=== PATIENT | female | born 2000 | race Caucasian/White ===

== ENCOUNTER 2024-07-12 07:50 | Outpatient (OUT) | payer BC, SELFPAY ==
--- NOTE | 2024-07-12 07:53 | US_ITS ---
[place] [address] Patient Name: EFREN CORTES MRN: [id number] date: 2000 Sex: F Assigned Patient Location: [place] Current Patient Location: US Accession/Order Number: [id number] Exam Date: 07/12/2024 08:00 Report Date: 07/12/2024 08:46 At the request of: HAILEE ALLAN Procedure: US OB limited EXAMINATION: US OB limited HISTORY: Subshorionic hemorrhage of placenta 1st trimester,O20.8 COMPARISON: No relevant comparison available. FINDINGS: Transabdominal images Placenta: Anterior [place] intrauterine gestation CRL: 4.45 cm, 11 weeks 2 days Heart rate: 169 beats minute Clinical age: 11 weeks 3 days Clinical ELVA: 01/28/2025 Ultrasound age: 11 weeks 2 days Ultrasound ELVA: 01/29/2025 US/US OB limited IMPRESSION: No subchorionic hematoma Viable intrauterine gestation measuring 11 weeks 2 days Electronically authenticated by: GERRY GREEN Date: 07/12/2024 08:46
== END 2024-07-12 07:51 | disposition home or self-care (01) ==
PROVIDERS: PCP Internal Medicine; Visit Provider Midwife
DX: O20.8 Other hemorrhage in early pregnancy (principal); Z3A.11 11 weeks gestation of pregnancy
CPT/HCPCS: 76815

== ENCOUNTER 2024-11-09 07:31 | Outpatient (RCR) | payer OTHER, SELFPAY ==
[2024-11-09 09:55] VITALS: BP 120/86; PULSE 84; TEMP 36.4; O2SAT 97
[2024-11-09] MEDS: RHO(D) IMMUNE GLOBULIN 1,500 UNIT SYRINGE 1500 UNIT IM (10:03)
--- NOTE | 2024-11-09 10:08 | PC.NURSE ---
1003: Denies questions regarding Rhogam. Medicated with Rhogam as ordered. Slight bleeding to injection site, covered with Bandaid. Tolerated with minimal c/o. Will monitor pt. for adverse reaction. Drinking water, denies needs.
== END 2024-12-07 23:59 | disposition home or self-care (01) ==
LOC: INF 07:31
PROVIDERS: Visit Provider Midwife
DX: O26.893 Other specified pregnancy related conditions, third trimester (principal); Z67.91 Unspecified blood type, Rh negative
CPT/HCPCS: 36415; 86850; 86900; 86901; 96372; J2791

== ENCOUNTER 2025-01-22 20:45 | Observation (INO) | payer OTHER, SELFPAY ==
--- OUTSIDE RECORDS SUMMARY | 2025-01-22 17:53 | XMS_ITS | CCD ---
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 ([id number]) [address] [facility] [place] [address] #### 30732-7, 3051-0, HA1C, CBCA, 48487-5, CMP, 45844-0, 99730-5, THYR #### [facility] ([id number]) [address], [address] [place] [address] Eosinophils/100 WBC (Bld) 0.9 % Normal [facility] Comment on above: Performed By: #### 3 0896-5, 91727-3 #### [facility] ([id number]) [address] [place] [address] #### 40495-5, 3051-0, HA1C, CBCA, 57356-0, CMP, 51830-6, 96749-3, THYR #### [facility] ([id number]) [address], [address] [place] [address] Erythrocyte distribution width (RBC) [Ratio] 14.7 % Normal 11.5-15.0 [facility] Comment on above: Performed By: #### 3 0896-5, 33743-0 #### [facility] ([id number]) [address] [place] [address] #### 52803-1, 3051-0, HA1C, CBCA, 82221-6, CMP, 24057-3, 97753-7, THYR #### [facility] ([id number]) [address], [address] [place] [address] Hematocrit (Bld) [Volume fraction] 36.8 % Normal 35-47 [facility] Comment on above: Performed By: #### 3 0896-5, 57105-2 #### [facility] ([id number]) [address] [place] [address] #### 54972-1, 3051-0, HA1C, CBCA, 66700-3, CMP, 37682-6, 44414-7, THYR #### [facility] ([id number]) [address], [address] [place] [address] Hemoglobin (Bld) [Mass/Vol] 12.8 g/dL Normal 11.7-15.5 [facility] Comment on above: Performed By: #### 3 0896-5, 93994-4 #### [facility] ([id number]) [facility] [place] [address] #### 25860-3, 3051-0, HA1C, CBCA, 32480-9, CMP, 03787-4, 27344-5, THYR #### [facility] ([id number]) [address] [facility] [address] [facility] [place] [address] Lymphocytes (Bld) [#/Vol] 0.5 10*3/uL Low 1.0-3.5 [facility] Comment on above: Performed By: #### 3 0896-5, 19997-4 #### [facility] ([id number]) [facility] [place] [address] #### 25200-8, 3051-0, HA1C, CBCA, 22457-8, CMP, 52848-9, 65759-7, THYR #### [facility] ([id number]) [address] [facility] [address] [place] [address] Lymphocytes/100 WBC (Bld) 5.3 % Normal [facility] Comment on above: Performed By: #### 3 0896-5, 80859-2 #### [facility] ([id number]) [facility] [place] [address] #### 90862-9, 3051-0, HA1C, CBCA, 63669-5, CMP, 69557-1, 89854-0, THYR #### [facility] ([id number]) [address], [address] [place] [address] MCH (RBC) [Entitic mass] 35.0 pg High 27-34 [facility] Comment on above: Performed By: #### 3 0896-5, 60986-7 #### [facility] ([id number]) [address] [place] [address] #### 03626-1, 3051-0, HA1C, CBCA, 67548-1, CMP, 68939-0, 30769-0, THYR #### [facility] ([id number]) [address], [address] [place] [address] MCHC (RBC) [Mass/Vol] 34.8 g/dL Normal 32-36 [facility] Comment on above: Performed By: #### 3 0896-5, 97291-1 #### [facility] ([id number]) [address] [place] [address] #### 53756-7, 3051-0, HA1C, CBCA, 21641-1, CMP, 41979-0, 01094-8, THYR #### [facility] ([id number]) [address], [address] [place] [address] MCV (RBC) [Entitic vol] 101 fL High 80-100 P [facility] Comment on above: Performed By: #### 3 0896-5, 12870-6 #### [facility] ([id number]) [address] [place] [address] #### 90576-2, 3051-0, HA1C, CBCA, 78273-5, CMP, 12663-9, 26819-9, THYR #### [facility] ([id number]) [address], [address] [place] [address] Monocytes (Bld) [#/Vol] 0.5 10*3/uL Normal 0-0.9 [facility] Comment on above: Performed By: #### 3 0896-5, 25402-4 #### [facility] ([id number]) [address] [place] [address] #### 67037-1, 3051-0, HA1C, CBCA, 71790-2, CMP, 88385-6, 73732-9, THYR #### [facility] ([id number]) [address], [address] [place] [address] Monocytes/100 WBC (Bld) 5.2 % Normal [facility] Comment on above: Performed By: #### 3 0896-5, 37287-0 #### [facility] ([id number]) [address] [place] [address] #### 41580-3, 3051-0, HA1C, CBCA, 68152-0, CMP, 87824-5, 80467-6, THYR #### [facility] ([id number]) [address], [address] [place] [address] Neutrophils/100 WBC (Bld) 88.5 % Normal [facility] Comment on above: Performed By: #### 3 0896-5, 37496-0 #### [facility] ([id number]) [address] [place] [address] #### 43194-5, 3051-0, HA1C, CBCA, 07098-8, CMP, 42293-0, 20503-1, THYR #### [facility] ([id number]) [address], [address] [place] [address] Platelet mean volume (Bld) [Entitic vol] 8.7 fL Normal 7-12 [facility] Comment on above: Performed By: #### 3 0896-5, 73310-0 #### [facility] ([id number]) [address] [place] [address] #### 99770-1, 3051-0, HA1C, CBCA, 84116-5, CMP, 57917-7, 76839-2, THYR #### [facility] ([id number]) [address], [address] [place] [address] Platelets (Bld) [#/Vol] 224 10*3/uL Normal 150-450 [facility] Comment on above: Performed By: #### 3 0896-5, 40940-8 #### [facility] ([id number]) [address] [place] [address] [place] [address] #### 51316-7, 3051-0, HA1C, CBCA, 12037-9, CMP, 37804-5, 10895-5, THYR #### [facility] ([id number]) [address], [address] [place] [address] RBC COUNT 3.66 X10E12/L Low 3.80-5.20 [facility] Comment on above: Performed By: #### 3 0896-5, 12693-3 #### [facility] ([id number]) [address] [place] [address] [place] [address] #### 08664-7, 3051-0, HA1C, CBCA, 78445-8, CMP, 43796-9, 67796-3, THYR #### [facility] ([id number]) [address], [address] [place] [address] WBC (Bld) [#/Vol] 9.7 10*3/uL Normal 4.0-11.0 [facility] Comment on above: Performed By: #### 3 0896-5, 43820-8 #### [facility] ([id number]) [address] [place] [address] [place] [address] #### 47999-0, 3051-0, HA1C, CBCA, 84419-4, CMP, 00735-1, 44986-7, THYR #### [facility] ([id number]) [address], [address] [place] [address] COMPREHENSIVE METABOLIC PANE Godfrey 10-05-2024 Albumin [Mass/Vol] 3.5 g/dL Normal 3.2-5.3 [facility] Comment on above: Performed By: #### 3 0896-5, 68701-3 #### [facility] ([id number]) [address] [place] [address] #### 30683-8, 3051-0, HA1C, CBCA, 34832-1, CMP, 80028-8, 13417-4, THYR #### [facility] ([id number]) [address] [facility], [address] [place] [address] ALP [Catalytic activity/Vol] 90 U/L Normal 39-130 [facility] Comment on above: Performed By: #### 3 0896-5, 43225-4 #### [facility] ([id number]) [address] [place] [address] #### 40767-7, 3051-0, HA1C, CBCA, 55078-9, CMP, 30758-9, 73041-1, THYR #### [facility] ([id number]) [address] [facility], [address] [place] [address] ALT [Catalytic activity/Vol] 28 U/L Normal 0-31 [facility] Comment on above: Performed By: #### 3 0896-5, 56237-5 #### [facility] ([id number]) [address] [place] [address] #### 12423-3, 3051-0, HA1C, CBCA, 24912-8, CMP, 25560-3, 30730-7, THYR #### [facility] ([id number]) [address] [facility] [facility] [place] [address] Anion gap [Moles/Vol] 9 mmol/L Normal 5-15 [facility] Comment on above: Performed By: #### 3 0896-5, 35730-8 #### [facility] ([id number]) [address] [place] [address] #### 15198-8, 3051-0, HA1C, CBCA, 18099-5, CMP, 58388-7, 80421-2, THYR #### [facility] ([id number]) [address], [address] [place] [address] AST [Catalytic activity/Vol] 27 U/L Normal 0-41 [facility] Comment on above: Performed By: #### 3 0896-5, 84150-0 #### [facility] ([id number]) [address] [place] [address] #### 81803-6, 3051-0, HA1C, CBCA, 72808-1, CMP, 36855-3, 17134-1, THYR #### [facility] ([id number]) [address], [address] [place] [address] Bilirubin [Mass/Vol] 0.2 mg/dL Low 0.3-1.2 [facility] Comment on above: Performed By: #### 3 0896-5, 15981-5 #### [facility] ([id number]) [address] [place] [address] #### 74011-3, 3051-0, HA1C, CBCA, 94011-4, CMP, 15444-1, 65675-0, THYR #### [facility] ([id number]) [address] [place] [address] Calcium [Mass/Vol] 9.5 mg/dL Normal 8.5-10.5 [facility] Comment on above: Performed By: #### 3 0896-5, 10023-9 #### [facility] ([id number]) [address] [place] [address] #### 26357-3, 3051-0, HA1C, CBCA, 51062-2, CMP, 65017-7, 77708-7, THYR #### [facility] ([id number]) [address] [place] [address] Chloride [Moles/Vol] 100 mmol/L Normal 98-109 [facility] Comment on above: Performed By: #### 3 0896-5, 02261-8 #### [facility] ([id number]) [address] [place] [address] #### 96107-4, 3051-0, HA1C, CBCA, 16379-3, CMP, 32470-5, 12455-6, THYR #### [facility] ([id number]) [address] [place] [address] CO2 [Moles/Vol] 23 mmol/L Normal 22-32 [facility] Comment on above: Performed By: #### 3 0896-5, 43112-0 #### [facility] ([id number]) [address] [place] [address] #### 68629-3, 3051-0, HA1C, CBCA, 80318-9, CMP, 33474-8, 85196-1, THYR #### [facility] ([id number]) [address] [place] [address] Creatinine [Mass/Vol] 0.68 mg/dL Normal 0.40-1.00 [facility] Comment on above: Result Comment: METH OD TRACEABLE TO IDMS STANDARD Performed By: #### 3 0896-5, 29195-9 #### [facility] ([id number]) [address] [place] [address] #### 37447-4, 3051-0, HA1C, CBCA, 72932-1, CMP, 23582-8, 99266-5, THYR #### [facility] ([id number]) [address], [address] [place] [address] eGFR (CKD-EPI) NON-RACE DEPENDENT >90 Normal >59 [facility] Comment on above: Result Comment: Reported eGFR is based on the CKD-EPI 2020 equation that does not use a race coefficient. Performed By: #### 3 0896-5, 05753-8 #### [facility] ([id number]) [address] [place] [address] #### 33601-7, 3051-0, HA1C, CBCA, 38041-2, CMP, 24200-6, 26311-1, THYR #### [facility] ([id number]) [address] [facility] [place] [address] Glucose [Mass/Vol] 87 mg/dL Normal 65-99 [facility] Comment on above: Performed By: #### 3 0896-5, 14870-3 #### [facility] ([id number]) [address] [place] [address] #### 09682-1, 3051-0, HA1C, CBCA, 14745-5, CMP, 53891-4, 97027-6, THYR #### [facility] ([id number]) [address] [facility] [place] [address] Potassium [Moles/Vol] 3.3 mmol/L Low 3.5-5.0 [facility] Comment on above: Performed By: #### 3 0896-5, 73564-8 #### [facility] ([id number]) [address] [place] [address] #### 80015-8, 3051-0, HA1C, CBCA, 11572-0, CMP, 47022-9, 36420-1, THYR #### [facility] ([id number]) [address] [facility] [place] [address] Protein [Mass/Vol] 7.6 g/dL Normal 6.0-8.0 [facility] Comment on above: Performed By: #### 3 0896-5, 14449-5 #### [facility] ([id number]) [address] [place] [address] #### 33862-0, 3051-0, HA1C, CBCA, 71787-0, CMP, 65732-0, 05570-4, THYR #### [facility] ([id number]) [address] [facility] [place] [address] Sodium [Moles/Vol] 132 mmol/L Low 134-146 [facility] Comment on above: Performed By: #### 3 0896-5, 05000-7 #### [facility] ([id number]) [address] [facility] [address] #### 60619-5, 3051-0, HA1C, CBCA, 03102-3, CMP, 58315-5, 65689-2, THYR #### [facility] ([id number]) [address] [facility], [address] [place] [address] Urea nitrogen [Mass/Vol] 6 mg/dL Normal 5-23 [facility] Comment on above: Performed By: #### 3 0896-5, 42460-3 #### [facility] ([id number]) [address] [facility] [place] [address] #### 38525-7, 3051-0, HA1C, CBCA, 13267-8, CMP, 54976-0, 32610-6, THYR #### [facility] ([id number]) [address] [facility], [address] [place] [address] SARS/FLU A+B/RSV by NAAT/Mol ecularon 10-05-2024 SARS/FLU A+B/RSV by NAAT/Molecular FLU A PCR Negative (qualifier value) FLU B PCR Negative (qualifier value) RSV by PCR Negative (qualifier value) SARS CoV 2 Detected (qualifier value) NOTE The Xpert Xpress SARS-CoV-2/Flu/RSV Plus test is a rapid, multiplexed real-time RT-PCR test intended for the simultaneous qualitative detection and differentiation of SARS-CoV-2, influenza A, influenza B and respiratory syncytial virus (RSV) viral RNA from individuals suspected of respiratory viral infection consistent with COVID-19 by their healthcare provider. This test has not been validated in asymptomatic patients. The Xpert Xpress SARS-CoV-2 test is intended for use by qualified and trained operators who are performing tests using either TaxJar or Gamerius systems and is limited to laboratories that meet the CLIA requirements to perform high and moderate complexity tests. The Xpert Xpress SARS-CoV-2/Flu/RSV Plus is only for use under the Food and Drug Administration's Emergency Use Authorization. Results are for the simultaneous detection and differentiation of SARS-CoV-2, influenza A, influenza B and RSV nucleic acids in clinical specimens. SARS-CoV-2, influenza A, influenza B and RSV RNA identified by this test are generally detectable in upper respiratory samples during the acute phase of infection. Positive results are indicative of the presence of the identified virus, but do not rule out bacterial infection or co-infection with other pathogens not detected by this test. Clinical correlation with patient history and other diagnostic information is necessary to determine patient infection status. The agent detected may not be the definite cause of disease. Negative results do not preclude SARS-CoV-2, influenza A, influenza B and RSV infection and should not be used as the sole basis for treatment or other patient management decisions. Negative results must be combined with clinical observations, patient history and epidemiological information. An Invalid result may occur with specimen-associated inhibition unable to be resolved with specimen repeat. Fact Sheet for Healthcare Providers: https://www.fda.gov /media/600342/downl oad Fact Sheet for Patients: https://www.fda.gov /media/022704/downl oad Normal [facility] Comment on above: Performed By: #### 3 0896-5, 53245-2 #### [facility] ([id number]) [address] [facility] [place] [address] #### 39528-7, 3051-0, HA1C, CBCA, 41998-2, CMP, 35263-3, 32876-6, THYR #### [facility] ([id number]) [address] [facility] [place] [address] Troponin I.cardiac High sens itivity method [Mass/Vol]on 10-05-2024 TROPONIN I, HIGH SENSITIVITY <2 Normal <16 [facility] Comment on above: Performed By: #### 3 0896-5, 82830-7 #### [facility] ([id number]) [address] [place] [address] #### 81117-3, 3051-0, HA1C, CBCA, 55679-4, CMP, 35460-3, 36549-9, THYR #### [facility] ([id number]) [address] [place] [address] URN MACROSCOPIC NURon 2024 BILIRUBIN MERI Negative Normal NEG [facility] Comment on above: Performed By: #### 3 0896-5, 14348-3 #### [facility] ([id number]) [facility] [place] [address] #### 23529-2, 3051-0, HA1C, CBCA, 28931-3, CMP, 25305-4, 36121-5, THYR #### [facility] ([id number]) [address] [facility] [place] [address] BLOOD/HGB MERI Negative Normal NEG [facility] Comment on above: Performed By: #### 3 0896-5, 61898-3 #### [facility] ([id number]) [facility] [place] [address] #### 22085-3, 3051-0, HA1C, CBCA, 51953-9, CMP, 17943-4, 51450-0, THYR #### [facility] ([id number]) [address] [facility] [place] [address] GLUCOSE MERI Negative Normal NEG [facility] Comment on above: Performed By: #### 3 0896-5, 84792-6 #### [facility] ([id number]) [address] [place] [address] #### 15070-7, 3051-0, HA1C, CBCA, 13371-8, CMP, 40890-9, 35915-6, THYR #### [facility] ([id number]) [address] [facility], [address] [place] [address] KETONES MERI Negative Normal NEG [facility] Comment on above: Performed By: #### 3 0896-5, 29193-1 #### [facility] ([id number]) [address] [place] [address] #### 85815-1, 3051-0, HA1C, CBCA, 52804-1, CMP, 11900-8, 16460-2, THYR #### [facility] ([id number]) [address] [facility], [address] [place] [address] LEUKOCYTE ESTERASE MERI Small Abnormal NEG Pr [facility] Comment on above: Performed By: #### 3 0896-5, 49201-6 #### [facility] ([id number]) [address] [place] [address] #### 78593-5, 3051-0, HA1C, CBCA, 81335-4, CMP, 60036-4, 42892-9, THYR #### [facility] ([id number]) [address] [facility], [address] [place] [address] NITRITE MERI Negative Normal NEG [facility] Comment on above: Performed By: #### 3 0896-5, 47286-9 #### [facility] ([id number]) [address] [place] [address] #### 10327-2, 3051-0, HA1C, CBCA, 50980-0, CMP, 56864-0, 27739-1, THYR #### [facility] ([id number]) [address] [facility], [address] [place] [address] PH MERI 8.5 Normal 5.0-8.5 [facility] Comment on above: Performed By: #### 3 0896-5, 01278-7 #### [facility] ([id number]) [facility] [place] [address] #### 02928-7, 3051-0, HA1C, CBCA, 61939-5, CMP, 56627-1, 48172-3, THYR #### [facility] ([id number]) [address], [address] [place] [address] PROTEIN MERI Negative Normal NEG [facility] Comment on above: Performed By: #### 3 0896-5, 08758-7 #### [facility] ([id number]) [address] [place] [address] #### 49909-2, 3051-0, HA1C, CBCA, 85860-7, CMP, 44806-0, 55094-7, THYR #### [facility] ([id number]) [address] [facility], [address] [place] [address] SPECIFIC GRAVITY MERI 1.020 Normal 1.003-1.035 [facility] Comment on above: Performed By: #### 3 0896-5, 00605-4 #### [facility] ([id number]) [address] [place] [address] #### 81496-5, 3051-0, HA1C, CBCA, 60642-6, CMP, 57356-9, 56624-0, THYR #### [facility] ([id number]) [address] [facility], [address] [place] [address] UROBILINOGEN MERI 0.2 eu/dL Normal <1.1 [facility] Comment on above: Performed By: #### 3 0896-5, 46560-9 #### [facility] ([id number]) [address] [place] [address] #### 34260-1, 3051-0, HA1C, CBCA, 68772-8, CMP, 55666-9, 57110-1, THYR #### [facility] ([id number]) [address], [address] [place] [address] Urine collection deviceon ER EXTRA URINES ER EXTRA URINE ORDER IN PROCESS Normal [facility] Comment on above: Performed By: #### 3 0896-5, 88189-4 #### [facility] ([id number]) [address] [facility] [address] #### 10475-0, 3051-0, HA1C, CBCA, 96069-6, CMP, 93786-8, 33676-6, THYR #### [facility] ([id number]) [address] [facility], [facility] [address] [place] [address] HGB A1C (GLYCO-HGB)on 2023 Glucose [Mass/Vol] 103 mg/dL Normal [facility] Comment on above: Performed By: #### H A1C, 3015-3 #### [facility] ([id number]) [address] [facility], [facility] [address] [place] [address] HbA1c (Bld) [Mass fraction] 5.2 % Normal 4.4-5.6 [facility] Comment on above: Result Comment: NOTE ADA Guidelines Result HgbA1c Normal : less than 5.7 % Prediabetes : 5.7 % to 6.4 % Diabetes : > 6.4 % Use with caution in patients with abnormal hemoglobin variants as the half-life of red blood cells and in vivo glycation rates are affected. Performed By: #### H A1C, 3015-3 #### [facility] ([id number]) [address] [facility], [facility] [address] [place] [address] TSH Qnon 07-22-2024 TSH 14.77 uIU/mL High 0.49-4.67 [facility] Comment on above: Result Comment: NEW REFERENCE RANGE FOR PEDIATRIC PATIENTS Performed By: #### H A1C, 6-3 #### [facility] ([id number]) [address] [facility], [address] [place] [address] Bacteria identified Cx Nom ( U)on 06-17-2024 Appearance (U) Adequate [facility] Internal identifier for Provider [id number] [facility] Specimen source Nom (Unsp spec) URINE [facility] STATUS FINAL Critical [facility] hospital Laboratory - Drug toxicology on 06-17-2024 9-Tpggwnvzkl-0,5-Dimethy l-3,3-Diphenylpyrrolidin e (EDDP) Ql (U) Negative NINF - 100 ng/mL [facility] Amphetamines Ql (U) Negative NINF - 5 00 ng/mL [facility] Barbiturates Ql (U) Negative NINF - 3 00 ng/mL [facility] Benzodiazepines Ql (U) Negative NINF - 100 ng/mL [facility] Benzoylecgonine Ql (U) Negative NINF - 150 ng/mL [facility] Opiates Ql (U) Negative NINF - 100 ng/mL [facility] oxyCODONE Ql (U) Negative NINF - 100 ng/mL [facility] Phencyclidine Ql (U) Negative NINF - 25 ng/mL [facility] Tetrahydrocannabinol Screen method >20 ng/mL Ql (U) Negative NINF - 20 ng/mL [facility] Laboratory - Microbiology an d Antimicrobial susceptibilityon 06-17-2024 Bacteria identified Cx Nom (U) SEE NOTE [facility] Comment on above: Mixed genital olimpia isolated. These superficial bacteria are not indicative of a urinary tract infection. No further organism identification is warranted on this specimen. If clinically indicated, recollect clean-catch, mid-stream urine and transfer immediately to Urine Culture Transport Tube. Laboratory - Urinalysison Bacteria LM.HPF (Urine sed) [#/Area] NONE SEEN NONE SEEN /HPF [facility] Calcium oxalate crystals LM.HPF (Urine sed) [#/Area] MANY Abnormal NONE OR FEW /HPF [facility] Epithelial cells.squamous LM.HPF (Urine sed) [#/Area] 10-20 Abnormal < OR = 5 /HPF [facility] Hyaline casts (Urine sed) [#/Area] NONE SEEN NONE SEEN /LPF [facility] RBC LM.HPF (Urine sed) [#/Area] NONE SEEN < OR = 2 /HPF [facility] WBC LM.HPF (Urine sed) [#/Area] 0-5 < OR = 5 /HPF [facility] N. gonorrhoeae DNA ALBINO+probe Ql (Cervical mucus)on 06-17-2024 C. trachomatis rRNA ALBINO+probe Ql (Unsp spec) Not detected NOT DETECTED [facility] N. gonorrhoeae rRNA ALBINO+probe Ql (Unsp spec) Not detected NOT DETECTED [facility] No Panel Informationon 06-17 (ALWAYS MESSAGE) [facility] Comment on above: See Note 1 Note 1 This drug testing is for medical treatment only. Analysis was performed as non-forensic testing and these results should be used only by healthcare providers to render diagnosis or treatment, or to monitor progress of medical conditions. For assistance with interpreting these drug results, please contact a [facility] Toxicology Specialist: [phone] ( ), M-F, 8am-6pm EST. The analytical perfo rmance characteristics of this assay, when used to test SurePath(TM) specimens have been determined by [facility]. The modifications have not been cleared or approved by the FDA. This assay has been validated pursuant to the CLIA regulations and is used for clinical purposes. For additional information, please refer to https://education.GreenTrapOnline/faq/KHQ327 (This link is being provided for information/ educational purposes only.) Interpretation and review of laboratory results Abnormal [facility] SPLIT 06/15/2024 FROM [id number] [employer] Organization Information Site ID: QPT Name: [facility] Address: [address] [place] [address], [address] [place] [phone] Director: Jensen Branham MD [facility] hospital CBC panel Auto (Bld)on 06-16 Erythrocyte distribution width (RBC) [Ratio] 12.2 % 11.0 - 15.0 % [facility] Hematocrit (Bld) [Volume fraction] 39.9 % 35.0 - 45.0 % [facility] Hemoglobin (Bld) [Mass/Vol] 13.2 g/dL 11.7 - 15.5 g/dL [facility] MCH (RBC) [Entitic mass] 33.6 pg High 27. 0 - 33.0 pg [facility] MCHC (RBC) [Mass/Vol] 33.1 g/dL 32.0 - 36.0 g/dL [facility] Comment on above: For adults, a slight decrease in the calculated MCHC value (in the range of 30 to 32 g/dL) is most likely not clinically significant; however, it should be interpreted with caution in correlation with other red cell parameters and the patient's clinical condition. MCV (RBC) [Entitic vol] 101.5 fL High 80.0 - 100.0 fL [facility] Platelet mean volume (Bld) [Entitic vol] 10.7 fL 7.5 - 12.5 fL [facility] Platelets (Bld) [#/Vol] 279 10*3/uL [facility] RBC (Bld) [#/Vol] 3.93 10*6/uL [facility] WBC (Bld) [#/Vol] 9.7 10*3/uL [facility] Laboratory - Blood bankon ABO group Nom (Bld) O [facility] Blood group antibody screen Ql Detected [facility] Comment on above: Reference range No antibodies detected This assay is a screening test for the detection of red blood cell antibodies. The test is not to be used for pretransfusion screening or for the medical management of an alloimmunized . Rh Nom (Bld) Negative [facility] Comment on above: For additional information, please refer to http://education.[employer]/faq/FEW307 (This link is being provided for informational/ educational purposes only.) Laboratory - Chemistry and C hemistry - challengeon 06-16-2024 Free T4 [Mass/Vol] 1 ng/dL 0.8 - 1.8 ng/dL [facility] TSH Qn 11.76 m[IU]/L High mIU/L [facility] Comment on above: Reference Range > or = 20 Years 0.40-4.50 Ranges First trimester 0.26-2.66 Second trimester 0.55-2.73 Third trimester 0.43-2.91 Laboratory - Hematology and Cell countson 06-16-2024 HbA1c (Bld) [Mass fraction] 5.1 % [facility] Comment on above: For the purpose of s creening for the presence of diabetes: <5.7% Consistent with the absence of diabetes 5.7-6.4% Consistent with increased risk for diabetes (prediabetes) > or =6.5% Consistent with diabetes This assay result is consistent with a decreased risk of diabetes. Currently, no consensus exists regarding use of hemoglobin A1c for diagnosis of diabetes in children. According to [place] Diabetes Association (ADA) guidelines, hemoglobin A1c <7.0% represents optimal control in non- diabetic patients. Different metrics may apply to specific patient populations. Standards of Medical Care in Diabetes(ADA). Laboratory - Microbiology armida arciniega Veronica burciaga 06-16-2024 HBV surface Ag IA Ql Non-Reactive NON-REACTIVE [facility] Comment on above: For additional information, please refer to http://[place].GreenTrapOnline/faq/COE404 (This link is being provided for informational/ educational purposes only.) HCV Ab IA Ql Non-Reactive NON-REACTIVE [facility] Comment on above: HCV antibody was non-reactive. There is no laboratory evidence of HCV infection. In most cases, no further action is required. However, if recent HCV exposure is suspected, a test for HCV RNA (test code 23018) is suggested. For additional information please refer to http://Webtogs/faq/LFQ74z9 (This link is being provided for informational/ educational purposes only.) HIV 1+2 Ab+HIV1 p24 Ag IA Ql Non-Reactive NON-REACTIVE [facility] Comment on above: HIV-1 antigen and HI V-1/HIV-2 antibodies were not detected. There is no laboratory evidence of HIV infection. PLEASE NOTE: This information has been disclosed to you from records whose confidentiality may be protected by state law. If your state requires such protection, then the state law prohibits you from making any further disclosure of the information without the specific written consent of the person to whom it pertains, or as otherwise permitted by law. A general authorization for the release of medical or other information is NOT sufficient for this purpose. For additional information please refer to http://[place].GreenTrapOnline/faq/ZBM372 (This link is being provided for informational/ educational purposes only.) The performance of this assay has not been clinically validated in patients less than 2 years old. Reagin Ab RPR Ql (S) Non-Reactive NON-REACTIVE [facility] Rubella virus IgG Qn (S) 1.88 [IU]/mL Index [facility] Comment on above: Index Interpretation ----- <0.90 Not consistent with immunity 0.90-0.99 Equivocal > or = 1.00 Consistent with immunity The presence of rubella IgG antibody suggests immunization or past or current infection with rubella virus. No Panel Informationon 06-16 Interpretation and review of laboratory results Abnormal [facility] PATIENT UNABLE TO VOID; ADVISED TO RETURN FOR COLLECTION. [employer] Organization Information Site ID: QPT Name: [facility] Address: [address] [place] [address], [address] [place] [phone] Director: Jensen Branham MD [facility] hospital Chlamydia/GC by PCR ThinPrep fluidon 06-15-2024 Chlamydia Dna(Pcr) Negative [facility] Gonorrhoeae Dna(Pcr) Negative [facility] Screen, Urineon 024 Barbiturate Screen Urine Negative [facility] Quantitative Urine Negative [facility] [employer] Hemoglobin A1con 06-15-2024 HbA1c (Bld) [Mass fraction] 5.1 % 4.0 - 6.0 % [facility] [employer] No Panel Informationon 06-15 [facility] Type and screenon 06-15-2024 Abo/Rh(D) Negative [facility] US OB < 14 WEEKS EARLYon US OB < 14 WEEKS EARLY TITLE OF EXAM: OB Ultrasound: REASON FOR EXAM: Dating. TECHNIQUE: Grayscale imaging is performed. Measurements: heart rate: 138 bpm Sac: 2.3 cm CRL: 1.2 cm GA for sonogram: 7.4 wk (06.8-08.0) Cervix Length: 3.9 cm ELVA: 01/28/2025 CLINICAL SUMMARY: Early intrauterine is seen with positive cardiac activity. Yolk sac is identified and within normal limits. heart is observed with a heart rate of 138. Uterus and adnexae: Hypoechoic COEUR D'ALENE area measuring 2.8 x 3.1 x 0.4 cm Ovaries not visualized bilaterally due to bowel. Limited study. Full anatomical survey not performed. IMPRESSION: Early IUP age 7.6 weeks form LMP. Small anterior subchorionic hemorrhage. Dictated and transcribed 06/16/24/dpd This report has been electronically signed and approved by the interpreting radiologist. Normal Not Available BASIC FOOD PANELon 08-17-202 4 ALMOND 0.35 kU/L High <0.10 [facility] Comment on above: Result Comment: Clas s 1:Low level of Allergy, indicative of ongoing sensitization Performed By: #### 3 0896-5, 82041-9 #### [facility] ([id number]) [address] [facility] [address] #### 50464-2, 3051-0, HA1C, CBCA, 04129-0, CMP, 93021-6, 03660-4, THYR #### [facility] ([id number]) [address] [facility], [address] [place] [address] BRAZIL NUT <0.10 Normal <0.10 [facility] Comment on above: Result Comment: Clas s 0: Normal Performed By: #### 3 0896-5, 77598-0 #### [facility] ([id number]) [address] [facility] [address] #### 29261-1, 3051-0, HA1C, CBCA, 96368-3, CMP, 85084-6, 69012-1, THYR #### [facility] ([id number]) [address] [facility], [address] [place] [address] CASHEW NUT 0.14 kU/L High <0.10 [facility] Comment on above: Result Comment: Clas s 0/1: Low level of Allergy, ongoing sensitization Performed By: #### 3 0896-5, 14792-6 #### [facility] ([id number]) [address] [facility] [address] #### 52941-2, 3051-0, HA1C, CBCA, 17461-6, CMP, 90718-9, 53220-7, THYR #### [facility] ([id number]) [address] [facility], [address] [place] [address] EGG WHITE <0.10 Normal <0.10 [facility] Comment on above: Result Comment: Clas s 0: Normal Performed By: #### 3 0896-5, 42758-9 #### [facility] ([id number]) [address] [facility] [address] #### 87526-2, 3051-0, HA1C, CBCA, 96864-5, CMP, 33293-5, 06708-2, THYR #### [facility] ([id number]) [address] [address], [address] [place] [address] FISH COD <0.10 Normal <0.10 [facility] Comment on above: Result Comment: Clas s 0: Normal Performed By: #### 3 0896-5, 99673-3 #### [facility] ([id number]) [address] [place] [address] [place] [address] #### 93904-0, 3051-0, HA1C, CBCA, 53925-4, CMP, 25404-6, 52134-0, THYR #### [facility] ([id number]) [address] [facility], [address] [place] [address] HAZELNUT 0.25 kU/L High <0.10 [facility] Comment on above: Result Comment: Clas s 0/1: Low level of Allergy, ongoing sensitization Performed By: #### 3 0896-5, 90881-2 #### [facility] ([id number]) [address] [place] [address] [place] [address] #### 00694-7, 3051-0, HA1C, CBCA, 22833-8, CMP, 71710-7, 57432-0, THYR #### [facility] ([id number]) [address] [facility], [address] [place] [address] IGE 55 IU/mL Normal 0-165 [facility] Comment on above: Performed By: #### 3 0896-5, 75116-4 #### [facility] ([id number]) [address] [place] [address] #### 50074-0, 3051-0, HA1C, CBCA, 84171-0, CMP, 78871-3, 27964-2, THYR #### [facility] ([id number]) [address] [address], [address] [place] [address] MILK <0.10 Normal <0.10 [facility] Comment on above: Result Comment: Clas s 0: Normal Performed By: #### 3 0896-5, 38989-4 #### [facility] ([id number]) [address] [facility] [address] #### 47635-4, 3051-0, HA1C, CBCA, 56258-3, CMP, 25259-2, 23551-6, THYR #### [facility] ([id number]) [address] [address], [address] [place] [address] PEANUT 0.30 kU/L High <0.10 [facility] Comment on above: Result Comment: Clas s 0/1: Low level of Allergy, ongoing sensitization Performed By: #### 3 0896-5, 58411-5 #### [facility] ([id number]) [address] [facility] [address] #### 10343-1, 3051-0, HA1C, CBCA, 50416-2, CMP, 68621-7, 87006-5, THYR #### [facility] ([id number]) [address] [address], [address] [place] [address] PECAN NUT 0.14 kU/L High <0.10 [facility] Comment on above: Result Comment: Clas s 0/1: Low level of Allergy, ongoing sensitization Performed By: #### 3 0896-5, 03830-4 #### [facility] ([id number]) [address] [place] [address] [place] [address] #### 14293-3, 3051-0, HA1C, CBCA, 46475-3, CMP, 67378-9, 75220-6, THYR #### [facility] ([id number]) [address] [place] [address] SCALLOP 0.17 kU/L High <0.10 [facility] Comment on above: Result Comment: Clas s 0/1: Low level of Allergy, ongoing sensitization Performed By: #### 3 0896-5, 55588-1 #### [facility] ([id number]) [address] [place] [address] [place] [address] #### 68680-0, 3051-0, HA1C, CBCA, 86527-7, CMP, 56789-8, 35788-2, THYR #### [facility] ([id number]) [address] [facility], [address] [place] [address] SHRIMP <0.10 Normal <0.10 [facility] Comment on above: Result Comment: Clas s 0: Normal Performed By: #### 3 0896-5, 75558-7 #### [facility] ([id number]) [address] [place] [address] [place] [address] #### 21216-3, 3051-0, HA1C, CBCA, 00465-4, CMP, 58561-9, 91696-3, THYR #### [facility] ([id number]) [address] [facility], [address] [place] [address] SOYBEAN 0.27 kU/L High <0.10 [facility] Comment on above: Result Comment: Clas s 0/1: Low level of Allergy, ongoing sensitization Performed By: #### 3 0896-5, 02250-6 #### [facility] ([id number]) [address] [place] [address] [place] [address] #### 59462-3, 3051-0, HA1C, CBCA, 40033-8, CMP, 04306-4, 41125-6, THYR #### [facility] ([id number]) [address] [facility], [address] [place] [address] TUNA <0.10 Normal <0.10 [facility] Comment on above: Result Comment: Clas s 0: Normal Performed By: #### 3 0896-5, 62386-8 #### [facility] ([id number]) [address] [facility] [address] #### 18706-9, 3051-0, HA1C, CBCA, 30962-4, CMP, 71318-1, 18292-2, THYR #### [facility] ([id number]) [address] [facility], [address] [place] [address] WALNUT FOOD 0.27 kU/L High <0.10 [facility] Comment on above: Result Comment: Clas s 0/1: Low level of Allergy, ongoing sensitization Performed By: #### 3 0896-5, 04010-4 #### [facility] ([id number]) [address] [place] [address] [place] [address] #### 08308-8, 3051-0, HA1C, CBCA, 64539-0, CMP, 79471-8, 84944-9, THYR #### [facility] ([id number]) [address] [facility], [address] [place] [address] WHEAT 0.28 kU/L High <0.10 [facility] Comment on above: Result Comment: Clas s 0/1: Low level of Allergy, ongoing sensitization Performed By: #### 3 0896-5, 76640-0 #### [facility] ([id number]) [address] [place] [address] [place] [address] #### 94194-8, 3051-0, HA1C, CBCA, 84428-7, CMP, 53501-7, 40669-2, THYR #### [facility] ([id number]) [address] [facility], [address] [place] [address] CBC AND AUTO DIFFon 0817-20 24 ABSOLUTE BASOPHIL 0.0 X10E9/L Normal 0.0-0.2 [facility] Comment on above: Performed By: #### 3 0896-5, 29413-1 #### [facility] ([id number]) [address] [place] [address] [place] [address] #### 16279-4, 3051-0, HA1C, CBCA, 41315-0, CMP, 87326-3, 39242-8, THYR #### [facility] ([id number]) [address], [address] [place] [address] ABSOLUTE NEUTROPHIL 3.1 X10E9/L Normal 1.5-6.6 [facility] Comment on above: Performed By: #### 3 0896-5, 93367-8 #### [facility] ([id number]) [address] [place] [address] #### 99136-1, 3051-0, HA1C, CBCA, 02947-3, CMP, 50870-1, 26177-2, THYR #### [facility] ([id number]) [address], [address] [place] [address] Basophils/100 WBC (Bld) 0.7 % Normal P [facility] Comment on above: Performed By: #### 3 0896-5, 80819-8 #### [facility] ([id number]) [address] [place] [address] #### 15716-3, 3051-0, HA1C, CBCA, 98834-5, CMP, 27638-0, 14012-2, THYR #### [facility] ([id number]) [address], [address] [place] [address] Eosinophils (Bld) [#/Vol] 0.3 10*3/uL Normal 0.0-0.4 [facility] Comment on above: Performed By: #### 3 0896-5, 75184-6 #### [facility] ([id number]) [address] [place] [address] #### 63491-6, 3051-0, HA1C, CBCA, 68372-5, CMP, 11612-0, 12538-3, THYR #### [facility] ([id number]) [address], [address] [place] [address] Eosinophils/100 WBC (Bld) 5.4 % Normal [facility] Comment on above: Performed By: #### 3 0896-5, 07508-0 #### [facility] ([id number]) [facility] [place] [address] #### 55275-2, 3051-0, HA1C, CBCA, 79790-2, CMP, 96600-1, 90570-7, THYR #### [facility] ([id number]) [address], [facility] [address] [place] [address] Erythrocyte distribution width (RBC) [Ratio] 13.3 % Normal 11.5-15.0 [facility] Comment on above: Performed By: #### 3 0896-5, 21048-4 #### [facility] ([id number]) [facility] [place] [address] #### 37540-3, 3051-0, HA1C, CBCA, 53101-7, CMP, 21501-5, 25117-3, THYR #### [facility] ([id number]) [address] [address] [place] [address] Hematocrit (Bld) [Volume fraction] 39.2 % Normal 35-47 [facility] Comment on above: Performed By: #### 3 0896-5, 94979-3 #### [facility] ([id number]) [facility] [place] [address] #### 68395-4, 3051-0, HA1C, CBCA, 07001-0, CMP, 31121-9, 91734-1, THYR #### [facility] ([id number]) [address] [address] [place] [address] Hemoglobin (Bld) [Mass/Vol] 13.4 g/dL Normal 11.7-15.5 [facility] Comment on above: Performed By: #### 3 0896-5, 60516-9 #### [facility] ([id number]) [address] [place] [address] [place] [address] #### 14896-8, 3051-0, HA1C, CBCA, 13222-2, CMP, 32339-7, 06633-6, THYR #### [facility] ([id number]) [address], [address] [place] [address] Lymphocytes (Bld) [#/Vol] 2.5 10*3/uL Normal 1.0-3.5 [facility] Comment on above: Performed By: #### 3 0896-5, 56272-0 #### [facility] ([id number]) [address] [place] [address] #### 65072-8, 3051-0, HA1C, CBCA, 16701-3, CMP, 58917-1, 79388-7, THYR #### [facility] ([id number]) [address] [facility], [address] [place] [address] Lymphocytes/100 WBC (Bld) 39.3 % Normal [facility] Comment on above: Performed By: #### 3 0896-5, 43601-9 #### [facility] ([id number]) [facility] [place] [address] #### 04502-2, 3051-0, HA1C, CBCA, 62980-8, CMP, 13027-2, 76254-7, THYR #### [facility] ([id number]) [address], [address] [place] [address] MCH (RBC) [Entitic mass] 34.1 pg High 27-34 [facility] Comment on above: Performed By: #### 3 0896-5, 24693-9 #### [facility] ([id number]) [facility] [place] [address] #### 35109-6, 3051-0, HA1C, CBCA, 72941-4, CMP, 10505-7, 31908-9, THYR #### [facility] ([id number]) [address], [address] [place] [address] MCHC (RBC) [Mass/Vol] 34.1 g/dL Normal 32-36 [facility] Comment on above: Performed By: #### 3 0896-5, 74125-6 #### [facility] ([id number]) [address] [place] [address] #### 51920-2, 3051-0, HA1C, CBCA, 55670-7, CMP, 72263-1, 41814-9, THYR #### [facility] ([id number]) [address], [address] [place] [address] MCV (RBC) [Entitic vol] 100 fL Normal 80-100 P [facility] Comment on above: Performed By: #### 3 0896-5, 51824-2 #### [facility] ([id number]) [address] [place] [address] #### 75149-0, 3051-0, HA1C, CBCA, 11148-4, CMP, 30650-2, 95258-9, THYR #### [facility] ([id number]) [address], [address] [place] [address] Monocytes (Bld) [#/Vol] 0.5 10*3/uL Normal 0-0.9 [facility] Comment on above: Performed By: #### 3 0896-5, 46244-4 #### [facility] ([id number]) [facility] [place] [address] #### 03531-3, 3051-0, HA1C, CBCA, 07500-0, CMP, 54928-7, 54511-1, THYR #### [facility] ([id number]) [address], [address] [place] [address] Monocytes/100 WBC (Bld) 7.2 % Normal P [facility] Comment on above: Performed By: #### 3 0896-5, 20945-1 #### [facility] ([id number]) [address] [place] [address] #### 17283-5, 3051-0, HA1C, CBCA, 57700-8, CMP, 64434-6, 31908-5, THYR #### [facility] ([id number]) [address] [facility], [address] [place] [address] Neutrophils/100 WBC (Bld) 47.4 % Normal [facility] Comment on above: Performed By: #### 3 0896-5, 91498-4 #### [facility] ([id number]) [address] [place] [address] #### 45111-1, 3051-0, HA1C, CBCA, 82005-9, CMP, 96098-9, 45334-4, THYR #### [facility] ([id number]) [address] [facility], [address] [place] [address] Platelet mean volume (Bld) [Entitic vol] 8.9 fL Normal 7-12 [facility] Comment on above: Performed By: #### 3 0896-5, 42354-4 #### [facility] ([id number]) [facility] [place] [address] #### 63587-1, 3051-0, HA1C, CBCA, 46737-4, CMP, 72773-2, 98344-5, THYR #### [facility] ([id number]) [address] [facility], [address] [place] [address] Platelets (Bld) [#/Vol] 248 10*3/uL Normal 150-450 [facility] Comment on above: Performed By: #### 3 0896-5, 69340-5 #### [facility] ([id number]) [address] [place] [address] #### 38115-1, 3051-0, HA1C, CBCA, 08762-6, CMP, 68415-5, 44245-0, THYR #### [facility] ([id number]) [address], [address] [place] [address] RBC COUNT 3.92 X10E12/L Normal 3.80-5.20 [facility] Comment on above: Performed By: #### 3 0896-5, 10452-1 #### [facility] ([id number]) [address] [place] [address] #### 48388-4, 3051-0, HA1C, CBCA, 90939-2, CMP, 47089-9, 38154-6, THYR #### [facility] ([id number]) [address], [address] [place] [address] WBC (Bld) [#/Vol] 6.4 10*3/uL Normal 4.0-11.0 [facility] Comment on above: Performed By: #### 3 0896-5, 28803-4 #### [facility] ([id number]) [address] [place] [address] #### 05426-2, 3051-0, HA1C, CBCA, 14300-9, CMP, 08496-4, 31451-3, THYR #### [facility] ([id number]) [address], [address] [place] [address] COMPREHENSIVE METABOLIC PANE Godfrey 03-26-2024 Albumin [Mass/Vol] 4.5 g/dL Normal 3.2-5.3 [facility] Comment on above: Performed By: #### 3 0896-5, 82454-2 #### [facility] ([id number]) [address] [place] [address] #### 29959-0, 3051-0, HA1C, CBCA, 07964-0, CMP, 43297-2, 82946-8, THYR #### [facility] ([id number]) [address], [address] [place] [address] ALP [Catalytic activity/Vol] 71 U/L Normal 39-130 [facility] Comment on above: Performed By: #### 3 0896-5, 55592-2 #### [facility] ([id number]) [facility] [place] [address] #### 06105-6, 3051-0, HA1C, CBCA, 85002-0, CMP, 29655-1, 33591-2, THYR #### [facility] ([id number]) [address], [address] [place] [address] ALT [Catalytic activity/Vol] 16 U/L Normal 0-31 [facility] Comment on above: Performed By: #### 3 0896-5, 45514-6 #### [facility] ([id number]) [facility] [place] [address] #### 55573-6, 3051-0, HA1C, CBCA, 39152-2, CMP, 87261-2, 16679-3, THYR #### [facility] ([id number]) [address], [address] [place] [address] Anion gap [Moles/Vol] 9 mmol/L Normal 5-15 [facility] Comment on above: Performed By: #### 3 0896-5, 84884-4 #### [facility] ([id number]) [facility] [place] [address] #### 05856-3, 3051-0, HA1C, CBCA, 94968-2, CMP, 79343-3, 63949-9, THYR #### [facility] ([id number]) [address], [address] [place] [address] AST [Catalytic activity/Vol] 16 U/L Normal 0-41 [facility] Comment on above: Performed By: #### 3 0896-5, 05194-2 #### [facility] ([id number]) [facility] [place] [address] #### 73447-6, 3051-0, HA1C, CBCA, 04783-0, CMP, 01424-1, 51575-6, THYR #### [facility] ([id number]) [address], [address] [place] [address] Bilirubin [Mass/Vol] 0.4 mg/dL Normal 0.3-1.2 [facility] Comment on above: Performed By: #### 3 0896-5, 01383-9 #### [facility] ([id number]) [address] [place] [address] #### 62336-9, 3051-0, HA1C, CBCA, 16375-6, CMP, 07506-3, 20306-1, THYR #### [facility] ([id number]) [address], [address] [place] [address] Calcium [Mass/Vol] 9.9 mg/dL Normal 8.5-10.5 [facility] Comment on above: Performed By: #### 3 0896-5, 40223-0 #### [facility] ([id number]) [address] [place] [address] #### 94868-0, 3051-0, HA1C, CBCA, 41357-5, CMP, 69757-3, 31173-4, THYR #### [facility] ([id number]) [address], [address] [place] [address] Chloride [Moles/Vol] 104 mmol/L Normal 98-109 [facility] Comment on above: Performed By: #### 3 0896-5, 17062-8 #### [facility] ([id number]) [address] [place] [address] #### 14470-3, 3051-0, HA1C, CBCA, 48582-9, CMP, 05221-7, 81752-4, THYR #### [facility] ([id number]) [address], [address] [place] [address] CO2 [Moles/Vol] 26 mmol/L Normal 22-32 [facility] Comment on above: Performed By: #### 3 0896-5, 31896-8 #### [facility] ([id number]) [address] [facility] [place] [address] #### 91483-3, 3051-0, HA1C, CBCA, 68551-9, CMP, 31476-1, 11549-4, THYR #### [facility] ([id number]) [address], [address] [place] [address] Creatinine [Mass/Vol] 0.93 mg/dL Normal 0.40-1.00 [facility] Comment on above: Result Comment: METH OD TRACEABLE TO IDMS STANDARD Performed By: #### 3 0896-5, 68171-0 #### [facility] ([id number]) [address] [facility] [address] #### 99470-0, 3051-0, HA1C, CBCA, 00626-4, CMP, 45402-2, 86656-8, THYR #### [facility] ([id number]) [address], [address] [place] [address] GFR/1.73 sq M.predicted among non-blacks MDRD (S/P/Bld) [Vol rate/Area] 89 mL/min/{1.73_m2} Normal >59 [facility] Comment on above: Result Comment: Reported eGFR is based on the CKD-EPI 2020 equation that does not use a race coefficient. Performed By: #### 3 0896-5, 54722-0 #### [facility] ([id number]) [address] [facility] [address] #### 20824-2, 3051-0, HA1C, CBCA, 81634-4, CMP, 00641-1, 30980-5, THYR #### [facility] ([id number]) [address], [address] [place] [address] Glucose [Mass/Vol] 81 mg/dL Normal 65-99 [facility] Comment on above: Performed By: #### 3 0896-5, 37199-1 #### [facility] ([id number]) [address] [place] [address] #### 76236-0, 3051-0, HA1C, CBCA, 46540-8, CMP, 41040-4, 81847-3, THYR #### [facility] ([id number]) [address] [facility], [address] [place] [address] Potassium [Moles/Vol] 3.8 mmol/L Normal 3.5-5.0 [facility] Comment on above: Performed By: #### 3 0896-5, 74058-4 #### [facility] ([id number]) [address] [place] [address] #### 83056-8, 3051-0, HA1C, CBCA, 94628-9, CMP, 99020-3, 08645-0, THYR #### [facility] ([id number]) [address] [facility], [address] [place] [address] Protein [Mass/Vol] 8.0 g/dL Normal 6.0-8.0 [facility] Comment on above: Performed By: #### 3 0896-5, 17524-0 #### [facility] ([id number]) [facility] [place] [address] #### 10219-2, 3051-0, HA1C, CBCA, 23403-8, CMP, 00857-1, 66670-5, THYR #### [facility] ([id number]) [address] [facility], [address] [place] [address] Sodium [Moles/Vol] 139 mmol/L Normal 134-146 [facility] Comment on above: Performed By: #### 3 0896-5, 19849-9 #### [facility] ([id number]) [address] [place] [address] #### 53593-9, 3051-0, HA1C, CBCA, 06198-8, CMP, 17416-2, 56949-4, THYR #### [facility] ([id number]) [address], [address] [place] [address] Urea nitrogen [Mass/Vol] 15 mg/dL Normal 5-23 [facility] Comment on above: Performed By: #### 3 0896-5, 98988-5 #### [facility] ([id number]) [address] [place] [address] #### 05018-7, 3051-0, HA1C, CBCA, 46425-1, CMP, 97160-8, 79954-9, THYR #### [facility] ([id number]) [address] [facility], [address] [place] [address] FREE T3on 03-26-2024 Free T3 [Mass/Vol] 3.32 pg/mL Normal 2.50-3.90 [facility] Comment on above: Performed By: #### 3 0896-5, 23576-7 #### [facility] ([id number]) [address] [place] [address] #### 33571-1, 3051-0, HA1C, CBCA, 20284-9, CMP, 31731-3, 62550-6, THYR #### [facility] ([id number]) [address], [address] [place] [address] HCV Ab IA Qlon 03-26-2024 ANTI HCV W/PCR REFLX Non-Reactive Normal NRCT Pr [facility] Comment on above: Result Comment: If recent infection suspected, recommend repeat testing (>2 months). Ysydua-nc-bmeydw ratio is <0.80. Performed By: #### 3 0896-5, 72019-6 #### [facility] ([id number]) [facility] [place] [address] #### 40565-9, 3051-0, HA1C, CBCA, 22835-5, CMP, 05107-4, 12305-0, THYR #### [facility] ([id number]) [address] [facility], [address] [place] [address] HGB A1C (GLYCO-HGB)on 2023 Glucose [Mass/Vol] 97 mg/dL Normal [facility] Comment on above: Performed By: #### 3 0896-5, 49193-2 #### [facility] ([id number]) [address] [facility] [address] #### 89926-6, 3051-0, HA1C, CBCA, 57424-9, CMP, 80228-6, 16304-1, THYR #### [facility] ([id number]) [address] [facility], [address] [place] [address] HbA1c (Bld) [Mass fraction] 5.0 % Normal 4.4-5.6 [facility] Comment on above: Result Comment: NOTE ADA Guidelines Result HgbA1c Normal : less than 5.7 % Prediabetes : 5.7 % to 6.4 % Diabetes : > 6.4 % Use with caution in patients with abnormal hemoglobin variants as the half-life of red blood cells and in vivo glycation rates are affected. Performed By: #### 3 0896-5, 16259-8 #### [facility] ([id number]) [address] [facility] [address] #### 74622-1, 3051-0, HA1C, CBCA, 76962-8, CMP, 09854-3, 67525-5, THYR #### [facility] ([id number]) [address] [facility], [address] [place] [address] HIV 1+2 Ab+HIV1 p24 Ag IA Ql on 03-26-2024 HIV 1 and 2 Ab/Ag Screen Non-Reactive Normal NRCT [facility] Comment on above: Result Comment: This information has been disclosed to you from confidential records protected from disclosure by state law. You shall make no further disclosure of this information without the specific, written and informed release of the individual to whom it pertains, or as otherwise permitted by state law. A general authorization for the release of medical or other information is not sufficient for the purpose of the release of HIV test results or diagnoses. Performed By: #### 3 0896-5, 65278-1 #### [facility] ([id number]) [address] [place] [address] #### 44174-4, 3051-0, HA1C, CBCA, 14784-1, CMP, 44137-5, 58366-7, THYR #### [facility] ([id number]) [address] [place] [address], [address] [place] [address] Insulin Qnon 03-26-2024 INSULIN 14.09 uIU/mL Normal 1.00-23.00 [facility] Comment on above: Result Comment: Ref. range is for FASTING NON-DIABETIC POPULATION. Performed By: #### 3 0896-5, 36772-8 #### [facility] ([id number]) [address] [place] [address] #### 15327-6, 3051-0, HA1C, CBCA, 81095-4, CMP, 48639-3, 95543-2, THYR #### [facility] ([id number]) [address] [place] [address], [address] [place] [address] Lipid 1996 panelon 4 Cholesterol [Mass/Vol] 189 mg/dL Normal 150-200 Pr [facility] Comment on above: Performed By: #### 3 0896-5, 96579-4 #### [facility] ([id number]) [address] [place] [address] #### 75252-4, 3051-0, HA1C, CBCA, 39922-6, CMP, 34160-2, 16419-8, THYR #### [facility] ([id number]) [address] [place] [address], [address] [place] [address] Cholesterol in HDL [Mass/Vol] 85 mg/dL Normal >39 [facility] Comment on above: Result Comment: HDL <40 mg/dL - High Risk HDL > or = 40mg/dL- Desirable HDL >60 mg/dL - Negative Risk Performed By: #### 3 0896-5, 84773-6 #### [facility] ([id number]) [address] [place] [address] #### 20564-9, 3051-0, HA1C, CBCA, 54827-6, CMP, 75002-7, 97198-7, THYR #### [facility] ([id number]) [address] [facility], [address] [place] [address] Cholesterol in LDL [Mass/Vol] 91 mg/dL Normal <130 [facility] Comment on above: Result Comment: LDL <100 mg/dL - Desirable LDL >160 mg/dL - High Risk Performed By: #### 3 0896-5, 49872-2 #### [facility] ([id number]) [address] [place] [address] #### 86806-8, 3051-0, HA1C, CBCA, 41458-9, CMP, 96403-4, 75173-9, THYR #### [facility] ([id number]) [address] [facility], [address] [place] [address] Cholesterol in VLDL [Mass/Vol] 13 mg/dL Normal 0-30 [facility] Comment on above: Performed By: #### 3 0896-5, 17713-4 #### [facility] ([id number]) [address] [place] [address] #### 18500-0, 3051-0, HA1C, CBCA, 69589-5, CMP, 69867-7, 64496-9, THYR #### [facility] ([id number]) [address] [facility], [address] [place] [address] CHOLESTEROL:HDL 2.2 Normal 1.0-5.0 [facility] Comment on above: Performed By: #### 3 0896-5, 78243-2 #### [facility] ([id number]) [address] [place] [address] [place] [address] #### 07893-6, 3051-0, HA1C, CBCA, 01501-3, CMP, 74231-4, 93765-1, THYR #### [facility] ([id number]) [address] [facility], [address] [place] [address] Triglyceride [Mass/Vol] 63 mg/dL Normal 27-150 P [facility] Comment on above: Performed By: #### 3 0896-5, 66387-7 #### [facility] ([id number]) [address] [place] [address] [place] [address] #### 78671-1, 3051-0, HA1C, CBCA, 31796-7, CMP, 84264-4, 08277-3, THYR #### [facility] ([id number]) [address] [facility], [address] [place] [address] Nuclear Ab IA Ql (S)on 03-26 MARISSA Screen w/reflex Negative Normal NEG [facility] Comment on above: Result Comment: Testing performed using multiplex flow immunoassay. Eleven different antigens associated with systemic autoimmune diseases (dsDNA,Sm,Sm/PERMACULTURE CONTRACTOR,PERMACULTURE CONTRACTOR,Chromatin, SSA,SSB,Aliya-1,Scl70,Ribo P,Centromere B) are included in this screening test. Performed By: #### 3 0896-5, 68931-3 #### [facility] ([id number]) [facility] [place] [address] #### 45140-6, 3051-0, HA1C, CBCA, 98899-9, CMP, 43394-1, 46556-7, THYR #### [facility] ([id number]) [address], [address] [place] [address] RESPIRATORY PANELon 03-26-20 24 ALTERNARIA ALTERNATA <0.10 Normal <0.10 [facility] Comment on above: Result Comment: Clas s 0: Normal Performed By: #### 3 0896-5, 02403-2 #### [facility] ([id number]) [address] [facility] [address] #### 24757-8, 3051-0, HA1C, CBCA, 38660-6, CMP, 62246-9, 97995-1, THYR #### [facility] ([id number]) [address] [facility], [address] [place] [address] ASPERGILLUS FUMIGATUS <0.10 Normal <0.10 [facility] Comment on above: Result Comment: Clas s 0: Normal Performed By: #### 3 0896-5, 10428-8 #### [facility] ([id number]) [address] [place] [address] [place] [address] #### 28195-5, 3051-0, HA1C, CBCA, 98358-0, CMP, 26202-6, 20355-0, THYR #### [facility] ([id number]) [address] [facility], [address] [place] [address] BERMUDA GRASS 0.34 kU/L High <0.10 [facility] Comment on above: Result Comment: Clas s 0/1: Low level of Allergy, ongoing sensitization Performed By: #### 3 0896-5, 73763-5 #### [facility] ([id number]) [address] [place] [address] [place] [address] #### 51657-2, 3051-0, HA1C, CBCA, 37127-3, CMP, 72844-1, 29434-9, THYR #### [facility] ([id number]) [address], [address] [place] [address] BOX ELDER 0.30 kU/L High <0.10 [facility] Comment on above: Result Comment: Clas s 0/1: Low level of Allergy, ongoing sensitization Performed By: #### 3 0896-5, 89726-2 #### [facility] ([id number]) [address] [facility] [place] [address] #### 92050-5, 3051-0, HA1C, CBCA, 75408-8, CMP, 13803-8, 66799-4, THYR #### [facility] ([id number]) [address], [address] [place] [address] CAT DANDER <0.10 Normal <0.10 [facility] Comment on above: Result Comment: Clas s 0: Normal Performed By: #### 3 0896-5, 37752-4 #### [facility] ([id number]) [address] [place] [address] [place] [address] #### 39251-6, 3051-0, HA1C, CBCA, 64906-2, CMP, 33933-4, 92279-5, THYR #### [facility] ([id number]) [address], [address] [place] [address] CLADOSPORIUM HERB <0.10 Normal <0.10 [facility] Comment on above: Result Comment: Clas s 0: Normal Performed By: #### 3 0896-5, 88272-6 #### [facility] ([id number]) [address] [facility] [address] #### 30448-6, 3051-0, HA1C, CBCA, 27374-0, CMP, 45286-6, 63271-1, THYR #### [facility] ([id number]) [address] [place] [address] COCKLEBUR 0.31 kU/L High <0.10 [facility] Comment on above: Result Comment: Clas s 0/1: Low level of Allergy, ongoing sensitization Performed By: #### 3 0896-5, 96426-2 #### [facility] ([id number]) [address] [place] [address] [place] [address] #### 92090-2, 3051-0, HA1C, CBCA, 50268-9, CMP, 04917-4, 01845-6, THYR #### [facility] ([id number]) [address] [facility], [address] [place] [address] COCKROACH 0.23 kU/L High <0.10 [facility] Comment on above: Result Comment: Clas s 0/1: Low level of Allergy, ongoing sensitization Performed By: #### 3 0896-5, 73069-0 #### [facility] ([id number]) [address] [place] [address] [place] [address] #### 65801-9, 3051-0, HA1C, CBCA, 39369-4, CMP, 09519-5, 23215-6, THYR #### [facility] ([id number]) [address], [address] [place] [address] COMMON PIGWEED 0.25 kU/L High <0.10 [facility] Comment on above: Result Comment: Clas s 0/1: Low level of Allergy, ongoing sensitization Performed By: #### 3 0896-5, 29986-1 #### [facility] ([id number]) [address] [place] [address] [place] [address] #### 81963-5, 3051-0, HA1C, CBCA, 32947-1, CMP, 89161-0, 66989-0, THYR #### [facility] ([id number]) [address], [address] [place] [address] COMMON RAGWEED 0.32 kU/L High <0.10 [facility] Comment on above: Result Comment: Clas s 0/1: Low level of Allergy, ongoing sensitization Performed By: #### 3 0896-5, 26394-8 #### [facility] ([id number]) [address] [facility] [address] #### 58947-2, 3051-0, HA1C, CBCA, 88447-5, CMP, 98269-2, 79313-5, THYR #### [facility] ([id number]) [address], [address] [place] [address] COMMON SILVER BIRCH 0.23 kU/L High <0.10 [facility] Comment on above: Result Comment: Clas s 0/1: Low level of Allergy, ongoing sensitization Performed By: #### 3 0896-5, 25255-9 #### [facility] ([id number]) [address] [place] [address] [place] [address] #### 40385-7, 3051-0, HA1C, CBCA, 71010-2, CMP, 87565-3, 49412-7, THYR #### [facility] ([id number]) [address], [address] [place] [address] [place] 0.24 kU/L High <0.10 [facility] Comment on above: Result Comment: Clas s 0/1: Low level of Allergy, ongoing sensitization Performed By: #### 3 0896-5, 96809-9 #### [facility] ([id number]) [address] [place] [address] [place] [address] #### 17800-9, 3051-0, HA1C, CBCA, 71767-6, CMP, 31274-6, 05112-0, THYR #### [facility] ([id number]) [address], [address] [place] [address] DERMATOPH FARINAE <0.10 Normal <0.10 [facility] Comment on above: Result Comment: Clas s 0: Normal Performed By: #### 3 0896-5, 76809-6 #### [facility] ([id number]) [address] [place] [address] [place] [address] #### 91034-5, 3051-0, HA1C, CBCA, 78277-5, CMP, 97593-9, 33614-2, THYR #### [facility] ([id number]) [address], [address] [place] [address] DERMATOPH PTERONYSS <0.10 Normal <0.10 [facility] Comment on above: Result Comment: Clas s 0: Normal Performed By: #### 3 0896-5, 15465-5 #### [facility] ([id number]) [address] [facility] [address] #### 70893-2, 3051-0, HA1C, CBCA, 55510-4, CMP, 30223-3, 32437-6, THYR #### [facility] ([id number]) [address] [facility], [address] [place] [address] DOG DANDER <0.10 Normal <0.10 [facility] Comment on above: Result Comment: Clas s 0: Normal Performed By: #### 3 0896-5, 41140-0 #### [facility] ([id number]) [facility] [place] [address] #### 30326-6, 3051-0, HA1C, CBCA, 64882-2, CMP, 09594-3, 65917-1, THYR #### [facility] ([id number]) [address], [address] [place] [address] [place] 0.33 kU/L High <0.10 [facility] Comment on above: Result Comment: Clas s 0/1: Low level of Allergy, ongoing sensitization Performed By: #### 3 0896-5, 09548-6 #### [facility] ([id number]) [facility] [place] [address] #### 94098-7, 3051-0, HA1C, CBCA, 23217-2, CMP, 48431-9, 91249-0, THYR #### [facility] ([id number]) [address], [address] [place] [address] GOOSEFOOT LANDRY QTR 0.25 kU/L High <0.10 [facility] Comment on above: Result Comment: Clas s 0/1: Low level of Allergy, ongoing sensitization Performed By: #### 3 0896-5, 65085-8 #### [facility] ([id number]) [address] [place] [address] #### 23638-9, 3051-0, HA1C, CBCA, 69691-9, CMP, 28399-5, 53170-3, THYR #### [facility] ([id number]) [address], [address] [place] [address] IGE DUPLICATE ORDER Normal 0-165 [facility] Comment on above: Performed By: #### 3 0896-5, 14688-4 #### [facility] ([id number]) [address] [place] [address] #### 10583-7, 3051-0, HA1C, CBCA, 77359-4, CMP, 62264-4, 44608-2, THYR #### [facility] ([id number]) [address], [address] [place] [address] ROBIN GRASS 0.28 kU/L High <0.10 [facility] Comment on above: Result Comment: Clas s 0/1: Low level of Allergy, ongoing sensitization Performed By: #### 3 0896-5, 50093-8 #### [facility] ([id number]) [address] [place] [address] #### 88754-7, 3051-0, HA1C, CBCA, 42125-8, CMP, 71572-3, 47917-6, THYR #### [facility] ([id number]) [address], [address] [place] [address] MAPLE LEAF SYCAMORE 0.27 kU/L High <0.10 [facility] Comment on above: Result Comment: Clas s 0/1: Low level of Allergy, ongoing sensitization Performed By: #### 3 0896-5, 05088-6 #### [facility] ([id number]) [address] [facility] [address] #### 30197-7, 3051-0, HA1C, CBCA, 13989-6, CMP, 85089-2, 75127-4, THYR #### [facility] ([id number]) [address], [address] [place] [address] [place] JOSE EDUARDO 0.31 kU/L High <0.10 [facility] Comment on above: Result Comment: Clas s 0/1: Low level of Allergy, ongoing sensitization Performed By: #### 3 0896-5, 66181-4 #### [facility] ([id number]) [address] [facility] [address] #### 95982-8, 3051-0, HA1C, CBCA, 67224-3, CMP, 48560-5, 55281-7, THYR #### [facility] ([id number]) [address], [address] [place] [address] MOUNTAIN JUNIPER 0.25 kU/L High <0.10 [facility] Comment on above: Result Comment: Clas s 0/1: Low level of Allergy, ongoing sensitization Performed By: #### 3 0896-5, 30143-9 #### [facility] ([id number]) [facility] [address] #### 90126-5, 3051-0, HA1C, CBCA, 56579-5, CMP, 65171-1, 98734-4, THYR #### [facility] ([id number]) [address] [facility], [address] [place] [address] MOUSE URINE PROTEINS <0.10 Normal <0.10 [facility] Comment on above: Result Comment: Clas s 0: Normal Performed By: #### 3 0896-5, 71008-3 #### [facility] ([id number]) [address] [facility] [address] #### 89358-4, 3051-0, HA1C, CBCA, 70035-7, CMP, 08792-7, 48103-4, THYR #### [facility] ([id number]) [address], [address] [place] [address] MUGWORT 0.27 kU/L High <0.10 [facility] Comment on above: Result Comment: Clas s 0/1: Low level of Allergy, ongoing sensitization Performed By: #### 3 0896-5, 13422-3 #### [facility] ([id number]) [address] [facility] [address] #### 82426-6, 3051-0, HA1C, CBCA, 51558-0, CMP, 11774-6, 19675-0, THYR #### [facility] ([id number]) [address], [address] [place] [address] MULBERRY TREE 0.20 kU/L High <0.10 [facility] Comment on above: Result Comment: Clas s 0/1: Low level of Allergy, ongoing sensitization Performed By: #### 3 0896-5, 71622-8 #### [facility] ([id number]) [address] [place] [address] [place] [address] #### 48620-1, 3051-0, HA1C, CBCA, 58692-6, CMP, 45627-3, 75156-0, THYR #### [facility] ([id number]) [address], [address] [place] [address] NETTLE 0.27 kU/L High <0.10 [facility] Comment on above: Result Comment: Clas s 0/1: Low level of Allergy, ongoing sensitization Performed By: #### 3 0896-5, 38866-9 #### [facility] ([id number]) [address] [place] [address] #### 45879-1, 3051-0, HA1C, CBCA, 29954-7, CMP, 13288-8, 41577-5, THYR #### [facility] ([id number]) [address], [address] [place] [address] OAK 0.28 kU/L High <0.10 [facility] Comment on above: Result Comment: Clas s 0/1: Low level of Allergy, ongoing sensitization Performed By: #### 3 0896-5, 99565-6 #### [facility] ([id number]) [address] [facility] [address] #### 33523-5, 3051-0, HA1C, CBCA, 29734-0, CMP, 04208-3, 69804-6, THYR #### [facility] ([id number]) [address], [address] [place] [address] PECAN HICKORY TREE 0.27 kU/L High <0.10 [facility] Comment on above: Result Comment: Clas s 0/1: Low level of Allergy, ongoing sensitization Performed By: #### 3 0896-5, 42607-1 #### [facility] ([id number]) [address] [place] [address] [place] [address] #### 52022-8, 3051-0, HA1C, CBCA, 21769-6, CMP, 69202-8, 73673-5, THYR #### [facility] ([id number]) [address], [address] [place] [address] PENICILLIUM CHRYSOGENUM <0.10 Normal <0.10 [facility] Comment on above: Result Comment: Clas s 0: Normal Performed By: #### 3 0896-5, 21257-7 #### [facility] ([id number]) [address] [place] [address] #### 31588-2, 3051-0, HA1C, CBCA, 27350-0, CMP, 32721-3, 26042-3, THYR #### [facility] ([id number]) [address], [address] [place] [address] ROUGH MARSHELDER 0.29 kU/L High <0.10 [facility] Comment on above: Result Comment: Clas s 0/1: Low level of Allergy, ongoing sensitization Performed By: #### 3 0896-5, 44163-2 #### [facility] ([id number]) [address] [place] [address] #### 79868-4, 3051-0, HA1C, CBCA, 61922-2, CMP, 09538-4, 74159-4, THYR #### [facility] ([id number]) [address], [address] [place] [address] [place] ODALIS THISTLE 0.30 kU/L High <0.10 [facility] Comment on above: Result Comment: Clas s 0/1: Low level of Allergy, ongoing sensitization Performed By: #### 3 0896-5, 55983-4 #### [facility] ([id number]) [address] [place] [address] #### 71708-5, 3051-0, HA1C, CBCA, 88576-4, CMP, 93626-7, 10259-0, THYR #### [facility] ([id number]) [address], [address] [place] [address] SHEEP SORREL 0.29 kU/L High <0.10 [facility] Comment on above: Result Comment: Clas s 0/1: Low level of Allergy, ongoing sensitization Performed By: #### 3 0896-5, 65023-7 #### [facility] ([id number]) [address] [place] [address] #### 85410-6, 3051-0, HA1C, CBCA, 88073-6, CMP, 51199-3, 32287-0, THYR #### [facility] ([id number]) [address], [address] [place] [address] ANT 0.29 kU/L High <0.10 [facility] Comment on above: Result Comment: Clas s 0/1: Low level of Allergy, ongoing sensitization Performed By: #### 3 0896-5, 77688-7 #### [facility] ([id number]) [address] [place] [address] [place] [address] #### 06798-8, 3051-0, HA1C, CBCA, 17238-8, CMP, 78055-5, 27809-9, THYR #### [facility] ([id number]) [address] [facility], [address] [place] [address] WALNUT TREE POLLEN 0.34 kU/L High <0.10 [facility] Comment on above: Result Comment: Clas s 0/1: Low level of Allergy, ongoing sensitization Performed By: #### 3 0896-5, 36357-2 #### [facility] ([id number]) [address] [place] [address] [place] [address] #### 88450-5, 3051-0, HA1C, CBCA, 19270-0, CMP, 93560-2, 94780-2, THYR #### [facility] ([id number]) [address] [place] [address], [address] [place] [address] WHITE AURORA 0.31 kU/L High <0.10 [facility] Comment on above: Result Comment: Clas s 0/1: Low level of Allergy, ongoing sensitization Performed By: #### 3 0896-5, 13650-4 #### [facility] ([id number]) [address] [place] [address] [place] [address] #### 32750-6, 3051-0, HA1C, CBCA, 00282-7, CMP, 81501-5, 58995-8, THYR #### [facility] ([id number]) [address] [facility], [address] [place] [address] Reference Lab Test IDon 08- CELIAC COMP CASCADE SEE COMMENTS 03/30/2024 10:48 PM Normal [facility] Comment on above: Result Comment: NOTE Test Result Flag Unit RefValue ----- Celiac Disease [facility] Immunoglobulin A (IgA) 283 mg/dL 61 - 356 , S DQ alpha 1 02:01, 05 Not Applicable DQ beta 1 03:01, 03:03 Not Applicable DQ Serologic Equivalent: 7, 9 Celiac gene pairs No present? Method: Molecular typing of HLA antigens performed using reverse SSOP and/or sequencing methods, reported as serological equivalents and low to intermediate resolution molecular values. For convenience, when not defined in the WHO Nomenclature a laboratory defined serologic equivalent has been provided. Based on the catalog of common, intermediate, and well-documented alleles in the world population(CIWD 3.0 Melissa MYLES et.al, HLA. 2020:516-531), certain intermediate or common alleles in some ethnicities may not be resolved. Kindly contact laboratory if ethnic specific resolution is required. This test has been modified from the manufacturers instructions. Its performance characteristics were determined by [facility] in a manner consistent with CLIA requirements. This test has not been cleared or approved by the U.S. Food and Drug Administration. CLIA: [id number] CLIA Corn Detasseler: NICOLLE SY,Ph.D. A portion of the testing process was performed at [facility] site [id number] Celiac Disease See Note Interpretation See Comment: Permissive genes absent and negative serology. Celiac disease extremely unlikely. Test Performed by: [facility] [address] [place] [address] Corn Detasseler: Nicolle Sy Ph.D.; CLIA# [id number] Test Performed by: [facility] [address] [place] [address] Corn Detasseler: Nicolle Sy Ph.D.; CLIA# [id number] Performed By: #### 3 0896-5, 76524-9 #### [facility] ([id number]) [address] [place] [address] #### 58615-2, 3051-0, HA1C, CBCA, 24814-2, CMP, 35447-1, 74692-6, THYR #### [facility] ([id number]) [address] [facility], [address] [place] [address] THYROID PROFILEon 03-26-2024 Free T4 [Mass/Vol] 0.51 ng/dL Low 0.61-1.60 [facility] Comment on above: Performed By: #### 3 0896-5, 46973-8 #### [facility] ([id number]) [address] [facility] [address] #### 45390-7, 3051-0, HA1C, CBCA, 58822-0, CMP, 26784-9, 60756-6, THYR #### [facility] ([id number]) [address] [facility], [address] [place] [address] TSH 44.60 uIU/mL High 0.49-4.67 [facility] Comment on above: Performed By: #### 3 0896-5, 54816-8 #### [facility] ([id number]) [address] [place] [address] #### 89622-7, 3051-0, HA1C, CBCA, 20585-6, CMP, 17924-3, 16513-5, THYR #### [facility] ([id number]) [address] [facility], [address] [place] [address] tTG IgA IA Qn (S)on 03-26-20 24 TTG AB IGA <1.2 Normal <4.0 (Negative) [facility] Comment on above: Result Comment: NOTE Test Performed by: [facility] [address] [place] [address] Corn Detasseler: Nicolle Sy Ph.D.; CLIA# [id number] Performed By: #### 3 0896-5, 45233-4 #### [facility] ([id number]) [address] [place] [address] #### 00201-8, 3051-0, HA1C, CBCA, 05291-5, CMP, 39584-4, 83213-8, THYR #### [facility] ([id number]) [address] [place] [address], [address] [place] [address] CBC AUTO DIFFon 08-30-2018 Basophils #/vol (Bld) 0.0 103/ul Normal 0.0-0.1 [facility] Comment on above: Performed By: #### C BC #### [facility] [address] [id number] Bob Liz Basophils/100 WBC (Bld) 0.2 % Normal 0.2-2.0 [facility] Comment on above: Performed By: #### C BC #### [facility] [address] [place] [address] Bob Liz Eosinophils #/vol (Bld) 0.2 103/ul Normal 0.0-0.7 [facility] Comment on above: Performed By: #### C BC #### [facility] [address] [place] [address] Bob Liz Eosinophils/100 WBC (Bld) 1.5 % Normal 0.9-7.0 [facility] Comment on above: Performed By: #### C BC #### [facility] [address] [place] [address] Bob Hill Erythrocyte distribution width Ratio (RBC) 12.4 % Normal 11.0-15.0 [facility] Comment on above: Performed By: #### C BC #### [facility] [address] [place], [place] [address] Bob Hill Hematocrit Volume Fraction (Bld) 38.3 % Normal 36.0-48.0 [facility] Comment on above: Performed By: #### C BC #### [facility] [address] [place], [place] [address] Bob Hill Hemoglobin mass conc (Bld) 12.8 g/dL Normal 12.0-16.0 [facility] Comment on above: Performed By: #### C BC #### [facility] [address] [place], [place] [address] Bob Liz IG # 0.03 10e3/ul Normal 0.00-0.03 [facility] Comment on above: Performed By: #### C BC #### [facility] [address] [place] [address] Bob Liz IG % 0.3 % Normal 0.0-0.5 [facility] Comment on above: Performed By: #### C BC #### [facility] [address] [place] [address] Bob Liz Lymphocytes #/vol (Bld) 3.3 103/ul Normal 1.2-3.8 [facility] Comment on above: Performed By: #### C BC #### [facility] [address] [place] [address] Bob Liz Lymphocytes/100 WBC (Bld) 30.8 % Normal 20.5-60.0 [facility] Comment on above: Performed By: #### C BC #### [facility] [address] [place] [address] Bobcy Hill MANUAL DIFF REQ NO Normal [facility] Comment on above: Performed By: #### C BC #### [facility] [address] [place], [place] [address] Bobcy Hill MCH Entitic mass (RBC) 32.8 pg Normal 26.7-34.0 [facility] Comment on above: Performed By: #### C BC #### [facility] [address] [place] [address] Bobcy Hill MCHC mass conc (RBC) 33.4 g/dL Normal 29.9-35.2 [facility] Comment on above: Performed By: #### C BC #### [facility] [address] [place] [address] Bob Liz MCV Entitic volume (RBC) 98.2 fL Normal 81.0-99.0 [facility] Comment on above: Performed By: #### C BC #### [facility] [address] [place], [place] [address] Bob Liz Monocytes #/vol (Bld) 0.7 103/ul Normal 0.3-0.8 [facility] Comment on above: Performed By: #### C BC #### [facility] [address] [place], [place] [address] Bob Liz Monocytes/100 WBC (Bld) 6.9 % Normal 1.7-12.0 [facility] Comment on above: Performed By: #### C BC #### [facility] [address] [place] [address] Bob Liz Neutrophils #/vol (Bld) 6.5 103/ul Normal 1.4-6.5 [facility] Comment on above: Performed By: #### C BC #### [facility] [address] [place] [address] Bob Liz Neutrophils/100 WBC (Bld) 60.3 % Normal 43.0-75.0 [facility] Comment on above: Performed By: #### C BC #### [facility] [address] [place] [address] Bobcy Mercadoen Platelet mean volume Entitic volume (Bld) 10.0 fL Normal 9.5-13.5 [facility] Comment on above: Performed By: #### C BC #### [facility] [address] [place] [address] Bob Liz Platelets #/vol (Bld) 290 103/ul Normal 150-450 [facility] Comment on above: Performed By: #### C BC #### [facility] [address] [place], [place] [address] Bob Liz RBC #/vol (Bld) 3.90 106/ul Critically low 4.20-5.40 [facility] Comment on above: Performed By: #### C BC #### [facility] [address] [place], [place] [address] Bob Liz WBC #/vol (Bld) 10.8 103/ul Normal 4.0-11.0 [facility] Comment on above: Performed By: #### C BC #### [facility] [address] [place], [place] [address] Bob Liz CULTURE URINEon 01-21-2019 CULTURE URINE Culture Observations: LIGHT GROWTH OF MIXED GENITAL OLIMPIA. NO POTENTIAL PATHOGENS SEEN. Normal [facility] Comment on above: Performed By: #### U RCX #### [facility] [address] [place], [place] [address] Bob Hill ER URINE PROFILEon 9 Bilirubin mass conc Negative Normal NEGATIVE [facility] Comment on above: Performed By: #### E RUR, UMICRO #### [facility] [address] [place] [address] [place] BLOOD LARGE Normal NEGATIVE [facility] Comment on above: Performed By: #### E RUR UMICRO #### [facility] [address] [place] [address] [place] Clarity Nom (U) CLEAR Normal [facility] Comment on above: Performed By: #### E RUR, UMICRO #### [facility] [address] [place] [address] [place] Color Nom (U) RED Normal YELLOW [facility] Comment on above: Performed By: #### E RUR, UMICRO #### [facility] [address] [place], [place] [address] Bob Hill ERUAHD A micrscopic examination will be performed if indicated. Normal [facility] Comment on above: Performed By: #### E RUR, UMICRO #### [facility] [address] [place] [address] [place] Glucose mass conc Negative Normal NEGATIVE [facility] Comment on above: Performed By: #### E RUR, UMICRO #### [facility] [address] [place] [address] Bob Liz Ketones Ql (U) TRACE Normal NEGATIVE [facility] Comment on above: Performed By: #### E RUR, UMICRO #### [facility] [address] [place] [address] Bob Liz Nitrite Ql (U) Positive Normal NEGATIVE [facility] Comment on above: Performed By: #### E RUR, UMICRO #### [facility] [address] [place] [address] Bobcy Hill pH (Bld) 6.5 Normal 5-9 [facility] Comment on above: Performed By: #### ETTA BROWN #### [facility] [address] [place] [address] [place] Protein mass conc (U) 100 mg/dL Normal [facility] Comment on above: Performed By: #### ETTA BROWN #### [facility] [address] [place] [address] Bob Hill SPEC GRAVITY 1.025 Normal 1.005-<=1.025 [facility] Comment on above: Performed By: #### ETTA BROWN #### [facility] [address] [place] [address] Bob Hill UR MICRO IND INDICATED Normal [facility] Comment on above: Performed By: #### ETTA BROWN #### [facility] [address]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 syndrome); History of insulin resistance; Family history of autism Start: 07-22-2024 End: 07-22-2024 [facility] Start: 07-05-2024 End: 07-05-2024 Chart abstracting Berna Daniel MD Work Phone: [facility] Start: 06-30-2024 End: 06-30-2024 Bamboo flowsheet Hailee L Floro CNM Work Phone: [facility] Start: 06-30-2024 End: 06-30-2024 Bamboo flowsheet Hailee L Floro CNM Work Phone: [facility] Start: 06-30-2024 End: 06-30-2024 ambulatory HAILEE L FLORO Not Available Start: 06-30-2024 End: 06-30-2024 Office outpatient visit 15 minutes Hailee L Floro CNM Work Phone: [facility] Comment on above: Acquired hypothyroid ism (CMS/HCC) (Primary Dx); Subchorionic hemorrhage of placenta in first trimester; 9 weeks gestation of Start: 06-15-2024 End: 06-15-2024 ambulatory HAILEE MAI Not Available Start: 06-15-2024 End: 06-15-2024 Bamboo flowsheet Hailee Mai CNM Work Phone: [facility] Start: 06-15-2024 End: 06-15-2024 Bamboo flowsheet Hailee Fostero CNM Work Phone: [facility] Start: 06-15-2024 End: 06-15-2024 ambulatory HAILEE FOSTERO Not Available Start: 06-15-2024 End: 06-15-2024 Office outpatient visit 15 minutes Hailee Mai CNM Work Phone: [facility] Comment on above: GA: [id number] Start: 06-14-2024 End: 06-14-2024 Telephone encounter Hailee Mai CNM Work Phone: [facility] Start: 03-26-2024 End: 03-26-2024 ambulatory [facility] Start: 03-26-2024 Encounter for genera l adult medical examination with abnormal findings [facility] Start: 03-06-2024 End: 03-06-2024 Office outpatient visit 15 minutes Guy Easley BLOCK BREAKER OPERATOR-RENOVATOR MACHINE OPERATOR Work Phone: [facility] [place] Comment on above: Upper respiratory in fection with cough and congestion (Primary Dx); Acute bacterial conjunctivitis of left eye; Healthcare maintenance Start: 03-06-2024 End: 03-06-2024 Patient encounter status Guy Easley BLOCK BREAKER OPERATOR-RENOVATOR MACHINE OPERATOR Work Phone: [facility] Start: 03-06-2024 End: 03-06-2024 ambulatory NO PCP NO PCP [facility] Start: 03-06-2024 Encounter for boubacar l adult medical examination without abnormal findings GUY Narayan TRACEE [facility] Start: 08-30-2018 End: 08-30-2018 Patient encounter procedure JOESPH FRANCO Facility:[facility] Start: 07-29-2018 End: 08-02-2018 Patient encounter procedure Simona ASTORGA [facility] Start: 07-29-2018 End: 07-29-2018 Patient encounter procedure MAKENZIE VALLE [facility] Start: 07-29-2018 End: 07-29-2018 Office outpatient new 30 minutes Makenzie Rogelio Valle Work Phone: [facility] Comment on above: Nausea (Primary Dx) Start: 06-06-2018 End: 06-06-2018 Emergency department patient visit RAMON Hensley HONEY [facility] Procedures Date Procedure Procedure Detail Performing Clinician Start: 06-15-2024 Culture bacterial quanttative colony count urine Hailee L Floro CNM Work Phone: Start: 06-15-2024 DRUG TOX MONITORIGN 6 W/ CONF,URINE Hailee L Floro CNM Work Phone: Start: 06-15-2024 URINALYSIS MICROSCOPIC Hailee L Floro CNM Work Phone: Start: 06-15-2024 Antibody screen rbc each serum technique Hailee L Floro CNM Work Phone: Start: 06-15-2024 End: 06-15-2024 Hemoglobin glycosylated a1c Hailee L Floro CNM Work Phone: Start: 06-15-2024 Iaad ia hepatitis b surface antigen Hailee L Floro CNM Work Phone: Start: 06-15-2024 TSH W/REFLEX TO FT4 Annabella anila L Floro CNM Work Phone: Start: 06-15-2024 Antibody screen Berna stark MD Work Phone: Start: 06-15-2024 CHLAMYDIA/GC BY PCR THINPREP FLUID Not In System Ref Prov Start: 06-15-2024 Drug scrn 1+ class nonchromo Not In System Ref Prov Start: 06-15-2024 TYPE AND SCREEN Not In System Ref Prov Plan of Treatment Date Care Activity Detail Author Start: 12-13-2025 Adult BMI Screening Adult BMI Screen ing [facility] Start: 12-13-2025 Tobacco Screening Tobacco Screening [facility] Start: 12-07-2025 Screening for Chlamydia trachomatis Chlamydia Screening [facility] Start: 11-27-2025 Tobacco Screening Tobacco Screening [facility] Start: 11-24-2025 Adult BMI Screening Adult BMI Screen ing [facility] Start: 11-01-2025 Tobacco Screening Tobacco Screening [facility] Start: 10-05-2025 Adult BMI Screening Adult BMI Screen ing [facility] Start: 10-05-2025 Tobacco Screening Tobacco Screening [facility] Start: 09-16-2025 End: 09-16-2025 US MFM with or without consult US MFM with or without consult Imaging Routine Hypothyroidism affecting in first trimester PCOS (polycystic ovarian syndrome) History of insulin resistance Family history of autism Abnormal genetic test during Hypothyroidism affecting in second trimester Expected: 09/16/2025 (Approximate), Expires: 09/16/2025 [facility] Work Phone: Comment on above: Expected: 09/16/2025 (Approximate), Expires: 09/16/2025 Start: 07-22-2025 Adult BMI Screening Adult BMI Screen ing [facility] Start: 07-22-2025 Tobacco Screening Tobacco Screening [facility] Start: 04-10-2025 Influenza vaccination [facility] Start: 03-06-2025 Adult BMI Screening Adult BMI Screen ing [facility] Start: 03-06-2025 Tobacco Screening Tobacco Screening [facility] Start: 02-06-2025 End: 02-06-2025 Telemedicine consultation with patient 02/06/2025 1:00 PM EDT Telemedicine [facility] [address] [place] [address] Hailee Mai, KRISTELM [address] [place] [address] [facility] Start: 01-26-2025 End: 01-26-2025 Professional / ancillary services management 01/26/2025 4:00 PM EDT Ancillary Procedure [facility] [address] [phone] [facility] Start: 01-23-2025 End: 01-23-2025 Patient encounter procedure [facility] Comment on above: Arrived Start: 01-19-2025 End: 01-19-2025 Professional / ancillary services management 01/19/2025 4:00 PM EDT Ancillary Procedure [facility] [address] [phone] [facility] Start: 01-19-2025 End: 01-19-2025 Patient encounter procedure 01/19/2025 3:15 PM EDT Appointment [facility] [address] [facility] [address] [place] [phone] [facility] Start: 01-16-2025 End: 01-16-2025 Patient encounter procedure 01/16/2025 1:30 PM EDT Routine [facility] [address] [place] [address] Hailee Mai, CNM [address] [place] [address] [facility] Start: 01-12-2025 End: 01-12-2025 Professional / ancillary services management 01/12/2025 4:00 PM EDT Ancillary Procedure [facility] [address] [address] [facility] Start: 01-10-2025 End: 01-10-2025 Patient encounter procedure 01/10/2025 9:00 AM EDT Office Visit [facility] [address] [address] [place] [address] Makenzie Anguiano MD [address] [address] [place] [address] [facility] Start: 01-09-2025 End: 01-09-2025 Patient encounter procedure [facility] Comment on above: Arrived Start: 01-05-2025 End: 01-05-2025 Professional / ancillary services management 01/05/2025 4:00 PM EDT Ancillary Procedure [facility] [address] [place] [address] [facility] Start: 01-04-2025 End: 01-04-2025 Patient encounter procedure 01/04/2025 2:00 PM EDT Office Visit [facility] [address] [place] [address] Berna Daniel MD [address] [facility] [address] [place] [address] [facility] Start: 01-04-2025 End: 01-04-2025 Telemedicine consultation with patient 01/04/2025 2:00 PM EDT Telemedicine [facility] [address] [place] [address] Berna Daniel MD [address] [facility] [address] [facility] [place] [address] [facility] Start: 01-03-2025 End: 01-03-2026 TSH W/REFLEX TO FT4 TSH W/REFLEX TO FT4 Lab Routine Acquired hypothyroidism (CMS/HCC) Expected: 01/03/2025 (Approximate), Expires: 01/03/2026 [facility] Work Phone: Comment on above: Expected: 01/03/2025 (Approximate), Expires: 01/03/2026 Start: 01-03-2025 End: 01-03-2025 Patient encounter procedure [facility] Comment on above: Arrived Start: 12-30-2024 End: 12-30-2024 Professional / ancillary services management 12/30/2024 2:00 PM EDT Ancillary Procedure [facility] [address] [phone] [facility] Start: 12-29-2024 End: 12-29-2024 Professional / ancillary services management 12/29/2024 4:00 PM EDT Ancillary Procedure [facility] [address] [phone] [facility] Start: 12-28-2024 End: 12-28-2025 STREPTOCCOUS, GROUP B CULTURE STREPTOCCOUS, GROUP B CULTURE Lab Routine screening for streptococcus B Expected: 12/28/2024 (Approximate), Expires: 12/28/2025 [facility] Work Phone: Comment on above: Expected: 12/28/2024 (Approximate), Expires: 12/28/2025 Start: 12-28-2024 End: 12-28-2024 Patient encounter procedure [facility] Comment on above: Arrived Start: 12-26-2024 End: 12-26-2024 Patient encounter procedure 12/26/2024 1:30 PM EDT Routine [facility] [address] [place] [phone] Hailee Mai, CNM [address] [place] [address] [facility] Start: 12-22-2024 End: 12-22-2024 Professional / ancillary services management 12/22/2024 4:00 PM EDT Ancillary Procedure [facility] [address] [phone] [facility] Start: 12-22-2024 End: 12-22-2024 Patient encounter procedure 12/22/2024 11:00 AM EDT Appointment [facility] [address] [facility] [address] [place] [phone] [facility] Start: 12-19-2024 End: 12-19-2024 Patient encounter procedure 12/19/2024 1:30 PM EDT Routine [facility] [address] [place] [phone] Pau Hailee L, CNM [address] [place] [address] [facility] Start: 12-15-2024 End: 12-15-2024 Professional / ancillary services management 12/15/2024 4:00 PM EDT Ancillary Procedure [facility] [address] [facility] [address] [place] [address] [facility] Start: 12-13-2024 End: 12-13-2024 Patient encounter procedure [facility] Start: 12-12-2024 End: 12-12-2024 Patient encounter procedure [facility] Comment on above: Arrived Start: 12-08-2024 End: 12-08-2024 Professional / ancillary services management 12/08/2024 9:30 AM EDT Ancillary Procedure [facility] [address] [address] [facility] Start: 12-05-2024 End: 12-05-2024 Patient encounter procedure [facility] Comment on above: Arrived Start: 11-24-2024 End: 11-24-2024 Patient encounter procedure 11/24/2024 2:15 PM EDT Appointment [facility] [address] [facility] [address] [place] [address] [facility] Start: 11-24-2024 End: 11-24-2025 US MFM with or without consult US MFM with or without consult Imaging Routine Polyhydramnios affecting in third trimester Hypothyroidism affecting in third trimester Elevated BP without diagnosis of hypertension History of insulin resistance Family history of autism Expected: 11/24/2024, Expires: 11/24/2025 [facility] Work Phone: Comment on above: Expected: 11/24/2024 , Expires: 11/24/2025 Start: 11-23-2024 End: 11-23-2024 Patient encounter procedure 11/23/2024 9:30 AM EDT Routine [facility] [address] [facility] [place] [phone] Hailee Mai, CNM [address] [place] [address] [facility] Start: 11-23-2024 End: 11-23-2024 Professional / ancillary services management 11/23/2024 9:00 AM EDT Ancillary Procedure [facility] [address] [place] [phone] [facility] Start: 11-14-2024 End: 11-14-2024 Patient encounter procedure 11/14/2024 3:00 PM EDT Office Visit [facility] [address] [facility] [place] [phone] Hailee Mai, CNM [address] [place] [address] [facility] Start: 11-14-2024 End: 11-14-2025 US biophysical profile wo non stress testing US biophysical profile wo non stress testing Imaging Routine Hypothyroidism, unspecified type (CMS/HCC) Expected: 11/14/2024, Expires: 11/14/2025 [facility] Work Phone: Comment on above: Expected: 11/14/2024 , Expires: 11/14/2025 Start: 11-14-2024 End: 11-14-2025 US for US OB follow up transabdominal approach Imaging Routine Hypothyroidism, unspecified type (CMS/HCC) Expected: 11/14/2024, Expires: 11/14/2025 [facility] Comment on above: Expected: 11/14/2024 , Expires: 11/14/2025 Start: 11-01-2024 End: 11-01-2024 Patient encounter procedure 11/01/2024 2:30 PM EDT Office Visit [facility] [address] [place] [address] Berna Daniel MD [address] [place] [address] [facility] Start: 10-28-2024 End: 10-07-2025 Thyrotropin [Units/volume] in Serum or Plasma TSH Lab Routine Hypothyroidism affecting in second trimester Expected: 10/28/2024, Expires: 10/07/2025 [facility] Work Phone: Comment on above: Expected: 10/28/2024 , Expires: 10/07/2025 Start: 10-26-2024 End: 10-26-2024 Patient encounter procedure 10/26/2024 10:30 AM EDT Routine [facility] [address] [place] [phone] Hailee Mai, [facility] [address] [place] [address] [facility] Start: 10-18-2024 End: 10-18-2024 Patient encounter procedure 10/18/2024 2:00 PM EDT Appointment [facility] [address] [place] [phone] [facility] Start: 10-14-2024 End: 10-14-2024 Telemedicine consultation with patient 10/14/2024 9:45 AM EST Telemedicine [facility] [address] [place] [address] Berna Daniel MD [address] [facility] [place] [address] [facility] Start: 10-07-2024 End: 10-07-2024 Telemedicine consultation with patient 10/07/2024 10:00 AM EST Telemedicine [facility] [address] [place] [phone] Berna Daniel MD [address] [place], [place] [phone] [facility] Start: 09-28-2024 End: 09-28-2025 TSH W/REFLEX TO FT4 TSH W/REFLEX TO FT4 Lab Routine Hypothyroidism, unspecified type (CMS/HCC) Expected: 09/28/2024 (Approximate), Expires: 09/28/2025 [facility] Work Phone: Comment on above: Expected: 09/28/2024 (Approximate), Expires: 09/28/2025 Start: 09-28-2024 End: 09-28-2024 Patient encounter procedure [facility] Comment on above: Arrived Start: 09-16-2024 End: 09-16-2024 Patient encounter procedure 09/16/2024 8:00 AM EST Appointment [facility] [address] [place] [phone] [facility] Start: 08-31-2024 End: 08-31-2024 Patient encounter procedure 08/31/2024 10:30 AM EST Routine [facility] [address] [place] [phone] Hailee Mai CNM [address] [place], [place] [phone] Arrived [facility] Comment on above: Arrived Start: 08-25-2024 End: 08-25-2024 Patient encounter procedure 08/25/2024 8:30 AM EST Routine [facility] [address] [place] [address] Hailee Mai CNM [address] [place] [address] [facility] Start: 08-22-2024 End: 08-22-2024 Telemedicine consultation with patient 08/22/2024 9:00 AM EST Telemedicine [facility] [address] [place] [address] Keisha Freitas, [facility] [address] [place] [address] [facility] Start: 08-12-2024 End: 07-22-2025 Thyrotropin [Units/volume] in Serum or Plasma TSH Lab Routine Hypothyroidism affecting in first trimester Expected: 08/12/2024, Expires: 07/22/2025 [facility] Work Phone: Comment on above: Expected: 08/12/2024 , Expires: 07/22/2025 Start: 07-27-2024 End: 07-27-2025 GLUCOSE, GESTATIONAL SCREEN (50G)-135 CUTOFF GLUCOSE, GESTATIONAL SCREEN (50G)-135 CUTOFF Lab Routine Screening for diabetes mellitus Expected: 07/27/2024 (Approximate), Expires: 07/27/2025 [facility] Work Phone: Comment on above: Expected: 07/27/2024 (Approximate), Expires: 07/27/2025 Start: 07-27-2024 End: 07-27-2024 Patient encounter procedure 07/27/2024 11:30 AM EST Routine [facility] [address] [place] [phone] Hailee Mai CNM [address] [place] [address] [facility] Start: 07-22-2024 End: 07-22-2024 Patient encounter procedure 07/22/2024 8:45 AM EST Office Visit [facility] [address] [facility] [place] [address] Berna Daniel MD [address] [place] [address] [facility] Start: 07-22-2024 End: 07-22-2024 Patient encounter procedure 07/22/2024 7:30 AM EST Appointment [facility] [address] [facility] [place] [address] [facility] Start: 07-13-2024 End: 07-13-2024 Patient encounter procedure 07/13/2024 11:30 AM EST Routine [facility] [address] [place] [phone] Hailee Mai CNM [address] [place] [address] [facility] Start: 06-30-2024 End: 06-30-2025 US for US OB limited 1+ fetuses Imaging Routine Subchorionic hemorrhage of placenta in first trimester Expected: 06/30/2024, Expires: 06/30/2025 [facility] Work Phone: Comment on above: Expected: 06/30/2024 , Expires: 06/30/2025 Start: 06-15-2024 End: 06-15-2024 Professional / ancillary services management 06/15/2024 2:00 PM EST Ancillary Procedure [facility] [address] [phone] [facility] Start: 06-15-2024 End: 06-15-2024 ambulatory 06/15/2024 1:30 PM EST Initial [facility] [address] [place] [phone] Hailee Mai CNM [address] [place] [address] [facility] Start: 04-10-2024 Influenza vaccination [facility] Start: 07-19-2023 Adult BMI Screening Adult BMI Screen ing [facility] Start: 07-19-2023 Tobacco Screening Tobacco Screening [facility] Start: 11-23-2022 DTaP,Tdap and Td Vaccines (7 - Td or Tdap) DTaP,Tdap and Td Vaccines (7 - Td or Tdap) [facility] Start: 2021 Screening for malignant neoplasm of cervix Pap Smear [facility] Start: 08-25-2018 End: 08-25-2018 Ambulatory 08/25/2018 Office Visit Primary Care Simona Astorga MD [address] [place] [address] [phone] [facility] Start: 2018 Adult BMI Follow Up Plan Adult BMI Follow Up Plan [facility] Start: 04-10-2018 Influenza vaccination SEQUENTI AL INFLUENZA VACCINE (#1) [facility] Start: 2012 Depression Screening Depression Scre ening [facility] Start: 2000 Adult depression screening assessment DEPRESSION SCREENING (PHQ9) [facility] Start: 2000 Screening for Chlamydia trachomatis Chlamydia Screening [facility] Start: 2000 SUBSTANCE ABUSE SCREENING (AUDIT-C) SUBSTANCE ABUSE SCREENING (AUDIT-C) [facility] Start: 2000 Tetanus vaccination TETANUS EVERY 10 YR [facility] End: 07-22-2025 Hemoglobin A1c/Hemoglobin.total in Blood Hemoglobin A1c Lab Routine 12 weeks gestation of PCOS (polycystic ovarian syndrome) History of insulin resistance 1 Occurrences starting 07/22/2024 until 07/22/2025 [facility] Comment on above: 1 Occurrences starti ng 07/22/2024 until 07/22/2025 Hemoglobin A1c/Hemoglobin.total in Blood Hemoglobin A1c Lab Routine 12 weeks gestation of PCOS (polycystic ovarian syndrome) History of insulin resistance 07/22/2024 11:21 AM EST [facility] End: 12-13-2025 Thyroid profile includes TSH FT4 Thyroid profile includes TSH FT4 Lab Routine Hypothyroidism, unspecified type 1 Occurrences starting 12/13/2024 until 12/13/2025 [facility] Work Phone: Comment on above: 1 Occurrences starti ng 12/13/2024 until 12/13/2025 End: 07-22-2025 Thyrotropin [Units/volume] in Serum or Plasma TSH Lab Routine Hypothyroidism affecting in first trimester 12 weeks gestation of 1 Occurrences starting 07/22/2024 until 07/22/2025 [facility] Work Phone: Comment on above: 1 Occurrences starti ng 07/22/2024 until 07/22/2025 Thyrotropin [Units/volume] in Serum or Plasma TSH Lab Routine Hypothyroidism affecting in first trimester 12 weeks gestation of 07/22/2024 11:21 AM EST [facility] End: 11-28-2025 Thyrotropin [Units/volume] in Serum or Plasma TSH Lab Routine Hypothyroidism affecting in third trimester 1 Occurrences starting 11/28/2024 until 11/28/2025 [facility] Work Phone: Comment on above: 1 Occurrences starti ng 11/28/2024 until 11/28/2025 Thyroxine (T4) free [Mass/volume] in Serum or Plasma T4, free Lab Routine Acquired hypothyroidism (CMS/HCC) Ordered: 01/03/2025 [facility] Comment on above: Ordered: 01/03/2025 End: 11-02-2025 TSH with Reflex TSH with Reflex Lab Routine Hypothyroidism affecting in second trimester 1 Occurrences starting 11/02/2024 until 11/02/2025 [facility] Work Phone: Comment on above: 1 Occurrences starti ng 11/02/2024 until 11/02/2025 Immunizations Immunization Date Immunization Notes Care Provider Fa cili 09-04-2022 influenza virus vacc ine, unspecified formulation Guy Easley BLOCK BREAKER OPERATOR-RENOVATOR MACHINE OPERATOR Work Phone: [facility] 09-14-2017 meningococcal B vacc ine, fully recombinant Guy Easley BLOCK BREAKER OPERATOR-RENOVATOR MACHINE OPERATOR Work Phone: [facility] 08-11-2017 human papilloma viru s vaccine, quadrivalent Guy Easley BLOCK BREAKER OPERATOR-RENOVATOR MACHINE OPERATOR Work Phone: [facility] 08-11-2017 meningococcal B vacc ine, fully recombinant Guy Easley BLOCK BREAKER OPERATOR-[facility] Work Phone: [facility] 08-11-2017 meningococcal polysaccharide (groups A, C, Y and W-135) diphtheria toxoid conjugate vaccine (MCV4P) Guy Easlye BLOCK BREAKER OPERATOR-[facility] Work Phone: [facility] 06-06-2014 human papilloma viru s vaccine, quadrivalent Guy Esaley BLOCK BREAKER OPERATOR-[facility] Work Phone: [facility] 04-11-2014 hepatitis A vaccine, adult dosage Guy Easley BLOCK BREAKER OPERATOR-[facility] Work Phone: [facility] 04-11-2014 varicella virus vaccine Ismael Easley BLOCK BREAKER OPERATOR-[facility] Work Phone: [facility] 02-02-2014 human papilloma viru s vaccine, quadrivalent Guy Easley BLOCK BREAKER OPERATOR-[facility] Work Phone: [facility] 11-23-2012 hepatitis A vaccine, adult dosage Guy Easley BLOCK BREAKER OPERATOR-[facility] Work Phone: [facility] 11-23-2012 meningococcal oligosaccharide (groups A, C, Y and W-135) diphtheria toxoid conjugate vaccine (MCV4O) Guy Easley BLOCK BREAKER OPERATOR-[facility] Work Phone: [facility] 11-23-2012 tetanus toxoid, redu marcy diphtheria toxoid, and acellular pertussis vaccine, adsorbed Guy Easley BLOCK BREAKER OPERATOR-[facility] Work Phone: [facility] 12-04-2005 diphtheria, tetanus toxoids and acellular pertussis vaccine Guy Easley BLOCK BREAKER OPERATOR-[facility] Work Phone: [facility] 12-04-2005 measles, mumps and rubella virus vaccine uGy Easley BLOCK BREAKER OPERATOR-[facility] Work Phone: [facility] 09-08-2001 diphtheria, tetanus toxoids and acellular pertussis vaccine Guy Easley APRN-[facility] Work Phone: [facility] 09-08-2001 haemophilus influenz ae type b vaccine, conjugate unspecified formulation Guy Easley BLOCK BREAKER OPERATOR-[facility] Work Phone: [facility] 09-08-2001 measles, mumps and rubella virus vaccine Guy Easley BLOCK BREAKER OPERATOR-[facility] Work Phone: [facility] 09-08-2001 poliovirus vaccine, inactivated Guy Easley BLOCK BREAKER OPERATOR-[facility] Work Phone: [facility] 09-08-2001 varicella virus vaccine Ismael Easley BLOCK BREAKER OPERATOR-[facility] Work Phone: [facility] 2000 diphtheria, tetanus toxoids and acellular pertussis vaccine Guy Easley BLOCK BREAKER OPERATOR-[facility] Work Phone: [facility] 2000 haemophilus influenz ae type b vaccine, conjugate unspecified formulation Guy Easley BLOCK BREAKER OPERATOR-[facility] Work Phone: [facility] 2000 hepatitis B vaccine, adult dosage Guy Easley BLOCK BREAKER OPERATOR-[facility] Work Phone: [facility] 2000 poliovirus vaccine, inactivated Guy Easley BLOCK BREAKER OPERATOR-[facility] Work Phone: [facility] 2000 diphtheria, tetanus toxoids and acellular pertussis vaccine Guy Easley BLOCK BREAKER OPERATOR-[facility] Work Phone: [facility] 2000 haemophilus influenz ae type b vaccine, conjugate unspecified formulation Guy Easley BLOCK BREAKER OPERATOR-[facility] Work Phone: [facility] 2000 poliovirus vaccine, inactivated Guy Easley BLOCK BREAKER OPERATOR-[facility] Work Phone: [facility] 2000 diphtheria, tetanus toxoids and acellular pertussis vaccine Guy Easley BLOCK BREAKER OPERATOR-[facility] Work Phone: [facility] 2000 haemophilus influenz ae type b vaccine, conjugate unspecified formulation Guy Easley BLOCK BREAKER OPERATOR-RENOVATOR MACHINE OPERATOR Work Phone: [facility] 2000 hepatitis B vaccine, adult dosage Guy Easley BLOCK BREAKER OPERATOR-RENOVATOR MACHINE OPERATOR Work Phone: [facility] 2000 poliovirus vaccine, inactivated Guy Easley BLOCK BREAKER OPERATOR-RENOVATOR MACHINE OPERATOR Work Phone: [facility] 2000 hepatitis B vaccine, adult dosage Guy Easley BLOCK BREAKER OPERATOR-RENOVATOR MACHINE OPERATOR Work Phone: [facility] Payers Date Payer Category Payer Commercial Managed C are - PPO [id number] 2024 Private Health Insurance [employer] [id number] 2024 Unknown [id number] 2024 [facility] er [id number] 2024 Unknown [id number] 2024 Unknown 2023 [employer] - Other [id number] 2023 Unknown [id number] 2000 Unknown [id number] 2.16.840.1.115364.3.579.2. 903 2000 Unknown [id number] 2.16.840.1.620478.3.579.2. 900 2000 Unknown [id number] 2.16.840.1.672203.3.579.2. 593 2000 Unknown [id number] 2.16.840.1.693683.3.579.2. 1286 2000 Unknown [id number] 2.16.840.1.393868.3.579.2. 1286 2000 Unknown [id number] 2.16.840.1.004848.3.579.2. 1286 2000 Unknown [id number] 2.16.840.1.225059.3.579.2. 1286 2000 Unknown [id number] 2.16.840.1.592801.3.579.2. 1286 2000 Unknown [id number] 2.16.840.1.489026.3.579.2. 1286 2000 Unknown [id number] 2.16.840.1.251510.3.579.2. 1286 2000 Unknown [id number] 2.16.840.1.234868.3.579.2. 1286 2000 Unknown [id number] 2.16.840.1.351129.3.579.2. 1286 2000 Unknown [id number] 2.16.840.1.115085.3.579.2. 1285 2000 Unknown [id number] 2.16.840.1.030694.3.579.2. 1285 2000 Unknown [id number] 2.16.840.1.844825.3.579.2. 1285 2000 Unknown [id number] 2.16.840.1.844206.3.579.2. 1285 2000 Unknown [id number] 2.16.840.1.658158.3.579.2. 1285 2000 Unknown [id number]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 interactive video/audio/telecommunication technology, the visit will not be recorded without the express consent of both the provider and the patient, and that there are some limitations compared to [id number] evaluations. We elected to proceed. REASON FOR OFFICE VISIT: Hypothyroidism HISTORY OF PRESENT ILLNESS: Maximilian Cortes is a pleasant 24 y.o. at 27w3d due on Estimated Date of Delivery: 01/28/25. complicated by: Polyhydramnios, mild. Passed GDM screen. Hypothyroidism, diagnosed at 11 yo. Prior to was not on any medications, 03/26/24 last TSH 44.60. Initiated on levothyroxine 75mcg on 05/16/24, increased to levothyroxine 100mcg 07/01/2024 (TSH 11.8 06/15/24). TSH 14.8 07/22/24, increased to levothyroxine 137mcg daily. 09/28/2024 TSH 19.4. However patient only started taking the higher dose 3 weeks ago. Abnormal cell free DNA, XXY, consistent with Klinefelter syndrome Elevated BP without diagnosis of CHTN or preeclampsia Borderline personality disorder Family history of autism Obesity affecting , pre BMI 38 PCOS with a history of insulin resistance Rh negative Today, the patient is doing well. She denies headaches, vision changes, nausea, vomiting, right upper quadrant or epigastric pain, SOB or chest pain. She denies contractions, vaginal bleeding, leaking of fluid. She reports good movement. Aneuploidy screening: High-risk for sex chromosome aneuploidy, 47 XXY, low risk cell free DNA for chromosomes 13, 18, 21 Carrier screening:desires Baby : I have reviewed the pertinent available patient records including but not limited to notes, labs and images. PAST OBSTETRICAL HISTORY: OB History Para Term AB Living 2 0 0 0 1 0 SAB IAB Ectopic Multiple Live Births 1 0 0 0 # Outcome Date GA Lbr Lincoln/2nd Weight Sex Type Anes PTL Lv 2 Current 1 SAB 06/2020 4w0d ALLERGIES: No Known Allergies CURRENT MEDICATIONS: Current Outpatient Medications: albuterol (PROVENTIL HFA;VENTOLIN HFA) 90 mcg/actuation inhaler, Inhale 2 puffs every 4 (four) hours as needed for wheezing., Disp: 18 g, Rfl: 0 aspirin 81 mg, Take 1 tablet (81 mg total) by mouth in the morning., Disp: 30 tablet, Rfl: 6 famotidine (PEPCID) 10 mg tablet, Take 1 tablet (10 mg total) by mouth in the morning and 1 tablet (10 mg total) before bedtime., Disp: , Rfl: levothyroxine (SYNTHROID, LEVOTHROID) 150 MCG tablet, Take 1 pill every Thursday, Thursday, , Thursday and Thursday. Take 1.5 pills every Thursday and Thursday., Disp: 40 tablet, Rfl: 4 sertraline (ZOLOFT) 25 mg tablet, Take 1 tablet (25 mg total) by mouth in the morning., Disp: , Rfl: sennosides-docusate sodium (SENNA WITH DOCUSATE SODIUM) 8.6-50 mg, Take 1 tablet by mouth in the morning., Disp: 30 tablet, Rfl: 1 triamcinolone (KENALOG) 0.1 % paste, Apply 1 application to teeth in the morning and 1 application before bedtime. (Patient not taking: Reported on 03/06/2024), Disp: 5 g, Rfl: 0 PHYSICAL EXAMINATION: BP 116/76 Wt 99.3 kg (219 lb) LMP 04/23/2024 BMI 41.40 kg/m Video visit Well-appearing in no distress. Respirations not labored, speaking comfortably in full sentences Gravid abdomen OVERALL ASSESSMENT -Maximilian Cortes is a pleasant 24 y.o. at 30w5d -polyhydramnios with normal growth -hypothyroidism -abnormal cell free DNA, increased risk for sex chromosome aneuploidy, Klinefelter syndrome (XXY) -obesity, pre gravid BMI 38 -family history of autism -PCOS with history of insulin resistance -elevated BP w/o diagnosis of CHTN -constipation COUNSELING Polyhydramnios, mild Polyhydramnios was noted on sonographic assessment today. The degree of polyhydramnios is frequently categorized as mild, moderate, or severe, based on an JAIDA of 24.0-29.9 cm, 30.0-34.9 cm, and >=35 cm, or a DVP of 8-11 cm, 12-15 cm, or >=16 cm, respectively. Using these definitions, she has mild polyhydramnios noted today and that accounts for approximately 65-70% of cases. I discussed with the patient the potential etiologies and complications of polyhydramnios. The most common cause is idiopathic with no known etiology. The second most common etiology is diabetes. Patient reports that she had negative GDM screening, 1 week prior. Other less likely causes include chromosomal or genetic abnormalities and/or anatomic abnormalities that inhibit normal swallowing. is known to be complicated by Klinefelter syndrome on cell free DNA screening, the Klinefelter syndrome is not typically associated with polyhydramnios. Patient has declined amniocentesis in the past. Progression of polyhydramnios is suggestive of an underlying structural or genetic etiology. Reports associating idiopathic polyhydramnios with mortality have been inconsistent and there are no data to suggest that surveillance improves outcomes and surveillance is not required for the sole indication of mild idiopathic polyhydramnios.Women with severe polyhydramnios should be delivered at a tertiary center due to the significant possibility that anomalies may be present. Elevated blood pressure without diagnosis of chronic hypertension Patient had a mild elevated blood pressure on 10/05/2024. Review of chart shows intermittent elevations in 2021 in 2019. 07/19/2022 blood pressure 146/91 in primary care doctor visit. Patient does not suspect that this is secondary to chronic hypertension but were due to admissions in the hospital for a suicide attempts. Please continue to monitor blood pressures carefully in this . Patient encouraged to monitor blood pressures twice daily and bring in logs for review as I suspect she might have undiagnosed chronic hypertension at this time. SUMMARY/RECOMMENDATION: Continue levothyroxine 150 mcg daily on Thursday, Thursday, , Thursday and 225 mcg on Thursday and Thursday. Patient encouraged to repeat thyroid function test this week Monitor thyroid function testing (TSH) every 3 weeks following dosing change in every 6 weeks if doses stable, goal TSH <2.5 in continue daily aspirin for attempted prevention of preeclampsia Monitoring for preeclampsia after 20 weeks Encouraged patient to monitor blood pressures twice daily with home blood pressure cuff and bring in logs for review with M or primary OB Daily movement assessment after 28 weeks. Repeat growth ultrasound in 4 weeks through [facility] Recommend weekly testing starting at 32 weeks gestation, per ACOG guidelines Delivery planning at 39 weeks unless a sooner indication arises. 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 Patient does have ultrasound and office visit scheduled with us. Thank you for allowing me to participate in the care of Maximilian Cortes. If there any questions please do not hesitate to contact us. Total time spent was 28 minutes: Preparing to see the patient (e.g., review of tests) Obtaining and/or reviewing separately obtained history Performing a medically appropriate examination and/or evaluation Counseling and educating the patient/family/caregiver Ordering medications, tests, or procedures Referring and communicating with other health inspector health care facilities (not separately reported) Documenting clinical information in the electronic or other health record Berna Daniel MD M[facility]- [facility] [address] [facility] 1st [place] [address] [facility], the CDC, and other organizations representing maternal and public health professionals recommend that , , and lactating people and those considering receive the COVID-19 vaccination. Vaccination is the best method to reduce maternal and complications of SARS-CoV-2 infection. This document was created with [employer] technology. Though I make every effort to review the dictation as it is transcribed, on occasion the spoken word can be misinterpreted by the technology leading to inappropriate words, phrases, or sentences. This note is addressed to the requesting provider as a consultation for clinical guidance. Specific medical abbreviations are occasionally used and those are generally approved by the [place]?Board of?Obstetrics and?Gynecology?as well as?Kayla s abbreviations. The above plan of care was based solely on the diagnoses for which a consultation was requested. ?More frequent testing may be indicated based on her other medical/obstetrical conditions. The management of other or medical conditions is beyond the scope of requested consultation and will continue to be followed by the primary casing running machine tender or primary care provider. Note to patient: The 21st Century Cures Act makes medical notes like these available to patients in the interest of transparency. However, be advised this is a medical document. It is intended as peer to peer communication. It is written in medical language and may contain abbreviations or verbiage that are unfamiliar. It may appear blunt or direct. Medical documents are intended to carry relevant information, facts as evident, and the clinical opinion of the practitioner. Dr. Daniel wishes patient's thyroid labs be rechecked. Labs drawn here at my office at this time on 1st attempt in (L) antecubital without difficulty. Patient tolerated well. documented in this encounter [facility] 11-18-2024 Miscellaneous Notes Formattin g of this note might be different from the original. Left another voicemail for Annabella Mai's nurse in regards to USN results faxed to our office on 11/16/24. Unclear why it was sent or what is needed from [facility]. Awaiting call back. documented in this encounter [facility] 11-18-2024 Telephone encount er Note Left another voicemail for Annabella Mai's nurse in regards to USN results faxed to our office on 11/16/24. Unclear why it was sent or what is needed from [facility]. Awaiting call back. [facility] 11-17-2024 Miscellaneous Notes Formattin g of this note might be different from the original. Left voicemail for Annabella Mai's nurse inquiring why an ultrasound from [facility] completed on 11/14/24 was sent to [facility] and if anything is needed from us. Awaiting call back. documented in this encounter [facility] 11-17-2024 Telephone encount er Note Left voicemail for Annabella Mai's nurse inquiring why an ultrasound from [facility] completed on 11/14/24 was sent to [facility] and if anything is needed from us. Awaiting call back. [facility] 11-14-2024 History of Presen t illness Narrative Subjective Patient states she is having trouble with bowel movements and can't go every day. She goes 2-3 days without and she is having stomach pains, cramping and pain around the anus. Maximilian Cortes is a 24 y.o. at 29w2d with a working estimated date of delivery of 01/28/2025, by Last Menstrual Period who presents for a routine visit. She denies vaginal bleeding, leakage of fluid, decreased movements, or contractions. OB History Para Term AB Living 2 1 SAB IAB Ectopic Multiple Live Births 1 # Outcome Date GA Lbr [place]/2nd Weight Sex Type Anes PTL Lv 2 Current 1 2019 Her is complicated by: constipation. Has been taking colace and benefiber. She states she had 2 bowel movements yesterday and one this morning. Objective Physical Exam weight: 218 lb Expected Total Weight Gain: 11 lb-19 lb Pregravid BMI: 38.00 BP: 120/80 Patient called me over the weekend with the constipation c/o. I did recommend to increase her water intake to 5-7 bottles per day, benefiber or metamucil daily, stool softener and increase fiber and bulk in her diet. Today she states she did have two bowel movements yesterday and one today but that she still has discomfort. Patient is also seeing MFM and endocrine for her thyroid. They have been adjusting her medication and also ordering the labs. US done today., patient states she is feeling much better. Urine protein Urine glucose Assessment/Plan Diagnoses and all orders for this visit: Other constipation Encounter for care of first , third trimester Hypothyroidism, unspecified type (CMS/HCC) Continue vitamin. Labs reviewed. GBS taken. Expected mode of delivery Follow up in 1 week for a routine visit. documented in this encounter [facility] 11-14-2024 Telephone encount er Note Spoke with Annabella and appt made for 3 pm today 11/14/24 Spoke with pt and pt will be here :) [facility] 11-14-2024 Miscellaneous Notes Formattin g of this note might be different from the original. Spoke with Annabella and appt made for 3 pm today 11/14/24 Spoke with pt and pt will be here :) Pt just called and asked to talk to Leanne or Annabella.. I asked her first about her reason for calling :) She talked to Annabella on the Emergency number this weekend about her . Annabella told her if it's not better to come in today at 3 pm She just has some questions to ask before making the appt for 3. I transferred her to Leanne, but wanted to document just incase she had to leave a message :) She said she is at work, so you can leave a vm if she cannot answer your call back. *Sending this to both Annabella and Leanne to cover all bases <3 documented in this encounter [facility] 11-14-2024 Telephone encount er Note Pt just called and asked to talk to Leanne or Annabella.. I asked her first about her reason for calling :) She talked to Annabella on the Emergency number this weekend about her . Annabella told her if it's not better to come in today at 3 pm She just has some questions to ask before making the appt for 3. I transferred her to Leanne, but wanted to document just incase she had to leave a message :) She said she is at work, so you can leave a vm if she cannot answer your call back. *Sending this to both Annabella and Leanne to cover all bases <3 [facility] 11-04-2024 Miscellaneous Notes Formattin g of this note might be different from the original. Received voicemail from patient stating she did receive new Levothyroxine dosing. documented in this encounter [facility] 11-04-2024 Telephone encount er Note Received voicemail from patient stating she did receive new Levothyroxine dosing. [facility] 11-04-2024 Miscellaneous Notes Formattin g of this note might be different from the original. Left another voicemail for patient to ensure she received the new dosing for levothyroxine. Requested a call back to confirm. documented in this encounter [facility] 11-04-2024 Telephone encount er Note Left another voicemail for patient to ensure she received the new dosing for levothyroxine. Requested a call back to confirm. [facility] 11-03-2024 Miscellaneous Notes Formattin g of this note might be different from the original. Left voicemail for patient notifying of new levothyroxine dosing. Regional Wildlife Agent requested a call back from patient to confirm she received the new dosing instructions. documented in this encounter [facility] 11-03-2024 Telephone encount er Note Left voicemail for patient notifying of new levothyroxine dosing. Regional Wildlife Agent requested a call back from patient to confirm she received the new dosing instructions. [facility] 11-01-2024 History of Presen t illness Narrative Headache/epigastric pain/blurry vision/swelling? No Cramping/contractions? No Abnormal vaginal discharge? No Spotting or vaginal bleeding? No Loss or gush of fluid like your water may have broken? No Recent ER visits or hospitalizations? No Any concerns that you would like me to mention to the provider today? Loose stools with cramping since last night, able to eat and drink okay, questioning if she needs a TSH drawn. REASON FOR OFFICE VISIT: Hypothyroidism HISTORY OF PRESENT ILLNESS: Maximilian Cortes is a pleasant 24 y.o. at 27w3d due on Estimated Date of Delivery: 6/21/25. complicated by: Abnormal cell free DNA, XXY, consistent with Klinefelter syndrome Hypothyroidism, diagnosed at 11 yo. Prior to was not on any medications, 03/26/24 last TSH 44.60. Initiated on levothyroxine 75mcg on 05/16/24, increased to levothyroxine 100mcg 07/01/2024 (TSH 11.8 06/15/24). TSH 14.8 07/22/24, increased to levothyroxine 137mcg daily. 09/28/2024 TSH 19.4. However patient only started taking the higher dose 3 weeks ago. Elevated BP without diagnosis of CHTN or preeclampsia Borderline personality disorder Family history of autism Obesity affecting , pre BMI 38 PCOS with a history of insulin resistance Rh negative Today, the patient is doing well. She denies headaches, vision changes, nausea, vomiting, right upper quadrant or epigastric pain, SOB or chest pain. She denies contractions, vaginal bleeding, leaking of fluid. She reports good movement. Aneuploidy screening: High-risk for sex chromosome aneuploidy, 47 XXY, low risk cell free DNA for chromosomes 13, 18, 21 Carrier screening:desires Baby : I have reviewed the pertinent available patient records including but not limited to notes, labs and images. PAST OBSTETRICAL HISTORY: OB History Para Term AB Living 2 0 0 0 1 0 SAB IAB Ectopic Multiple Live Births 1 0 0 0 # Outcome Date GA Lbr [place]/2nd Weight Sex Type Anes PTL Lv 2 Current 1 SAB 06/2020 4w0d ALLERGIES: No Known Allergies CURRENT MEDICATIONS: Current Outpatient Medications: albuterol (PROVENTIL HFA;VENTOLIN HFA) 90 mcg/actuation inhaler, Inhale 2 puffs every 4 (four) hours as needed for wheezing., Disp: 18 g, Rfl: 0 aspirin 81 mg, Take 1 tablet (81 mg total) by mouth in the morning., Disp: 30 tablet, Rfl: 6 famotidine (PEPCID) 10 mg tablet, Take 1 tablet (10 mg total) by mouth in the morning and 1 tablet (10 mg total) before bedtime., Disp: , Rfl: levothyroxine (SYNTHROID, LEVOTHROID) 137 MCG tablet, Take 1 tablet (137 mcg total) by mouth in the morning., Disp: 30 tablet, Rfl: 1 sertraline (ZOLOFT) 25 mg tablet, Take 1 tablet (25 mg total) by mouth in the morning., Disp: , Rfl: oseltamivir (TAMIFLU) 75 mg capsule, Take 1 capsule (75 mg total) by mouth in the morning and 1 capsule (75 mg total) before bedtime. . (Patient not taking: Reported on 11/01/2024), Disp: 10 capsule, Rfl: 0 triamcinolone (KENALOG) 0.1 % paste, Apply 1 application to teeth in the morning and 1 application before bedtime. (Patient not taking: Reported on 03/06/2024), Disp: 5 g, Rfl: 0 PHYSICAL EXAMINATION: BP 126/80 (BP Site: Left Arm, BP Postition: Sitting) Pulse 105 Ht 154.9 cm (5' 0.98 ) LMP 04/23/2024 BMI 38.00 kg/m Video visit Well-appearing in no distress. Respirations not labored, speaking comfortably in full sentences Gravid abdomen OVERALL ASSESSMENT -Maximilian Cortes is a pleasant 24 y.o. at 27w3d -hypothyroidism -abnormal cell free DNA, increased risk for sex chromosome aneuploidy, Klinefelter syndrome (XXY) -obesity, pre gravid BMI 38 -family history of autism -PCOS with history of insulin resistance SUMMARY/RECOMMENDATION: Continue levothyroxine 137 mcg daily Monitor thyroid function testing (TSH) every 3 weeks following dosing change in every 6 weeks if doses stable, goal TSH <2.5 in Repeat TSH ordered today continue daily aspirin for attempted prevention of preeclampsia Monitoring for preeclampsia after 20 weeks Healthy diet and exercise Daily movement assessment after 28 weeks. Serial growth assessment q4-6 weeks following anatomic survey, through primary OB Recommend weekly testing starting at 32 weeks gestation, per ACOG guidelines Delivery planning at 39 weeks unless a sooner indication arises. If she delivers by , recommend VTE prevention (LMWH 40mg daily) during hospitalization Follow up in [facility] already scheduled DISPOSITION: At this point the patient is in complete care of her casing running machine tender. Patient does have ultrasound and office visit scheduled with us. Thank you for allowing me to participate in the care of Maximilian Cortes. If there any questions please do not hesitate to contact us. ADDENDUM: Repeat TSH 8.65 11/01/24. Increase levothyroxine dose. Take 150mcg every Thursday, Thursday, , Thursday and Thursday. Take 225mcg (1.5 pills) every Thursday and Thursday. Repeat TSH in 3 weeks, order placed Patient called to update on dose increase and VM was full. Partner called, went to . Will attempt to call back tomorrow. Berna Daniel MD M[facility]- [facility] [address] [place] [address] [facility], the CDC, and other organizations representing maternal and public health professionals recommend that , , and lactating people and those considering receive the COVID-19 vaccination. Vaccination is the best method to reduce maternal and complications of SARS-CoV-2 infection. This document was created with [employer] technology. Though I make every effort to review the dictation as it is transcribed, on occasion the spoken word can be misinterpreted by the technology leading to inappropriate words, phrases, or sentences. This note is addressed to the requesting provider as a consultation for clinical guidance. Specific medical abbreviations are occasionally used and those are generally approved by the [place]?Board of?Obstetrics and?Gynecology?as well as?Kayla manuel abbreviations. The above plan of care was based solely on the diagnoses for which a consultation was requested. ?More frequent testing may be indicated based on her other medical/obstetrical conditions. The management of other or medical conditions is beyond the scope of requested consultation and will continue to be followed by the primary casing running machine tender or primary care provider. Note to patient: The Century Cures Act makes medical notes like these available to patients in the interest of transparency. However, be advised this is a medical document. It is intended as peer to peer communication. It is written in medical language and may contain abbreviations or verbiage that are unfamiliar. It may appear blunt or direct. Medical documents are intended to carry relevant information, facts as evident, and the clinical opinion of the practitioner. Total time spent was 32 minutes: Preparing to see the patient (e.g., review of tests) Obtaining and/or reviewing separately obtained history Performing a medically appropriate examination and/or evaluation Counseling and educating the patient/family/caregiver Ordering medications, tests, or procedures Referring and communicating with other health inspector health care facilities (not separately reported) Documenting clinical information in the electronic or other health record documented in this encounter [facility] 10-07-2024 Telephone encount er Note Annabella, I just received a phone call from the pt, she was taking the medicine that you prescribed yesterday.. but the Medicine place that she goes to (sorry for the name) told her to stop taking that and that they were going to call her in TamiFlu and Paxlovid to her pharmacy. They told her that if they have any problems with that, they will call her. She did not receive a call and the pharmacy only has the tamiflu. Pt tried to call the place and they are closed. She said she already threw the other medicine away and wanted to know if we could contact you to see if you would call in the paxlovid. [facility] in [place], [place]. Im sending this *and* calling you, just to be safe. I called the pt to tell her what you said about sending the rx later tonight, because you are in a conference in [place]. And that she will have to pick it up from the pharmacy tomorrow morning. I had to leave her a vm with the information. [facility] 10-07-2024 Miscellaneous Notes Formattin g of this note might be different from the original. Annabella, I just received a phone call from the pt, she was taking the medicine that you prescribed yesterday.. but the Medicine place that she goes to (sorry for the name) told her to stop taking that and that they were going to call her in TamiFlu and Paxlovid to her pharmacy. They told her that if they have any problems with that, they will call her. She did not receive a call and the pharmacy only has the tamiflu. Pt tried to call the place and they are closed. She said she already threw the other medicine away and wanted to know if we could contact you to see if you would call in the paxlovid. [place] in [place], [place]. Im sending this *and* calling you, just to be safe. I called the pt to tell her what you said about sending the rx later tonight, because you are in a conference in [place]. And that she will have to pick it up from the pharmacy tomorrow morning. I had to leave her a vm with the information. documented in this encounter [facility] 10-07-2024 History of Presen t illness Narrative Video Visit via Real-time Synchronous Audiovisual Provider Location: [facility] AT [address] [id number] Patient Location: Patient's home Patient Location Birth Certificate Clerk: None Video Visit Consent Statement: I discussed risks, benefits, and alternatives of a real-time synchronous audiovisual consultation with the patient (and any accompanying persons) including the risks that the patient's personal health details and medical records will be discussed over real-time, synchronous, interactive video/audio/telecommunication technology, the visit will not be recorded without the express consent of both the provider and the patient, and that there are some limitations compared to [id number] evaluations. We elected to proceed. REASON FOR OFFICE VISIT: Hypothyroidism HISTORY OF PRESENT ILLNESS: Maximilian Cortes is a pleasant 24 y.o. at 23w6d due on Estimated Date of Delivery: 01/28/25. complicated by: Abnormal cell free DNA, XXY, consistent with Klinefelter syndrome Hypothyroidism, diagnosed at 11 yo. Prior to was not on any medications, 03/26/24 last TSH 44.60. Initiated on levothyroxine 75mcg on 05/16/24, increased to levothyroxine 100mcg 07/01/2024 (TSH 11.8 06/15/24). Repeat TSH 14.8 07/22/24, increased to levothyroxine 137mcg daily. 09/28/2024 TSH 19.4 COVID19 diagnosed at 23wk GA 10/05/2024 and is symptomatic with +influenza A Elevated BP without diagnosis of CHTN or preeclampsia Borderline personality disorder Family history of autism Obesity affecting , pre BMI 38 PCOS with a history of insulin resistance Rh negative Today, the patient is doing well. She denies headaches, vision changes, nausea, vomiting, right upper quadrant or epigastric pain, SOB or chest pain. She denies contractions, vaginal bleeding, leaking of fluid. She reports good movement. Aneuploidy screening: High-risk for sex chromosome aneuploidy, 47 XXY, low risk cell free DNA for chromosomes 13, 18, 21 Carrier screening:desires Baby : I have reviewed the pertinent available patient records including but not limited to notes, labs and images. PAST OBSTETRICAL HISTORY: OB History Para Term AB Living 2 0 0 0 1 0 SAB IAB Ectopic Multiple Live Births 1 0 0 0 # Outcome Date GA Lbr Lincoln/2nd Weight Sex Type Anes PTL Lv 2 Current 1 SAB 06/2020 4w0d ALLERGIES: No Known Allergies CURRENT MEDICATIONS: Current Outpatient Medications: albuterol (PROVENTIL HFA;VENTOLIN HFA) 90 mcg/actuation inhaler, Inhale 2 puffs every 4 (four) hours as needed for wheezing., Disp: 18 g, Rfl: 0 aspirin 81 mg, Take 1 tablet (81 mg total) by mouth in the morning., Disp: 30 tablet, Rfl: 6 levothyroxine (SYNTHROID, LEVOTHROID) 137 MCG tablet, Take 1 tablet (137 mcg total) by mouth in the morning., Disp: 30 tablet, Rfl: 1 sertraline (ZOLOFT) 25 mg tablet, Take 1 tablet (25 mg total) by mouth in the morning., Disp: , Rfl: triamcinolone (KENALOG) 0.1 % paste, Apply 1 application to teeth in the morning and 1 application before bedtime. (Patient not taking: Reported on 03/06/2024), Disp: 5 g, Rfl: 0 PHYSICAL EXAMINATION: LMP 04/23/2024 Video visit Well-appearing in no distress. Respirations not labored, speaking comfortably in full sentences Gravid abdomen OVERALL ASSESSMENT -Maximilian Cortes is a pleasant 24 y.o. at 23w6d -influenza A exposure -COVID 19 infection -hypothyroidism -abnormal cell free DNA, increased risk for sex chromosome aneuploidy, Klinefelter syndrome (XXY) -obesity, pre gravid BMI 38 -family history of autism -PCOS with history of insulin resistance SUMMARY/RECOMMENDATION: Discontinue azithromcyin and prednisone as pt does not have underlying lung disease or CA-PNA infection Initiated on tamiflu x5day Continue levothyroxine 137 mcg daily, dose increased on 07/22/2024 Monitor thyroid function testing (TSH) every 3 weeks following dosing change in every 6 weeks if doses stable, goal TSH <2.5 in continue daily aspirin for attempted prevention of preeclampsia Detailed anatomic survey at 20 weeks' gestation, through MFM Serial growth assessment q4-6 weeks following anatomic survey, through primary OB Monitoring for preeclampsia after 20 weeks Healthy diet and exercise Daily movement assessment after 28 weeks. Recommend weekly testing starting at 32 weeks gestation, per ACOG guidelines Delivery planning at 39 weeks unless a sooner indication arises. If she delivers by , recommend VTE prevention (LMWH 40mg daily) during hospitalization Follow up in [facility] already scheduled DISPOSITION: At this point the patient is in complete care of her casing running machine tender. Patient does have ultrasound and office visit scheduled with us. Thank you for allowing me to participate in the care of Maximilian Cortes. If there any questions please do not hesitate to contact us. Berna Daniel MD Maternal- [facility] [address]st [place] [address] [facility], the CDC, and other organizations representing maternal and public health professionals recommend that , , and lactating people and those considering receive the COVID-19 vaccination. Vaccination is the best method to reduce maternal and complications of SARS-CoV-2 infection. This document was created with [employer] technology. Though I make every effort to review the dictation as it is transcribed, on occasion the spoken word can be misinterpreted by the technology leading to inappropriate words, phrases, or sentences. This note is addressed to the requesting provider as a consultation for clinical guidance. Specific medical abbreviations are occasionally used and those are generally approved by the [place]?Board of?Obstetrics and?Gynecology?as well as?Kayla manuel abbreviations. The above plan of care was based solely on the diagnoses for which a consultation was requested. ?More frequent testing may be indicated based on her other medical/obstetrical conditions. The management of other or medical conditions is beyond the scope of requested consultation and will continue to be followed by the primary casing running machine tender or primary care provider. Note to patient: The Cures Act makes medical notes like these available to patients in the interest of transparency. However, be advised this is a medical document. It is intended as peer to peer communication. It is written in medical language and may contain abbreviations or verbiage that are unfamiliar. It may appear blunt or direct. Medical documents are intended to carry relevant information, facts as evident, and the clinical opinion of the practitioner. Total time spent was 32 minutes: Preparing to see the patient (e.g., review of tests) Obtaining and/or reviewing separately obtained history Performing a medically appropriate examination and/or evaluation Counseling and educating the patient/family/caregiver Ordering medications, tests, or procedures Referring and communicating with other health inspector health care facilities (not separately reported) Documenting clinical information in the electronic or other health record documented in this encounter [facility] 10-06-2024 History of Presen t illness Narrative Patient went to urgent care and then ER yesterday as she was not feeling well. She went to [facility] ER and was diagnosed with COVID, her has flu A. Advised patient as she is to continue baby ASA, she does not want Paxlovid but she will take a Zpak and steroid. RX sent to [facility] in [place]. documented in this encounter [facility] 10-05-2024 History of Presen t illness Narrative Subjective: Patient ID: Maximilian Cortes is a 24 y.o. female. Chief Complaint Patient presents with Cough Cough, shortness of breath, started today. Currently 6 months . Patient presents with low-grade fever, stuffy nose/sore throat, cough/shortness for breath, chest pain, nausea/constipation, dizziness that started today. Patient is currently 6 months and follows with [facility] planning to deliver at [place]. Patient states that she has having a high-risk and is due to see MFM in 2 weeks due to uncontrolled thyroid issue. The following portions of the patient's history were reviewed and updated as appropriate: allergies, current medications, past family history, past medical history, past social history, past surgical history and problem list. Review of Systems Constitutional: Positive for fever. Negative for chills. HENT: Positive for congestion and sore throat. Negative for rhinorrhea. Respiratory: Positive for cough and shortness of breath. Gastrointestinal: Positive for constipation and nausea. Negative for diarrhea and vomiting. Neurological: Positive for dizziness. Past Medical History: Diagnosis Date Borderline personality disorder (CMS-HCC) Depression Hypothyroidism Iron deficiency anemia Obesity PCOS (polycystic ovarian syndrome) Past Surgical History: Procedure Laterality Date TONSILLECTOMY Social History Tobacco Use Smoking status: Never Smokeless tobacco: Former Vaping Use Vaping status: Former Start date: 08/10/2017 Quit date: 05/16/2024 Substances: Nicotine Devices: Disposable Substance Use Topics Alcohol use: Not Currently Drug use: Not Currently Types: Marijuana Family History Problem Relation Age of Onset Autoimmune disease Paternal Grandmother uncpecified Hypertension Father Hepatitis Mother Schizophrenia Mother Autism Half Sister Clotting disorder Neg Hx Congenital heart disease Neg Hx No Known Allergies Current Outpatient Medications on File Prior to Visit Medication Sig Dispense Refill albuterol (PROVENTIL HFA;VENTOLIN HFA) 90 mcg/actuation inhaler Inhale 2 puffs every 4 (four) hours as needed for wheezing. 18 g 0 aspirin 81 mg Take 1 tablet (81 mg total) by mouth in the morning. 30 tablet 6 levothyroxine (SYNTHROID, LEVOTHROID) 137 MCG tablet Take 1 tablet (137 mcg total) by mouth in the morning. 30 tablet 1 triamcinolone (KENALOG) 0.1 % paste Apply 1 application to teeth in the morning and 1 application before bedtime. (Patient not taking: Reported on 03/06/2024) 5 g 0 No current facility-administered medications on file prior to visit. Objective: Vitals: 10/05/24 1623 BP: 122/66 BP Site: Right Arm Pulse: 115 Resp: 20 Temp: 37.3 C (99.1 F) SpO2: 99% Weight: 91.2 kg (201 lb) Patient's last menstrual period was 04/23/2024. The patient is not currently . Body mass index is 37.98 kg/m . Facility age limit for growth %vijay is 20 years. Physical Exam Vitals and nursing note reviewed. Constitutional: General: She is not in acute distress. Appearance: Normal appearance. She is not ill-appearing. HENT: Head: Normocephalic and atraumatic. Cardiovascular: Rate and Rhythm: Tachycardia present. Pulses: Normal pulses. Heart sounds: Normal heart sounds. Pulmonary: Effort: Respiratory distress (mild, unable to speak in full sentences) present. Breath sounds: Normal breath sounds. Skin: General: Skin is warm and dry. Capillary Refill: Capillary refill takes less than 2 seconds. Neurological: General: No focal deficit present. Mental Status: She is alert and oriented to person, place, and time. Assessment/Plan: Due to patient with chest pain, shortness for breath, dizziness in , patient was recommended to have further evaluation and management in the ER. Patient is agreeable to being seen at [facility] ER. Report was called to Nancy LORENZO. Patient left facility with some shortness of breath, tachycardia but otherwise no acute distress with life sustaining vitals. Labs for this visit: Maximilian was seen today for cough. Diagnoses and all orders for this visit: Tachycardia - [facility] - Emergency Department - [place], [place]; Future Shortness of breath - [facility] Emergency Department - [place], [place]; Future Chest pain, unspecified type - [facility] Emergency Department - [place], [place]; Future No orders of the defined types were placed in this encounter. There are no Patient Instructions on file for this visit. This note is dictated with the use of M*Modal.Please note that this dictation was completed with computer voice recognition software. Quite often unanticipated grammatical, syntax, homophones, and other interpretive errors are inadvertently transcribed by the computer software. Please disregard these errors. Please excuse any errors that have escaped final proofreading. I personally discussed test results with patient/parent. Education handout and discharge papers given. Paperwork explained. Denies questions or concerns. Discussed that follow up care is usually required after a visit to the Urgent care. It is your responsibility to contact your primary care provider for follow up. If symptoms are not improving, worsening, or concerning symptoms of illness develop, follow up with your primary care provider or go to the nearest Emergency Department for further care immediately. ANAI Farfan 10/07/24 0804 documented in this encounter [facility] 10-05-2024 Miscellaneous Notes Formattin g of this note might be different from the original. OB office (LEANNE) called regarding patients thyroid levels and stating her labs have resulted and levels have increased and that she faxed over her results, will be on the look out for fax. documented in this encounter [facility] 10-05-2024 Telephone encount er Note OB office (ELANNE) called regarding patients thyroid levels and stating her labs have resulted and levels have increased and that she faxed over her results, will be on the look out for fax. [facility] 09-28-2024 History of Presen t illness Narrative Subjective No chief complaint on file. Maximilian Cortes is a 24 y.o. at 22w4d with a working estimated date of delivery of 01/28/2025, by Last Menstrual Period who presents for a routine visit. She denies vaginal bleeding, leakage of fluid, decreased movements, or contractions. OB History Para Term AB Living 2 1 SAB IAB Ectopic Multiple Live Births 1 # Outcome Date GA Lbr Lincoln/2nd Weight Sex Type Anes PTL Lv 2 Current 1 2019 Her is complicated by: hypothyroidism The following portions of the chart were reviewed this encounter and updated as appropriate: Objective Physical Exam weight: 212 lb Expected Total Weight Gain: 11 lb-19 lb Pregravid BMI: 38.00 BP: 118/80 Urine protein negative Urine glucose negative Labs: reviewed Imaging Assessment/Plan Diagnoses and all orders for this visit: History of depression Encounter for care of first , second trimester Hypothyroidism, unspecified type (CMS/[facility]) - TSH W/REFLEX TO FT4; Future Educated patient on plan of care in the future. Due to her thyroid we will do increased surveillance testing with NSTs and BPPs and growths. PVU and I will also wait for [facility] recommendations to make sure there is no change in the plan of care. Continue vitamin. Labs reviewed. Rhogam GTT at 28 weeks Follow up in 2 weeks for a routine visit. documented in this encounter [facility] 08-31-2024 History of Presen t illness Narrative Subjective No chief complaint on file. Maximilian Cortes is a 24 y.o. at 18w4d with a working estimated date of delivery of 01/28/2025, by Last Menstrual Period who presents for a routine visit. She denies vaginal bleeding, leakage of fluid, decreased movements, or contractions. OB History Para Term AB Living 2 1 SAB IAB Ectopic Multiple Live Births 1 # Outcome Date GA Lbr Lincoln/2nd Weight Sex Type Anes PTL Lv 2 Current 1 SAB 2019 Her is complicated by: thyroid, no PCP, no endo providers. The following portions of the chart were reviewed this encounter and updated as appropriate: Objective Physical Exam weight: 206 lb Expected Total Weight Gain: 11 lb-19 lb Pregravid BMI: 38.00 BP: 118/78 Urine protein Urine glucose Labs: reviewed Imaging Assessment/Plan Discussion with patient regarding thyroid and plan of care with [facility]. She should also plan to have lined up a PCP for herself and possibly bed maker. She also [place] and her cousin lives in another trailer there and her and her 2 kids have tested positive for lead. She is interested in having that testing done. She does not currently have insurance and wants to wait until she does have insurance. She is scheduled for anatomy scan 09/16/24 at [facility] office. She has stated she does not want to meet a anchor tacker or have further testing done on the baby. She states they wanted that due to family history of autism and she states it won't change the outcome so she mccarty not want any of it done. I did advise her to discuss with [facility]. We kip did discuss the testing that would need to be done due to her thyroid. Increased surveillance testing and NST's with BPPs and growths beginning at 32 weeks due to thyroid. Also she will need labs repeated every 4-6 weeks to assess thyroid levels. PVU and agrees with the plan of care. Patient has c/o of headaches and occasional N/V and states she has a history of depression and seeing a therapist. She is currently waiting for insurance and she will go to her therapist. She was on many medications for depression in the past. I did suggest we start her on Zoloft 25 mg due to her history and states she has stress now due to her family and entire support system not speaking with her. She states her only support system is her . She does agree that she would like to start on the Zoloft and I will follow up with her and her counseling. I did recommend she start magnesium 400 mg daily for headaches Unisom and Vit B6 for N/V and take it at night Zoloft 25 mg daily Continue baby ASA that [facility] started her on Continue thyroid medication 125 mcg daily. Continue vitamin. Labs reviewed. Rhogam GTT . Follow up in 2 weeks for a routine visit. documented in this encounter [facility] 08-22-2024 Telephone encount er Note Jac, my name is DIVYA Snell. I am calling to speak with Jen. Means nurse oral if she is in office. I just have some questions about an upcoming appointment. If you could please give me a call back at the earliest convenience my phone. [phone]. Thank you. [facility] 08-22-2024 Miscellaneous Notes Formattin g of this note might be different from the original. Jac, my name is DIVYA Snell. I am calling to speak with Jen. Means nurse oral if she is in office. I just have some questions about an upcoming appointment. If you could please give me a call back at the earliest convenience my phone. [phone]. Thank you. documented in this encounter [facility] 08-22-2024 Miscellaneous Notes Formattin g of this note might be different from the original. Left message for patient regarding Genetic Counseling visit today . Returned phone call from patient stating unsur if insurance to cover video visit is active yet or not. Patient to check with insurance company and will reschedule. documented in this encounter [facility] 08-22-2024 Telephone encount er Note Left message for patient regarding Genetic Counseling visit today . [facility] 08-22-2024 Telephone encount er Note Returned phone call from patient stating unsur if insurance to cover video visit is active yet or not. Patient to check with insurance company and will reschedule. [facility] 08-02-2024 History of Presen t illness Narrative Video Visit via Real-time Synchronous Audiovisual Provider Location: [facility] AT [address] [phone] Patient Location: Patient's home Patient Location Birth Certificate Clerk: None Video Visit Consent Statement: I discussed risks, benefits, and alternatives of a real-time synchronous audiovisual consultation with the patient (and any accompanying persons) including the risks that the patient's personal health details and medical records will be discussed over real-time, synchronous, interactive video/audio/telecommunication technology, the visit will not be recorded without the express consent of both the provider and the patient, and that there are some limitations compared to [id number] evaluations. We elected to proceed. REASON FOR OFFICE VISIT: Abnormal cell free DNA HISTORY OF PRESENT ILLNESS: Maximilian Cortes is a pleasant 24 y.o. at 14w3d due on Estimated Date of Delivery: 01/28/25. complicated by: Abnormal cell free DNA, XXY, consistent with Klinefelter syndrome Hypothyroidism, diagnosed at 11 yo. currently managed on levothyroxine 100mcg daily. Prior to was not on any medications, 03/26/24 last TSH 44.60. Initiated on levothyroxine 75mcg on 05/16/24, increased to levothyroxine 100mcg 07/01/2024 (TSH 11.8 06/15/24). Repeat TSH 14.8 07/22/24, increased to levothyroxine 137mcg daily. Borderline personality disorder Family history of autism Obesity affecting , pre BMI 38 PCOS with a history of insulin resistance Rh negative Today, the patient is doing well. She denies headaches, vision changes, nausea, vomiting, right upper quadrant or epigastric pain, SOB or chest pain. She denies contractions, vaginal bleeding, leaking of fluid. She reports good movement. Aneuploidy screening: High-risk for sex chromosome aneuploidy, 47 XXY, low risk cell free DNA for chromosomes 13, 18, 21 Carrier screening:desires Baby : I have reviewed the pertinent available patient records including but not limited to notes, labs and images. PAST OBSTETRICAL HISTORY: OB History Para Term AB Living 2 0 0 0 1 0 SAB IAB Ectopic Multiple Live Births 1 0 0 0 # Outcome Date GA Lbr Lincoln/2nd Weight Sex Type Anes PTL Lv 2 Current 1 SAB 06/2020 4w0d ALLERGIES: No Active Allergies CURRENT MEDICATIONS: Current Outpatient Medications: albuterol (PROVENTIL HFA;VENTOLIN HFA) 90 mcg/actuation inhaler, Inhale 2 puffs every 4 (four) hours as needed for wheezing., Disp: 18 g, Rfl: 0 aspirin 81 mg, Take 1 tablet (81 mg total) by mouth in the morning., Disp: 30 tablet, Rfl: 6 levothyroxine (SYNTHROID, LEVOTHROID) 137 MCG tablet, Take 1 tablet (137 mcg total) by mouth in the morning., Disp: 30 tablet, Rfl: 1 triamcinolone (KENALOG) 0.1 % paste, Apply 1 application to teeth in the morning and 1 application before bedtime. (Patient not taking: Reported on 07/22/2024), Disp: 5 g, Rfl: 0 PHYSICAL EXAMINATION: LMP 04/23/2024 Well-appearing in no distress. Respirations not labored, speaking comfortably in full sentences Gravid abdomen Lab Results Component Value Date TSH 14.77 (H) 07/22/2024 Lab Results Component Value Date HGBA1C 5.2 07/22/2024 OVERALL ASSESSMENT -Maximilian Cortes is a pleasant 24 y.o. at 12w4d -abnormal cell free DNA, increased risk for sex chromosome aneuploidy, Klinefelter syndrome (XXY) -hypothyroidism -obesity, pre gravid BMI 38 -family history of autism -PCOS with history of insulin resistance COUNSELING We reviewed the cell free DNA findings of increased risk for sex chromosome aneuploidy, suspected Klinefelter syndrome XXY. We reviewed that although cell-free DNA is not a diagnostic test , it has high sensitivity and specificity for the most common aneuploidies. A negative cell free DNA does not ensure an unaffected . However, a positive cell free DNA does not mean ineffective either. The sensitivity for Klinefelter syndrome based on cell free DNA is 93% with a specificity of 99.9% (NIPT Predictive Value Calculator ). According to panoramic, the positive predictive value is 83% negative predictive value is 17%. Limitations of cell free DNA screening were reviewed with the patient. Cell free DNA does not replace the accuracy and diagnostic precision of amniocentesis which remains an option for all women. We discussed the option of amniocentesis for definitive genetic testing. I discussed complications of invasive testing, including a 1 in 900 risk for labor, rupture of membranes, infection or bleeding that may lead to pre-viable or delivery. The patient declined amniocentesis and would prefer to test baby after delivery if necessary. We reviewed that Klinefelter syndrome, sex chromosome aneuploidy of XXY, is a genetic condition. The most common cause of Klinefelter syndrome is due to maternal or paternal meiotic nondijunction, a condition that is unlikely to recurrent future pregnancies. This condition is not expected to increase the risk of growth restriction, defects /ultrasound findings, stillbirth. Without diagnosis, most males with Klinefelter syndrome are recognized and diagnosed at puberty due to delayed or incomplete pubertal development. The severity of presentation is wide with a classic presentation including small firm testes, abnormalities and spermatogenesis and testosterone production. Laser to shown that boys with Klinefelter syndrome have higher rates of behavioral abnormalities and learning disabilities, so most have normal or slightly below normal cognitive function. Updating the clerk general of this diagnosis at the time of delivery is important for well-being checks including early speech therapy, individualized education plans, and directed preventative/routine healthcare. Regarding remainder of medical history affecting , please refer to initial consult note. SUMMARY/RECOMMENDATION: Genetic counseling referral already placed given family history of autism. Patient to discuss Klinefelter's syndrome in detail again at that time. Nutrition counseling referral placed given pre gravid BMI of 38 Recommend early Glucola screening at 13-14 weeks gestation, repeat Glucola screening at 24-28 weeks gestation if early testing is negative, through primary OB Continue levothyroxine 137 mcg daily, dose increased on 07/22/2024 Monitor thyroid function testing (TSH) every 3 weeks following dosing change in every 6 weeks if doses stable, goal TSH <2.5 in continue daily aspirin for attempted prevention of preeclampsia Detailed anatomic survey at 20 weeks' gestation, through MFM Serial growth assessment q4-6 weeks following anatomic survey, through primary OB Monitoring for preeclampsia after 20 weeks Healthy diet and exercise Daily movement assessment after 28 weeks. Recommend weekly testing starting at 37 weeks gestation, per ACOG guidelines, sooner if hypothyroidism remains uncontrolled Delivery planning at 39 weeks unless a sooner indication arises. If she delivers by , recommend VTE prevention (LMWH 40mg daily) during hospitalization Follow up in [facility] already scheduled DISPOSITION: At this point the patient is in complete care of her casing running machine tender. Patient does have ultrasound and office visit scheduled with us. Thank you for allowing me to participate in the care of Maximilian Cortes. If there any questions please do not hesitate to contact us. Berna Daniel MD Maternal- Medicine [facility] [address] [place] [address] [facility], the CDC, and other organizations representing maternal and public health professionals recommend that , , and lactating people and those considering receive the COVID-19 vaccination. Vaccination is the best method to reduce maternal and complications of SARS-CoV-2 infection. This document was created with [employer] technology. Though I make every effort to review the dictation as it is transcribed, on occasion the spoken word can be misinterpreted by the technology leading to inappropriate words, phrases, or sentences. This note is addressed to the requesting provider as a consultation for clinical guidance. Specific medical abbreviations are occasionally used and those are generally approved by the [place]?Board of?Obstetrics and?Gynecology?as well as?Kayla manuel abbreviations. The above plan of care was based solely on the diagnoses for which a consultation was requested. ?More frequent testing may be indicated based on her other medical/obstetrical conditions. The management of other or medical conditions is beyond the scope of requested consultation and will continue to be followed by the primary casing running machine tender or primary care provider. Note to patient: The Cures Act makes medical notes like these available to patients in the interest of transparency. However, be advised this is a medical document. It is intended as peer to peer communication. It is written in medical language and may contain abbreviations or verbiage that are unfamiliar. It may appear blunt or direct. Medical documents are intended to carry relevant information, facts as evident, and the clinical opinion of the practitioner. Total time spent was 32 minutes: Preparing to see the patient (e.g., review of tests) Obtaining and/or reviewing separately obtained history Performing a medically appropriate examination and/or evaluation Counseling and educating the patient/family/caregiver Ordering medications, tests, or procedures Referring and communicating with other health inspector health care facilities (not separately reported) Documenting clinical information in the electronic or other health record documented in this encounter [facility] 07-27-2024 History of Presen t illness Narrative Subjective No chief complaint on file. Maximilian Cortes is a 24 y.o. at 13w4d with a working estimated date of delivery of 01/28/2025, by Last Menstrual Period who presents for a routine visit. She denies vaginal bleeding, leakage of fluid, decreased movements, or contractions. OB History Para Term AB Living 2 1 SAB IAB Ectopic Multiple Live Births 1 # Outcome Date GA Lbr Lincoln/2nd Weight Sex Type Anes PTL Lv 2 Current 1 2019 Her is complicated by: hypothyroid, sent to [facility], patient does not have a PCP or endo. The following portions of the chart were reviewed this encounter and updated as appropriate: Objective Physical Exam weight: 203 lb Expected Total Weight Gain: 11 lb-19 lb Pregravid BMI: 38.00 BP: 118/78 Urine protein-negative Urine glucose-negative Labs: reviewed Imaging Assessment/Plan Diagnoses and all orders for this visit: Screening for diabetes mellitus - GLUCOSE, GESTATIONAL SCREEN (50G)-135 CUTOFF; Future Continue vitamin. Labs reviewed. Rhogam GTT will do early as per [facility] recommnedations. Patient has hypothyroid, no PCP and is overweight. As per [facility] they would like her gtt to be done at 13-15 weeks despite a normal A1c. Patient will come next week for glucose testing. Follow up in 2 weeks for a routine visit. documented in this encounter [facility] 07-22-2024 History of Presen t illness Narrative Patient called and updated on repeat thyroid function, persistently elevated TSH 14.8. Patient informed to discontinue levothyroxine 100 mcg daily, increased to levothyroxine 137 mcg daily. Prescription sent to pharmacy. Repeat TSH ordered in 3 weeks at new dose. Patient also informed of the benefits of baby aspirin. Berna Daniel MD Maternal- Medicine [place] [id number] [facility] [address] [place] [address] documented in this encounter [facility] 07-22-2024 History of Presen t illness Narrative Blood drawn by lab for cell-free DNA testings and carrier testing . Patient tolerated well. documented in this encounter [facility] 07-22-2024 History of Presen t illness Narrative REASON FOR CONSULTATION: hypothyroidism HISTORY OF PRESENT ILLNESS: Maximilian Cortes is a pleasant 24 y.o. at 12w4d due on Estimated Date of Delivery: 01/28/25. complicated by: Hypothyroidism, diagnosed at 11 yo, currently managed on levothyroxine 100mcg daily. Prior to was not on any medications, 03/26/24 last TSH 44.60. Initiated on levothyroxine 75mcg on 05/16/24, increased to levothyroxine 100mcg 07/01/2024 (TSH 11.8 06/15/24) Borderline personality disorder Family history of autism Obesity affecting , pre BMI 38 PCOS with a history of insulin resistance Rh negative Today, the patient is doing well. She denies headaches, vision changes, nausea, vomiting, right upper quadrant or epigastric pain, SOB or chest pain. She denies contractions, vaginal bleeding, leaking of fluid. She reports good movement. Aneuploidy screening: desires Carrier screening:desires Baby : I have reviewed the pertinent available patient records including but not limited to notes, labs and images. PAST OBSTETRICAL HISTORY: OB History Para Term AB Living 2 0 0 0 1 0 SAB IAB Ectopic Multiple Live Births 1 0 0 0 # Outcome Date GA Lbr Lincoln/2nd Weight Sex Type Anes PTL Lv 2 Current 1 SAB 06/2020 4w0d MEDICAL HISTORY: Past Medical History: Diagnosis Date Borderline personality disorder (CMS-HCC) Depression Hypothyroidism Iron deficiency anemia Obesity PCOS (polycystic ovarian syndrome) SURGICAL HISTORY: Past Surgical History: Procedure Laterality Date TONSILLECTOMY FAMILY/GENETIC HISTORY: Family History Problem Relation Age of Onset Autoimmune disease Paternal Grandmother uncpecified Hypertension Father Hepatitis Mother Schizophrenia Mother Autism Half Sister Clotting disorder Neg Hx Congenital heart disease Neg Hx SOCIAL HISTORY: Social History Tobacco Use Smoking status: Never Smokeless tobacco: Former Vaping Use Vaping status: Former Start date: 08/10/2017 Quit date: 05/16/2024 Substances: Nicotine Devices: Disposable Substance Use Topics Alcohol use: Not Currently Drug use: Not Currently Types: Marijuana ALLERGIES: No Active Allergies CURRENT MEDICATIONS: Current Outpatient Medications: albuterol (PROVENTIL HFA;VENTOLIN HFA) 90 mcg/actuation inhaler, Inhale 2 puffs every 4 (four) hours as needed for wheezing., Disp: 18 g, Rfl: 0 levothyroxine (SYNTHROID, LEVOTHROID) 100 MCG tablet, Take 1 tablet (100 mcg total) by mouth in the morning., Disp: , Rfl: triamcinolone (KENALOG) 0.1 % paste, Apply 1 application to teeth in the morning and 1 application before bedtime. (Patient not taking: Reported on 07/22/2024), Disp: 5 g, Rfl: 0 RECENT HOSPITALIZATION: none HABITS: Patient activity no restrictions, diet no restrictions REVIEW OF SYSTEMS: Head and Neck: Negative for any dizziness and headaches. Cardiovascular and Respiratory System: Denies any chest pain, shortness of breath, and coughing. Abdominal and System: Denies any abdominal pain, nausea, vomiting, vaginal bleeding, and vaginal discharge REVIEW OF TESTS AND ULTRASOUND REPORTS: Referral records and [facility] chart were reviewed Pertinent Ultrasound findings are see formal ultrasound report. PHYSICAL EXAMINATION: BP 120/76 Pulse 66 Ht 154.9 cm (5' 1 ) Wt 91.3 kg (201 lb 3.2 oz) LMP 04/23/2024 BMI 38.02 kg/m Well-appearing in no distress. Respirations not labored, speaking comfortably in full sentences Gravid abdomen OVERALL ASSESSMENT -Maximilian Cortes is a pleasant 24 y.o. at 12w4d -hypothyroidism -obesity, pre gravid BMI 38 -family history of autism -PCOS with history of insulin resistance COUNSELING Hypothyroidism We discussed the concerns with hypothyroidism in . Women with hypothyroidism have a higher incidence of complications, including miscarriages, preeclampsia, placental abruption, low weight, prematurity and stillbirths. Uncontrolled hypothyroidism in is also associated with cognitive and developmental delays in the fetus, and when extreme can result in severe mental retardation and deafness. A repeat TSH was ordered today, since last levothyroxine dose increase was made over 3 weeks ago, from Synthroid 75 mcg to Synthroid 100 mcg daily. In addition, I recommend obtaining thyroid function tests 3 weeks after dosage change or every 6-8 weeks once stable to ensure she is on adequate dosing. Her requirement may increase as a result of . Obesity MORBID Obesity is a risk factor for adverse outcomes including increased risks for miscarriage in the first trimester, congenital anomalies, hypertensive disorders of including preeclampsia, diabetes mellitus, demise, and delivery (with subsequent risks of wound infection, wound complications otherwise, and/or VTE). While we do not recommend weight loss during (inadequate weight gain and weight loss are associated with increased risks of growth restriction or SGA), we discussed the importance of a healthy diet and exercise. Her goal for weight gain throughout gestation should be 11-20 pounds. I offered to refer her to a liaison engineer to assist with dietary modifications. Due to the inability to monitor growth using fundal height measurements, serial growth assessment via US is recommended. We also recommend initiation of at least weekly ANFS at 37 weeks given the increased risk of demise in this setting. SUMMARY/RECOMMENDATION: Desire cell free DNA and carrier screening, ordered Genetic counseling referral placed given family history of autism Nutrition counseling referral placed given pre gravid BMI of 38 Screening A1c ordered today Recommend early Glucola screening at 13-14 weeks gestation, repeat Glucola screening at 24-28 weeks gestation if early testing is negative, through primary OB Continue levothyroxine 100 mcg daily TSH ordered today Monitor thyroid function testing (TSH) every 3 weeks following dosing change in every 6 weeks if doses stable, goal TSH <2.5 in Initiation of daily aspirin for attempted prevention of preeclampsia Detailed anatomic survey at 20 weeks' gestation, through MFM Serial growth assessment q4-6 weeks following anatomic survey, through primary OB Monitoring for preeclampsia after 20 weeks Healthy diet and exercise Daily movement assessment after 28 weeks. Recommend weekly testing starting at 37 weeks gestation, per ACOG guidelines, sooner if hypothyroidism remains uncontrolled Delivery planning at 39 weeks unless a sooner indication arises. If she delivers by , recommend VTE prevention (LMWH 40mg daily) during hospitalization Follow up in [facility] scheduled in 12 weeks DISPOSITION: At this point the patient is in complete care of her casing running machine tender. Patient does have ultrasound and office visit scheduled with us. Thank you for allowing me to participate in the care of Maximilian Cortes. If there any questions please do not hesitate to contact us. Berna Daniel MD Maternal- Medicine [facility] [address] [place] [address] [facility], the CDC, and other organizations representing maternal and public health professionals recommend that , , and lactating people and those considering receive the COVID-19 vaccination. Vaccination is the best method to reduce maternal and complications of SARS-CoV-2 infection. This document was created with [employer] technology. Though I make every effort to review the dictation as it is transcribed, on occasion the spoken word can be misinterpreted by the technology leading to inappropriate words, phrases, or sentences. This note is addressed to the requesting provider as a consultation for clinical guidance. Specific medical abbreviations are occasionally used and those are generally approved by the [place]?Board of?Obstetrics and?Gynecology?as well as?Kayla manuel abbreviations. The above plan of care was based solely on the diagnoses for which a consultation was requested. ?More frequent testing may be indicated based on her other medical/obstetrical conditions. The management of other or medical conditions is beyond the scope of requested consultation and will continue to be followed by the primary casing running machine tender or primary care provider. Note to patient: The Cures Act makes medical notes like these available to patients in the interest of transparency. However, be advised this is a medical document. It is intended as peer to peer communication. It is written in medical language and may contain abbreviations or verbiage that are unfamiliar. It may appear blunt or direct. Medical documents are intended to carry relevant information, facts as evident, and the clinical opinion of the practitioner. Headache/epigastric pain/blurry vision/swelling? Headaches Cramping/contractions? No Abnormal vaginal discharge? No Spotting/vaginal bleeding? Spotting about 2-3 weeks ago Loss or gush of fluid like your water may have broken? No Do you have cats at home? No Do you change the litter box (reason: risk of toxoplasmosis)? N/a Genetic testing done this here or other office? not yet Have you been seen here at [facility] in a previous ?no Recent ER visits or hospitalizations? No Bring blood sugar log or meter with you today? (Please bring them with you for every visit at [facility]) N/a Flu vaccine (Jun-October)? No Any concerns that you would like me to mention to the provider today? No documented in this encounter [facility] 06-30-2024 History of Presen t illness Narrative Subjective No chief complaint on file. Maximilian Cortes is a 24 y.o. at 9w5d with a working estimated date of delivery of 01/28/2025, by Last Menstrual Period who presents for a routine visit. She denies vaginal bleeding, leakage of fluid, decreased movements, and contractions. OB History Para Term AB Living 2 1 SAB IAB Ectopic Multiple Live Births 1 # Outcome Date GA Lbr Lincoln/2nd Weight Sex Type Anes PTL Lv 2 Current 1 SAB 2019 Her is complicated by: elevated thyroid lab The following portions of the chart were reviewed this encounter and updated as appropriate: Objective Physical Exam weight: 205 lb, Pregravid BMI: 38.00 Expected Total Weight Gain: 11 lb-19 lb BP: 118/72 Labs Imaging Assessment/Plan Patient here today for discussion of elevated thyroid lab. No visit today as she recently was seen and had an US. She is currently taking 75mcg of thyroid and states she has had thyroid problems most of her life. She didn't take medications for a long time and when she went to [facility] dept, they started her on the medication when she had a positive test. I do want to increase the medication to 100 mcg at this time and also referral made for M consult related to thyroid. PVU and agrees with the plan of care. Diagnoses and all orders for this visit: Acquired hypothyroidism (CMS/HCC) - levothyroxine (Synthroid) 100 MCG tablet; Take 1 tablet (100 mcg) by mouth in the morning. Take before meals. Subchorionic hemorrhage of placenta in first trimester - US OB limited 1+ fetuses; Future 9 weeks gestation of Urine protein Urine glucose Continue vitamin. Labs reviewed. Order placed for anatomy scan at 20 weeks. Follow up in 4 weeks for a routine visit. documented in this encounter [facility] 06-15-2024 History of Presen t illness Narrative midSubjective Maximilian Cortes is a 24 y.o. at 7w4d with a working estimated date of delivery of 01/28/2025, by Last Menstrual Period who presents for an initial visit. This is unplanned. No care team primary care physician to display OB History Para Term AB Living 2 1 SAB IAB Ectopic Multiple Live Births 1 # Outcome Date GA Lbr Lincoln/2nd Weight Sex Type Anes PTL Lv 2 Current 1 SAB 2019 Her is complicated by: Patient referred by Gynecology History Last Pap The following portions of the chart were reviewed this encounter and updated as appropriate: Review of Systems Normal Objective Physical Exam weight: 201 lb Expected Total Weight Gain: 11 lb-19 lb [place] BMI: 38.00 Urine protein Urine glucose Labs Assessment/Plan Diagnoses and all orders for this visit: Amenorrhea examination or test, positive result - Hepatitis B surface antigen - Rubella antibody, IgG - CBC - Antibody screen - RPR - Hemoglobin A1c - TSH W/REFLEX TO FT4; Future - HIV-1 and HIV-2 antibodies - ABO/Rh - DRUG TOX MONITORIGN 6 W/ CONF,URINE; Future - Hepatitis C antibody - Urine culture; Future - URINALYSIS MICROSCOPIC; Future - C. trachomatis / N. gonorrhoeae, DNA probe; Future Hypothyroidism, unspecified type (CMS/HCC) - levothyroxine (Synthroid, Levoxyl) 75 MCG tablet; Take 1 tablet (75 mcg) by mouth Daily Other orders - T4, free Blue education folder given. Patient educated on safe medication list. Genetic testing information given. Discussed the do's and don'ts in the blue folder. We discussed labs and what we draw and what we are testing for. Patient is also informed that we do a urine drug test. Patient also given office phone number and [facility] number to call in case of an emergency or after hours needs. PVU and all questions answered. We did discuss place of delivery. Patient should plan to go to [facility] for all services unless an emergency and they need to go to the closest ER. We can make other arrangements possibly if patient would like to deliver at another facility but I did explain I am now at [facility] 100% of the time and would like to do all deliveries there. documented in this encounter [facility] 06-14-2024 Telephone encount er Note Pt left message on machine to r/s her appointment. She hadn't heard from anyone and would like a callback, [facility] 06-14-2024 Miscellaneous Notes Formattin g of this note might be different from the original. Pt left message on machine to r/s her appointment. She hadn't heard from anyone and would like a callback, documented in this encounter [facility] 03-06-2024 History of Presen t illness Narrative Subjective: Patient ID: Maximilian Cortes is a 23 y.o. female. Chief Complaint Patient presents with URI Eye Problem HPI: Maximilian here with complaint of nasal congestion, runny nose, and cough now for the past week. On day 1 of her symptoms she did have a headache and some body aches but that had resolved after day 1. This morning she woke up with a red irritated crusted shut left eye. He has been taking [id number] NyQuil and DayQuil for symptoms without much improvement. She denies any fever, chest pain, difficulty breathing, vomiting, diarrhea, rash. Eating and drinking okay. Voids stools normal without complaints. PCP none. Past medical history past surgical history vaccines status in chart. The following portions of the patient's history were reviewed and updated as appropriate: allergies, current medications, past family history, past medical history, past social history, past surgical history and problem list. Review of Systems Constitutional: Negative for appetite change, chills and fever. HENT: Positive for congestion, rhinorrhea and sore throat. Negative for ear pain. Eyes: Positive for discharge (left), redness (left) and itching (left). Negative for photophobia, pain and visual disturbance. Respiratory: Positive for cough. Negative for shortness of breath, wheezing and stridor. Cardiovascular: Negative for chest pain. Gastrointestinal: Negative for abdominal pain, blood in stool, diarrhea and vomiting. Genitourinary: Negative for hematuria. Skin: Negative for rash. Neurological: Negative for headaches. Past Medical History: Diagnosis Date Bipolar 1 disorder ([facility]) Depression Iron deficiency anemia Obesity PCOS (polycystic ovarian syndrome) Thyroiditis, autoimmune Past Surgical History: Procedure Laterality Date TONSILLECTOMY Social History Tobacco Use Smoking status: Never Smokeless tobacco: Never Substance Use Topics Alcohol use: No Drug use: No Family History Problem Relation Age of Onset Hypertension Father No Known Problems Mother Allergies Allergen Reactions No Known Drug Allergies Current Outpatient Medications on File Prior to Visit Medication Sig Dispense Refill albuterol (PROVENTIL HFA;VENTOLIN HFA) 90 mcg/actuation inhaler Inhale 2 puffs every 4 (four) hours as needed for wheezing. (Patient not taking: Reported on 03/06/2024) 18 g 0 triamcinolone (KENALOG) 0.1 % paste Apply 1 application to teeth in the morning and 1 application before bedtime. (Patient not taking: Reported on 03/06/2024) 5 g 0 No current facility-administered medications on file prior to visit. Objective: Vitals: 03/06/24 0852 BP: 131/75 Pulse: 76 Resp: 16 Temp: 36.9 C (98.4 F) TempSrc: Oral SpO2: 99% Weight: 86.2 kg (190 lb) Height: 154.9 cm (5' 1 ) No LMP recorded. The patient is not currently . Body mass index is 35.9 kg/m . Facility age limit for growth %vijay is 20 years. Physical Exam Constitutional: General: She is not in acute distress. Appearance: Normal appearance. HENT: Right Ear: Tympanic membrane normal. Left Ear: Tympanic membrane normal. Nose: Congestion present. No rhinorrhea. Mouth/Throat: Mouth: Mucous membranes are moist. Pharynx: Posterior oropharyngeal erythema present. No oropharyngeal exudate. Eyes: Conjunctiva/sclera: Conjunctivae normal. Cardiovascular: Rate and Rhythm: Normal rate and regular rhythm. Pulmonary: Effort: Pulmonary effort is normal. Breath sounds: Normal breath sounds. No wheezing, rhonchi or rales. Abdominal: General: Abdomen is flat. Bowel sounds are normal. Palpations: Abdomen is soft. Musculoskeletal: Cervical back: Normal range of motion and neck supple. No tenderness. Lymphadenopathy: Cervical: No cervical adenopathy. Skin: General: Skin is warm and dry. Findings: No rash. Neurological: General: No focal deficit present. Mental Status: She is alert. Assessment/Plan: Labs for this visit: No visits with results within 1 Day(s) from this visit. Latest known visit with results is: Admission on 11/14/2021, Discharged on 11/14/2021 Component Date Value First Test? 11/14/2021 NO Employed in Healthcare? 11/14/2021 NO Symptoms Defined by CDC? 11/14/2021 YES Symptom Onset? 11/14/202120211110 Hospitalized for Covid? 11/14/2021 NO ICU for Covid? 11/14/2021 UNKNOWN Congregate Setting? 11/14/2021 NO ? 11/14/2021 NO Specimen Type 11/14/2021 Naso Pharynx FLU A PCR 11/14/2021 Positive (A) FLU B PCR 11/14/2021 Negative RSV by PCR 11/14/2021 Negative SARS CoV 2 BY PCR 11/14/2021 Not Detected Maximilian was seen today for uri and eye problem. Diagnoses and all orders for this visit: Upper respiratory infection with cough and congestion Acute bacterial conjunctivitis of left eye - trimethoprim-polymyxin B (POLYTRIM) 10,000 unit- 1 mg/mL drops; Administer 1 drop into the left eye in the morning and 1 drop at noon and 1 drop in the evening and 1 drop before bedtime. Do all this for 5 days. Healthcare maintenance - Ambulatory Referral to [facility]; Future -diagnosis uri with cough and unilateral conjunctivitis -conservative treatment discussed. [id number]-[id number] Tylenol or Motrin p.r.n. pain fever greater than 100.4 -warm saltwater gargle rinses as needed sore throat -increase fluids, advance diet as tolerated, rest -humidifier at -OT zyrtec, flonase prn -use polytrim eye gtts as directed. Warm compresses. Report swelling or redness around the eye -f/w pcp referral as directed -Report lack of improvements, worsening symptoms, or other concerns to urgent care -care plan discussed with pt in agreement verbalize understanding Orders Placed or Reconciled This Encounter Medications trimethoprim-polymyxin B (POLYTRIM) 10,000 unit- 1 mg/mL drops Sig: Administer 1 drop into the left eye in the morning and 1 drop at noon and 1 drop in the evening and 1 drop before bedtime. Do all this for 5 days. Dispense: 10 mL Refill: 0 There are no Patient Instructions on file for this visit. This note is dictated with the use of M*Modal.Please note that this dictation was completed with computer voice recognition software. Quite often unanticipated grammatical, syntax, homophones, and other interpretive errors are inadvertently transcribed by the computer software. Please disregard these errors. Please excuse any errors that have escaped final proofreading. I personally discussed test results with patient/parent. Education handout and discharge papers given. Paperwork explained. Denies questions or concerns. Discussed that follow up care is usually required after a visit to the Urgent care. It is your responsibility to contact your primary care provider for follow up. If symptoms are not improving, worsening, or concerning symptoms of illness develop, follow up with your primary care provider or go to the nearest Emergency Department for further care immediately. ANAI Phelps 03/06/24 0940 documented in this encounter [facility] Evaluation note Diagnosis Acquired hypothyroidism (CMS/HCC)- Primary Unspecified hypothyroidism Subchorionic hemorrhage of placenta in first trimester 9 weeks gestation of [facility]* Diagnosis Screening for diabetes mellitus documented in this encounter [facility]* Diagnosis Abnormal genetic test during - Primary Hypothyroidism affecting in second trimester 14 weeks gestation of [facility] Diagnosis Amenorrhea Absence of menstruation examination or test, positive result Hypothyroidism, unspecified type (CMS/HCC) [facility]* Diagnosis History of depression- Primary Personal history of other mental disorder Acquired hypothyroidism (CMS/HCC) Unspecified hypothyroidism Encounter for care of first , second trimester documented in this encounter [facility]* Diagnosis Hypothyroidism affecting in first trimester- Primary PCOS (polycystic ovarian syndrome) Polycystic ovaries History of insulin resistance Family history of autism Abnormal genetic test during Hypothyroidism affecting in second trimester [facility] Diagnosis Upper respiratory infection with cough and congestion- Primary Acute bacterial conjunctivitis of left eye Healthcare maintenance [facility] Diagnosis Hypothyroidism affecting in first trimester- Primary 12 weeks gestation of PCOS (polycystic ovarian syndrome) Polycystic ovaries History of insulin resistance Family history of autism [facility] Diagnosis Hypothyroidism affecting in first trimester- Primary [facility] Diagnosis History of depression- Primary Personal history of other mental disorder Encounter for care of first , second trimester Hypothyroidism, unspecified type (CMS/HCC) documented in this encounter [facility]* Diagnosis COVID- Primary Encounter for care of first , second trimester documented in this encounter [facility]* Diagnosis Tachycardia- Primary Unspecified tachycardia Shortness of breath Chest pain, unspecified type [facility] Diagnosis Elevated BP without diagnosis of hypertension- Primary 23 weeks gestation of COVID-19 affecting in second trimester At increased risk for exposure to influenza virus Hypothyroidism affecting in second trimester [facility] Diagnosis Hypothyroidism affecting in second trimester- Primary 27 weeks gestation of Elevated BP without diagnosis of hypertension [facility] Diagnosis Other constipation- Primary Encounter for care of first , third trimester Hypothyroidism, unspecified type (CMS/HCC) documented in this encounter [facility]* Diagnosis Polyhydramnios affecting in third trimester- Primary Constipation, unspecified constipation type 30 weeks gestation of Hypothyroidism affecting in third trimester Elevated BP without diagnosis of hypertension [facility] Diagnosis Polyhydramnios affecting in third trimester- Primary Hypothyroidism affecting in third trimester Elevated BP without diagnosis of hypertension History of insulin resistance Family history of autism [facility] Diagnosis Hypothyroidism affecting in third trimester- Primary [facility] Diagnosis Encounter for care of first , third trimester- Primary Hypothyroidism, unspecified type (CMS/HCC) Heartburn during in second trimester History of depression Personal history of other mental disorder Acquired hypothyroidism (CMS/HCC) Unspecified hypothyroidism documented in this encounter [facility]* Diagnosis Encounter for care of first , third trimester- Primary Heartburn during in second trimester Hypothyroidism, unspecified type (CMS/HCC) History of anxiety History of depression Personal history of other mental disorder [facility]* Diagnosis 33 weeks gestation of Hypothyroidism, unspecified type [facility] Diagnosis Encounter for care of first , third trimester- Primary Heartburn during in second trimester Hypothyroidism, unspecified type (CMS/HCC) History of anxiety History of depression Personal history of other mental disorder [facility]* Diagnosis Encounter for care of first , third trimester- Primary screening for streptococcus B screening for Streptococcus B Heartburn during in second trimester Hypothyroidism, unspecified type (CMS/HCC) documented [facility]* Diagnosis Other specified hypothyroidism- Primary [facility] Diagnosis Encounter for care of first , third trimester- Primary Acquired hypothyroidism (CMS/HCC) Unspecified hypothyroidism Heartburn during in second trimester History of depression Personal history of other mental disorder documented [facility]* Diagnosis Acquired hypothyroidism (CMS/HCC)- Primary Unspecified hypothyroidism Encounter for care of first , third trimester Heartburn during in second trimester History of anxiety documented [facility]* Diagnosis Acquired hypothyroidism (CMS/HCC)- Primary Unspecified hypothyroidism Encounter for care of first , third trimester Heartburn during in second trimester History of anxiety History of depression Personal history of other mental disorder documented in [facility]ructionsNot on filedocumented in [email or web address] SystemInstructionsNot on filedocumented in this encounterProEn[facility] [email or web address] SystemInstructionsNot on filedocumented in this encounterProProm[facility] SystemInstructions* Attachments The following attachments cannot be sent through Care Everywhere. * Viral Upper Respiratory Infection Discharge Instructions, Adult (Sami) documented in this [facility] SystemInstructionsNot on file documented in this encounterPro[facility] [email or web address] SystemInstructionsNot on file documented in this encounterProEn[facility] Health SystemInstructionsNot on file documented in this encounterProEn[email or web address] SystemInstructionsNot on file documented in this encounterProEn[email or web address] SystemInstructionsNot on file documented in this encounterPro[facility] SystemInstructionsNot on file documented in this encounterProPromedica [facility] SystemInstructionsNot on file documented in this encounterProPromedica [facility] SystemInstructionsNot on file documented in this encounterProPromedica [facility] SystemInstructionsNot on file documented in this encounterProPromedica [facility] SystemInstructions* Attachments The following attachments cannot be sent through Care Everywhere. * Preeclampsia (Sami) documented in this encounterProProm[facility] SystemInstructionsNot on file documented in this encounterProProm[facility] SystemInstructionsNot on file documented in this encounterProPromedica [facility] SystemReason for referral (narrative)* Consultation (Routine) - Pending Review Specialty Diagnoses / Procedures Referred By Sherif hill Referred To Contact Diagnoses Healthcare maintenance Guy Easley, BANDAR-RENOVATOR MACHINE OPERATOR [id number], [address] [address] Referral ID Status Reason Start Date Expiration Date V isits Requested Visits Authorized [id number] Pending Review 03/06/2024 03/06/2025 1 1 [facility] Summary Purpose Family History No Family History Records FoundNo Family History Records FoundNo Family History Records FoundNo Family History Records FoundNo Family History Records FoundNo Family History Records FoundNo Family History Records FoundNo Family History Records FoundNo Family History Records Found Advance Directives No Advanced Directives Records Found Date Activated Date Inactivated Comments 03/18/2020 4:00 PM 03/21/2020 3:49 PM Date Activated Date Inactivated Comments 03/14/2020 4:36 PM 03/17/2020 12:24 AM Date Activated Date Inactivated Comments 03/18/2020 4:00 PM 03/21/2020 3:49 PM Date Activated Date Inactivated Comments 03/14/2020 4:36 PM 03/17/2020 12:24 AM Date Activated Date Inactivated Comments 12/07/2024 4:37 PM 12/07/2024 9:29 PM Date Activated Date Inactivated Comments 03/18/2020 4:00 PM 03/21/2020 3:49 PM Date Activated Date Inactivated Comments 03/14/2020 4:36 PM 03/17/2020 12:24 AM Date Activated Date Inactivated Comments 12/07/2024 4:37 PM 12/07/2024 9:29 PM Date Activated Date Inactivated Comments 03/18/2020 4:00 PM 03/21/2020 3:49 PM Date Activated Date Inactivated Comments 03/14/2020 4:36 PM 03/17/2020 12:24 AM Instructions * Patient Instructions - Makenzie Valle PA-Varun - 07/29/2018 11:07 AM EST Formatting of this note may be different from the original. Get lab tests drawn today. Follow up with PCP. Discussed over the counter medications for symptomatic management and side effects of medications. Recommended taking all medications with food and to stop medications if they develop any signs of anallergic reaction. Educated patient and/or guardian about signs and symptoms that would warrant further immediate evaluation. Recommended that they should return to urgent care, make an appointment with their family physician, or go to the emergency room if symptoms persist or get acutely worse. Recommended follow upwithin the next week with their PCP or to get established with a PCP soon in order to follow up appropriately. Abdominal Pain: Care Instructions Your Care Instructions Abdominal pain has many possible causes. Some aren't serious and get better on their own in a few days. Others need more testing and treatment. If your pain continues or gets worse, you need to be rechecked and may need more tests to find out what is wrong. You may need surgery to correct the problem. Don't ignore new symptoms, such as fever, nausea and vomiting, urination problems, pain that gets worse, and dizziness. These may be signs of a more serious problem. Your doctor may have recommended a follow-up visit in the next 8 to 12 hours. If you are not getting better, you may need more tests or treatment. The doctor has checked you carefully, but problems can develop later. If you notice any problems ornew symptoms, get medical treatment right away. Follow-up care is a goff part of your treatment and safety. Be sure to make and go to all appointments, and call your doctor if you are having problems. It's also a good idea to know your test resultsand keep a list of the medicines you take. How can you care for yourself at home? Rest until you feel better. To prevent dehydration, drink plenty of fluids, enough so that your urine is light yellow or clear like water. Choose water and other caffeine-free clear liquids until you feel better. If you have kidney, heart, or liver disease and have to limit fluids, talk with your doctor before you increase the amount of fluids you drink. If your stomach is upset, eat mild foods, such as rice, dry toast or crackers, bananas, and applesauce. Try eating several small meals instead of two or three large ones. Wait until 48 hours after all symptoms have gone away before you have spicy foods, alcohol, and drinks that contain caffeine. Do not eat foods that are high in fat. Avoid anti-inflammatory medicines such as aspirin, ibuprofen (Advil, Motrin), and naproxen (Aleve).These can cause stomach upset. Talk to your doctor if you take daily aspirin for another health problem. When should you call for help? Call 911 anytime you think you may need emergency care. For example, call if: ? You passed out (lost consciousness). ? You pass maroon or very bloody stools. ? You vomit blood or what looks like coffee grounds. ? You have new, severe belly pain. ?Call your doctor now or seek immediate medical care if: ? Your pain gets worse, especially if it becomes focused in one area of your belly. ? You have a new or higher fever. ? Your stools are black and look like tar, or they have streaks of blood. ? You have unexpected vaginal bleeding. ? You have symptoms of a urinary tract infection. These may include: Pain when you urinate. Urinating more often than usual. Blood in your urine. ? You are dizzy or lightheaded, or you feel like you may faint. ?Watch closely for changes in your health, and be sure to contact your doctor if: ? You are not getting better after 1 day (24 hours). Where can you learn more? Log into your personal health record on [email or web address] and enter E907 in the Education box to learn more about Abdominal Pain: Care Instructions. Current as of: June 29, 2017 Content Version: 11.6 9346-3914 [employer]. Care instructions adapted under license by your healthcare professional. If you have questions about a medical condition or this instruction, always ask your healthcare professional. [employer] disclaims any warranty or liability for your use of this information. Nausea and Vomiting: Care Instructions Your Care Instructions When you are nauseated, you may feel weak and sweaty and notice a lot of saliva in your mouth. Nausea often leads to vomiting. Most of the time you do not need to worry about nausea and vomiting, butthey can be signs of other illnesses. Two common causes of nausea and vomiting are stomach flu and food poisoning. Nausea and vomiting from viral stomach flu will usually start to improve within 24 hours. Nausea and vomiting from food poisoning may last from 12 to 48 hours. The doctor has checked you carefully, but problems can develop later. If you notice any problems ornew symptoms, get medical treatment right away. Follow-up care is a goff part of your treatment and safety. Be sure to make and go to all appointments, and call your doctor if you are having problems. It's also a good idea to know your test resultsand keep a list of the medicines you take. How can you care for yourself at home? To prevent dehydration, drink plenty of fluids, enough so that your urine is light yellow or clear like water. Choose water and other caffeine-free clear liquids until you feel better. If you have kidney, heart, or liver disease and have to limit fluids, talk with your doctor before you increase the amount of fluids you drink. Rest in bed until you feel better. When you are able to eat, try clear soups, mild foods, and liquids until all symptoms are gone for 12 to 48 hours. Other good choices include dry toast, crackers, cooked cereal, and gelatin dessert, such as Jell-O. When should you call for help? Call 911 anytime you think you may need emergency care. For example, call if: ? You passed out (lost consciousness). ?Call your doctor now or seek immediate medical care if: ? You have symptoms of dehydration, such as: Dry eyes and a dry mouth. Passing only a little dark urine. Feeling thirstier than usual. ? You have new or worsening belly pain. ? You have a new or higher fever. ? You vomit blood or what looks like coffee grounds. ?Watch closely for changes in your health, and be sure to contact your doctor if: ? You have ongoing nausea and vomiting. ? Your vomiting is getting worse. ? Your vomiting lasts longer than 2 days. ? You are not getting better as expected. Where can you learn more? Log into your personal health record on [email or web address].GoodData and enter H591 in the Education box to learn more about Nausea and Vomiting: Care Instructions. Current as of: June 29, 2017 Content Version: 11.6 9206-6397 [employer]. Care instructions adapted under license by your healthcare professional. If you have questions about a medical condition or this instruction, always ask your healthcare professional. [employer] disclaims any warranty or liability for your use of this information. in this encounter History of Present Illness * Makenzie Valle PA-C - 07/29/2018 10:46 AM EST Formatting of this note may be different from the original. Subjective: Patient ID: Maximilian Cortes is a 18 y.o. female. Chief Complaint: Nausea 18 yo female co nausea, abdominal bloating, hands swelling X 2 weeks. She recently established witha new PCP. She does not recall having these symptoms at that visit. She has pending orders for lab tests, but has not had the blood work drawn. She has no fever or vomiting; just dry heaves. She had an IUD removed 06/24/18. She did a home test which was negative. Past Medical History: Diagnosis Date Anxiety Depression Disease of thyroid gland Heart murmur Past Surgical History: Procedure Laterality Date TONSILLECTOMY Family History Problem Relation Age of Onset Mental illness Mother Hypertension Father Diabetes Paternal Aunt Diabetes Paternal Uncle Mental illness Maternal Grandmother Cancer Paternal Grandfather Review of Systems Constitutional: Negative. HENT: Negative. Eyes: Negative. Respiratory: Negative. Cardiovascular: Negative. Gastrointestinal: Positive for abdominal distention, abdominal pain and nausea. Genitourinary: Positive for menstrual problem. Musculoskeletal: Positive for joint swelling. Skin: Negative. Neurological: Positive for headaches. Objective: BP 103/70 Pulse 83 Temp 98 F (36.7 C) (Oral) Resp 16 Ht 5' 1 Wt 86.2 kg (190 lb) SpO2 97% BMI 35.90 kg/m Physical Exam Constitutional: She is oriented to person, place, and time. She appears well- developed and well-nourished. HENT: Head: Normocephalic and atraumatic. Right Ear: External ear normal. Left Ear: External ear normal. Nose: Nose normal. Mouth/Throat: Oropharynx is clear and moist. Eyes: Pupils are equal, round, and reactive to light. Conjunctivae are normal. Neck: Normal range of motion. Neck supple. Cardiovascular: Normal rate, regular rhythm and normal heart sounds. Pulmonary/Chest: Effort normal and breath sounds normal. Abdominal: Soft. Bowel sounds are normal. She exhibits no distension and no mass. There is no tenderness. There is no rebound and no guarding. Musculoskeletal: Normal range of motion. Neurological: She is alert and oriented to person, place, and time. Skin: Skin is warm and dry. Nursing note and vitals reviewed. Assessment: Nausea Plan: Rx zofran. Get lab work drawn today. Follow up with PCP. Clear fluids, advance to HUBERT diet as tolerated. Go to ED if worse. I estimate there is LOW risk for ACUTE APPENDICITIS, BOWEL OBSTRUCTION, ACUTE CHOLECYSTITIS, RUPTURED DIVERTICULITIS, INCARCERATED HERNIA, HEMMORHAGIC PANCREATITIS, RAPIDLY EXPANDING OR RUPTURED AAA,PERFORATED VISCOUS, INTESTINAL ISCHEMIA, ECTOPIC , OVARIAN TORSION or TOA thus I consider the discharge disposition reasonable. Maximilian Cortes and I have discussed the diagnosis and risks, and we agree with discharging home with close follow-up. We also discussed returning to the Emergency Department immediately if new or worsening symptoms occur. We have discussed the symptoms which are most concerning that necessitate immediate return. in this encounter Assessments Diagnosis Nausea- Primary Nausea alone Additional Source Comments INFORMATION SOURCE (unrecogn ized section and content) DATE CREATED AUTHOR 07/09/2018 [facility] DATE CREATED AUTHOR AUTHOR'S ORGANIZ ATION 08/01/2018 [facility] DATE CREATED AUTHOR AUTHOR'S ORGANIZ ATION 08/03/2018 [facility] DATE CREATED AUTHOR AUTHOR'S ORGANIZ ATION 09/12/2018 [facility] DATE CREATED AUTHOR AUTHOR'S ORGANIZ ATION 11/28/2024 [facility] DATE CREATED AUTHOR AUTHOR'S ORGANIZ ATION 12/16/2024 [facility] DATE CREATED AUTHOR AUTHOR'S ORGANIZ ATION 01/08/2025 [facility] DATE CREATED AUTHOR AUTHOR'S ORGANIZ ATION 01/17/2025 [facility] DATE CREATED AUTHOR AUTHOR'S ORGANIZ ATION 01/22/2025 [facility] Reason for Visit (unrecogniz ed section and content) Reason Comments Bloated For almost 2weeks , I began w/shooting pains and then achy breast pain. Then I noticed abdominla bloating and cramps... I thought it was just my period. I got my Zahida IUD out on . My last period was [id number]. Yesterday and day before, I had to take my ring off due to hands swelling. Last night I was dry heaving, Today I woke up nauseous, with headache. I am hungry but have no desire to eat - nothing sounds good. Taking OTC aleve, vinita, cold & flu. Reason Comments Initial Visit Reason Comments URI Eye Problem Reason Comments elvated thyriod labs Reason Comments Cough Cough, shortness of breath, started today. Currently 6 months . Reason Comments Uncontrolled Hypothyroidism Reason Comments mfm consult Reason Comments uncontrolled hypothyroidism Care Teams (unrecognized sec tion and content) Clam Treader Relationship Specialty Start Date End Date Aleyda Cleary DO PCP - General Family Medicine 03/07/24 Clam Treader Relationship Specialty Start Date End Date Aelyda Cleary DO PCP - General Family Medicine 03/07/24 Clam Treader Relationship Specialty Start Date End Date Unallocated, Yemi Phillips MD [facility] [place] [address] PCP - General Family Medicine 08/31/24 Clam Treader Relationship Specialty Start Date End Date Unallocated, Yemi Phillips MD [address] [place] [address] PCP - General Family Medicine 08/31/24 Clam Treader Relationship Specialty Start Date End Date Aleyda Cleary DO PCP - General Family Medicine 03/07/24 Clam Treader Relationship Specialty Start Date End Date No Pcp, [place] [address] PCP - General Family Medicine 11/14/21 Clam Treader Relationship Specialty Start Date End Date Aleyda Cleary DO PCP - General Family Medicine 03/07/24 Clam Treader Relationship Specialty Start Date End Date Aleyda Cleary DO PCP - General Family Medicine 03/07/24 Clam Treader Relationship Specialty Start Date End Date Aleyda Cleary DO PCP - General Family Medicine 03/07/24 Clam Treader Relationship Specialty Start Date End Date Unallocated, Yemi Phillips MD [address] [place], [place] [address] [address] PCP - General Family Medicine 08/31/24 Clam Treader Relationship Specialty Start Date End Date Unallocated, Nomkaleb Phillips MD [address] [place], [place] [address] [address] PCP - General Family Medicine 08/31/24 Clam Treader Relationship Specialty Start Date End Date Unallocated, Yemi Phillips MD Counts include 234 beds at the [facility] [place] [address] PCP - General Family Medicine 08/31/24 Clam Treader Relationship Specialty Start Date End Date Unallocated, Yemi Phillips MD Counts include 234 beds at the [facility] [address] [facility] [place] [address] PCP - General Family Medicine 08/31/24 Clam Treader Relationship Specialty Start Date End Date Aleyda Cleary DO PCP - General Family Medicine 03/07/24 Clam Treader Relationship Specialty Start Date End Date Aleyda Cleary DO PCP - General Family Medicine 03/07/24 Clam Treader Relationship Specialty Start Date End Date Aleyda Cleary DO PCP - General Family Medicine 03/07/24 Clam Treader Relationship Specialty Start Date End Date Unallocated, Yemi Phillips MD [address] [place], [place] [address] [address] PCP - General Family Medicine 08/31/24 Clam Treader Relationship Specialty Start Date End Date Unallocated, Yemi Phillips MD Counts include 234 beds at the [facility] [place] [address] PCP - General Family Medicine 08/31/24 Clam Treader Relationship Specialty Start Date End Date Aleyda Cleary DO PCP - General Family Medicine 03/07/24 Clam Treader Relationship Specialty Start Date End Date Aleyda Cleary DO PCP - General Family Medicine 03/07/24 Clam Treader Relationship Specialty Start Date End Date Aleyda Cleary DO PCP - General Family Medicine 03/07/24 Clam Treader Relationship Specialty Start Date End Date Aleyda Cleary DO PCP - General Family Medicine 03/07/24 Clam Treader Relationship Specialty Start Date End Date Unallocated, Yemi Phillips MD [address] [place], [place] [address] [address] PCP - General Family Medicine 08/31/24 Clam Treader Relationship Specialty Start Date End Date Unallocated, Yemi Phillips MD Counts include 234 beds at the [facility] [address] [facility] [place] [address] PCP - [facility] 08/31/24 Clam Treader Relationship Specialty Start Date End Date Aleyda Cleary DO PCP - [facility] 03/07/24 Clam Treader Relationship Specialty Start Date End Date Unallocated, Yemi Phillips MD Counts include 234 beds at the [facility] [address] [facility] [place] [address] PCP - [facility] 08/31/24 Clam Treader Relationship Specialty Start Date End Date Unallocated, Yemi Phillips MD Counts include 234 beds at the [facility] [address] [facility] [place] [address] PCP [facility] 08/31/24 Clam Treader Relationship Specialty Start Date End Date Aleyda Cleary DO PCP [facility] 03/07/24 Clam Treader Relationship Specialty Start Date End Date Unallocated, Yemi Phillips MD Counts include 234 beds at the [facility] [place] [address] PCP [facility] 08/31/24 Clam Treader Relationship Specialty Start Date End Date Aleyda Cleary DO PCP [facility] 03/07/24 Clam Treader Relationship Specialty Start Date End Date Unallocated, Yemi Phillips MD [address] [place] [address] [place] [address] [facility] 08/31/24 FOR RECORDS PERTAINING TO PATIENTS WHO ARE OR HAVE BEEN ENROLLED IN A CHEMICAL DEPENDENCY/SUBSTANCEABUSE PROGRAM, SOME INFORMATION MAY BE OMITTED. This clinical summary was aggregated from multiple sources. Caution should be exercised in using it in the provision of clinical care. This summary normalizes information from multiple sources, and as a consequence, information in this document may materially change the coding, format and clinical context of patient data. In addition, data may be omitted in some cases. CLINICAL DECISIONS SHOULD BE BASED ON THE PRIMARY CLINICAL RECORDS. [employer] [facility]. provides no warranty or guarantee of the accuracy or completeness of information in this document.
[2025-01-22 18:41] VITALS: TEMP 36.4
[2025-01-22 18:57] LABS: Hematocrit 29.9 % (36.0-48.0); Hemoglobin 9.8 g/dL (12.0-16.0); Mean Corpuscular HGB Conc 32.8 g/dL (29.9-35.2); Mean Corpuscular Volume 97.7 fL (81.0-99.0); Mean Platelet Volume 11.6 fL (9.5-13.5); Platelet Count 214 10^3/uL (150-450); Red Blood Count 3.06 10^6/uL (4.20-5.40); Red Cell Distribution Width 14.9 % (11.0-15.0); White Blood Count 10.1 10^3/uL (4.0-11.0)
[2025-01-22 19:11] LABS: Amphetamine Screen Urine NEGATIVE (NEGATIVE); Barbiturates Screen Urine NEGATIVE (NEGATIVE); Benzodiazepines Screen Urine NEGATIVE (NEGATIVE); Buprenorphine Screen Urine NEGATIVE (NEGATIVE); Cannabinoid Screen Urine NEGATIVE (NEGATIVE); Cocaine Screen Urine NEGATIVE (NEGATIVE); Methadone Screen Urine NEGATIVE (NEGATIVE); Methamphetamines Screen Urine NEGATIVE (NEGATIVE); Opiate Screen Urine NEGATIVE (NEGATIVE); Oxycodone Screen Urine NEGATIVE (NEGATIVE); Phencyclidine Screen Urine NEGATIVE (NEGATIVE); Tricyclic Antidepressant Urine NEGATIVE (NEGATIVE)
[2025-01-22 19:18] VITALS: BP 119/75; PULSE 86
[2025-01-22] MEDS: DINOPROSTONE 10 MG VAG INSERT.ER VAGINAL (19:22)
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
[2025-01-22 20:00] VITALS: BP 124/75; PULSE 98
[2025-01-22 20:15] VITALS: BP 114/68; PULSE 81
[2025-01-22 20:30] VITALS: BP 121/80; PULSE 108
--- OUTSIDE RECORDS SUMMARY | 2025-01-22 20:53 | XMS_ITS | CCD ---
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 IDMS STANDARD Performed By: #### 3 0896-5, 80382-0 #### [facility] ([id number]) [address] [place] [address] #### 36372-5, 3051-0, HA1C, CBCA, 52379-6, CMP, 59124-4, 78109-9, THYR #### [facility] ([id number]) [address], [address] [place] [address] eGFR (CKD-EPI) NON-RACE DEPENDENT >90 Normal >59 [facility] Comment on above: Result Comment: Reported eGFR is based on the CKD-EPI 2020 equation that does not use a race coefficient. Performed By: #### 3 0896-5, 56922-7 #### [facility] ([id number]) [address] [place] [address] #### 46222-0, 3051-0, HA1C, CBCA, 16102-6, CMP, 52181-8, 81657-9, THYR #### [facility] ([id number]) [address] [facility], [address] [place] [address] Glucose [Mass/Vol] 87 mg/dL Normal 65-99 [facility] Comment on above: Performed By: #### 3 0896-5, 34472-2 #### [facility] ([id number]) [address] [place] [address] #### 78732-6, 3051-0, HA1C, CBCA, 77526-3, CMP, 55990-0, 94545-1, THYR #### [facility] ([id number]) [address] [facility], [address] [place] [address] Potassium [Moles/Vol] 3.3 mmol/L Low 3.5-5.0 [facility] Comment on above: Performed By: #### 3 0896-5, 56245-9 #### [facility] ([id number]) [address] [place] [address] #### 70017-3, 3051-0, HA1C, CBCA, 29598-7, CMP, 08779-9, 97274-3, THYR #### [facility] ([id number]) [address] [facility], [address] [place] [address] Protein [Mass/Vol] 7.6 g/dL Normal 6.0-8.0 [facility] Comment on above: Performed By: #### 3 0896-5, 37687-5 #### [facility] ([id number]) [address] [place] [address] #### 68765-2, 3051-0, HA1C, CBCA, 86137-0, CMP, 00757-6, 62973-3, THYR #### [facility] ([id number]) [address] [facility], [address] [place] [address] Sodium [Moles/Vol] 132 mmol/L Low 134-146 [facility] Comment on above: Performed By: #### 3 0896-5, 66718-3 #### [facility] ([id number]) [address] [place] [address] #### 61110-8, 3051-0, HA1C, CBCA, 01274-7, CMP, 44810-9, 58877-8, THYR #### [facility] ([id number]) [address] [facility], [address] [place] [address] Urea nitrogen [Mass/Vol] 6 mg/dL Normal 5-23 [facility] Comment on above: Performed By: #### 3 0896-5, 67392-4 #### [facility] ([id number]) [address] [place] [address] #### 66780-2, 3051-0, HA1C, CBCA, 08156-2, CMP, 21556-5, 28403-7, THYR #### [facility] ([id number]) [address] [facility] [place] [address] SARS/FLU A+B/RSV by NAAT/Mol ecularon 10-05-2024 SARS/FLU [...] operators who are performing tests using either [employer] or [employer] systems and is limited to laboratories that [...] repeat. Fact Sheet for Healthcare Providers: https://www.fda.gov /media/258711/downl oad Fact Sheet for Patients: https://www.fda.gov /media/956149/downl oad Normal [facility] Comment on above: Performed By: #### 3 0896-5, 83410-1 #### [facility] ([id number]) [address] [facility] [place] [address] #### 00159-1, 3051-0, HA1C, CBCA, 47861-8, CMP, 45905-6, 87389-1, THYR #### [facility] ([id number]) [address] [facility] [place] [address] Troponin I.cardiac High sens itivity method [Mass/Vol]on 10-05-2024 TROPONIN I, HIGH SENSITIVITY <2 Normal <16 [facility] Comment on above: Performed By: #### 3 0896-5, 16956-0 #### [facility] ([id number]) [address] [place] [address] #### 94166-6, 3051-0, HA1C, CBCA, 86130-8, CMP, 69585-6, 11161-9, THYR #### [facility] ([id number]) [address] [place] [address] URN MACROSCOPIC NURon 2024 BILIRUBIN MERI Negative Normal NEG [facility] Comment on above: Performed By: #### 3 0896-5, 68380-3 #### [facility] ([id number]) [facility] [place] [address] #### 80473-5, 3051-0, HA1C, CBCA, 98344-9, CMP, 24979-9, 83414-6, THYR #### [facility] ([id number]) [address] [facility], [address] [place] [address] BLOOD/HGB MERI Negative Normal NEG [facility] Comment on above: Performed By: #### 3 0896-5, 54179-9 #### [facility] ([id number]) [facility] [address] [place] [address] #### 05179-5, 3051-0, HA1C, CBCA, 38282-5, CMP, 59203-4, 85235-8, THYR #### [facility] ([id number]) [address] [facility], [address] [place] [address] GLUCOSE MERI Negative Normal NEG [facility] Comment on above: Performed By: #### 3 0896-5, 79762-5 #### [facility] ([id number]) [address] [place] [address] #### 87786-0, 3051-0, HA1C, CBCA, 14888-4, CMP, 02740-8, 62816-1, THYR #### [facility] ([id number]) [address] [facility], [address] [place] [address] KETONES MERI Negative Normal NEG [facility] Comment on above: Performed By: #### 3 0896-5, 46184-1 #### [facility] ([id number]) [address] [place] [address] #### 00745-1, 3051-0, HA1C, CBCA, 65587-9, CMP, 83148-6, 54662-9, THYR #### [facility] ([id number]) [address] [facility], [address] [place] [address] LEUKOCYTE ESTERASE MERI Small Abnormal NEG Pr [facility] Comment on above: Performed By: #### 3 0896-5, 27829-0 #### [facility] ([id number]) [address] [place] [address] #### 20183-8, 3051-0, HA1C, CBCA, 70913-5, CMP, 68938-4, 41581-6, THYR #### [facility] ([id number]) [address] [facility], [address] [place] [address] NITRITE MERI Negative Normal NEG [facility] Comment on above: Performed By: #### 3 0896-5, 46426-9 #### [facility] ([id number]) [address] [place] [address] #### 79243-7, 3051-0, HA1C, CBCA, 44987-1, CMP, 89331-1, 43262-7, THYR #### [facility] ([id number]) [address] [facility] [place] [address] PH MERI 8.5 Normal 5.0-8.5 [facility] Comment on above: Performed By: #### 3 0896-5, 93176-0 #### [facility] ([id number]) [facility] [address] [place] [address] #### 09593-8, 3051-0, HA1C, CBCA, 34884-3, CMP, 55066-9, 38374-3, THYR #### [facility] ([id number]) [address] [place] [address] PROTEIN MERI Negative Normal NEG [facility] Comment on above: Performed By: #### 3 0896-5, 37738-1 #### [facility] ([id number]) [address] [place] [address] #### 82510-8, 3051-0, HA1C, CBCA, 20234-3, CMP, 51041-3, 70328-0, THYR #### [facility] ([id number]) [address] [facility] [place] [address] SPECIFIC GRAVITY MERI 1.020 Normal 1.003-1.035 [facility] Comment on above: Performed By: #### 3 0896-5, 10999-1 #### [facility] ([id number]) [address] [place] [address] #### 21538-1, 3051-0, HA1C, CBCA, 96761-2, CMP, 86194-9, 77949-1, THYR #### [facility] ([id number]) [address] [facility] [place] [address] UROBILINOGEN MERI 0.2 eu/dL Normal <1.1 [facility] Comment on above: Performed By: #### 3 0896-5, 67835-9 #### [facility] ([id number]) [address] [place] [address] #### 50379-8, 3051-0, HA1C, CBCA, 84298-3, CMP, 66625-3, 47784-9, THYR #### [facility] ([id number]) [address] [place] [address] Urine collection deviceon ER EXTRA URINES ER EXTRA URINE ORDER IN PROCESS Normal [facility] Comment on above: Performed By: #### 3 0896-5, 52703-6 #### [facility] ([id number]) [address] [place] [address] #### 54258-3, 3051-0, HA1C, CBCA, 00695-9, CMP, 34122-8, 49321-6, THYR #### [facility] ([id number]) [address] [facility] [facility] [address] [place] [address] HGB A1C (GLYCO-HGB)on 2023 Glucose [Mass/Vol] 103 mg/dL Normal [facility] Comment on above: Performed By: #### H A1C, 3015-3 #### [facility] ([id number]) [address] [facility], [facility] [address] [place] [address] HbA1c (Bld) [Mass fraction] 5.2 % Normal 4.4-5.6 [facility] Comment on above: Result Comment: NOTE ADA Guidelines Result HgbA1c Normal : less than 5.7 % Prediabetes : 5.7 % to 6.4 % Diabetes : > 6.4 % Use with caution in patients with abnormal hemoglobin variants as the half-life of red blood cells and in vivo glycation rates are affected. Performed By: #### H A1C, 3015-3 #### [facility] ([id number]) [address] [facility], [facility] [address] [place] [address] TSH Qnon 07-22-2024 TSH 14.77 uIU/mL High 0.49-4.67 [facility] Comment on above: Result Comment: NEW REFERENCE RANGE FOR PEDIATRIC PATIENTS Performed By: #### H A1C, 6-3 #### [facility] ([id number]) [address] [facility], [address] [place] [address] Bacteria identified Cx Nom ( U)on 06-17-2024 Appearance (U) Adequate [facility] Internal identifier for Provider [id number] [facility] Specimen source Nom (Unsp spec) URINE [facility] STATUS FINAL [facility] - Drug toxicology on 06-17-2024 7-Ufgqlgczik-6,5-Dimethy l-3,3-Diphenylpyrrolidin e (EDDP) Ql (U) Negative NINF - 100 ng/mL [facility] Amphetamines Ql (U) Negative NINF - 5 00 ng/mL [facility] Barbiturates Ql (U) Negative NINF - 3 00 ng/mL [facility] Benzodiazepines Ql (U) Negative NINF - 100 ng/mL [facility] Benzoylecgonine Ql (U) Negative NINF - 150 ng/mL [facility] Opiates Ql (U) Negative NINF - 100 ng/mL [facility] oxyCODONE Ql (U) Negative NINF - 100 ng/mL [facility] Phencyclidine Ql (U) Negative NINF - 25 ng/mL [facility] Tetrahydrocannabinol Screen method >20 ng/mL Ql (U) Negative NINF - 20 ng/mL [facility] Laboratory - Microbiology an d Antimicrobial susceptibilityon 06-17-2024 Bacteria identified Cx Nom (U) SEE NOTE [facility] Comment on above: Mixed genital olimpia isolated. These superficial bacteria are not indicative of a urinary tract infection. No further organism identification is warranted on this specimen. If clinically indicated, recollect clean-catch, mid-stream urine and transfer immediately to Urine Culture Transport Tube. Laboratory - Urinalysison Bacteria LM.HPF (Urine sed) [#/Area] NONE SEEN NONE SEEN /HPF [facility] Calcium oxalate crystals LM.HPF (Urine sed) [#/Area] MANY Abnormal NONE OR FEW /HPF [facility] Epithelial cells.squamous LM.HPF (Urine sed) [#/Area] 10-20 Abnormal < OR = 5 /HPF [facility] Hyaline casts (Urine sed) [#/Area] NONE SEEN NONE SEEN /LPF [facility] RBC LM.HPF (Urine sed) [#/Area] NONE SEEN < OR = 2 /HPF [facility] WBC LM.HPF (Urine sed) [#/Area] 0-5 < OR = 5 /HPF [facility] N. gonorrhoeae DNA ALBINO+probe Ql (Cervical mucus)on 06-17-2024 C. trachomatis rRNA ALBINO+probe Ql (Unsp spec) Not detected NOT DETECTED [facility] N. gonorrhoeae rRNA ALBINO+probe Ql (Unsp spec) Not detected NOT DETECTED [facility] No Panel Informationon 06-17 (ALWAYS MESSAGE) [facility] Comment on above: See Note 1 Note 1 This drug testing is for medical treatment only. Analysis was performed as non-forensic testing and these results should be used only by healthcare providers to render diagnosis or treatment, or to monitor progress of medical conditions. For assistance with interpreting these drug results, please contact a [facility] Toxicology Specialist: [phone] ( ), M-F, 8am-6pm EST. The analytical perfo rmance characteristics of this assay, when used to test SurePath(TM) specimens have been determined by [facility]. The modifications have not been cleared or approved by the FDA. This assay has been validated pursuant to the CLIA regulations and is used for clinical purposes. For additional information, please refer to https://education.kalidea/faq/JWM662 (This link is being provided for information/ educational purposes only.) Interpretation and review of laboratory results Abnormal [facility] SPLIT 06/15/2024 FROM [id number] [employer] Organization Information Site ID: QPT Name: [facility] Address: [address] [place] [address], [address] [place] [id number] Director: Jensen Branham MD [facility] CBC panel Auto (Bld)on 06-16 Erythrocyte distribution width (RBC) [Ratio] 12.2 % 11.0 - 15.0 % [facility] Hematocrit (Bld) [Volume fraction] 39.9 % 35.0 - 45.0 % [facility] Hemoglobin (Bld) [Mass/Vol] 13.2 g/dL 11.7 - 15.5 g/dL [facility] MCH (RBC) [Entitic mass] 33.6 pg High 27. 0 - 33.0 pg [facility] MCHC (RBC) [Mass/Vol] 33.1 g/dL 32.0 - 36.0 g/dL [facility] Comment on above: For adults, a slight decrease in the calculated MCHC value (in the range of 30 to 32 g/dL) is most likely not clinically significant; however, it should be interpreted with caution in correlation with other red cell parameters and the patient's clinical condition. MCV (RBC) [Entitic vol] 101.5 fL High 80.0 - 100.0 fL [facility] Platelet mean volume (Bld) [Entitic vol] 10.7 fL 7.5 - 12.5 fL [facility] Platelets (Bld) [#/Vol] 279 10*3/uL [facility] RBC (Bld) [#/Vol] 3.93 10*6/uL [facility] WBC (Bld) [#/Vol] 9.7 10*3/uL [facility] Laboratory - Blood bankon ABO group Nom (Bld) O [facility] Blood group antibody screen Ql Detected [facility] Comment on above: Reference range No antibodies detected This assay is a screening test for the detection of red blood cell antibodies. The test is not to be used for pretransfusion screening or for the medical management of an alloimmunized . Rh Nom (Bld) Negative [facility] Comment on above: For additional information, please refer to http://education.PLASTIQ/faq/AIF026 (This link is being provided for informational/ educational purposes only.) Laboratory - Chemistry and C hemistry - challengeon 06-16-2024 Free T4 [Mass/Vol] 1 ng/dL 0.8 - 1.8 ng/dL [facility] TSH Qn 11.76 m[IU]/L High mIU/L [facility] Comment on above: Reference Range > or = 20 Years 0.40-4.50 Ranges First trimester 0.26-2.66 Second trimester 0.55-2.73 Third trimester 0.43-2.91 Laboratory - Hematology and Cell countson 06-16-2024 HbA1c (Bld) [Mass fraction] 5.1 % [facility] Comment on above: For the purpose of s creening for the presence of diabetes: <5.7% Consistent with the absence of diabetes 5.7-6.4% Consistent with increased risk for diabetes (prediabetes) > or =6.5% Consistent with diabetes This assay result is consistent with a decreased risk of diabetes. Currently, no consensus exists regarding use of hemoglobin A1c for diagnosis of diabetes in children. According to [place] [employer] (ADA) guidelines, hemoglobin A1c <7.0% represents optimal control in non- diabetic patients. Different metrics may apply to specific patient populations. Standards of Medical Care in Diabetes(ADA). Laboratory - Microbiology armida arciniega Veronica burciaga [birth year]16[birth year]2024 HBV surface Ag IA Ql Non-Reactive NON-REACTIVE [facility] Comment on above: For additional information, please refer to [email or web address] (This link is being provided for informational/ educational purposes only.) HCV Ab IA Ql Non-Reactive NON-REACTIVE [facility] Comment on above: HCV antibody was non-reactive. There is no laboratory evidence of HCV infection. In most cases, no further action is required. However, if recent HCV exposure is suspected, a test for HCV RNA (test code 33383) is suggested. For additional information please refer to [email or web address] (This link is being provided for informational/ educational purposes only.) HIV 1+2 Ab+HIV1 p24 Ag IA Ql Non-Reactive NON-REACTIVE [facility] Comment on above: HIV-1 antigen and HI [...] purpose. For additional information please refer to [email or web address] (This link is being provided for informational/ educational purposes only.) The performance of this assay has not been clinically validated in patients less than 2 years old. Reagin Ab RPR Ql (S) Non-Reactive NON-REACTIVE [facility] Rubella virus IgG Qn (S) 1.88 [IU]/mL Index [facility] Comment on above: Index Interpretation ----- <0.90 Not consistent with immunity 0.90-0.99 Equivocal > or = 1.00 Consistent with immunity The presence of rubella IgG antibody suggests immunization or past or current infection with rubella virus. No Panel Informationon 06-16 Interpretation and review of laboratory results Abnormal [facility] PATIENT UNABLE TO VOID; ADVISED TO RETURN FOR COLLECTION. [employer] Organization Information Site ID: QPT Name: [facility] Address: [address] [place] [address], [address] [place] [id number] Director: Jensen Branham MD [facility] Chlamydia/GC by PCR ThinPrep fluidon 06-15-2024 Chlamydia Dna(Pcr) Negative [facility] Gonorrhoeae Dna(Pcr) [facility] Screen, Urineon 024 Barbiturate Screen Urine Negative [facility] Urine Negative [email or web address] Hemoglobin A1con 06-15-2024 HbA1c (Bld) [Mass fraction] 5.1 % 4.0 - 6.0 % [email or web address] No Panel Informationon 06-15 [facility] Type and screenon 06-15-2024 Abo/Rh(D) Negative [facility] US OB < 14 WEEKS EARLYon [...] rate of 138. Uterus and adnexae: Hypoechoic [place] area measuring 2.8 x 3.1 x 0.4 cm Ovaries not visualized bilaterally due to bowel. Limited study. Full anatomical survey not performed. IMPRESSION: Early IUP age 7.6 weeks form LMP. Small anterior subchorionic hemorrhage. Dictated and transcribed 06/16/24/dpd This report has been electronically signed and approved by the interpreting radiologist. Normal Not Available BASIC FOOD PANELon 08-17-202 4 ALMOND 0.35 kU/L High <0.10 [facility] Comment on above: Result Comment: Clas s 1:Low level of Allergy, indicative of ongoing sensitization Performed By: #### 3 0896-5, 30412-9 #### [facility] ([id number]) [address] [place] [address] #### 26804-5, 3051-0, HA1C, CBCA, 58109-8, CMP, 88134-5, 92489-8, THYR #### [facility] ([id number]) [address] [place] [address] BRAZIL NUT <0.10 Normal <0.10 [facility] Comment on above: Result Comment: Clas s 0: Normal Performed By: #### 3 0896-5, 98420-0 #### [facility] ([id number]) [address] [facility] [place] [address] #### 31486-8, 3051-0, HA1C, CBCA, 51871-8, CMP, 91484-4, 38729-6, THYR #### [facility] ([id number]) [address], [address] [place] [address] CASHEW NUT 0.14 kU/L High <0.10 [facility] Comment on above: Result Comment: Clas s 0/1: Low level of Allergy, ongoing sensitization Performed By: #### 3 0896-5, 26983-7 #### [facility] ([id number]) [address] [facility] [place] [address] #### 08514-7, 3051-0, HA1C, CBCA, 30426-0, CMP, 96421-7, 53285-4, THYR #### [facility] ([id number]) [address] [facility] [address], [address] [place] [address] EGG WHITE <0.10 Normal <0.10 [facility] Comment on above: Result Comment: Clas s 0: Normal Performed By: #### 3 0896-5, 91187-7 #### [facility] ([id number]) [address] [facility] [place] [address] #### 14994-9, 3051-0, HA1C, CBCA, 80539-2, CMP, 14335-2, 71048-6, THYR #### [facility] ([id number]) [address], [address] [place] [address] FISH COD <0.10 Normal <0.10 [facility] Comment on above: Result Comment: Clas s 0: Normal Performed By: #### 3 0896-5, 24951-0 #### [facility] ([id number]) [address] [place] [address] [place] [address] #### 34615-3, 3051-0, HA1C, CBCA, 25069-2, CMP, 19790-8, 69013-0, THYR #### [facility] ([id number]) [address] [address], [address] [place] [address] HAZELNUT 0.25 kU/L High <0.10 [facility] Comment on above: Result Comment: Clas s 0/1: Low level of Allergy, ongoing sensitization Performed By: #### 3 0896-5, 42943-5 #### [facility] ([id number]) [address] [place] [address] [place] [address] #### 31050-4, 3051-0, HA1C, CBCA, 27364-7, CMP, 84256-5, 91314-5, THYR #### [facility] ([id number]) [address] [facility] [address], [address] [place] [address] IGE 55 IU/mL Normal 0-165 [facility] Comment on above: Performed By: #### 3 0896-5, 69684-4 #### [facility] ([id number]) [address] [place] [address] #### 62816-9, 3051-0, HA1C, CBCA, 15563-9, CMP, 87333-7, 64139-8, THYR #### [facility] ([id number]) [address], [address] [place] [address] MILK <0.10 Normal <0.10 [facility] Comment on above: Result Comment: Clas s 0: Normal Performed By: #### 3 0896-5, 93797-4 #### [facility] ([id number]) [address] [place] [address] #### 47899-1, 3051-0, HA1C, CBCA, 33262-0, CMP, 47335-2, 67711-4, THYR #### [facility] ([id number]) [address], [address] [place] [address] PEANUT 0.30 kU/L High <0.10 [facility] Comment on above: Result Comment: Clas s 0/1: Low level of Allergy, ongoing sensitization Performed By: #### 3 0896-5, 67994-4 #### [facility] ([id number]) [address] [place] [address] #### 89229-7, 3051-0, HA1C, CBCA, 30131-6, CMP, 09494-9, 18665-2, THYR #### [facility] ([id number]) [address], [address] [place] [address] PECAN NUT 0.14 kU/L High <0.10 [facility] Comment on above: Result Comment: Clas s 0/1: Low level of Allergy, ongoing sensitization Performed By: #### 3 0896-5, 72357-5 #### [facility] ([id number]) [address] [place] [address] [place] [address] #### 10581-2, 3051-0, HA1C, CBCA, 73153-8, CMP, 99826-6, 71200-5, THYR #### [facility] ([id number]) [address] [place] [address] SCALLOP 0.17 kU/L High <0.10 [facility] Comment on above: Result Comment: Clas s 0/1: Low level of Allergy, ongoing sensitization Performed By: #### 3 0896-5, 76650-4 #### [facility] ([id number]) [address] [place] [address] [place] [address] #### 80330-7, 3051-0, HA1C, CBCA, 86416-8, CMP, 01062-3, 44122-9, THYR #### [facility] ([id number]) [address] [facility] [place] [address] SHRIMP <0.10 Normal <0.10 [facility] Comment on above: Result Comment: Clas s 0: Normal Performed By: #### 3 0896-5, 34500-5 #### [facility] ([id number]) [address] [place] [address] [place] [address] #### 06669-7, 3051-0, HA1C, CBCA, 46166-1, CMP, 37336-9, 50424-8, THYR #### [facility] ([id number]) [address] [facility], [address] [place] [address] SOYBEAN 0.27 kU/L High <0.10 [facility] Comment on above: Result Comment: Clas s 0/1: Low level of Allergy, ongoing sensitization Performed By: #### 3 0896-5, 15796-0 #### [facility] ([id number]) [address] [place] [address] [place] [address] #### 08615-7, 3051-0, HA1C, CBCA, 98011-6, CMP, 12405-7, 41697-3, THYR #### [facility] ([id number]) [address] [facility], [address] [place] [address] TUNA <0.10 Normal <0.10 [facility] Comment on above: Result Comment: Clas s 0: Normal Performed By: #### 3 0896-5, 75884-4 #### [facility] ([id number]) [address] [place] [address] #### 13334-1, 3051-0, HA1C, CBCA, 06967-2, CMP, 23824-3, 52683-1, THYR #### [facility] ([id number]) [address] [facility] [facility], [address] [place] [address] WALNUT FOOD 0.27 kU/L High <0.10 [facility] Comment on above: Result Comment: Clas s 0/1: Low level of Allergy, ongoing sensitization Performed By: #### 3 0896-5, 33062-9 #### [facility] ([id number]) [address] [place] [address] [place] [address] #### 60171-5, 3051-0, HA1C, CBCA, 87085-1, CMP, 18549-9, 47262-9, THYR #### [facility] ([id number]) [address] [facility], [address] [place] [address] WHEAT 0.28 kU/L High <0.10 [facility] Comment on above: Result Comment: Clas s 0/1: Low level of Allergy, ongoing sensitization Performed By: #### 3 0896-5, 10553-3 #### [facility] ([id number]) [address] [place] [address] [place] [address] #### 91850-2, 3051-0, HA1C, CBCA, 51973-5, CMP, 13001-4, 60167-2, THYR #### [facility] ([id number]) [address] [facility], [address] [place] [address] CBC AND AUTO DIFFon 0817-20 24 ABSOLUTE BASOPHIL 0.0 X10E9/L Normal 0.0-0.2 [facility] Comment on above: Performed By: #### 3 0896-5, 37638-7 #### [facility] ([id number]) [address] [place] [address] [place] [address] #### 46395-5, 3051-0, HA1C, CBCA, 65734-5, CMP, 15649-7, 00190-4, THYR #### [facility] ([id number]) [address], [address] [place] [address] ABSOLUTE NEUTROPHIL 3.1 X10E9/L Normal 1.5-6.6 [facility] Comment on above: Performed By: #### 3 0896-5, 54542-8 #### [facility] ([id number]) [address] [place] [address] #### 23185-9, 3051-0, HA1C, CBCA, 06089-6, CMP, 24052-6, 00805-8, THYR #### [facility] ([id number]) [address], [address] [place] [address] Basophils/100 WBC (Bld) 0.7 % Normal [facility] Comment on above: Performed By: #### 3 0896-5, 48355-9 #### [facility] ([id number]) [address] [place] [address] #### 23410-4, 3051-0, HA1C, CBCA, 90249-2, CMP, 72957-3, 51208-2, THYR #### [facility] ([id number]) [address], [address] [place] [address] Eosinophils (Bld) [#/Vol] 0.3 10*3/uL Normal 0.0-0.4 [facility] Comment on above: Performed By: #### 3 0896-5, 53470-1 #### [facility] ([id number]) [address] [place] [address] #### 34963-3, 3051-0, HA1C, CBCA, 37299-4, CMP, 42671-6, 63819-2, THYR #### [facility] ([id number]) [address] [place] [address] Eosinophils/100 WBC (Bld) 5.4 % Normal [facility] Comment on above: Performed By: #### 3 0896-5, 48633-5 #### [facility] ([id number]) [facility] [address] [place] [address] #### 73751-8, 3051-0, HA1C, CBCA, 34005-8, CMP, 92599-6, 74679-1, THYR #### [facility] ([id number]) [address], [facility] [address] [place] [address] Erythrocyte distribution width (RBC) [Ratio] 13.3 % Normal 11.5-15.0 [facility] Comment on above: Performed By: #### 3 0896-5, 41806-8 #### [facility] ([id number]) [facility] [address] [place] [address] #### 39470-7, 3051-0, HA1C, CBCA, 35631-7, CMP, 67812-9, 49072-2, THYR #### [facility] ([id number]) [address] [address] [place] [address] Hematocrit (Bld) [Volume fraction] 39.2 % Normal 35-47 [facility] Comment on above: Performed By: #### 3 0896-5, 93594-2 #### [facility] ([id number]) [facility] [address] [place] [address] #### 73894-4, 3051-0, HA1C, CBCA, 81346-9, CMP, 96706-5, 13803-4, THYR #### [facility] ([id number]) [address] [address] [place] [address] Hemoglobin (Bld) [Mass/Vol] 13.4 g/dL Normal 11.7-15.5 [facility] Comment on above: Performed By: #### 3 0896-5, 20843-4 #### [facility] ([id number]) [address] [place] [address] [place] [address] #### 56614-5, 3051-0, HA1C, CBCA, 84001-8, CMP, 09458-8, 38836-9, THYR #### [facility] ([id number]) [address], [address] [place] [address] Lymphocytes (Bld) [#/Vol] 2.5 10*3/uL Normal 1.0-3.5 [facility] Comment on above: Performed By: #### 3 0896-5, 12988-9 #### [facility] ([id number]) [address] [place] [address] #### 81126-6, 3051-0, HA1C, CBCA, 80986-3, CMP, 91870-6, 50607-9, THYR #### [facility] ([id number]) [address] [facility] [place] [address] Lymphocytes/100 WBC (Bld) 39.3 % Normal [facility] Comment on above: Performed By: #### 3 0896-5, 75839-5 #### [facility] ([id number]) [facility] [address] [place] [address] #### 10283-9, 3051-0, HA1C, CBCA, 24741-8, CMP, 41361-9, 61539-6, THYR #### [facility] ([id number]) [address], [address] [place] [address] MCH (RBC) [Entitic mass] 34.1 pg High 27-34 [facility] Comment on above: Performed By: #### 3 0896-5, 51041-8 #### [facility] ([id number]) [facility] [place] [address] #### 80260-8, 3051-0, HA1C, CBCA, 14363-1, CMP, 92533-3, 31908-3, THYR #### [facility] ([id number]) [address], [address] [place] [address] MCHC (RBC) [Mass/Vol] 34.1 g/dL Normal 32-36 [facility] Comment on above: Performed By: #### 3 0896-5, 70316-2 #### [facility] ([id number]) [address] [place] [address] #### 10209-9, 3051-0, HA1C, CBCA, 30863-4, CMP, 33976-0, 19481-0, THYR #### [facility] ([id number]) [address], [address] [place] [address] MCV (RBC) [Entitic vol] 100 fL Normal 80-100 [facility] Comment on above: Performed By: #### 3 0896-5, 73799-0 #### [facility] ([id number]) [address] [place] [address] #### 55451-6, 3051-0, HA1C, CBCA, 94106-5, CMP, 89144-3, 01644-9, THYR #### [facility] ([id number]) [address], [address] [place] [address] Monocytes (Bld) [#/Vol] 0.5 10*3/uL Normal 0-0.9 [facility] Comment on above: Performed By: #### 3 0896-5, 89225-2 #### [facility] ([id number]) [facility] [place] [address] #### 33529-2, 3051-0, HA1C, CBCA, 84274-9, CMP, 25160-2, 84069-7, THYR #### [facility] ([id number]) [address], [address] [place] [address] Monocytes/100 WBC (Bld) 7.2 % Normal [facility] Comment on above: Performed By: #### 3 0896-5, 51879-9 #### [facility] ([id number]) [address] [place] [address] #### 52029-9, 3051-0, HA1C, CBCA, 17274-4, CMP, 92765-8, 24554-5, THYR #### [facility] ([id number]) [address] [facility], [address] [place] [address] Neutrophils/100 WBC (Bld) 47.4 % Normal [facility] Comment on above: Performed By: #### 3 0896-5, 98779-9 #### [facility] ([id number]) [address] [place] [address] #### 22544-8, 3051-0, HA1C, CBCA, 07101-3, CMP, 38313-0, 23165-3, THYR #### [facility] ([id number]) [address] [facility], [address] [place] [address] Platelet mean volume (Bld) [Entitic vol] 8.9 fL Normal 7-12 [facility] Comment on above: Performed By: #### 3 0896-5, 42814-6 #### [facility] ([id number]) [facility] [place] [address] #### 59350-0, 3051-0, HA1C, CBCA, 98842-2, CMP, 62260-8, 76039-2, THYR #### [facility] ([id number]) [address] [facility] [place] [address] Platelets (Bld) [#/Vol] 248 10*3/uL Normal 150-450 [facility] Comment on above: Performed By: #### 3 0896-5, 00625-9 #### [facility] ([id number]) [address] [place] [address] #### 37164-8, 3051-0, HA1C, CBCA, 47390-8, CMP, 26788-2, 46311-6, THYR #### [facility] ([id number]) [address], [address] [place] [address] RBC COUNT 3.92 X10E12/L Normal 3.80-5.20 [facility] Comment on above: Performed By: #### 3 0896-5, 45563-4 #### [facility] ([id number]) [address] [place] [address] #### 66996-6, 3051-0, HA1C, CBCA, 50759-5, CMP, 37231-0, 24598-3, THYR #### [facility] ([id number]) [address], [address] [place] [address] WBC (Bld) [#/Vol] 6.4 10*3/uL Normal 4.0-11.0 [facility] Comment on above: Performed By: #### 3 0896-5, 26039-3 #### [facility] ([id number]) [address] [place] [address] #### 81085-1, 3051-0, HA1C, CBCA, 39751-3, CMP, 28940-7, 00301-9, THYR #### [facility] ([id number]) [address], [address] [place] [address] COMPREHENSIVE METABOLIC PANE Godfrey 03-26-2024 Albumin [Mass/Vol] 4.5 g/dL Normal 3.2-5.3 [facility] Comment on above: Performed By: #### 3 0896-5, 27042-8 #### [facility] ([id number]) [address] [place] [address] #### 97771-2, 3051-0, HA1C, CBCA, 63820-5, CMP, 27873-5, 48144-5, THYR #### [facility] ([id number]) [address], [address] [place] [address] ALP [Catalytic activity/Vol] 71 U/L Normal 39-130 [facility] Comment on above: Performed By: #### 3 0896-5, 90435-1 #### [facility] ([id number]) [facility] [address] [place] [address] #### 20323-3, 3051-0, HA1C, CBCA, 35744-7, CMP, 21835-9, 13931-6, THYR #### [facility] ([id number]) [address], [address] [place] [address] ALT [Catalytic activity/Vol] 16 U/L Normal 0-31 [facility] Comment on above: Performed By: #### 3 0896-5, 33365-0 #### [facility] ([id number]) [facility] [address] [place] [address] #### 66923-4, 3051-0, HA1C, CBCA, 77494-0, CMP, 91855-3, 11341-0, THYR #### [facility] ([id number]) [address], [address] [place] [address] Anion gap [Moles/Vol] 9 mmol/L Normal 5-15 [facility] Comment on above: Performed By: #### 3 0896-5, 10379-7 #### [facility] ([id number]) [facility] [address] [place] [address] #### 77543-1, 3051-0, HA1C, CBCA, 29933-2, CMP, 66592-0, 47884-0, THYR #### [facility] ([id number]) [address], [address] [place] [address] AST [Catalytic activity/Vol] 16 U/L Normal 0-41 [facility] Comment on above: Performed By: #### 3 0896-5, 14616-9 #### [facility] ([id number]) [facility] [place] [address] #### 64938-6, 3051-0, HA1C, CBCA, 49333-5, CMP, 07442-2, 43013-2, THYR #### [facility] ([id number]) [address], [address] [place] [address] Bilirubin [Mass/Vol] 0.4 mg/dL Normal 0.3-1.2 [facility] Comment on above: Performed By: #### 3 0896-5, 69019-1 #### [facility] ([id number]) [address] [place] [address] #### 64290-9, 3051-0, HA1C, CBCA, 00414-6, CMP, 27671-4, 44775-0, THYR #### [facility] ([id number]) [address], [address] [place] [address] Calcium [Mass/Vol] 9.9 mg/dL Normal 8.5-10.5 [facility] Comment on above: Performed By: #### 3 0896-5, 04723-9 #### [facility] ([id number]) [address] [place] [address] #### 14086-6, 3051-0, HA1C, CBCA, 44097-3, CMP, 84472-9, 32110-6, THYR #### [facility] ([id number]) [address], [address] [place] [address] Chloride [Moles/Vol] 104 mmol/L Normal 98-109 [facility] Comment on above: Performed By: #### 3 0896-5, 35340-8 #### [facility] ([id number]) [address] [place] [address] #### 02685-0, 3051-0, HA1C, CBCA, 07343-8, CMP, 02786-9, 55330-4, THYR #### [facility] ([id number]) [address], [address] [place] [address] CO2 [Moles/Vol] 26 mmol/L Normal 22-32 [facility] Comment on above: Performed By: #### 3 0896-5, 29163-5 #### [facility] ([id number]) [address] [facility] [place] [address] #### 02175-0, 3051-0, HA1C, CBCA, 82962-5, CMP, 40536-1, 14766-4, THYR #### [facility] ([id number]) [address], [address] [place] [address] Creatinine [Mass/Vol] 0.93 mg/dL Normal 0.40-1.00 [facility] Comment on above: Result Comment: METH OD TRACEABLE TO IDMS STANDARD Performed By: #### 3 0896-5, 61714-2 #### [facility] ([id number]) [address] [facility] [place] [address] #### 08581-9, 3051-0, HA1C, CBCA, 80903-5, CMP, 29602-6, 33672-0, THYR #### [facility] ([id number]) [address], [address] [place] [address] GFR/1.73 sq M.predicted among non-blacks MDRD (S/P/Bld) [Vol rate/Area] 89 mL/min/{1.73_m2} Normal >59 [facility] Comment on above: Result Comment: Reported eGFR is based on the CKD-EPI 2020 equation that does not use a race coefficient. Performed By: #### 3 0896-5, 74117-9 #### [facility] ([id number]) [address] [place] [address] #### 38147-4, 3051-0, HA1C, CBCA, 67665-4, CMP, 38686-5, 58506-4, THYR #### [facility] ([id number]) [address], [address] [place] [address] Glucose [Mass/Vol] 81 mg/dL Normal 65-99 [facility] Comment on above: Performed By: #### 3 0896-5, 45542-3 #### [facility] ([id number]) [address] [place] [address] #### 48755-7, 3051-0, HA1C, CBCA, 39279-8, CMP, 49513-1, 25655-3, THYR #### [facility] ([id number]) [address] [facility] [address] [place] [address] Potassium [Moles/Vol] 3.8 mmol/L Normal 3.5-5.0 [facility] Comment on above: Performed By: #### 3 0896-5, 99505-6 #### [facility] ([id number]) [address] [place] [address] #### 91534-3, 3051-0, HA1C, CBCA, 24979-1, CMP, 93211-9, 98568-2, THYR #### [facility] ([id number]) [address] [facility], [address] [place] [address] Protein [Mass/Vol] 8.0 g/dL Normal 6.0-8.0 [facility] Comment on above: Performed By: #### 3 0896-5, 41020-0 #### [facility] ([id number]) [facility] [address] [place] [address] #### 03851-8, 3051-0, HA1C, CBCA, 53050-9, CMP, 39122-6, 73665-7, THYR #### [facility] ([id number]) [address] [facility], [address] [place] [address] Sodium [Moles/Vol] 139 mmol/L Normal 134-146 [facility] Comment on above: Performed By: #### 3 0896-5, 64786-5 #### [facility] ([id number]) [address] [place] [address] #### 27121-3, 3051-0, HA1C, CBCA, 46205-9, CMP, 59811-5, 19655-7, THYR #### [facility] ([id number]) [address], [address] [place] [address] Urea nitrogen [Mass/Vol] 15 mg/dL Normal 5-23 [facility] Comment on above: Performed By: #### 3 0896-5, 91824-5 #### [facility] ([id number]) [address] [place] [address] #### 09077-3, 3051-0, HA1C, CBCA, 11868-0, CMP, 14097-2, 15560-7, THYR #### [facility] ([id number]) [address] [facility], [address] [place] [address] FREE T3on 03-26-2024 Free T3 [Mass/Vol] 3.32 pg/mL Normal 2.50-3.90 [facility] Comment on above: Performed By: #### 3 0896-5, 38552-2 #### [facility] ([id number]) [address] [place] [address] #### 11926-4, 3051-0, HA1C, CBCA, 73425-4, CMP, 22628-8, 01017-4, THYR #### [facility] ([id number]) [address], [address] [place] [address] HCV Ab IA Qlon 03-26-2024 ANTI HCV W/PCR REFLX Non-Reactive Normal NRCT Pr [facility] Comment on above: Result Comment: If recent infection suspected, recommend repeat testing (>2 months). Shlgzz-fi-aqhxld ratio is <0.80. Performed By: #### 3 0896-5, 63724-7 #### [facility] ([id number]) [facility] [place] [address] #### 16234-4, 3051-0, HA1C, CBCA, 59897-7, CMP, 21880-5, 54893-4, THYR #### [facility] ([id number]) [address] [facility], [address] [place] [address] HGB A1C (GLYCO-HGB)on 2023 Glucose [Mass/Vol] 97 mg/dL Normal [facility] Comment on above: Performed By: #### 3 0896-5, 36897-6 #### [facility] ([id number]) [address] [facility] [place] [address] #### 02369-6, 3051-0, HA1C, CBCA, 48403-8, CMP, 99079-6, 34007-3, THYR #### [facility] ([id number]) [address] [facility], [address] [place] [address] HbA1c (Bld) [Mass fraction] 5.0 % Normal 4.4-5.6 [facility] Comment on above: Result Comment: NOTE ADA Guidelines Result HgbA1c Normal : less than 5.7 % Prediabetes : 5.7 % to 6.4 % Diabetes : > 6.4 % Use with caution in patients with abnormal hemoglobin variants as the half-life of red blood cells and in vivo glycation rates are affected. Performed By: #### 3 0896-5, 45419-0 #### [facility] ([id number]) [address] [facility] [place] [address] #### 69872-7, 3051-0, HA1C, CBCA, 94074-8, CMP, 63367-1, 29344-9, THYR #### [facility] ([id number]) [address] [facility], [address] [place] [address] HIV 1+2 Ab+HIV1 p24 Ag IA Ql on 03-26-2024 HIV 1 and 2 Ab/Ag Screen Non-Reactive Normal NRCT [facility] Comment on above: Result Comment: This information [...] or diagnoses. Performed By: #### 3 0896-5, 74509-6 #### [facility] ([id number]) [address] [place] [address] #### 40704-0, 3051-0, HA1C, CBCA, 63172-5, CMP, 17945-1, 10044-1, THYR #### [facility] ([id number]) [address] [place] [address], [address] [place] [address] Insulin Qnon 03-26-2024 INSULIN 14.09 uIU/mL Normal 1.00-23.00 [facility] Comment on above: Result Comment: Ref. range is for FASTING NON-DIABETIC POPULATION. Performed By: #### 3 0896-5, 83259-5 #### [facility] ([id number]) [address] [place] [address] #### 25019-7, 3051-0, HA1C, CBCA, 34426-6, CMP, 96751-5, 39884-0, THYR #### [facility] ([id number]) [address] [place] [address], [address] [place] [address] Lipid 1996 panelon 4 Cholesterol [Mass/Vol] 189 mg/dL Normal 150-200 Pr [facility] Comment on above: Performed By: #### 3 0896-5, 48780-3 #### [facility] ([id number]) [address] [place] [address] #### 12744-3, 3051-0, HA1C, CBCA, 86077-6, CMP, 92781-9, 20981-1, THYR #### [facility] ([id number]) [address] [place] [address], [address] [place] [address] Cholesterol in HDL [Mass/Vol] 85 mg/dL Normal >39 [facility] Comment on above: Result Comment: HDL <40 mg/dL - High Risk HDL > or = 40mg/dL- Desirable HDL >60 mg/dL - Negative Risk Performed By: #### 3 0896-5, 20650-5 #### [facility] ([id number]) [address] [place] [address] #### 53325-3, 3051-0, HA1C, CBCA, 76481-7, CMP, 29332-4, 34454-5, THYR #### [facility] ([id number]) [address] [facility], [address] [place] [address] Cholesterol in LDL [Mass/Vol] 91 mg/dL Normal <130 [facility] Comment on above: Result Comment: LDL <100 mg/dL - Desirable LDL >160 mg/dL - High Risk Performed By: #### 3 0896-5, 67734-7 #### [facility] ([id number]) [address] [place] [address] #### 85249-3, 3051-0, HA1C, CBCA, 03637-0, CMP, 67607-6, 04220-8, THYR #### [facility] ([id number]) [address] [facility], [address] [place] [address] Cholesterol in VLDL [Mass/Vol] 13 mg/dL Normal 0-30 [facility] Comment on above: Performed By: #### 3 0896-5, 77835-5 #### [facility] ([id number]) [address] [place] [address] #### 91634-6, 3051-0, HA1C, CBCA, 14735-7, CMP, 60994-7, 24134-2, THYR #### [facility] ([id number]) [address] [facility], [address] [place] [address] CHOLESTEROL:HDL 2.2 Normal 1.0-5.0 [facility] Comment on above: Performed By: #### 3 0896-5, 70236-6 #### [facility] ([id number]) [address] [place] [address] [place] [address] #### 32758-0, 3051-0, HA1C, CBCA, 51255-4, CMP, 05969-6, 51600-9, THYR #### [facility] ([id number]) [address] [facility], [address] [place] [address] Triglyceride [Mass/Vol] 63 mg/dL Normal 27-150 [facility] Comment on above: Performed By: #### 3 0896-5, 82900-6 #### [facility] ([id number]) [address] [place] [address] [place] [address] #### 49228-3, 3051-0, HA1C, CBCA, 11623-6, CMP, 86844-6, 21306-8, THYR #### [facility] ([id number]) [address] [facility], [address] [place] [address] Nuclear Ab IA Ql (S)on 03-26 MARISSA Screen w/reflex Negative Normal NEG [facility] Comment on above: Result Comment: Testing performed using multiplex flow immunoassay. Eleven different antigens associated with systemic autoimmune diseases (dsDNA,Sm,Sm/NU[employer] PLANT CONSTRUCTION WORKER,NUCLEAR PLANT CONSTRUCTION WORKER,Chromatin, SSA,SSB,Aliya-1,Scl70,Ribo P,Centromere B) are included in this screening test. Performed By: #### 3 0896-5, 16457-8 #### [facility] ([id number]) [facility] [address] [place] [address] #### 35121-7, 3051-0, HA1C, CBCA, 21501-4, CMP, 78797-2, 46168-5, THYR #### [facility] ([id number]) [address], [address] [place] [address] RESPIRATORY PANELon 03-26-20 24 ALTERNARIA ALTERNATA <0.10 Normal <0.10 [facility] Comment on above: Result Comment: Clas s 0: Normal Performed By: #### 3 0896-5, 02700-0 #### [facility] ([id number]) [address] [facility] [place] [address] #### 51161-5, 3051-0, HA1C, CBCA, 80951-4, CMP, 04684-5, 72782-9, THYR #### [facility] ([id number]) [address] [facility], [address] [place] [address] ASPERGILLUS FUMIGATUS <0.10 Normal <0.10 [facility] Comment on above: Result Comment: Clas s 0: Normal Performed By: #### 3 0896-5, 96961-6 #### [facility] ([id number]) [address] [place] [address] [place] [address] #### 98293-5, 3051-0, HA1C, CBCA, 42263-9, CMP, 36520-0, 69721-7, THYR #### [facility] ([id number]) [address] [facility], [address] [place] [address] BERMUDA GRASS 0.34 kU/L High <0.10 [facility] Comment on above: Result Comment: Clas s 0/1: Low level of Allergy, ongoing sensitization Performed By: #### 3 0896-5, 66013-5 #### [facility] ([id number]) [address] [place] [address] [place] [address] #### 77276-9, 3051-0, HA1C, CBCA, 95110-8, CMP, 71982-0, 31291-8, THYR #### [facility] ([id number]) [address], [address] [place] [address] BOX ELDER 0.30 kU/L High <0.10 [facility] Comment on above: Result Comment: Clas s 0/1: Low level of Allergy, ongoing sensitization Performed By: #### 3 0896-5, 87189-3 #### [facility] ([id number]) [address] [facility] [place] [address] #### 94088-9, 3051-0, HA1C, CBCA, 09978-4, CMP, 31692-8, 46515-8, THYR #### [facility] ([id number]) [address] [place] [address] CAT DANDER <0.10 Normal <0.10 [facility] Comment on above: Result Comment: Clas s 0: Normal Performed By: #### 3 0896-5, 86748-1 #### [facility] ([id number]) [address] [place] [address] [place] [address] #### 49878-7, 3051-0, HA1C, CBCA, 70599-3, CMP, 90000-0, 64445-4, THYR #### [facility] ([id number]) [address] [place] [address] CLADOSPORIUM HERB <0.10 Normal <0.[address] [facility] Comment on above: Result Comment: Clas s 0: Normal Performed By: #### 3 0896-5, 74068-7 #### [facility] ([id number]) [address] [facility] [place] [address] #### 41881-7, 3051-0, HA1C, CBCA, 59721-3, CMP, 35559-1, 98010-5, THYR #### [facility] ([id number]) [address] [place] [address] COCKLEBUR 0.31 kU/L High <0.10 [facility] Comment on above: Result Comment: Clas s 0/1: Low level of Allergy, ongoing sensitization Performed By: #### 3 0896-5, 96487-5 #### [facility] ([id number]) [address] [place] [address] [place] [address] #### 61816-5, 3051-0, HA1C, CBCA, 02904-8, CMP, 79535-7, 34516-5, THYR #### [facility] ([id number]) [address] [facility], [address] [place] [address] COCKROACH 0.23 kU/L High <0.10 [facility] Comment on above: Result Comment: Clas s 0/1: Low level of Allergy, ongoing sensitization Performed By: #### 3 0896-5, 07875-0 #### [facility] ([id number]) [address] [place] [address] [place] [address] #### 80384-5, 3051-0, HA1C, CBCA, 45098-4, CMP, 61008-7, 61986-1, THYR #### [facility] ([id number]) [address] [facility], [address] [place] [address] COMMON PIGWEED 0.25 kU/L High <0.10 [facility] Comment on above: Result Comment: Clas s 0/1: Low level of Allergy, ongoing sensitization Performed By: #### 3 0896-5, 52851-5 #### [facility] ([id number]) [address] [place] [address] [place] [address] #### 66732-7, 3051-0, HA1C, CBCA, 97719-6, CMP, 16564-2, 87033-9, THYR #### [facility] ([id number]) [address] [facility], [address] [place] [address] COMMON RAGWEED 0.32 kU/L High <0.10 [facility] Comment on above: Result Comment: Clas s 0/1: Low level of Allergy, ongoing sensitization Performed By: #### 3 0896-5, 34616-7 #### [facility] ([id number]) [address] [facility] [place] [address] #### 00939-8, 3051-0, HA1C, CBCA, 50764-3, CMP, 78001-4, 99156-4, THYR #### [facility] ([id number]) [address] [place] [address] COMMON SILVER BIRCH 0.23 kU/L High <0.[address] [facility] Comment on above: Result Comment: Clas s 0/1: Low level of Allergy, ongoing sensitization Performed By: #### 3 0896-5, 36092-9 #### [facility] ([id number]) [address] [place] [address] [place] [address] #### 96956-8, 3051-0, HA1C, CBCA, 04190-6, CMP, 91070-0, 21974-7, THYR #### [facility] ([id number]) [address] [facility], [address] [place] [address] COTTON[place]OD 0.24 kU/L High <0.10 [facility] Comment on above: Result Comment: Clas s 0/1: Low level of Allergy, ongoing sensitization Performed By: #### 3 0896-5, 32998-2 #### [facility] ([id number]) [address] [place] [address] [place] [address] #### 19355-4, 3051-0, HA1C, CBCA, 04465-4, CMP, 60425-5, 91829-0, THYR #### [facility] ([id number]) [address] [facility], [address] [place] [address] DERMATOPH FARINAE <0.10 Normal <0.[address] [facility] Comment on above: Result Comment: Clas s 0: Normal Performed By: #### 3 0896-5, 62579-3 #### [facility] ([id number]) [address] [place] [address] [place] [address] #### 65298-8, 3051-0, HA1C, CBCA, 61574-9, CMP, 36976-1, 75593-5, THYR #### [facility] ([id number]) [address] [facility], [address] [place] [address] DERMATOPH PTERONYSS <0.10 Normal <0.[address] [facility] Comment on above: Result Comment: Clas s 0: Normal Performed By: #### 3 0896-5, 60811-0 #### [facility] ([id number]) [address] [facility] [place] [address] #### 81698-3, 3051-0, HA1C, CBCA, 77226-6, CMP, 21586-2, 20790-8, THYR #### [facility] ([id number]) [address] [facility], [address] [place] [address] DOG DANDER <0.10 Normal <0.10 [facility] Comment on above: Result Comment: Clas s 0: Normal Performed By: #### 3 0896-5, 55465-5 #### [facility] ([id number]) [facility] [address] [place] [address] #### 22978-1, 3051-0, HA1C, CBCA, 72404-0, CMP, 63138-5, 66562-0, THYR #### [facility] ([id number]) [address] [facility], [address] [place] [address] ELM 0.33 kU/L High <0.10 [facility] Comment on above: Result Comment: Clas s 0/1: Low level of Allergy, ongoing sensitization Performed By: #### 3 0896-5, 40230-7 #### [facility] ([id number]) [facility] [address] [place] [address] #### 51327-2, 3051-0, HA1C, CBCA, 10252-4, CMP, 41423-1, 38440-1, THYR #### [facility] ([id number]) [address] [place] [address] GOOSEFOOT LANDRY QTR 0.25 kU/L High <0.10 [facility] Comment on above: Result Comment: Clas s 0/1: Low level of Allergy, ongoing sensitization Performed By: #### 3 0896-5, 72864-9 #### [facility] ([id number]) [address] [place] [address] #### 62482-4, 3051-0, HA1C, CBCA, 87973-5, CMP, 37231-5, 27397-3, THYR #### [facility] ([id number]) [address] [facility] [facility], [address] [place] [address] IGE DUPLICATE ORDER Normal 0-165 [facility] Comment on above: Performed By: #### 3 0896-5, 01892-7 #### [facility] ([id number]) [address] [place] [address] #### 30037-0, 3051-0, HA1C, CBCA, 58422-7, CMP, 96425-3, 77857-8, THYR #### [facility] ([id number]) [address] [facility] [facility], [address] [place] [address] ROBIN GRASS 0.28 kU/L High <0.10 [facility] Comment on above: Result Comment: Clas s 0/1: Low level of Allergy, ongoing sensitization Performed By: #### 3 0896-5, 95748-8 #### [facility] ([id number]) [address] [place] [address] #### 31409-9, 3051-0, HA1C, CBCA, 82034-4, CMP, 75177-0, 49055-3, THYR #### [facility] ([id number]) [address] [place] [address] MAPLE LEAF [place] 0.27 kU/L High <0.[address] [facility] Comment on above: Result Comment: Clas s 0/1: Low level of Allergy, ongoing sensitization Performed By: #### 3 0896-5, 08076-9 #### [facility] ([id number]) [address] [facility] [place] [address] #### 04758-6, 3051-0, HA1C, CBCA, 09362-2, CMP, 34492-1, 90155-6, THYR #### [facility] ([id number]) [address] [facility] [facility] [place] [address] [place] JOSE EDUARDO 0.31 kU/L High <0.[address] [facility] Comment on above: Result Comment: Clas s 0/1: Low level of Allergy, ongoing sensitization Performed By: #### 3 0896-5, 52789-3 #### [facility] ([id number]) [address] [facility] [place] [address] #### 38418-3, 3051-0, HA1C, CBCA, 64794-5, CMP, 43068-8, 66152-7, THYR #### [facility] ([id number]) [address] [facility] [facility] [place] [address] [place] JUNIPER 0.25 kU/L High <0.10 [facility] Comment on above: Result Comment: Clas s 0/1: Low level of Allergy, ongoing sensitization Performed By: #### 3 0896-5, 21400-9 #### [facility] ([id number]) [facility] [facility] [place] [address] #### 98591-1, 3051-0, HA1C, CBCA, 28076-1, CMP, 77243-8, 94653-3, THYR #### [facility] ([id number]) [address], [address] [place] [address] MOUSE URINE PROTEINS <0.10 Normal <0.10 [facility] Comment on above: Result Comment: Clas s 0: Normal Performed By: #### 3 0896-5, 07486-4 #### [facility] ([id number]) [address] [facility] [place] [address] #### 84190-4, 3051-0, HA1C, CBCA, 41786-1, CMP, 46456-8, 83860-6, THYR #### [facility] ([id number]) [address], [address] [place] [address] MUGWORT 0.27 kU/L High <0.10 [facility] Comment on above: Result Comment: Clas s 0/1: Low level of Allergy, ongoing sensitization Performed By: #### 3 0896-5, 93894-4 #### [facility] ([id number]) [address] [facility] [place] [address] #### 03686-5, 3051-0, HA1C, CBCA, 16245-4, CMP, 00526-2, 03743-0, THYR #### [facility] ([id number]) [address], [address] [place] [address] MULBERRY TREE 0.20 kU/L High <0.10 [facility] Comment on above: Result Comment: Clas s 0/1: Low level of Allergy, ongoing sensitization Performed By: #### 3 0896-5, 63556-6 #### [facility] ([id number]) [address] [place] [address] [place] [address] #### 58708-0,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 ting in third trimester (Primary Dx) Start: 11-27-2024 End: 11-27-2024 ambulatory [facility] Start: 11-24-2024 End: 11-24-2024 Office outpatient visit 25 minutes Berna Daniel MD Work Phone: [facility] [place] Comment on above: Polyhydramnios affec ting in third trimester (Primary Dx); Constipation, unspecified constipation type; 30 weeks gestation of ; Hypothyroidism affecting in third trimester; Elevated BP without diagnosis of hypertension Start: 11-24-2024 End: 11-24-2024 Orders Only Betsey Wu LPN [facility] Comment on above: Polyhydramnios affec ting in third trimester (Primary Dx); Hypothyroidism affecting in third trimester; Elevated BP without diagnosis of hypertension; History of insulin resistance; Family history of autism Start: 11-23-2024 End: 11-23-2024 Chart abstracting Scanning Provider External [facility] Start: 11-18-2024 End: 11-18-2024 Telephone encounter Betsey Wu LPN [facility] Start: 11-17-2024 End: 11-17-2024 Telephone encounter Betsey Wu DONTE [facility] Start: 11-14-2024 End: 11-14-2024 ambulatory HAILEE L FLORO Not Available Start: 11-14-2024 End: 11-14-2024 Subsequent care visit Hailee Mai CNM Work Phone: [facility] Comment on above: Other constipation ( Primary Dx); Encounter for care of first , third trimester; Hypothyroidism, unspecified type ([facility]) Start: 11-14-2024 End: 11-14-2024 Telephone encounter Hailee Mai CNM Work Phone: [facility] Start: 11-04-2024 End: 11-04-2024 Telephone encounter Betsey Herreradavid KENT [facility] Start: 11-03-2024 End: 11-03-2024 Telephone encounter Betsey Jazmin LPN [facility] Start: 11-01-2024 End: 11-01-2024 ambulatory [facility] Start: 11-01-2024 End: 11-01-2024 Office outpatient visit 25 minutes Berna Daniel MD Work Phone: [facility] Comment on above: Hypothyroidism affec ting in second trimester (Primary Dx); 27 weeks gestation of ; Elevated BP without diagnosis of hypertension Start: 11-01-2024 End: 11-01-2024 ambulatory [facility] Start: 10-26-2024 End: 10-26-2024 ambulatory HAILEE L FLORO Not Available Start: 10-18-2024 End: 10-18-2024 ambulatory HAILEE [facility] Start: 10-07-2024 End: 10-07-2024 Telephone encounter Hailee Mai CNM Work Phone: [facility] Start: 10-07-2024 End: 10-07-2024 Office outpatient visit 25 minutes Berna Daniel MD Work Phone: [facility] Comment on above: Elevated BP without diagnosis of hypertension (Primary Dx); 23 weeks gestation of ; COVID-19 affecting in second trimester; At increased risk for exposure to influenza virus; Hypothyroidism affecting in second trimester Start: 10-07-2024 End: 10-07-[address] [facility] Start: 10-06-2024 End: 10-06-2024 Orders Only Hailee Mai CNM Work Phone: [facility] Comment on above: COVID (Primary Dx); Encounter for care of first , second trimester Start: 10-05-2024 End: 10-05-2024 Emergency department patient visit [facility] Start: 10-05-2024 End: 10-05-2024 ambulatory [facility] Start: 10-05-2024 End: 10-05-2024 Office outpatient new 45 minutes Humberto Butcher APRN-[employer]PER[employer] Work Phone: [facility] Comment on above: Tachycardia (Primary Dx); Shortness of breath; Chest pain, unspecified type Start: 10-05-2024 End: 10-05-2024 Telephone encounter Amador Flanagan RELIEF SALESPERSON [facility] Start: 09-28-2024 End: 09-28-2024 Bamboo flowsheet [...] Only Amador Masha NEELY [facility] Comment on above: Hypothyroidism affec ting [...] encounter Stella Blair RN [facility] Start: 08-02-2024 End: 08-02-2024 Office outpatient visit 25 minutes Berna Daniel MD Work Phone: [facility] Comment on above: Abnormal genetic sundeep t during (Primary Dx); Hypothyroidism affecting in second trimester; 14 weeks gestation of Start: 08-02-2024 End: 08-02-[address] [facility] Start: 07-27-2024 End: 07-27-2024 Bamboo flowsheet [...] 07-22-2024 End: 07-22-2024 Documentation procedure Amador Masha [facility] Comment on above: Hypothyroidism affec ting in first trimester (Primary Dx) Start: 07-22-2024 End: 07-22-2024 [facility] Start: 07-22-2024 End: 07-22-2024 Office consultation new/estab patient 60 min Berna Daniel MD Work Phone: [facility] Comment on above: Hypothyroidism affec ting in first trimester (Primary Dx); 12 weeks gestation of ; PCOS (polycystic ovarian syndrome); History of insulin resistance; Family history of autism Start: 07-22-2024 End: 07-22-2024 [facility] Start: 07-05-2024 End: 07-05-2024 Chart abstracting Berna Daniel MD Work Phone: [facility] Start: 06-30-2024 End: 06-30-2024 Bamboo flowsheet [...] [facility] Start: 03-26-2024 End: 03-26-2024 ambulatory [facility] Start: 03-26-2024 Encounter for genera l adult medical examination with abnormal findings [facility] Start: 03-06-2024 End: 03-06-2024 Office outpatient visit 15 minutes Guy Easley HOME HE[employer] LVN-[employer]PER[employer]OR [employer] Work Phone: [facility] [place] Comment on above: Upper respiratory in fection with cough and congestion (Primary Dx); Acute bacterial conjunctivitis of left eye; Healthcare maintenance Start: 03-06-2024 End: 03-06-2024 Patient encounter status uGy Easley [employer] HE[employer] LVN-[employer] Work Phone: [facility] Start: 03-06-2024 End: 03-06-2024 ambulatory NO PCP NO PCP [facility] Start: 03-06-2024 Encounter for boubacar l adult medical examination without abnormal findings GUY Narayan TRACEE [facility] Start: 08-30-2018 End: 08-30-2018 Patient encounter procedure JOESPH FRANCO Facility:[facility] Start: 07-29-2018 End: 08-02-2018 Patient encounter procedure Simona ASTORGA [facility] Start: 07-29-2018 End: 07-29-2018 Patient encounter procedure MAKENZIE VALLE [facility] Start: 07-29-2018 End: 07-29-2018 Office outpatient new 30 minutes Makenzie Rogelio Valle Work Phone: [facility] Comment on above: Nausea (Primary Dx) Start: 06-06-2018 End: 06-06-2018 Emergency department patient visit RAMON [facility] Procedures Date Procedure Procedure Detail Performing [...] Adult BMI Screening Adult [facility] Screen ing [facility] Start: 12-13-2025 Tobacco Screening Tobacco Screening [facility] Start: 12-07-2025 Screening for Chlamydia trachomatis Chlamydia Scre[facility] Start: 11-27-2025 Tobacco Screening Tobacco Screening [facility] Start: 11-24-2025 Adult BMI Screening Adult BMI Screen ing [facility] Start: 11-01-2025 Tobacco Screening Tobacco Screening [facility] Start: 10-05-2025 Adult BMI Screening Adult BMI Screen ing [facility] Start: 10-05-2025 Tobacco Screening Tobacco Screening [facility] Start: 09-16-2025 End: 09-16-2025 US MFM with or without consult US MFM with or without consult Imaging Routine Hypothyroidism affecting in first trimester PCOS (polycystic ovarian syndrome) History of insulin resistance Family history of autism Abnormal genetic test during Hypothyroidism affecting in second trimester Expected: 09/16/2025 (Approximate), Expires: 09/16/2025 [employer] Work Phone: Comment on above: Expected: 09/16/2025 (Approximate), Expires: 09/16/2025 Start: 07-22-2025 Adult BMI Screening Adult BMI Screen ing [facility] Start: 07-22-2025 Tobacco Screening Tobacco Screening [facility] Start: 04-10-2025 Influenza vaccination [facility] Start: 03-06-2025 Adult BMI Screening Adult BMI Screen ing [facility] Start: 03-06-2025 Tobacco Screening Tobacco Screening [facility] Start: 02-06-2025 End: 02-06-2025 Telemedicine consultation with patient 02/06/2025 1:00 PM EDT Telemedicine [facility] [address] [place] [address] Hailee Mai, KRISTELM [address] [place] [address] [facility] Start: 01-26-2025 End: 01-26-2025 Professional / ancillary services management 01/26/2025 4:00 PM EDT Ancillary Procedure [facility] [address] [phone] [facility] Start: 01-23-2025 End: 01-23-2025 Patient encounter procedure [facility] Comment on above: Arrived Start: 01-19-2025 End: 01-19-2025 Professional / ancillary services management 01/19/2025 4:00 PM EDT Ancillary Procedure [facility] [address] [phone] [facility] Start: 01-19-2025 End: 01-19-2025 Patient encounter procedure 01/19/2025 3:15 PM EDT Appointment [facility] [place] [address] [facility] [address] [place] [phone] [facility] [place] Start: 01-16-2025 End: 01-16-2025 Patient encounter procedure 01/16/2025 1:30 PM EDT Routine [facility] [address] [place] [address] Hailee Mai, CNM [address] [place] [address] [facility] Start: 01-12-2025 End: 01-12-2025 Professional / ancillary services management 01/12/2025 4:00 PM EDT Ancillary Procedure [facility] [address] [address] [facility] Start: 01-10-2025 End: 01-10-2025 Patient encounter procedure 01/10/2025 9:00 AM EDT Office Visit [facility] [address] [place] [address] Makenzie Anguiano MD [address] [place] [address] [facility] Start: 01-09-2025 End: 01-09-2025 Patient encounter procedure [facility] Comment on above: Arrived Start: 01-05-2025 End: 01-05-2025 Professional / ancillary services management 01/05/2025 4:00 PM EDT Ancillary Procedure [facility] [address] [place] [address] [facility] Start: 01-04-2025 End: 01-04-2025 Patient encounter procedure 01/04/2025 2:00 PM EDT Office Visit [facility] [address] [place] [address] Berna Daniel MD [address] [facility] [address] [place] [address] [facility] Start: 01-04-2025 End: 01-04-2025 Telemedicine consultation with patient 01/04/2025 2:00 PM EDT Telemedicine [facility] [address] [place] [address] Berna Daniel MD [address] [facility] [address] [facility] [place] [address] [facility] Start: 01-03-2025 End: 01-03-2026 TSH W/REFLEX [...] Ancillary Procedure [facility] [address] [phone] [facility] Start: 12-29-2024 End: 12-29-2024 Professional / ancillary services management 12/29/2024 4:00 PM EDT Ancillary Procedure [facility] [address] [phone] [facility] Start: 12-28-2024 End: 12-28-2025 [...] PM EDT Routine [facility] [address] [place] [phone] Hailee Mai, CNM [address] [place] [address] [facility] Start: 12-22-2024 End: 12-22-2024 Professional / ancillary services management 12/22/2024 4:00 PM EDT Ancillary Procedure [facility] [address] [phone] [facility] Start: 12-22-2024 End: 12-22-2024 Patient encounter procedure 12/22/2024 11:00 AM EDT Appointment [facility] [place] [address] [facility] [address] [place] [phone] [facility] [place] Start: 12-19-2024 End: 12-19-2024 Patient encounter procedure 12/19/2024 1:30 PM EDT Routine [facility] [address] [place] [phone] Pau Hailee L, CNM [address] [place] [facility] [place] [address] [facility] Start: 12-15-2024 End: 12-15-2024 Professional / ancillary services management 12/15/2024 4:00 PM EDT Ancillary Procedure [facility] [address] [facility] [address] [place] [address] [facility] Start: 12-13-2024 End: 12-13-2024 Patient encounter procedure [facility] Start: 12-12-2024 End: 12-12-2024 Patient encounter procedure [facility] Comment on above: Arrived Start: 12-08-2024 End: 12-08-2024 Professional / ancillary services management 12/08/2024 9:30 AM EDT Ancillary Procedure [facility] [address] [address] [facility] Start: 12-05-2024 End: 12-05-2024 Patient encounter procedure [facility] Comment on above: Arrived Start: 11-24-2024 End: 11-24-2024 Patient encounter procedure 11/24/2024 2:15 PM EDT Appointment [facility] [place] [address] [facility] [address] [place] [address] [facility] [place] Start: 11-24-2024 End: 11-24-2025 US MFM with or without consult US MFM with or without consult Imaging Routine Polyhydramnios affecting in third trimester Hypothyroidism affecting in third trimester Elevated BP without diagnosis of hypertension History of insulin resistance Family history of autism Expected: 11/24/2024, Expires: 11/24/2025 [facility] Work Phone: Comment on above: Expected: 11/24/2024 , Expires: 11/24/2025 Start: 11-23-2024 End: 11-23-2024 Patient encounter procedure 11/23/2024 9:30 AM EDT Routine [facility] [address] [facility] [place] [address] Hailee Mai, CNM [address] [place] [address] [facility] Start: 11-23-2024 End: 11-23-2024 Professional / ancillary services management 11/23/2024 9:00 AM EDT Ancillary Procedure [facility] [address] [place] [address] [facility] Start: 11-14-2024 End: 11-14-2024 Patient encounter procedure 11/14/2024 3:00 PM EDT Office Visit [facility] [address] [facility] [place] [phone] Hailee Mai, CNM [address] [place] [address] [facility] Start: 11-14-2024 End: 11-14-2025 [...] PM EDT Office Visit [facility] [address] [place] [address] Berna Daniel MD [address] 1[address] [place] [address] [facility] Start: 10-28-2024 End: 10-07-2025 Thyrotropin [Units/volume] in Serum or Plasma TSH Lab Routine Hypothyroidism affecting in second trimester Expected: 10/28/2024, Expires: 10/07/2025 [employer] Work Phone: Comment on above: Expected: 10/28/2024 , Expires: 10/07/2025 Start: 10-26-2024 End: 10-26-2024 Patient encounter procedure 10/26/2024 10:30 AM EDT Routine [facility] [address] [place] [phone] Hailee Mai, [facility] [address] [place] [address] [facility] Start: 10-18-2024 End: 10-18-2024 Patient encounter procedure 10/18/2024 2:[address] [facility] [address] [place] [phone] [facility] Start: 10-14-2024 End: 10-14-2024 Telemedicine consultation with patient 10/14/2024 9:45 AM EST Telemedicine [facility] [address] [place] [address] Berna Daniel MD [address] [facility] [place] [address] [facility] Start: 10-07-2024 End: 10-07-2024 Telemedicine consultation with patient 10/07/2024 10:00 AM EST Telemedicine [facility] [address] [place] [phone] Berna Daniel MD [address] [place], [place] [phone] [facility] Start: 09-28-2024 End: 09-28-2025 TSH W/REFLEX TO FT4 TSH W/REFLEX TO FT4 Lab Routine Hypothyroidism, unspecified type (CMS/HCC) Expected: 09/28/2024 (Approximate), Expires: 09/28/2025 [facility] Work Phone: Comment on above: Expected: 09/28/2024 (Approximate), Expires: 09/28/2025 Start: 09-28-2024 End: 09-28-2024 Patient encounter procedure [facility] Comment on above: Arrived Start: 09-16-2024 End: 09-16-2024 Patient encounter procedure 09/16/2024 8:[address] [facility] [address] [place] [address] [facility] Start: 08-31-2024 End: 08-31-2024 Patient encounter procedure 08/31/2024 10:30 AM EST Routine [facility] [address] [place] [phone] Hailee Mai CNM [address] [place], [place] [phone] Arrived [facility] Comment on above: Arrived Start: 08-25-2024 End: 08-25-2024 Patient encounter procedure 08/25/2024 8:30 AM EST Routine [facility] [address] [place] [address] Hailee Mai CNM [address] [place] [address] [facility] Start: 08-22-2024 End: 08-22-2024 Telemedicine consultation with patient 08/22/2024 9:00 AM EST Telemedicine [facility] [address] [place] [address] Keisha Freitas, [facility] [address] [place] [address] [facility] Start: 08-12-2024 End: 07-22-2025 Thyrotropin [Units/volume] [...] AM EST Routine [facility] [address] [place] [phone] Hailee Mai CNM [address] [place] [address] [facility] Start: 07-22-2024 End: 07-22-2024 Patient encounter procedure 07/22/2024 8:45 AM EST Office Visit [facility] [address] [facility] [place] [address] Berna Daniel MD [address] [place] [address] [facility] Start: 07-22-2024 End: 07-22-2024 Patient encounter procedure 07/22/2024 7:30 AM EST Appointment [facility] [address] [facility] [address] [facility] Start: 07-13-2024 End: 07-13-2024 Patient encounter procedure 07/13/2024 11:30 AM EST Routine [facility] [address] [place] [phone] Hailee Mai CNM [address] [place] [address] [facility] Start: 06-30-2024 End: 06-30-2025 US for US OB limited 1+ fetuses Imaging Routine Subchorionic hemorrhage of placenta in first trimester Expected: 06/30/2024, Expires: 06/30/2025 [facility] Work Phone: Comment on above: Expected: 06/30/2024 , Expires: 06/30/2025 Start: 06-15-2024 End: 06-15-2024 Professional / ancillary services management 06/15/2024 2:00 PM EST Ancillary Procedure [facility] [address] [phone] [facility] Start: 06-15-2024 End: 06-15-2024 ambulatory 06/15/2024 1:30 PM EST Initial [facility] [address] [place] [phone] Hailee Mai CNM [address] [place] [address] [facility] Start: 04-10-2024 Influenza vaccination [facility] Start: 07-19-2023 Adult BMI Screening Adult BMI Screen ing [facility] Start: 07-19-2023 Tobacco Screening Tobacco Screening [facility] Start: 11-23-2022 DTaP,Tdap and Td Vaccines (7 - Td or Tdap) DTaP,Tdap and Td Vaccines (7 - Td or Tdap) [facility] Start: 2021 Screening for malignant neoplasm of cervix Pap Smear [facility] Start: 08-25-2018 End: 08-25-2018 Ambulatory 08/25/2018 Office Visit Primary Care Simona Astorga MD [address] [place] [address] [phone] [facility] Start: 2018 Adult BMI Follow Up Plan Adult BMI Follow Up Plan [facility] Start: 04-10-2018 Influenza vaccination SEQUENTI AL INFLUENZA VACCINE (#1) [facility] Start: 2012 Depression Screening Depression Scre ening [facility] Start: 2000 Adult depression screening assessment DEPRESSION SCREENING (PHQ9) [facility] Start: 2000 Screening for Chlamydia trachomatis Chlamydia Screening [facility] Start: 2000 SUBSTANCE ABUSE SCREENING (AUDIT-C) SUBSTANCE ABUSE SCREENING (AUDIT-C) [facility] Start: 2000 Tetanus vaccination TETANUS EVERY 10 YR [facility] End: 07-22-2025 Hemoglobin A1c/Hemoglobin.total in Blood Hemoglobin A1c Lab Routine 12 weeks gestation of PCOS (polycystic ovarian syndrome) History of insulin resistance 1 Occurrences starting 07/22/2024 until 07/22/2025 [facility] Comment on above: 1 Occurrences starti ng 07/22/2024 until 07/22/2025 Hemoglobin A1c/Hemoglobin.total in Blood Hemoglobin A1c Lab Routine 12 weeks gestation of PCOS (polycystic ovarian syndrome) History of insulin resistance 07/22/2024 11:21 AM EST [facility] End: 12-13-2025 Thyroid profile includes TSH FT4 Thyroid profile includes TSH FT4 Lab Routine Hypothyroidism, unspecified type 1 Occurrences starting 12/13/2024 until 12/13/2025 [employer] Work Phone: Comment on above: 1 Occurrences starti ng 12/13/2024 until 12/13/2025 End: 07-22-2025 Thyrotropin [Units/volume] in Serum or Plasma TSH Lab Routine Hypothyroidism affecting in first trimester 12 weeks gestation of 1 Occurrences starting 07/22/2024 until 07/22/2025 [employer] Work Phone: Comment on above: 1 Occurrences starti ng 07/22/2024 until 07/22/2025 Thyrotropin [Units/volume] in Serum or Plasma TSH Lab Routine Hypothyroidism affecting in first trimester 12 weeks gestation of 07/22/2024 11:21 AM EST [facility] [employer] End: 11-28-2025 Thyrotropin [Units/volume] in Serum or Plasma TSH Lab Routine Hypothyroidism affecting in third trimester 1 Occurrences starting 11/28/2024 until 11/28/2025 [employer] Work Phone: Comment on above: 1 Occurrences starti ng 11/28/2024 until 11/28/2025 Thyroxine (T4) free [Mass/volume] in Serum or Plasma T4, free Lab Routine Acquired hypothyroidism (CMS/HCC) Ordered: 01/03/2025 [facility] Comment on above: Ordered: 01/03/2025 End: 11-02-2025 TSH with Reflex TSH with Reflex Lab Routine Hypothyroidism affecting in second trimester 1 Occurrences starting 11/02/2024 until 11/02/2025 [employer] Work Phone: Comment on above: 1 Occurrences starti ng 11/02/2024 until 11/02/2025 Immunizations Immunization Date Immunization Notes Care Provider Fa cili 09-04-2022 influenza virus vacc ine, unspecified formulation Guy Easley [employer] Work Phone: [facility] 09-14-2017 meningococcal B vacc ine, fully recombinant Guy Easley [employer] Work Phone: [facility] 08-11-2017 human papilloma viru s vaccine, quadrivalent Guy Easley [employer] Work Phone: [facility] 08-11-2017 meningococcal B vacc ine, fully recombinant Guy Easley [facility] Work Phone: [facility] 08-11-2017 meningococcal polysaccharide (groups A, C, Y and W-135) diphtheria toxoid conjugate vaccine (MCV4P) Guy Easley [facility] Work Phone: [facility] 06-06-2014 human papilloma viru s vaccine, quadrivalent Guy Easley [facility] Work Phone: [facility] 04-11-2014 hepatitis A vaccine, adult dosage Guy Easley [facility] Work Phone: [facility] 04-11-2014 varicella virus vaccine Ismael Easley [facility] Work Phone: [facility] 02-02-2014 human papilloma viru s vaccine, quadrivalent Guy Easley [facility] Work Phone: [facility] 11-23-2012 hepatitis A vaccine, adult dosage Guy Easley [facility] Work Phone: [facility] 11-23-2012 meningococcal oligosaccharide (groups A, C, Y and W-135) diphtheria toxoid conjugate vaccine (MCV4O) Guy Easley [facility] Work Phone: [facility] 11-23-2012 tetanus toxoid, redu marcy diphtheria toxoid, and acellular pertussis vaccine, adsorbed Guy Easley [facility] Work Phone: [facility] 12-04-2005 diphtheria, tetanus toxoids and acellular pertussis vaccine Guy Easley [facility] Work Phone: [facility] 12-04-2005 measles, mumps and rubella virus vaccine Guy Easley [facility] Work Phone: [facility] 09-08-2001 diphtheria, tetanus toxoids and acellular pertussis vaccine Guy Easley [facility]N-[facility] Work Phone: [facility] 09-08-2001 haemophilus influenz ae type b vaccine, conjugate unspecified formulation Guy Easley [facility] Work Phone: [facility] 09-08-2001 measles, mumps and rubella virus vaccine Guy Easley [facility] Work Phone: [facility] 09-08-2001 poliovirus vaccine, inactivated Guy Easley [facility] Work Phone: [facility] 09-08-2001 varicella virus vaccine Ismael Easley [facility] Work Phone: [facility] 2000 diphtheria, tetanus toxoids and acellular pertussis vaccine Guy Easley [facility] Work Phone: [facility] 2000 haemophilus influenz ae type b vaccine, conjugate unspecified formulation Guy Easley [facility] Work Phone: [facility] 2000 hepatitis B vaccine, adult dosage Guy Easley [facility] Work Phone: [facility] 2000 poliovirus vaccine, inactivated Guy Easley [facility] Work Phone: [facility] 2000 diphtheria, tetanus toxoids and acellular pertussis vaccine Guy Easley [facility] Work Phone: [facility] 2000 haemophilus influenz ae type b vaccine, conjugate unspecified formulation Guy Easley [facility] Work Phone: [facility] 2000 poliovirus vaccine, inactivated Guy Easley [facility] Work Phone: [facility] 2000 diphtheria, tetanus toxoids and acellular pertussis vaccine Guy Easley [facility] Work Phone: [facility] 2000 haemophilus influenz ae type b vaccine, conjugate unspecified formulation Guy Easley [employer] Work Phone: [facility] 2000 hepatitis B vaccine, adult dosage Guy Easley [employer] Work Phone: [facility] 2000 poliovirus vaccine, inactivated Guy Easley [employer] Work Phone: [facility] 2000 hepatitis B vaccine, adult dosage Guy Easley [employer] Work Phone: [facility] Payers Date Payer Category Payer Commercial Managed C are - PPO [id number] 2024 Private Health Insurance [employer] [id number] 2024 Unknown [id number] 2024 [facility] er [id number] 2024 Unknown [id number] 2024 Unknown 2023 [employer] - Other [id number] 2023 Unknown [id number] 2000 Unknown [id number] 2.16.840.1.460408.3.579.2. 903 2000 Unknown [id number] 2.16.840.1.189312.3.579.2. 900 2000 Unknown [id number] 2.16.840.1.737844.3.579.2. 593 2000 Unknown [id number] 2.16.840.1.817551.3.579.2. 1286 2000 Unknown [id number] 2.16.840.1.620055.3.579.2. 1286 2000 Unknown [id number] 2.16.840.1.587649.3.579.2. 1286 2000 Unknown [id number] 2.16.840.1.123872.3.579.2. 1286 2000 Unknown [id number] 2.16.840.1.488046.3.579.2. 1286 2000 Unknown [id number] 2.16.840.1.562574.3.579.2. 1286 2000 Unknown [id number] 2.16.840.1.113303.3.579.2. 1286 2000 Unknown [id number] 2.16.840.1.902683.3.579.2. 1286 2000 Unknown [id number] 2.16.840.1.001665.3.579.2. 1286 2000 Unknown [id number] 2.16.840.1.714164.3.579.2. 1285 2000 Unknown [id number] 2.16.840.1.134132.3.579.2. 1285 2000 Unknown [id number] 2.16.840.1.997292.3.579.2. 1285 2000 Unknown [id number] 2.16.840.1.111859.3.579.2. 1285 2000 Unknown [id number] 2.16.840.1.400466.3.579.2. 1285 2000 Unknown [id number] 2.16.840.1.061195.3.579.2. 1285 2000 Unknown [id number] 2.16.840.1.835612.3.579.2. 1258 2000 Unknown [id number] 2.16.840.1.871802.3.579.2. 1258 2000 Unknown [id number] 2.16.840.1.550373.3.579.2. 1258 2000 Unknown [id number] 2.16.840.1.722917.3.579.2. 1258 2000 Unknown [id number] 2.16.840.1.665596.3.579.2. 1258 2000 Unknown [id number] 2.16.840.1.225694.3.579.2. 1258 2000 Unknown [id number] 2.16.840.1.613507.3.579.2. 1258 2000 Unknown [id number] 2.16.840.1.268817.3.579.2. 1258 2000 Unknown [id number] 2.16.840.1.275079.3.579.2. 1258 2000 Unknown [id number] 2.16.840.1.857279.3.579.2. 1259 2000 Unknown [id number] 2.16.840.1.498763.3.579.2. 9 2000 Unknown [id number] 2.16.840.1.645894.3.579.2. 9 2000 Unknown [id number] 2.16.840.1.156155.3.579.2. 1258 2000 Unknown [id number] 2.16.840.1.963034.3.579.2. 1258 2000 Unknown [id number] 2.16.840.1.573075.3.579.2. 1258 2000 Unknown [id number] 2.16.840.1.742843.3.579.2. 1258 2000 Unknown [id number] 2.16840.1.562250.3.579.2. 1258 2000 Unknown [id number] 2.16.840.1.642296.3.579.2. 1285 2000 Unknown [id number] 2.16.840.1.830317.3.579.2. 1285 2000 Unknown [id number] 2.16.840.1.747262.3.579.2. 1285 2000 Unknown [id number] 2.16.840.1.221188.3.579.2. 1285 2000 Unknown [id number] 2.16840.1.843340.3.579.2. 1285 2000 Unknown [id number] 2.16840.1.507189.3.579.2. 1285 2000 Unknown [id number] 2.16.840.1.417144.3.579.2. 1286 1959 Unknown [id number] Unknown [id number] 2.16840.1.832724.3.579.2. 246 Social History Date Type Detail Facility Start: 07-29-2018 End: 06-15-2024 Tobacco smoking status NHIS Never smoker [facility] Start: 2000 Sex Assigned At Not on file [facility] Tobacco smoking stat us [facility] Tobacco smoking consumption unknown [facility] Start: 09-20-2020 End: 06-15-2024 Gender identity Not on file [facility] Start: 06-15-2024 End: 07-05-2024 Tobacco use and exposure Former smokeless tobacco user [facility] Start: 06-15-2024 End: 12-13-2024 Alcoholic beverage intake Ex-drinker (finding) [facility] Start: 09-20-2020 End: 06-15-2024 History of Social function [facility] Start: 05-07-2024 [facility] Adolescent depressio n screening assessment 6 [facility] Start: 2000 Sex assigned at Female [facility] Start: 03-15-2015 Sex Female (finding) [facility] Start: 05-11-2024 Gender identity Identifies as female gender (finding) [facility] Start: 05-11-2024 Sexual orientation Bisexual (finding ) [facility] Start: 09-14-2017 Tobacco use and exposure Smokeless tobacco non-user [facility] Start: 03-06-2024 Alcoholic beverage intake Current non-drinker of alcohol (finding) [facility] Has the electric, [employer], oil, or water company threatened to shut off services in your home in past 12Mo No [facility] Goals Date Patient Goal Desired Activity [...] scheduled for Thursday01/22/25 documented in this encounter [facility] 01-09-2025 History of Presen t illness Narrative [...] Induction of labor scheduled for 01/22/25 at [facility] Follow up in 1 week for a routine visit. documented in this encounter [facility] 01-09-2025 Miscellaneous Notes Formattin g of this note might be different from the original. TC to patient to confirm her appointment tomorrow 01/10/[address] Anguiano @ 0900. Patient confirmed documented in this encounter [facility] 01-09-2025 Telephone encount er Note TC to patient to confirm her appointment tomorrow 01/10/[address] Anguiano @ 0900. Patient confirmed [facility] 01-03-2025 History of Presen t illness [...] a routine visit. documented in this encounter [facility] 01-03-2025 Miscellaneous Notes Formattin g of this note might be different from the original. Left voicemail for Leanne at [facility] office - would like to make sure patient has not had a TSH drawn since 11/24/24. Awaiting call back. documented in this encounter [facility] 01-03-2025 Telephone encount er Note Left voicemail for Leanne at [facility] office - would like to make sure patient has not had a TSH drawn since 11/24/24. Awaiting call back. [facility] 12-28-2024 History of Presen t illness [...] a routine visit. documented in this encounter [facility] 12-19-2024 History of Presen t illness Narrative [...] during in second trimester Hypothyroidism, unspecified type ([facility]) History of anxiety History of depression Continue vitamin. Labs reviewed. Reactive NST in office today GBS at 36 weeks Expected mode of delivery Follow up in 1 week for a routine visit. documented in this encounter [facility] 12-13-2024 History of Presen t illness Narrative [...] [id number] - hypothyroidism in Please see prior [facility] consultation notes for detailed discussions and consultation on the patient multiple comorbidities She has been compliant with the Synthroid Referral given to endocrinology as the patient does not have furnace tender to follow her long-term dose to be [...] Repeat growth ultrasound in 4 weeks through [facility] Recommend weekly testing starting at 32 weeks gestation, per ACOG guidelines primary OB office Delivery planning at 39 weeks unless a sooner indication arises. If she delivers by , recommend VTE prevention (LMWH 40mg daily) during hospitalization Follow up in [facility] already scheduled Follow-up with the [facility] scheduled DISPOSITION: At this point the patient is in complete care of her powerhouse mechanic helper. Patient does have ultrasound and office visit scheduled with us. Thank you for allowing me to participate in the care of Maximilian Cortes. If there any questions please do not hesitate to contact us. Frank Gao MD, FACOG (she/hers) Maternal- Medicine [facility] [address] [place] [address] This document was created with [employer] technology. Though I make every effort to review the dictation as it is transcribed, on occasion the spoken word can be misinterpreted by the technology leading to inappropriate words, phrases, or sentences. This note is addressed to the requesting provider as a consultation for clinical guidance. Specific medical abbreviations are occasionally used and those are generally approved by the [place]?Board of?Obstetrics and?Gynecology?as well as?Kayla manuel abbreviations. The above plan of care was based solely on the diagnoses for which a consultation was requested. ?More frequent testing may be indicated based on her other medical/obstetrical conditions. The management of other or medical conditions is beyond the scope of requested consultation and will continue to be followed by the primary powerhouse mechanic helper or primary care provider. Note to patient: [...] of the practitioner. documented in this encounter [facility] 12-12-2024 History of Presen t illness [...] via telemed visit. Patient was seen at [facility] last week for cramping, N/V and had [...] no abdominal tightening. documented in this encounter [facility] 12-05-2024 History of Presen t illness Narrative [...] a routine visit. documented in this encounter [facility] 11-28-2024 Miscellaneous Notes Formattin g of this note might be different from the original. Notified patient by phone of new Levothyroxine dosing. Patient verbalized understanding and has already received a notification from her pharmacy that the new dose is in process and can be picked up tomorrow after 2pm. documented in this encounter [facility] 11-28-2024 Telephone encount er Note Notified patient by phone of new Levothyroxine dosing. Patient verbalized understanding and has already received a notification from her pharmacy that the new dose is in process and can be picked up tomorrow after 2pm. [facility] 11-28-2024 Miscellaneous Notes Formattin g of this note might be different from the original. Spoke with patient who states she is taking her levothyroxine as follows: 150mcg on M,W,F,Sat,Sun and 225mcg T&Th. documented in this encounter [facility] 11-28-2024 Telephone encount er Note Spoke with patient who states she is taking her levothyroxine as follows: 150mcg on M,W,F,Sat,Sun and 225mcg T&Th. [facility] 11-28-2024 Miscellaneous Notes Formattin g of this note is different from the original. Patient called to review thyroid function. No answer, VM was full. Lab Results Component Value Date TSH 11.33 (H) 11/24/2024 RN will attempt to call patient back and confirm dosing before medication changes are made. Berna Daniel MD [facility] [place] [id number] [address] documented in this encounter [facility] 11-28-2024 Telephone encount er Note Patient called to review thyroid function. No answer, VM was full. Lab Results Component Value Date TSH 11.33 (H) 11/24/2024 RN will attempt to call patient back and confirm dosing before medication changes are made. Berna Daniel MD [facility] [place] [id number] [address] [facility] 11-28-2024 Miscellaneous Notes Formattin g of [...] today. Pt understood. documented in this encounter [facility] 11-28-2024 Telephone encount er Note Patient [...] reach out to her today. Pt understood. [facility] 11-24-2024 History of Presen t illness [...] Visit via Real-time Synchronous Audiovisual Provider Location: [facility]- [facility]INE AT [address] [id number] Patient Location: Other Patient Location Twill Cutter: None Video Visit Consent Statement: I discussed [...] that there are some limitations compared to [id number] evaluations. We elected to proceed. REASON FOR [...] Repeat growth ultrasound in 4 weeks through [facility] Recommend weekly testing starting at 32 weeks gestation, per ACOG guidelines Delivery planning at 39 weeks unless a sooner indication arises. If she delivers by , recommend VTE prevention (LMWH 40mg daily) during hospitalization Follow up in [facility] already scheduled DISPOSITION: At this point the patient is in complete care of her powerhouse mechanic helper. Patient does have ultrasound and office visit [...] procedures Referring and communicating with other health managed care liaison (not separately reported) Documenting clinical information in the electronic or other health record Berna Daniel MD Maternal- Medicine [facility] [address] [facility] 1st [place] [address] [facility], the CDC, and other organizations representing maternal and public health professionals recommend that , , and lactating people and those considering receive the COVID-19 vaccination. Vaccination is the best method to reduce maternal and complications of SARS-CoV-2 infection. This document was created with [employer] technology. Though I make every effort to review the dictation as it is transcribed, on occasion the spoken word can be misinterpreted by the technology leading to inappropriate words, phrases, or sentences. This note is addressed to the requesting provider as a consultation for clinical guidance. Specific medical abbreviations are occasionally used and those are generally approved by the [place]?Board of?Obstetrics and?Gynecology?as well as?Kayla s abbreviations. The above plan of care was based solely on the diagnoses for which a consultation was requested. ?More frequent testing may be indicated based on her other medical/obstetrical conditions. The management of other or medical conditions is beyond the scope of requested consultation and will continue to be followed by the primary powerhouse mechanic helper or primary care provider. Note to patient: [...] Patient tolerated well. documented in this encounter [facility] 11-18-2024 Miscellaneous Notes Formattin g of this note might be different from the original. Left another voicemail for Annabella Mai's nurse in regards to USN results faxed to our office on 11/16/24. Unclear why it was sent or what is needed from [facility]. Awaiting call back. documented in this encounter [facility] 11-18-2024 Telephone encount er Note Left another voicemail for Annabella Mai's nurse in regards to USN results faxed to our office on 11/16/24. Unclear why it was sent or what is needed from [facility]. Awaiting call back. [facility] 11-17-2024 Miscellaneous Notes Formattin g of this note might be different from the original. Left voicemail for Annabella Mai's nurse inquiring why an ultrasound from [facility] completed on 11/14/24 was sent to [facility] and if anything is needed from us. Awaiting call back. documented in this encounter [facility] 11-17-2024 Telephone encount er Note Left voicemail for Annabella Mai's nurse inquiring why an ultrasound from [facility] completed on 11/14/24 was sent to [facility] and if anything is needed from us. Awaiting call back. [facility] 11-14-2024 History of Presen t illness [...] a routine visit. documented in this encounter [facility] 11-14-2024 Telephone encount er Note Spoke with Annabella and appt made for 3 pm today 11/14/24 Spoke with pt and pt will be here :) [facility] 11-14-2024 Miscellaneous Notes Formattin g of this [...] all bases <3 documented in this encounter [facility] 11-14-2024 Telephone encount er Note Pt just [...] and Leanne to cover all bases <3 [facility] 11-04-2024 Miscellaneous Notes Formattin g of this note might be different from the original. Received voicemail from patient stating she did receive new Levothyroxine dosing. documented in this encounter [facility] 11-04-2024 Telephone encount er Note Received voicemail from patient stating she did receive new Levothyroxine dosing. [facility] 11-04-2024 Miscellaneous Notes Formattin g of this note might be different from the original. Left another voicemail for patient to ensure she received the new dosing for levothyroxine. Requested a call back to confirm. documented in this encounter [facility] 11-04-2024 Telephone encount er Note Left another voicemail for patient to ensure she received the new dosing for levothyroxine. Requested a call back to confirm. [facility] 11-03-2024 Miscellaneous Notes Formattin g of this note might be different from the original. Left voicemail for patient notifying of new levothyroxine dosing. Absence Management Consultant requested a call back from patient to confirm she received the new dosing instructions. documented in this encounter [facility] 11-03-2024 Telephone encount er Note Left voicemail for patient notifying of new levothyroxine dosing. Absence Management Consultant requested a call back from patient to confirm she received the new dosing instructions. [facility] 11-01-2024 History of Presen t illness [...] 40mg daily) during hospitalization Follow up in [facility] already scheduled DISPOSITION: At this point the patient is in complete care of her powerhouse mechanic helper. Patient does have ultrasound and office visit [...] back tomorrow. Berna Daniel MD Maternal- Medicine [facility] [address]st [place] [address] [facility], the CDC, and other organizations representing maternal and public health professionals recommend that , , and lactating people and those considering receive the COVID-19 vaccination. Vaccination is the best method to reduce maternal and complications of SARS-CoV-2 infection. This document was created with [employer] technology. Though I make every effort to review the dictation as it is transcribed, on occasion the spoken word can be misinterpreted by the technology leading to inappropriate words, phrases, or sentences. This note is addressed to the requesting provider as a consultation for clinical guidance. Specific medical abbreviations are occasionally used and those are generally approved by the [place]?Board of?Obstetrics and?Gynecology?as well as?Kayla manuel abbreviations. The above plan of care was based solely on the diagnoses for which a consultation was requested. ?More frequent testing may be indicated based on her other medical/obstetrical conditions. The management of other or medical conditions is beyond the scope of requested consultation and will continue to be followed by the primary powerhouse mechanic helper or primary care provider. Note to patient: [...] procedures Referring and communicating with other health managed care liaison (not separately reported) Documenting clinical information in the electronic or other health record documented in this encounter [facility] 10-07-2024 Telephone encount er Note Annabella, [...] would call in the paxlovid. [place] in [place], [place]. Im sending this *and* calling you, just to be safe. I called the pt to tell her what you said about sending the rx later tonight, because you are in a conference in [place]. And that she will have to pick it up from the pharmacy tomorrow morning. I had to leave her a vm with the information. [facility] 10-07-2024 Miscellaneous Notes Formattin g of this [...] would call in the paxlovid. [facility] in [place], [place]. Im sending this *and* calling you, just to be safe. I called the pt to tell her what you said about sending the rx later tonight, because you are in a conference in [place]. And that she will have to pick it up from the pharmacy tomorrow morning. I had to leave her a vm with the information. documented in this encounter [facility] 10-07-2024 History of Presen t illness Narrative Video Visit via Real-time Synchronous Audiovisual Provider Location: [facility] AT [address] [id number] Patient Location: Patient's home Patient Location Twill Cutter: None Video Visit Consent Statement: I discussed [...] that there are some limitations compared to lxei-qa-glbv evaluations. We elected to proceed. REASON FOR [...] 40mg daily) during hospitalization Follow up in [facility] already scheduled DISPOSITION: At this point the patient is in complete care of her powerhouse mechanic helper. Patient does have ultrasound and office visit scheduled with us. Thank you for allowing me to participate in the care of Maximilian Cortes. If there any questions please do not hesitate to contact us. Berna Daniel MD Maternal- Medicine [facility] [address] 1st [place] [address] [facility], the CDC, and other organizations representing maternal and public health professionals recommend that , , and lactating people and those considering receive the COVID-19 vaccination. Vaccination is the best method to reduce maternal and complications of SARS-CoV-2 infection. This document was created with [employer] technology. Though I make every effort to review the dictation as it is transcribed, on occasion the spoken word can be misinterpreted by the technology leading to inappropriate words, phrases, or sentences. This note is addressed to the requesting provider as a consultation for clinical guidance. Specific medical abbreviations are occasionally used and those are generally approved by the [place]?Board of?Obstetrics and?Gynecology?as well as?Kayla manuel abbreviations. The above plan of care was based solely on the diagnoses for which a consultation was requested. ?More frequent testing may be indicated based on her other medical/obstetrical conditions. The management of other or medical conditions is beyond the scope of requested consultation and will continue to be followed by the primary powerhouse mechanic helper or primary care provider. Note to patient: [...] procedures Referring and communicating with other health managed care liaison (not separately reported) Documenting clinical information in the electronic or other health record documented in this encounter [facility] 10-06-2024 History of Presen t illness Narrative Patient went to urgent care and then ER yesterday as she was not feeling well. She went to [facility] ER and was diagnosed with COVID, her has flu A. Advised patient as she is to continue baby ASA, she does not want Paxlovid but she will take a Zpak and steroid. RX sent to [facility] in [place]. documented in this encounter [facility] 10-05-2024 History of Presen t illness Narrative Subjective: Patient ID: Maximilian Cortes is a 24 y.o. female. Chief Complaint Patient presents with Cough Cough, shortness of breath, started today. Currently 6 months . Patient presents with low-grade fever, stuffy nose/sore throat, cough/shortness for breath, chest pain, nausea/constipation, dizziness that started today. Patient is currently 6 months and follows with [facility] planning to deliver at [facility]. Patient states that she has having a [...] Patient is agreeable to being seen at [facility] ER. Report was called to Nancy LORENZO. Patient left facility with some shortness of breath, tachycardia but otherwise no acute distress with life sustaining vitals. Labs for this visit: Maximilian was seen today for cough. Diagnoses and all orders for this visit: Tachycardia - [facility] - Emergency Department - [place], [place]; Future Shortness of breath - [facility] Emergency Department - [place], [place]; Future Chest pain, unspecified type - [facility] Emergency Department - [place], [place]; Future No orders of the defined [...] [facility] 10/07/24 0804 documented in this encounter [facility] 10-05-2024 Miscellaneous Notes Formattin g of this note might be different from the original. OB office (LEANNE) called regarding patients thyroid levels and stating her labs have resulted and levels have increased and that she faxed over her results, will be on the look out for fax. documented in this encounter [facility] 10-05-2024 Telephone encount er Note OB office (LEANNE) called regarding patients thyroid levels and stating her labs have resulted and levels have increased and that she faxed over her results, will be on the look out for fax. [facility] 09-28-2024 History of Presen t illness [...] first , second trimester Hypothyroidism, unspecified type (CMS/[facility]ER[facility]) - TSH W/REFLEX TO FT4; Future Educated patient on plan of care in the future. Due to her thyroid we will do increased surveillance testing with NSTs and BPPs and growths. PVU and I will also wait for [facility] recommendations to make sure there is no change in the plan of care. Continue vitamin. Labs reviewed. Rhogam GTT at 28 weeks Follow up in 2 weeks for a routine visit. documented in this encounter [facility] 08-31-2024 History of Presen t illness Narrative [...] regarding thyroid and plan of care with [facility]. She should also plan to have lined up a PCP for herself and possibly furnace tender. She also [place] and her cousin lives in another trailer there and her and her 2 kids have tested positive for lead. She is interested in having that testing done. She does not currently have insurance and wants to wait until she does have insurance. She is scheduled for anatomy scan 09/16/24 at [facility] office. She has stated she does not want to meet a 4th grade teacher or have further testing done on the baby. She states they wanted that due to family history of autism and she states it won't change the outcome so she mccarty not want any of it done. I did advise her to discuss with [facility]. We kip did discuss the testing [...] 25 mg daily Continue baby ASA that [facility] started her on Continue thyroid medication 125 mcg daily. Continue vitamin. Labs reviewed. Rhogam GTT . Follow up in 2 weeks for a routine visit. documented in this encounter [facility] 08-22-2024 Telephone encount er Note Jac, my name is DIVYA Snell. I am calling to speak with Jen. Means nurse oral if she is in office. I just have some questions about an upcoming appointment. If you could please give me a call back at the earliest convenience my phone. [phone]. Thank you. [facility] 08-22-2024 Miscellaneous Notes Formattin g of this note might be different from the original. Jac, my name is DIVYA Snell. I am calling to speak with Jen. Means nurse oral if she is in office. I just have some questions about an upcoming appointment. If you could please give me a call back at the earliest convenience my phone. [phone]. Thank you. documented in this encounter [facility] 08-22-2024 Miscellaneous Notes Formattin g of this note might be different from the original. Left message for patient regarding Genetic Counseling visit today . Returned phone call from patient stating unsur if insurance to cover video visit is active yet or not. Patient to check with insurance company and will reschedule. documented in this encounter [facility] 08-22-2024 Telephone encount er Note Left message for patient regarding Genetic Counseling visit today . [facility] 08-22-2024 Telephone encount er Note Returned phone call from patient stating unsur if insurance to cover video visit is active yet or not. Patient to check with insurance company and will reschedule. [facility] 08-02-2024 History of Presen t illness Narrative Video Visit via Real-time Synchronous Audiovisual Provider Location: [facility] AT [address] [id number] Patient Location: Patient's home Patient Location Twill Cutter: None Video Visit Consent Statement: I discussed [...] that there are some limitations compared to oyrv-pp-jwpo evaluations. We elected to proceed. REASON FOR [...] slightly below normal cognitive function. Updating the mechanic sound technician of this diagnosis at the time of [...] 40mg daily) during hospitalization Follow up in [facility] already scheduled DISPOSITION: At this point the patient is in complete care of her powerhouse mechanic helper. Patient does have ultrasound and office visit scheduled with us. Thank you for allowing me to participate in the care of Maximilian Cortes. If there any questions please do not hesitate to contact us. Berna Daniel MD Maternal- Medicine [facility] [address] 1st [place] [address] [facility], the CDC, and other organizations representing maternal and public health professionals recommend that , , and lactating people and those considering receive the COVID-19 vaccination. Vaccination is the best method to reduce maternal and complications of SARS-CoV-2 infection. This document was created with [employer] technology. Though I make every effort to review the dictation as it is transcribed, on occasion the spoken word can be misinterpreted by the technology leading to inappropriate words, phrases, or sentences. This note is addressed to the requesting provider as a consultation for clinical guidance. Specific medical abbreviations are occasionally used and those are generally approved by the [place]?Board of?Obstetrics and?Gynecology?as well as?Kayla manuel abbreviations. The above plan of care was based solely on the diagnoses for which a consultation was requested. ?More frequent testing may be indicated based on her other medical/obstetrical conditions. The management of other or medical conditions is beyond the scope of requested consultation and will continue to be followed by the primary powerhouse mechanic helper or primary care provider. Note to patient: [...] procedures Referring and communicating with other health managed care liaison (not separately reported) Documenting clinical information in the electronic or other health record documented in this encounter [facility] 07-27-2024 History of Presen t illness Narrative [...] Her is complicated by: hypothyroid, sent to [facility], patient does not have a PCP [...] Rhogam GTT will do early as per [facility] recommnedations. Patient has hypothyroid, no PCP and is overweight. As per [facility] they would like her gtt to be done at 13-15 weeks despite a normal A1c. Patient will come next week for glucose testing. Follow up in 2 weeks for a routine visit. documented in this encounter [facility] 07-22-2024 History of Presen t illness Narrative Patient called and updated on repeat thyroid function, persistently elevated TSH 14.8. Patient informed to discontinue levothyroxine 100 mcg daily, increased to levothyroxine 137 mcg daily. Prescription sent to pharmacy. Repeat TSH ordered in 3 weeks at new dose. Patient also informed of the benefits of baby aspirin. Berna Daniel MD Maternal- Medicine [place] [id number] [facility] [address] [place] [address] documented in this encounter [facility] 07-22-2024 History of Presen t illness Narrative Blood drawn by lab for cell-free DNA testings and carrier testing . Patient tolerated well. documented in this encounter [facility] 07-22-2024 History of Presen t illness [...] TESTS AND ULTRASOUND REPORTS: Referral records and [facility] chart were reviewed Pertinent Ultrasound findings are [...] I offered to refer her to a spring coiler hand to assist with dietary modifications. Due to [...] patient is in complete care of her powerhouse mechanic helper. Patient does have ultrasound and office visit scheduled with us. Thank you for allowing me to participate in the care of Maximilian Cortes. If there any questions please do not hesitate to contact us. Berna Daniel MD Maternal- Medicine [facility] [address] 1st [place] [address] [facility], the CDC, and other organizations representing maternal and public health professionals recommend that , , and lactating people and those considering receive the COVID-19 vaccination. Vaccination is the best method to reduce maternal and complications of SARS-CoV-2 infection. This document was created with [employer] technology. Though I make every effort to review the dictation as it is transcribed, on occasion the spoken word can be misinterpreted by the technology leading to inappropriate words, phrases, or sentences. This note is addressed to the requesting provider as a consultation for clinical guidance. Specific medical abbreviations are occasionally used and those are generally approved by the [place]?Board of?Obstetrics and?Gynecology?as well as?Kayla manuel abbreviations. The above plan of care was based solely on the diagnoses for which a consultation was requested. ?More frequent testing may be indicated based on her other medical/obstetrical conditions. The management of other or medical conditions is beyond the scope of requested consultation and will continue to be followed by the primary powerhouse mechanic helper or primary care provider. Note to patient: [...] yet Have you been seen here at [facility] in a previous ?no Recent ER visits or hospitalizations? No Bring blood sugar log or meter with you today? (Please bring them with you for every visit at [facility]) N/a Flu vaccine (Jun-October)? No Any concerns that you would like me to mention to the provider today? No documented in this encounter [facility] 06-30-2024 History of Presen t illness Narrative [...] and when she went to [facility] dept, they started her on the medication [...] a routine visit. documented in this encounter [facility] 06-15-2024 History of Presen t illness Narrative midSubjective Maximilian Cortes is a 24 y.o. at 7w4d with a working estimated date of delivery of 01/28/2025, by Last Menstrual Period who presents for an initial visit. This is unplanned. No care outreach team member to display OB History Para Term AB [...] also given office phone number and [facility] number to call in case of an emergency or after hours needs. PVU and all questions answered. We did discuss place of delivery. Patient should plan to go to [facility] for all services unless an emergency and they need to go to the closest ER. We can make other arrangements possibly if patient would like to deliver at another facility but I did explain I am now at [facility] 100% of the time and would like to do all deliveries there. documented in this encounter [facility] 06-14-2024 Telephone encount er Note Pt left message on machine to r/s her appointment. She hadn't heard from anyone and would like a callback, [facility] 06-14-2024 Miscellaneous Notes Formattin g of this note might be different from the original. Pt left message on machine to r/s her appointment. She hadn't heard from anyone and would like a callback, documented in this encounter [facility] 03-06-2024 History of Presen t illness Narrative [...] shut left eye. He has been taking tcnl-lch-oedixio NyQuil and DayQuil for symptoms without much [...] Medical History: Diagnosis Date Bipolar 1 disorder ([facility]) Depression Iron deficiency anemia Obesity PCOS (polycystic [...] days. Healthcare maintenance - Ambulatory Referral to [facility] Primary Care; Future -diagnosis uri with cough and unilateral conjunctivitis -conservative treatment discussed. Fclo-rqp-cfbzhgf Tylenol or Motrin p.r.n. pain fever greater [...] [place] 03/06/24 0940 documented in this encounter [facility] Evaluation note Diagnosis Acquired hypothyroidism (CMS/HCC)- Primary Unspecified hypothyroidism Subchorionic hemorrhage of placenta in first trimester 9 weeks gestation of documented in this [facility]* Diagnosis Screening for diabetes mellitus documented in this encounter [facility]* Diagnosis Abnormal genetic test during - Primary Hypothyroidism affecting in second trimester 14 weeks gestation of documented in this encounter [facility]* Diagnosis Amenorrhea Absence of menstruation examination or test, positive result Hypothyroidism, unspecified type (CMS/HCC) documented [facility]* Diagnosis History of depression- Primary Personal history of other mental disorder Acquired hypothyroidism (CMS/HCC) Unspecified hypothyroidism Encounter for care of first , second trimester documented in this encounter [facility]* Diagnosis Hypothyroidism affecting in first trimester- Primary PCOS (polycystic ovarian syndrome) Polycystic ovaries History of insulin resistance Family history of autism Abnormal genetic test during Hypothyroidism affecting in second trimester documented in this encounter [facility]* Diagnosis Upper respiratory infection with cough and congestion- Primary Acute bacterial conjunctivitis of left eye Healthcare maintenance documented in this encounter [facility]* Diagnosis Hypothyroidism affecting in first trimester- Primary 12 weeks gestation of PCOS (polycystic ovarian syndrome) Polycystic ovaries History of insulin resistance Family history of autism [facility] Diagnosis Hypothyroidism affecting in first trimester- Primary [facility] Diagnosis History of depression- Primary Personal history of other mental disorder Encounter for care of first , second trimester Hypothyroidism, unspecified type (CMS/HCC) documented in this encounter [facility]* Diagnosis COVID- Primary Encounter for care of first , second trimester documented in this encounter [facility]* Diagnosis Tachycardia- Primary Unspecified tachycardia Shortness of breath Chest pain, unspecified type documented in this encounter [facility]* Diagnosis Elevated BP without diagnosis of hypertension- Primary 23 weeks gestation of COVID-19 affecting in second trimester At increased risk for exposure to influenza virus Hypothyroidism affecting in second trimester documented in this encounter [facility]* Diagnosis Hypothyroidism affecting in second trimester- Primary 27 weeks gestation of Elevated BP without diagnosis of hypertension documented in this encounter [facility]* Diagnosis Other constipation- Primary Encounter for care of first , third trimester Hypothyroidism, unspecified type (CMS/HCC) documented in this encounter [facility]* Diagnosis Polyhydramnios affecting in third trimester- Primary Constipation, unspecified constipation type 30 weeks gestation of Hypothyroidism affecting in third trimester Elevated BP without diagnosis of hypertension documented in this encounter [facility]* Diagnosis Polyhydramnios affecting in third trimester- Primary Hypothyroidism affecting in third trimester Elevated BP without diagnosis of hypertension History of insulin resistance Family history of autism documented in this encounter [facility]* Diagnosis Hypothyroidism affecting in third trimester- Primary documented in this encounter [facility]* Diagnosis Encounter for care of first , third trimester- Primary Hypothyroidism, unspecified type (CMS/HCC) Heartburn during in second trimester History of depression Personal history of other mental disorder Acquired hypothyroidism (CMS/HCC) Unspecified hypothyroidism documented in this encounter [facility]* Diagnosis Encounter for care of first , third trimester- Primary Heartburn during in second trimester Hypothyroidism, unspecified type (CMS/HCC) History of anxiety History of depression Personal history of other mental disorder documented [facility]* Diagnosis 33 weeks gestation of Hypothyroidism, unspecified type documented in this encounter [facility]* Diagnosis Encounter for care [...] specified hypothyroidism- Primary documented in this encounter [facility]* Diagnosis Encounter for care [...] encounter [facility] HealthcareInstructionsNot on filedocumented in this [facility] SystemInstructionsNot on filedocumented in this encounterPro[facility] [employer] SystemInstructionsNot on filedocumented in this encounterProParkview [facility] SystemInstructions* Attachments The following attachments cannot be sent through Care Everywhere. * Viral Upper Respiratory Infection Discharge Instructions, Adult ([place]) documented in this encounterPro[facility] SystemInstructionsNot on file documented in this encounterPro[facility] [employer] SystemInstructionsNot on file documented in this encounterPro[facility] SystemInstructionsNot on file documented in this encounterPro[facility] [employer] SystemInstructionsNot on file documented in this encounterPro[facility] [employer] SystemInstructionsNot on file documented in this encounterProMedica Health SystemInstructionsNot on file documented in this encounterProPark[facility] SystemInstructionsNot on file documented in this encounterProParkview [facility] SystemInstructionsNot on file documented in this encounterProParkview [facility] SystemInstructionsNot on file documented in this encounterProParkview [facility] SystemInstructions* Attachments The following attachments cannot be sent through Care Everywhere. * Preeclampsia ([place]) documented in this encounterProParkview [facility] SystemInstructionsNot on file documented in this encounterProParkview Health [facility] SystemInstructionsNot on file documented in this encounterProParkview Health [facility] SystemReason for referral (narrative)* Consultation (Routine) - Pending Review Specialty Diagnoses / Procedures Referred By Sherif hill Referred To Contact Diagnoses Healthcare maintenance Guy Easley, BANDAR-SUPERVISOR [employer] [address], [address] [address] Referral ID Status Reason Start Date Expiration Date V isits Requested Visits Authorized [id number] Pending Review 03/06/2024 03/06/2025 1 1 [facility] Summary Purpose Family History No [...] Log into your personal health record on [email or web address] and enter E907 in the Education box to learn more about Abdominal Pain: Care Instructions. Current as of: June 29, 2017 Content Version: 11.6 2990-4900 [employer]. Care instructions adapted under license by your healthcare professional. If you have questions about a medical condition or this instruction, always ask your healthcare professional. [employer] disclaims any warranty or liability for your [...] Log into your personal health record on [email or web address] and enter H591 in the Education box to learn more about Nausea and Vomiting: Care Instructions. Current as of: June 29, 2017 Content Version: 11.6 [id number] [employer]. Care instructions adapted under license by your healthcare professional. If you have questions about a medical condition or this instruction, always ask your healthcare professional. [employer] disclaims any warranty or liability for your [...] section and content) DATE CREATED AUTHOR 07/09/2018 [facility] DATE CREATED AUTHOR AUTHOR'S ORGANIZ ATION 08/01/[address] [facility] DATE CREATED AUTHOR AUTHOR'S ORGANIZ ATION 08/03/2018 [facility] DATE CREATED AUTHOR AUTHOR'S ORGANIZ ATION 09/12/2018 [facility] DATE CREATED AUTHOR AUTHOR'S ORGANIZ ATION 11/28/2024 [facility] DATE CREATED AUTHOR AUTHOR'S ORGANIZ ATION 12/16/2024 [facility] DATE CREATED AUTHOR AUTHOR'S ORGANIZ ATION 01/08/2025 [facility] DATE CREATED AUTHOR AUTHOR'S ORGANIZ ATION 01/17/2025 [facility] DATE CREATED AUTHOR AUTHOR'S ORGANIZ ATION 01/22/2025 [facility] Reason for Visit (unrecogniz ed section and content) Reason Comments Bloated For almost 2weeks , I began w/shooting pains and then achy breast pain. Then I noticed abdominla bloating and cramps... I thought it was just my period. I got my Zahida IUD out on . My last period was [id number]. Yesterday and day before, I had to [...] Care Teams (unrecognized sec tion and content) Senior Data Modeler Relationship Specialty Start Date End Date Aleyda Cleary DO PCP - General Family Medicine 03/07/24 Senior Data Modeler Relationship Specialty Start Date End Date Aleyda Cleary DO PCP - General Family Medicine 03/07/24 Senior Data Modeler Relationship Specialty Start Date End Date Unallocated, Yemi Phillips MD [facility] [place] [address] PCP - General Family Medicine 08/31/24 Senior Data Modeler Relationship Specialty Start Date End Date Unallocated, Yemi Phillips MD [address] [place] [address] PCP - General Family Medicine 08/31/24 Senior Data Modeler Relationship Specialty Start Date End Date lAeyda Cleary DO PCP - General Family Medicine 03/07/24 Senior Data Modeler Relationship Specialty Start Date End Date No Pcp, [place] [address] PCP - General Family Medicine 11/14/21 Senior Data Modeler Relationship Specialty Start Date End Date Aleyda Cleary DO PCP - General Family Medicine 03/07/24 Senior Data Modeler Relationship Specialty Start Date End Date Aleyda Cleary DO PCP - General Family Medicine 03/07/24 Senior Data Modeler Relationship Specialty Start Date End Date Aleyda Cleary DO PCP - General Family Medicine 03/07/24 Senior Data Modeler Relationship Specialty Start Date End Date Unallocated, Yemi Phillips MD [address] [place], [place] [address] [address] PCP - General Family Medicine 08/31/24 Senior Data Modeler Relationship Specialty Start Date End Date Unallocated, Nomkaleb Phillips MD [address] [place], [place] [address] [address] PCP - General Family Medicine 08/31/24 Senior Data Modeler Relationship Specialty Start Date End Date Unallocated, Yemi Phillips MD [facility] [place] [address] PCP - General Family Medicine 08/31/24 Senior Data Modeler Relationship Specialty Start Date End Date Unallocated, Yemi Phillips MD [facility] [address] [facility] [place] [address] PCP - General Family Medicine 08/31/24 Senior Data Modeler Relationship Specialty Start Date End Date Aleyda Cleary DO PCP - General Family Medicine 03/07/24 Senior Data Modeler Relationship Specialty Start Date End Date Aleyda Cleary DO PCP - General Family Medicine 03/07/24 Senior Data Modeler Relationship Specialty Start Date End Date Aleyda Cleary DO PCP - General Family Medicine 03/07/24 Senior Data Modeler Relationship Specialty Start Date End Date Unallocated, Yemi Phillips MD [address] [place], [place] [address] [address] PCP - General Family Medicine 08/31/24 Senior Data Modeler Relationship Specialty Start Date End Date Unallocated, Yemi Phillips MD [facility] [place] [address] PCP - General Family Medicine 08/31/24 Senior Data Modeler Relationship Specialty Start Date End Date Aleyda Cleary DO PCP - General Family Medicine 03/07/24 Senior Data Modeler Relationship Specialty Start Date End Date Aleyda Cleary DO PCP - General Family Medicine 03/07/24 Senior Data Modeler Relationship Specialty Start Date End Date Aleyda Cleary DO PCP - General Family Medicine 03/07/24 Senior Data Modeler Relationship Specialty Start Date End Date Aleyda Cleary DO PCP - General Family Medicine 03/07/24 Senior Data Modeler Relationship Specialty Start Date End Date Unallocated, Yemi Phillips MD [address] [place], [place] [address] [address] PCP - General Family Medicine 08/31/24 Senior Data Modeler Relationship Specialty Start Date End Date Unallocated, Yemi Phillips MD [facility] [address] [facility] [place] [address] PCP - [facility] 08/31/24 Senior Data Modeler Relationship Specialty Start Date End Date Aleyda Cleary DO PCP - [facility] 03/07/24 Senior Data Modeler Relationship Specialty Start Date End Date Unallocated, Yemi Phillips MD [facility] [address] [facility] [place] [address] PCP - [facility] 08/31/24 Senior Data Modeler Relationship Specialty Start Date End Date Unallocated, Yeim Phillips MD [facility] [address] [facility] [place] [address] PCP [facility] 08/31/24 Senior Data Modeler Relationship Specialty Start Date End Date Aleyda Cleary DO PCP [facility] 03/07/24 Senior Data Modeler Relationship Specialty Start Date End Date Unallocated, Yemi Phillips MD [facility] [place] [address] PCP [facility] 08/31/24 Senior Data Modeler Relationship Specialty Start Date End Date Aleyda Cleary DO PCP [facility] 03/07/24 Senior Data Modeler Relationship Specialty Start Date End Date Unallocated, Yemi Phillips MD [address] [place] [address] [place] [address] [facility] 08/31/24 FOR RECORDS PERTAINING TO PATIENTS WHO [...] BE BASED ON THE PRIMARY CLINICAL RECORDS. [employer] [facility]. provides no warranty or guarantee of the accuracy or completeness of information in this document.
--- OUTSIDE RECORDS SUMMARY | 2025-01-22 20:54 | XMS_ITS | CCD ---
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 [address] eGFR (CKD-EPI) NON-RACE DEPENDENT >90 Normal >59 [facility] Comment on above: Result Comment: Reported eGFR is based on the CKD-EPI 2020 equation that does not use a race coefficient. Performed By: #### 3 0896-5, 11772-6 #### [facility] ([id number]) [address] [place] [address] #### 97206-0, 3051-0, HA1C, CBCA, 68643-4, CMP, 46957-2, 09175-5, THYR #### [facility] ([id number]) [address], [address] [place] [address] Glucose [Mass/Vol] 87 mg/dL Normal 65-99 [facility] Comment on above: Performed By: #### 3 0896-5, 94804-0 #### [facility] ([id number]) [address] [place] [address] #### 69839-9, 3051-0, HA1C, CBCA, 42636-4, CMP, 19722-5, 92903-4, THYR #### [facility] ([id number]) [address], [address] [place] [address] Potassium [Moles/Vol] 3.3 mmol/L Low 3.5-5.0 [facility] Comment on above: Performed By: #### 3 0896-5, 28749-3 #### [facility] ([id number]) [address] [place] [address] #### 76489-1, 3051-0, HA1C, CBCA, 18876-6, CMP, 35036-3, 89009-9, THYR #### [facility] ([id number]) [address], [address] [place] [address] Protein [Mass/Vol] 7.6 g/dL Normal 6.0-8.0 [facility] Comment on above: Performed By: #### 3 0896-5, 86648-9 #### [facility] ([id number]) [address] [place] [address] #### 31481-4, 3051-0, HA1C, CBCA, 99378-9, CMP, 93549-5, 15757-9, THYR #### [facility] ([id number]) [address], [address] [place] [address] Sodium [Moles/Vol] 132 mmol/L Low 134-146 [facility] Comment on above: Performed By: #### 3 0896-5, 59343-7 #### [facility] ([id number]) [address] [facility] [place] [address] #### 01210-8, 3051-0, HA1C, CBCA, 10042-7, CMP, 76601-8, 77882-3, THYR #### [facility] ([id number]) [address] [facility], [address] [place] [address] Urea nitrogen [Mass/Vol] 6 mg/dL Normal 5-23 [facility] Comment on above: Performed By: #### 3 0896-5, 98748-7 #### [facility] ([id number]) [address] [facility] [place] [address] #### 59629-1, 3051-0, HA1C, CBCA, 51274-3, CMP, 53036-8, 70033-1, THYR #### [facility] ([id number]) [address], [address] [place] [address] SARS/FLU A+B/RSV by NAAT/Mol ecularon 10-05-2024 SARS/FLU [...] operators who are performing tests using either micecloud or YOLLEGE systems and is limited to laboratories that [...] repeat. Fact Sheet for Healthcare Providers: https://www.fda.gov /media/184046/downl oad Fact Sheet for Patients: https://www.fda.gov /media/052146/downl oad Normal [facility] Comment on above: Performed By: #### 3 0896-5, 81589-4 #### [facility] ([id number]) [address] [facility] [place] [address] #### 21225-4, 3051-0, HA1C, CBCA, 65530-4, CMP, 54780-2, 41214-9, THYR #### [facility] ([id number]) [address] [place] [address] Troponin I.cardiac High sens itivity method [Mass/Vol]on 10-05-2024 TROPONIN I, HIGH SENSITIVITY <2 Normal <16 [facility] Comment on above: Performed By: #### 3 0896-5, 33662-8 #### [facility] ([id number]) [address] [place] [address] #### 25140-5, 3051-0, HA1C, CBCA, 74042-1, CMP, 04638-8, 32527-3, THYR #### [facility] ([id number]) [address] [place] [address] URN MACROSCOPIC NURon 2024 BILIRUBIN MERI Negative Normal NEG [facility] Comment on above: Performed By: #### 3 0896-5, 95018-9 #### [facility] ([id number]) [facility] [place] [place] [address] #### 27893-5, 3051-0, HA1C, CBCA, 42036-7, CMP, 07481-6, 97431-8, THYR #### [facility] ([id number]) [address] [place] [address] BLOOD/HGB MERI Negative Normal NEG [facility] Comment on above: Performed By: #### 3 0896-5, 49282-7 #### [facility] ([id number]) [facility] [place] [address] #### 47506-1, 3051-0, HA1C, CBCA, 88975-2, CMP, 50971-0, 94828-7, THYR #### [facility] ([id number]) [address] [place] [address] GLUCOSE MERI Negative Normal NEG [facility] Comment on above: Performed By: #### 3 0896-5, 66879-4 #### [facility] ([id number]) [address] [place] [address] #### 70422-8, 3051-0, HA1C, CBCA, 47350-9, CMP, 71709-2, 23023-9, THYR #### [facility] ([id number]) [address], [address] [place] [address] KETONES MERI Negative Normal NEG [facility] Comment on above: Performed By: #### 3 0896-5, 23287-7 #### [facility] ([id number]) [address] [place] [address] #### 71809-2, 3051-0, HA1C, CBCA, 58456-9, CMP, 84980-9, 20703-0, THYR #### [facility] ([id number]) [address] [place] [address] LEUKOCYTE ESTERASE MERI Small Abnormal NEG [facility] Comment on above: Performed By: #### 3 0896-5, 47585-5 #### [facility] ([id number]) [address] [place] [address] #### 21586-6, 3051-0, HA1C, CBCA, 40951-2, CMP, 49433-8, 23386-4, THYR #### [facility] ([id number]) [address] [place] [address] NITRITE MERI Negative Normal NEG [facility] Comment on above: Performed By: #### 3 0896-5, 96030-6 #### [facility] ([id number]) [address] [place] [address] #### 02260-9, 3051-0, HA1C, CBCA, 23308-5, CMP, 69809-4, 17580-2, THYR #### [facility] ([id number]) [address] [place] [address] PH MERI 8.5 Normal 5.0-8.5 [facility] Comment on above: Performed By: #### 3 0896-5, 63500-0 #### [facility] ([id number]) [facility] [place] [address] #### 56942-1, 3051-0, HA1C, CBCA, 47620-3, CMP, 93573-7, 80252-3, THYR #### [facility] ([id number]) [address] [place] [address] PROTEIN MERI Negative Normal NEG [facility] Comment on above: Performed By: #### 3 0896-5, 51375-9 #### [facility] ([id number]) [address] [address] #### 70663-5, 3051-0, HA1C, CBCA, 37420-9, CMP, 65976-2, 70103-8, THYR #### [facility] ([id number]) [address] [place] [address] SPECIFIC GRAVITY MERI 1.020 Normal 1.003-1.035 [facility] Comment on above: Performed By: #### 3 0896-5, 34320-9 #### [facility] ([id number]) [address] [place] [address] #### 64374-8, 3051-0, HA1C, CBCA, 15431-7, CMP, 38992-6, 65207-8, THYR #### [facility] ([id number]) [address] [place] [address] UROBILINOGEN MERI 0.2 eu/dL Normal <1.[address] [facility] Comment on above: Performed By: #### 3 0896-5, 50976-0 #### [facility] ([id number]) [address] [address] #### 73843-4, 3051-0, HA1C, CBCA, 09520-3, CMP, 86189-2, 83645-1, THYR #### [facility] ([id number]) [address] [place] [address] Urine collection deviceon ER EXTRA URINES ER EXTRA URINE ORDER IN PROCESS Normal [facility] Comment on above: Performed By: #### 3 0896-5, 48434-0 #### [facility] ([id number]) [address] [facility] [place] [address] #### 04031-2, 3051-0, HA1C, CBCA, 29616-1, CMP, 56760-8, 86259-6, THYR #### [facility] ([id number]) [address] [facility] [address] [place] [address] HGB A1C (GLYCO-HGB)on 2023 Glucose [Mass/Vol] 103 mg/dL Normal [facility] Comment on above: Performed By: #### H A1C, 3015-3 #### [facility] ([id number]) [address] [facility] [address] [place] [address] HbA1c (Bld) [Mass fraction] 5.2 % Normal 4.4-5.6 [facility] Comment on above: Result Comment: NOTE ADA Guidelines Result HgbA1c Normal : less than 5.7 % Prediabetes : 5.7 % to 6.4 % Diabetes : > 6.4 % Use with caution in patients with abnormal hemoglobin variants as the half-life of red blood cells and in vivo glycation rates are affected. Performed By: #### H A1C, 3015-3 #### [facility] ([id number]) [address] [facility] [address] [place] [address] TSH Qnon 07-22-2024 TSH 14.77 uIU/mL High 0.49-4.67 [facility] Comment on above: Result Comment: NEW REFERENCE RANGE FOR PEDIATRIC PATIENTS Performed By: #### H A1C, 6-3 #### [facility] ([id number]) [address] [place] [address] Bacteria identified Cx Nom ( U)on 06-17-2024 Appearance (U) Adequate [facility] Internal identifier for Provider [id number] [facility] Specimen source Nom (Unsp spec) URINE [facility] STATUS FINAL [facility] - Drug toxicology on 06-17-2024 2-Cicdooelxj-9,5-Dimethy l-3,3-Diphenylpyrrolidin e (EDDP) Ql (U) Negative NINF - 100 ng/mL [facility] Amphetamines Ql (U) Negative NINF - 5 00 ng/mL [facility] Barbiturates Ql (U) Negative NINF - 3 00 ng/mL [facility] Benzodiazepines Ql (U) Negative NINF - 100 ng/mL [facility] Benzoylecgonine Ql (U) Negative NINF - 150 ng/mL [facility] Opiates Ql (U) Negative NINF - 100 ng/mL [facility] oxyCODONE Ql (U) Negative NINF - 100 ng/mL [facility] Phencyclidine Ql (U) Negative NINF - 25 ng/mL [facility] Tetrahydrocannabinol Screen method >20 ng/mL Ql (U) Negative NINF - 20 ng/mL [facility] Laboratory - Microbiology an d Antimicrobial susceptibilityon 06-17-2024 Bacteria identified Cx Nom (U) SEE NOTE [facility] Comment on above: Mixed genital olimpia isolated. These superficial bacteria are not indicative of a urinary tract infection. No further organism identification is warranted on this specimen. If clinically indicated, recollect clean-catch, mid-stream urine and transfer immediately to Urine Culture Transport Tube. Laboratory - Urinalysison Bacteria LM.HPF (Urine sed) [#/Area] NONE SEEN NONE SEEN /HPF [facility] Calcium oxalate crystals LM.HPF (Urine sed) [#/Area] MANY Abnormal NONE OR FEW /HPF [facility] Epithelial cells.squamous LM.HPF (Urine sed) [#/Area] 10-20 Abnormal < OR = 5 /HPF [facility] Hyaline casts (Urine sed) [#/Area] NONE SEEN NONE SEEN /LPF [facility] RBC LM.HPF (Urine sed) [#/Area] NONE SEEN < OR = 2 /HPF [facility] WBC LM.HPF (Urine sed) [#/Area] 0-5 < OR = 5 /HPF [facility] N. gonorrhoeae DNA ALBINO+probe Ql (Cervical mucus)on 06-17-2024 C. trachomatis rRNA ALBINO+probe Ql (Unsp spec) Not detected NOT DETECTED [facility] N. gonorrhoeae rRNA ALBINO+probe Ql (Unsp spec) Not detected NOT DETECTED [facility] No Panel Informationon 06-17 (ALWAYS MESSAGE) [facility] Comment on above: See Note 1 Note 1 This drug testing is for medical treatment only. Analysis was performed as non-forensic testing and these results should be used only by healthcare providers to render diagnosis or treatment, or to monitor progress of medical conditions. For assistance with interpreting these drug results, please contact a [facility] Specialist: [phone] ( ), M-F, 8am-6pm EST. The analytical perfo rmance characteristics of this assay, when used to test SurePath(TM) specimens have been determined by [employer]. The modifications have not been cleared or approved by the FDA. This assay has been validated pursuant to the CLIA regulations and is used for clinical purposes. For additional information, please refer to https://education.[employer]/faq/DVU612 (This link is being provided for information/ educational purposes only.) Interpretation and review of laboratory results Abnormal [facility] SPLIT 06/15/2024 FROM [id number] [employer] Organization Information Site ID: QPT Name: [facility] Address: [address] [place] [address], [address] [place] [phone] Director: Jensen Branham MD [facility] CBC panel Auto (Bld)on 06-16 Erythrocyte distribution width (RBC) [Ratio] 12.2 % 11.0 - 15.0 % [facility] Hematocrit (Bld) [Volume fraction] 39.9 % 35.0 - 45.0 % [facility] Hemoglobin (Bld) [Mass/Vol] 13.2 g/dL 11.7 - 15.5 g/dL [facility] MCH (RBC) [Entitic mass] 33.6 pg High 27. 0 - 33.0 pg [facility] MCHC (RBC) [Mass/Vol] 33.1 g/dL 32.0 - 36.0 g/dL [facility] Comment on above: For adults, a slight decrease in the calculated MCHC value (in the range of 30 to 32 g/dL) is most likely not clinically significant; however, it should be interpreted with caution in correlation with other red cell parameters and the patient's clinical condition. MCV (RBC) [Entitic vol] 101.5 fL High 80.0 - 100.0 fL [facility] Platelet mean volume (Bld) [Entitic vol] 10.7 fL 7.5 - 12.5 fL [facility] Platelets (Bld) [#/Vol] 279 10*3/uL [facility] RBC (Bld) [#/Vol] 3.93 10*6/uL [facility] WBC (Bld) [#/Vol] 9.7 10*3/uL [facility] Laboratory - Blood bankon ABO group Nom (Bld) O [facility] Blood group antibody screen Ql Detected [facility] Comment on above: Reference range No antibodies detected This assay is a screening test for the detection of red blood cell antibodies. The test is not to be used for pretransfusion screening or for the medical management of an alloimmunized . Rh Nom (Bld) Negative [facility] Comment on above: For additional information, please refer to http://education.[employer]/faq/ENM506 (This link is being provided for informational/ educational purposes only.) Laboratory - Chemistry and C hemistry - challengeon 06-16-2024 Free T4 [Mass/Vol] 1 ng/dL 0.8 - 1.8 ng/dL [facility] TSH Qn 11.76 m[IU]/L High mIU/L [facility] Comment on above: Reference Range > or = 20 Years 0.40-4.50 Ranges First trimester 0.26-2.66 Second trimester 0.55-2.73 Third trimester 0.43-2.91 Laboratory - Hematology and Cell countson 06-16-2024 HbA1c (Bld) [Mass fraction] 5.1 % [facility] Comment on above: For the purpose of s creening for the presence of diabetes: <5.7% Consistent with the absence of diabetes 5.7-6.4% Consistent with increased risk for diabetes (prediabetes) > or =6.5% Consistent with diabetes This assay result is consistent with a decreased risk of diabetes. Currently, no consensus exists regarding use of hemoglobin A1c for diagnosis of diabetes in children. According to [place] Diabetes Association (ADA) guidelines, hemoglobin A1c <7.0% represents optimal control in non- diabetic patients. Different metrics may apply to specific patient populations. Standards of Medical Care in Diabetes(ADA). Laboratory - Microbiology armida arciniega Veronica burciaga 06-16-2024 HBV surface Ag IA Ql Non-Reactive NON-REACTIVE [facility] Comment on above: For additional information, please refer to http://[employer]/faq/ITB781 (This link is being provided for informational/ educational purposes only.) HCV Ab IA Ql Non-Reactive NON-REACTIVE [facility] Comment on above: HCV antibody was non-reactive. There is no laboratory evidence of HCV infection. In most cases, no further action is required. However, if recent HCV exposure is suspected, a test for HCV RNA (test code 01285) is suggested. For additional information please refer to http://[employer]/faq/GTA26c9 (This link is being provided for informational/ educational purposes only.) HIV 1+2 Ab+HIV1 p24 Ag IA Ql Non-Reactive NON-REACTIVE [facility] Comment on above: HIV-1 antigen and HI [...] purpose. For additional information please refer to http://[employer]/faq/DFT917 (This link is being provided for informational/ educational purposes only.) The performance of this assay has not been clinically validated in patients less than 2 years old. Reagin Ab RPR Ql (S) Non-Reactive NON-REACTIVE [facility] Rubella virus IgG Qn (S) 1.88 [IU]/mL Index [facility] Comment on above: Index Interpretation ----- <0.90 Not consistent with immunity 0.90-0.99 Equivocal > or = 1.00 Consistent with immunity The presence of rubella IgG antibody suggests immunization or past or current infection with rubella virus. No Panel Informationon 06-16 Interpretation and review of laboratory results Abnormal [facility] PATIENT UNABLE TO VOID; ADVISED TO RETURN FOR COLLECTION. [employer] Organization Information Site ID: QPT Name: [facility] Address: [address] [place] [address], [address] [place] [id number] Director: Jensen Branham MD [facility] Chlamydia/GC by PCR ThinPrep fluidon 06-15-2024 Chlamydia Dna(Pcr) Negative [facility] Gonorrhoeae Dna(Pcr) [facility], [facility] 024 Barbit[facility] Screen [facility]rine [facility] U[facility] Negative [facility] Hemoglobin A1con 06-15-2024 HbA1c (Bld) [Mass fraction] 5.1 % 4.0 - 6.0 % [facility] No Panel Informationon 06-15 [facility] Type and screen[facility] 06-15-2024 Abo/Rh(D) Negative [facility] US OB < 14 WEEKS EARLYon US [...] rate of 138. Uterus and adnexae: Hypoechoic YSLETA DEL SUR area measuring 2.8 x 3.1 x 0.4 cm Ovaries not visualized bilaterally due to bowel. Limited study. Full anatomical survey not performed. IMPRESSION: Early IUP age 7.6 weeks form LMP. Small anterior subchorionic hemorrhage. Dictated and transcribed 06/16/24/dpd This report has been electronically signed and approved by the interpreting radiologist. Normal Not Available BASIC FOOD PANELon 08-17-202 4 ALMOND 0.35 kU/L High <0.10 [facility] Comment on above: Result Comment: Clas s 1:Low level of Allergy, indicative of ongoing sensitization Performed By: #### 3 0896-5, 12501-9 #### [facility] ([id number]) [address] [facility] [place] [address] #### 06293-7, 3051-0, HA1C, CBCA, 61825-6, CMP, 61473-1, 72407-8, THYR #### [facility] ([id number]) [address], [address] [place] [address] BRAZIL NUT <0.10 Normal <0.10 [facility] Comment on above: Result Comment: Clas s 0: Normal Performed By: #### 3 0896-5, 10241-7 #### [facility] ([id number]) [address] [facility] [place] [address] #### 32556-5, 3051-0, HA1C, CBCA, 60296-7, CMP, 97043-6, 92149-5, THYR #### [facility] ([id number]) [address], [address] [place] [address] CASHEW NUT 0.14 kU/L High <0.10 [facility] Comment on above: Result Comment: Clas s 0/1: Low level of Allergy, ongoing sensitization Performed By: #### 3 0896-5, 06449-8 #### [facility] ([id number]) [address] [facility] [place] [address] #### 36686-3, 3051-0, HA1C, CBCA, 78860-9, CMP, 02475-4, 11313-7, THYR #### [facility] ([id number]) [address], [address] [place] [address] EGG WHITE <0.10 Normal <0.10 [facility] Comment on above: Result Comment: Clas s 0: Normal Performed By: #### 3 0896-5, 17318-6 #### [facility] ([id number]) [address] [facility] [place] [address] #### 72245-0, 3051-0, HA1C, CBCA, 05916-8, CMP, 27926-4, 18431-1, THYR #### [facility] ([id number]) [address], [address] [place] [address] FISH COD <0.10 Normal <0.10 [facility] Comment on above: Result Comment: Clas s 0: Normal Performed By: #### 3 0896-5, 01553-5 #### [facility] ([id number]) [address] [place] [address] [place] [address] #### 08808-1, 3051-0, HA1C, CBCA, 43193-6, CMP, 09117-1, 62360-6, THYR #### [facility] ([id number]) [address], [address] [place] [address] HAZELNUT 0.25 kU/L High <0.10 [facility] Comment on above: Result Comment: Clas s 0/1: Low level of Allergy, ongoing sensitization Performed By: #### 3 0896-5, 71893-5 #### [facility] ([id number]) [address] [place] [address] [place] [address] #### 94190-0, 3051-0, HA1C, CBCA, 04544-2, CMP, 18169-4, 22078-4, THYR #### [facility] ([id number]) [address], [address] [place] [address] IGE 55 IU/mL Normal 0-165 [facility] Comment on above: Performed By: #### 3 0896-5, 74214-8 #### [facility] ([id number]) [address] [place] [address] #### 85730-0, 3051-0, HA1C, CBCA, 73676-4, CMP, 32452-5, 62707-0, THYR #### [facility] ([id number]) [address], [address] [place] [address] MILK <0.10 Normal <0.10 [facility] Comment on above: Result Comment: Clas s 0: Normal Performed By: #### 3 0896-5, 76443-4 #### [facility] ([id number]) [address] [facility] [place] [address] #### 02364-1, 3051-0, HA1C, CBCA, 46109-5, CMP, 08495-3, 22184-0, THYR #### [facility] ([id number]) [address], [address] [place] [address] PEANUT 0.30 kU/L High <0.10 [facility] Comment on above: Result Comment: Clas s 0/1: Low level of Allergy, ongoing sensitization Performed By: #### 3 0896-5, 58587-2 #### [facility] ([id number]) [address] [facility] [place] [address] #### 67816-6, 3051-0, HA1C, CBCA, 03556-7, CMP, 65943-7, 22229-2, THYR #### [facility] ([id number]) [address], [address] [place] [address] PECAN NUT 0.14 kU/L High <0.10 [facility] Comment on above: Result Comment: Clas s 0/1: Low level of Allergy, ongoing sensitization Performed By: #### 3 0896-5, 91852-7 #### [facility] ([id number]) [address] [place] [address] [place] [address] #### 82756-4, 3051-0, HA1C, CBCA, 53418-1, CMP, 14719-4, 28531-0, THYR #### [facility] ([id number]) [address] [place] [address] SCALLOP 0.17 kU/L High <0.10 [facility] Comment on above: Result Comment: Clas s 0/1: Low level of Allergy, ongoing sensitization Performed By: #### 3 0896-5, 11789-7 #### [facility] ([id number]) [address] [place] [address] [place] [address] #### 46543-2, 3051-0, HA1C, CBCA, 79817-8, CMP, 66822-3, 41622-8, THYR #### [facility] ([id number]) [address], [address] [place] [address] SHRIMP <0.10 Normal <0.10 [facility] Comment on above: Result Comment: Clas s 0: Normal Performed By: #### 3 0896-5, 71655-0 #### [facility] ([id number]) [address] [place] [address] [place] [address] #### 58310-8, 3051-0, HA1C, CBCA, 37396-5, CMP, 53938-1, 96915-3, THYR #### [facility] ([id number]) [address], [address] [place] [address] SOYBEAN 0.27 kU/L High <0.10 [facility] Comment on above: Result Comment: Clas s 0/1: Low level of Allergy, ongoing sensitization Performed By: #### 3 0896-5, 18698-5 #### [facility] ([id number]) [address] [place] [address] [place] [address] #### 55631-0, 3051-0, HA1C, CBCA, 22739-1, CMP, 08800-8, 39662-1, THYR #### [facility] ([id number]) [address], [address] [place] [address] TUNA <0.10 Normal <0.10 [facility] Comment on above: Result Comment: Clas s 0: Normal Performed By: #### 3 0896-5, 38399-5 #### [facility] ([id number]) [address] [facility] [place] [address] #### 96342-5, 3051-0, HA1C, CBCA, 03049-6, CMP, 77192-4, 59866-2, THYR #### [facility] ([id number]) [address], [address] [place] [address] WALNUT FOOD 0.27 kU/L High <0.10 [facility] Comment on above: Result Comment: Clas s 0/1: Low level of Allergy, ongoing sensitization Performed By: #### 3 0896-5, 71467-7 #### [facility] ([id number]) [address] [place] [address] [place] [address] #### 19214-5, 3051-0, HA1C, CBCA, 00689-0, CMP, 19183-9, 79240-7, THYR #### [facility] ([id number]) [address], [address] [place] [address] WHEAT 0.28 kU/L High <0.10 [facility] Comment on above: Result Comment: Clas s 0/1: Low level of Allergy, ongoing sensitization Performed By: #### 3 0896-5, 11989-4 #### [facility] ([id number]) [address] [place] [address] [place] [address] #### 60796-1, 3051-0, HA1C, CBCA, 38475-5, CMP, 52863-1, 38433-7, THYR #### [facility] ([id number]) [address], [address] [place] [address] CBC AND AUTO DIFFon 0817-20 24 ABSOLUTE BASOPHIL 0.0 X10E9/L Normal 0.0-0.2 [facility] Comment on above: Performed By: #### 3 0896-5, 78259-6 #### [facility] ([id number]) [address] [place] [address] [place] [address] #### 72306-4, 3051-0, HA1C, CBCA, 02440-5, CMP, 79856-3, 81552-9, THYR #### [facility] ([id number]) [address], [address] [place] [address] ABSOLUTE NEUTROPHIL 3.1 X10E9/L Normal 1.5-6.6 [facility] Comment on above: Performed By: #### 3 0896-5, 15760-7 #### [facility] ([id number]) [address] [place] [address] #### 66448-8, 3051-0, HA1C, CBCA, 06271-3, CMP, 49217-6, 43056-1, THYR #### [facility] ([id number]) [address], [address] [place] [address] Basophils/100 WBC (Bld) 0.7 % Normal [facility] Comment on above: Performed By: #### 3 0896-5, 15418-5 #### [facility] ([id number]) [address] [place] [address] #### 50813-5, 3051-0, HA1C, CBCA, 88206-9, CMP, 52998-5, 10715-0, THYR #### [facility] ([id number]) [address], [address] [place] [address] Eosinophils (Bld) [#/Vol] 0.3 10*3/uL Normal 0.0-0.4 [facility] Comment on above: Performed By: #### 3 0896-5, 00835-3 #### [facility] ([id number]) [address] [place] [address] #### 54087-3, 3051-0, HA1C, CBCA, 24076-0, CMP, 76184-2, 11570-8, THYR #### [facility] ([id number]) [address], [address] [place] [address] Eosinophils/100 WBC (Bld) 5.4 % Normal [facility] Comment on above: Performed By: #### 3 0896-5, 19141-7 #### [facility] ([id number]) [facility] [place] [address] #### 85437-6, 3051-0, HA1C, CBCA, 24178-0, CMP, 77444-6, 01482-1, THYR #### [facility] ([id number]) [address], [facility] [address] [place] [address] Erythrocyte distribution width (RBC) [Ratio] 13.3 % Normal 11.5-15.0 [facility] Comment on above: Performed By: #### 3 0896-5, 71907-6 #### [facility] ([id number]) [facility] [place] [address] #### 11101-3, 3051-0, HA1C, CBCA, 84569-9, CMP, 28894-5, 23603-4, THYR #### [facility] ([id number]) [address] [place] [address] Hematocrit (Bld) [Volume fraction] 39.2 % Normal 35-47 [facility] Comment on above: Performed By: #### 3 0896-5, 12782-1 #### [facility] ([id number]) [facility] [place] [address] #### 79923-6, 3051-0, HA1C, CBCA, 14368-5, CMP, 30857-5, 37184-2, THYR #### [facility] ([id number]) [address] [place] [address] Hemoglobin (Bld) [Mass/Vol] 13.4 g/dL Normal 11.7-15.5 [facility] Comment on above: Performed By: #### 3 0896-5, 85153-0 #### [facility] ([id number]) [address] [place] [address] [place] [address] #### 33522-5, 3051-0, HA1C, CBCA, 74773-4, CMP, 37855-0, 18096-3, THYR #### [facility] ([id number]) [address], [address] [place] [address] Lymphocytes (Bld) [#/Vol] 2.5 10*3/uL Normal 1.0-3.5 [facility] Comment on above: Performed By: #### 3 0896-5, 19730-7 #### [facility] ([id number]) [address] [place] [address] #### 27611-1, 3051-0, HA1C, CBCA, 43774-4, CMP, 90255-1, 02953-1, THYR #### [facility] ([id number]) [address] [place] [address] Lymphocytes/100 WBC (Bld) 39.3 % Normal [facility] Comment on above: Performed By: #### 3 0896-5, 94516-2 #### [facility] ([id number]) [facility] [place] [address] #### 03403-2, 3051-0, HA1C, CBCA, 78755-5, CMP, 21435-1, 09123-4, THYR #### [facility] ([id number]) [address], [address] [place] [address] MCH (RBC) [Entitic mass] 34.1 pg High 27-34 [facility] Comment on above: Performed By: #### 3 0896-5, 46861-3 #### [facility] ([id number]) [facility] [place] [place] [address] #### 82200-6, 3051-0, HA1C, CBCA, 43939-0, CMP, 83557-7, 15037-7, THYR #### [facility] ([id number]) [address], [address] [place] [address] MCHC (RBC) [Mass/Vol] 34.1 g/dL Normal 32-36 [facility] Comment on above: Performed By: #### 3 0896-5, 64582-4 #### [facility] ([id number]) [address] [place] [address] #### 36385-6, 3051-0, HA1C, CBCA, 67062-4, CMP, 19022-6, 93354-8, THYR #### [facility] ([id number]) [address], [address] [place] [address] MCV (RBC) [Entitic vol] 100 fL Normal 80-100 [facility] Comment on above: Performed By: #### 3 0896-5, 70407-7 #### [facility] ([id number]) [address] [place] [address] #### 98874-7, 3051-0, HA1C, CBCA, 69077-7, CMP, 19750-7, 25730-3, THYR #### [facility] ([id number]) [address], [address] [place] [address] Monocytes (Bld) [#/Vol] 0.5 10*3/uL Normal 0-0.9 [facility] Comment on above: Performed By: #### 3 0896-5, 32129-9 #### [facility] ([id number]) [facility] [place] [facility] [place] [place] [address] #### 13896-0, 3051-0, HA1C, CBCA, 58482-0, CMP, 45351-6, 39230-4, THYR #### [facility] ([id number]) [address], [address] [place] [address] Monocytes/100 WBC (Bld) 7.2 % Normal [facility] Comment on above: Performed By: #### 3 0896-5, 45395-3 #### [facility] ([id number]) [address] [place] [address] #### 13532-5, 3051-0, HA1C, CBCA, 57559-5, CMP, 04607-6, 37948-5, THYR #### [facility] ([id number]) [address] [facility], [address] [place] [address] Neutrophils/100 WBC (Bld) 47.4 % Normal [facility] Comment on above: Performed By: #### 3 0896-5, 18246-5 #### [facility] ([id number]) [address] [place] [address] #### 96736-1, 3051-0, HA1C, CBCA, 92589-3, CMP, 48124-3, 39929-7, THYR #### [facility] ([id number]) [address] [facility] [place] [address] Platelet mean volume (Bld) [Entitic vol] 8.9 fL Normal 7-12 [facility] Comment on above: Performed By: #### 3 0896-5, 16853-2 #### [facility] ([id number]) [facility] [place] [facility] [place] [place] [address] #### 90224-9, 3051-0, HA1C, CBCA, 11442-8, CMP, 93712-2, 38362-1, THYR #### [facility] ([id number]) [address] [place] [address] Platelets (Bld) [#/Vol] 248 10*3/uL Normal 150-450 [facility] Comment on above: Performed By: #### 3 0896-5, 02405-1 #### [facility] ([id number]) [address] [place] [address] #### 23755-3, 3051-0, HA1C, CBCA, 52980-8, CMP, 05608-9, 79125-5, THYR #### [facility] ([id number]) [address], [address] [place] [address] RBC COUNT 3.92 X10E12/L Normal 3.80-5.20 [facility] Comment on above: Performed By: #### 3 0896-5, 87612-8 #### [facility] ([id number]) [address] [place] [address] #### 31659-0, 3051-0, HA1C, CBCA, 84785-7, CMP, 52859-7, 22334-0, THYR #### [facility] ([id number]) [address], [address] [place] [address] WBC (Bld) [#/Vol] 6.4 10*3/uL Normal 4.0-11.0 [facility] Comment on above: Performed By: #### 3 0896-5, 06139-5 #### [facility] ([id number]) [address] [place] [address] #### 17610-5, 3051-0, HA1C, CBCA, 32021-1, CMP, 36315-6, 78390-6, THYR #### [facility] ([id number]) [address], [address] [place] [address] COMPREHENSIVE METABOLIC PANE Godfrey 03-26-2024 Albumin [Mass/Vol] 4.5 g/dL Normal 3.2-5.3 [facility] Comment on above: Performed By: #### 3 0896-5, 50497-8 #### [facility] ([id number]) [address] [place] [address] #### 27120-7, 3051-0, HA1C, CBCA, 58148-3, CMP, 71037-3, 87471-5, THYR #### [facility] ([id number]) [address], [address] [place] [address] ALP [Catalytic activity/Vol] 71 U/L Normal 39-130 [facility] Comment on above: Performed By: #### 3 0896-5, 48913-8 #### [facility] ([id number]) [facility] [place] [address] #### 88604-0, 3051-0, HA1C, CBCA, 94826-1, CMP, 75745-5, 53858-2, THYR #### [facility] ([id number]) [address], [address] [place] [address] ALT [Catalytic activity/Vol] 16 U/L Normal 0-31 [facility] Comment on above: Performed By: #### 3 0896-5, 24725-8 #### [facility] ([id number]) [facility] [place] [address] #### 12360-7, 3051-0, HA1C, CBCA, 40818-5, CMP, 27364-8, 75141-1, THYR #### [facility] ([id number]) [address], [address] [place] [address] Anion gap [Moles/Vol] 9 mmol/L Normal 5-15 [facility] Comment on above: Performed By: #### 3 0896-5, 69703-8 #### [facility] ([id number]) [facility] [place] [address] #### 41734-9, 3051-0, HA1C, CBCA, 45700-1, CMP, 12242-9, 99608-3, THYR #### [facility] ([id number]) [address], [address] [place] [address] AST [Catalytic activity/Vol] 16 U/L Normal 0-41 [facility] Comment on above: Performed By: #### 3 0896-5, 44212-0 #### [facility] ([id number]) [facility] [place] [address] #### 33656-3, 3051-0, HA1C, CBCA, 97244-1, CMP, 06001-4, 46499-2, THYR #### [facility] ([id number]) [address], [address] [place] [address] Bilirubin [Mass/Vol] 0.4 mg/dL Normal 0.3-1.2 [facility] Comment on above: Performed By: #### 3 0896-5, 15060-2 #### [facility] ([id number]) [address] [place] [address] #### 52761-7, 3051-0, HA1C, CBCA, 95946-7, CMP, 93467-0, 02034-7, THYR #### [facility] ([id number]) [address], [address] [place] [address] Calcium [Mass/Vol] 9.9 mg/dL Normal 8.5-10.5 [facility] Comment on above: Performed By: #### 3 0896-5, 06294-1 #### [facility] ([id number]) [address] [place] [address] #### 48191-6, 3051-0, HA1C, CBCA, 81122-1, CMP, 62034-8, 06460-7, THYR #### [facility] ([id number]) [address], [address] [place] [address] Chloride [Moles/Vol] 104 mmol/L Normal 98-109 [facility] Comment on above: Performed By: #### 3 0896-5, 04983-3 #### [facility] ([id number]) [address] [place] [address] #### 19101-5, 3051-0, HA1C, CBCA, 56258-5, CMP, 15417-4, 69519-7, THYR #### [facility] ([id number]) [address], [address] [place] [address] CO2 [Moles/Vol] 26 mmol/L Normal 22-32 [facility] Comment on above: Performed By: #### 3 0896-5, 38159-1 #### [facility] ([id number]) [address] [facility] [place] [address] #### 18983-4, 3051-0, HA1C, CBCA, 69725-8, CMP, 12010-9, 05216-1, THYR #### [facility] ([id number]) [address] [place] [address] Creatinine [Mass/Vol] 0.93 mg/dL Normal 0.40-1.00 [facility] Comment on above: Result Comment: METH OD TRACEABLE TO IDMS STANDARD Performed By: #### 3 0896-5, 24710-3 #### [facility] ([id number]) [address] [facility] [place] [address] #### 30373-2, 3051-0, HA1C, CBCA, 06589-4, CMP, 88763-2, 54121-4, THYR #### [facility] ([id number]) [address] [place] [address] GFR/1.73 sq M.predicted among non-blacks MDRD (S/P/Bld) [Vol rate/Area] 89 mL/min/{1.73_m2} Normal >59 [facility] Comment on above: Result Comment: Reported eGFR is based on the CKD-EPI 2020 equation that does not use a race coefficient. Performed By: #### 3 0896-5, 47853-0 #### [facility] ([id number]) [address] [facility] [place] [address] #### 72293-2, 3051-0, HA1C, CBCA, 49740-2, CMP, 75657-0, 65919-4, THYR #### [facility] ([id number]) [address], [address] [place] [address] Glucose [Mass/Vol] 81 mg/dL Normal 65-99 [facility] Comment on above: Performed By: #### 3 0896-5, 15630-3 #### [facility] ([id number]) [address] [place] [address] #### 13423-3, 3051-0, HA1C, CBCA, 16210-1, CMP, 00622-5, 81871-7, THYR #### [facility] ([id number]) [address], [address] [place] [address] Potassium [Moles/Vol] 3.8 mmol/L Normal 3.5-5.0 [facility] Comment on above: Performed By: #### 3 0896-5, 70459-6 #### [facility] ([id number]) [address] [place] [address] #### 87437-5, 3051-0, HA1C, CBCA, 03053-9, CMP, 06977-7, 95332-8, THYR #### [facility] ([id number]) [address], [address] [place] [address] Protein [Mass/Vol] 8.0 g/dL Normal 6.0-8.0 [facility] Comment on above: Performed By: #### 3 0896-5, 47513-9 #### [facility] ([id number]) [facility] [place] [address] #### 33956-6, 3051-0, HA1C, CBCA, 17365-5, CMP, 95210-1, 80168-2, THYR #### [facility] ([id number]) [address], [address] [place] [address] Sodium [Moles/Vol] 139 mmol/L Normal 134-146 [facility] Comment on above: Performed By: #### 3 0896-5, 92884-4 #### [facility] ([id number]) [address] [place] [address] #### 36680-1, 3051-0, HA1C, CBCA, 69337-1, CMP, 73194-2, 09874-8, THYR #### [facility] ([id number]) [address], [address] [place] [address] Urea nitrogen [Mass/Vol] 15 mg/dL Normal 5-23 [facility] Comment on above: Performed By: #### 3 0896-5, 91995-9 #### [facility] ([id number]) [address] [place] [address] #### 61615-4, 3051-0, HA1C, CBCA, 79103-2, CMP, 47542-2, 89756-9, THYR #### [facility] ([id number]) [address], [address] [place] [address] FREE T3on 03-26-2024 Free T3 [Mass/Vol] 3.32 pg/mL Normal 2.50-3.90 [facility] Comment on above: Performed By: #### 3 0896-5, 24518-8 #### [facility] ([id number]) [address] [place] [address] #### 06453-7, 3051-0, HA1C, CBCA, 05406-1, CMP, 84413-4, 23672-1, THYR #### [facility] ([id number]) [address], [address] [place] [address] HCV Ab IA Qlon 03-26-2024 ANTI HCV W/PCR REFLX Non-Reactive Normal NRCT Pr [facility] Comment on above: Result Comment: If recent infection suspected, recommend repeat testing (>2 months). Opjoqm-ns-hhabei ratio is <0.80. Performed By: #### 3 0896-5, 43808-7 #### [facility] ([id number]) [facility] [place] [place] [address] #### 33539-1, 3051-0, HA1C, CBCA, 25209-8, CMP, 95517-5, 26596-5, THYR #### [facility] ([id number]) [address], [address] [place] [address] HGB A1C (GLYCO-HGB)on 2023 Glucose [Mass/Vol] 97 mg/dL Normal [facility] Comment on above: Performed By: #### 3 0896-5, 28053-5 #### [facility] ([id number]) [address] [facility] [place] [address] #### 06941-2, 3051-0, HA1C, CBCA, 14094-1, CMP, 37376-1, 23002-3, THYR #### [facility] ([id number]) [address], [address] [place] [address] HbA1c (Bld) [Mass fraction] 5.0 % Normal 4.4-5.6 [facility] Comment on above: Result Comment: NOTE ADA Guidelines Result HgbA1c Normal : less than 5.7 % Prediabetes : 5.7 % to 6.4 % Diabetes : > 6.4 % Use with caution in patients with abnormal hemoglobin variants as the half-life of red blood cells and in vivo glycation rates are affected. Performed By: #### 3 0896-5, 69283-0 #### [facility] ([id number]) [address] [facility] [place] [address] #### 52348-1, 3051-0, HA1C, CBCA, 31087-1, CMP, 72236-7, 83625-6, THYR #### [facility] ([id number]) [address], [address] [place] [address] HIV 1+2 Ab+HIV1 p24 Ag IA Ql on 03-26-2024 HIV 1 and 2 Ab/Ag Screen Non-Reactive Normal NRCT [facility] Comment on above: Result Comment: This [...] or diagnoses. Performed By: #### 3 0896-5, 53308-4 #### [facility] ([id number]) [address] [place] [address] #### 37025-9, 3051-0, HA1C, CBCA, 61424-9, CMP, 41106-9, 42064-0, THYR #### [facility] ([id number]) [address] [place] [address], [address] [place] [address] Insulin Qnon 03-26-2024 INSULIN 14.09 uIU/mL Normal 1.00-23.00 [facility] Comment on above: Result Comment: Ref. range is for FASTING NON-DIABETIC POPULATION. Performed By: #### 3 0896-5, 82733-6 #### [facility] ([id number]) [address] [place] [address] #### 59256-8, 3051-0, HA1C, CBCA, 89818-3, CMP, 03334-5, 17863-1, THYR #### [facility] ([id number]) [address] [place] [address], [address] [place] [address] Lipid 1996 panelon 4 Cholesterol [Mass/Vol] 189 mg/dL Normal 150-200 Pr [facility] Comment on above: Performed By: #### 3 0896-5, 48338-4 #### [facility] ([id number]) [address] [address] #### 81585-2, 3051-0, HA1C, CBCA, 40850-1, CMP, 71881-9, 40735-8, THYR #### [facility] ([id number]) [address] [place] [address], [address] [place] [address] Cholesterol in HDL [Mass/Vol] 85 mg/dL Normal >39 [facility] Comment on above: Result Comment: HDL <40 mg/dL - High Risk HDL > or = 40mg/dL- Desirable HDL >60 mg/dL - Negative Risk Performed By: #### 3 0896-5, 96902-3 #### [facility] ([id number]) [address] [address] #### 31247-6, 3051-0, HA1C, CBCA, 69304-3, CMP, 55721-2, 84767-2, THYR #### [facility] ([id number]) [address], [address] [place] [address] Cholesterol in LDL [Mass/Vol] 91 mg/dL Normal <130 [facility] Comment on above: Result Comment: LDL <100 mg/dL - Desirable LDL >160 mg/dL - High Risk Performed By: #### 3 0896-5, 67546-8 #### [facility] ([id number]) [address] [place] [address] #### 99599-9, 3051-0, HA1C, CBCA, 70681-5, CMP, 71768-0, 20825-6, THYR #### [facility] ([id number]) [address], [address] [place] [address] Cholesterol in VLDL [Mass/Vol] 13 mg/dL Normal 0-30 [facility] Comment on above: Performed By: #### 3 0896-5, 15771-9 #### [facility] ([id number]) [address] [place] [address] #### 16781-6, 3051-0, HA1C, CBCA, 40410-0, CMP, 95517-9, 37484-0, THYR #### [facility] ([id number]) [address], [address] [place] [address] CHOLESTEROL:HDL 2.2 Normal 1.0-5.0 [facility] Comment on above: Performed By: #### 3 0896-5, 03747-1 #### [facility] ([id number]) [address] [place] [address] [place] [address] #### 77662-1, 3051-0, HA1C, CBCA, 18990-0, CMP, 73409-9, 21278-5, THYR #### [facility] ([id number]) [address], [address] [place] [address] Triglyceride [Mass/Vol] 63 mg/dL Normal 27-150 [facility] Comment on above: Performed By: #### 3 0896-5, 00720-0 #### [facility] ([id number]) [address] [place] [address] [place] [address] #### 23278-5, 3051-0, HA1C, CBCA, 25352-2, CMP, 32557-4, 19742-8, THYR #### [facility] ([id number]) [address], [address] [place] [address] Nuclear Ab IA Ql (S)on 03-26 MARISSA Screen w/reflex Negative Normal NEG [facility] Comment on above: Result Comment: Testing performed using multiplex flow immunoassay. Eleven different antigens associated with systemic autoimmune diseases (dsDNA,Sm,Sm/MUSIC ENGINEER,MUSIC ENGINEER,Chromatin, SSA,SSB,Aliya-1,Scl70,Ribo P,Centromere B) are included in this screening test. Performed By: #### 3 0896-5, 40188-2 #### [facility] ([id number]) [facility] [place] [address] #### 55982-3, 3051-0, HA1C, CBCA, 40231-4, CMP, 91759-2, 55809-5, THYR #### [facility] ([id number]) [address], [address] [place] [address] RESPIRATORY PANELon 03-26-20 24 ALTERNARIA ALTERNATA <0.10 Normal <0.10 [facility] Comment on above: Result Comment: Clas s 0: Normal Performed By: #### 3 0896-5, 93402-2 #### [facility] ([id number]) [address] [facility] [place] [address] #### 63538-9, 3051-0, HA1C, CBCA, 09830-8, CMP, 53955-9, 54673-5, THYR #### [facility] ([id number]) [address], [address] [place] [address] ASPERGILLUS FUMIGATUS <0.10 Normal <0.10 [facility] Comment on above: Result Comment: Clas s 0: Normal Performed By: #### 3 0896-5, 65283-1 #### [facility] ([id number]) [address] [place] [address] [place] [address] #### 47984-1, 3051-0, HA1C, CBCA, 91308-2, CMP, 34393-9, 47985-6, THYR #### [facility] ([id number]) [address], [address] [place] [address] BERMUDA GRASS 0.34 kU/L High <0.10 [facility] Comment on above: Result Comment: Clas s 0/1: Low level of Allergy, ongoing sensitization Performed By: #### 3 0896-5, 93828-0 #### [facility] ([id number]) [address] [place] [address] [place] [address] #### 33896-2, 3051-0, HA1C, CBCA, 23370-7, CMP, 58139-2, 11364-2, THYR #### [facility] ([id number]) [address], [address] [place] [address] BOX ELDER 0.30 kU/L High <0.10 [facility] Comment on above: Result Comment: Clas s 0/1: Low level of Allergy, ongoing sensitization Performed By: #### 3 0896-5, 94445-6 #### [facility] ([id number]) [address] [facility] [place] [address] #### 92046-3, 3051-0, HA1C, CBCA, 53743-1, CMP, 06547-5, 75727-7, THYR #### [facility] ([id number]) [address], [address] [place] [address] CAT DANDER <0.10 Normal <0.10 [facility] Comment on above: Result Comment: Clas s 0: Normal Performed By: #### 3 0896-5, 74764-2 #### [facility] ([id number]) [address] [place] [address] [place] [address] #### 17107-3, 3051-0, HA1C, CBCA, 25122-5, CMP, 14734-5, 10711-2, THYR #### [facility] ([id number]) [address], [address] [place] [address] CLADOSPORIUM HERB <0.10 Normal <0.10 [facility] Comment on above: Result Comment: Clas s 0: Normal Performed By: #### 3 0896-5, 93561-6 #### [facility] ([id number]) [address] [facility] [place] [address] #### 62261-9, 3051-0, HA1C, CBCA, 99630-3, CMP, 00981-2, 43177-4, THYR #### [facility] ([id number]) [address], [address] [place] [address] [place] 0.31 kU/L High <0.10 [facility] Comment on above: Result Comment: Clas s 0/1: Low level of Allergy, ongoing sensitization Performed By: #### 3 0896-5, 77598-2 #### [facility] ([id number]) [address] [place] [address] [place] [address] #### 05102-2, 3051-0, HA1C, CBCA, 46521-5, CMP, 79091-5, 87356-0, THYR #### [facility] ([id number]) [address], [address] [place] [address] COCKROACH 0.23 kU/L High <0.10 [facility] Comment on above: Result Comment: Clas s 0/1: Low level of Allergy, ongoing sensitization Performed By: #### 3 0896-5, 07564-1 #### [facility] ([id number]) [address] [place] [address] [place] [address] #### 20286-0, 3051-0, HA1C, CBCA, 37593-9, CMP, 81377-6, 70638-9, THYR #### [facility] ([id number]) [address], [address] [place] [address] COMMON PIGWEED 0.25 kU/L High <0.10 [facility] Comment on above: Result Comment: Clas s 0/1: Low level of Allergy, ongoing sensitization Performed By: #### 3 0896-5, 12644-8 #### [facility] ([id number]) [address] [place] [address] [place] [address] #### 36612-0, 3051-0, HA1C, CBCA, 08746-1, CMP, 19608-2, 49782-9, THYR #### [facility] ([id number]) [address], [address] [place] [address] COMMON RAGWEED 0.32 kU/L High <0.10 [facility] Comment on above: Result Comment: Clas s 0/1: Low level of Allergy, ongoing sensitization Performed By: #### 3 0896-5, 60860-4 #### [facility] ([id number]) [address] [facility] [place] [address] #### 28835-9, 3051-0, HA1C, CBCA, 19990-7, CMP, 83872-1, 94835-4, THYR #### [facility] ([id number]) [address], [address] [place] [address] COMMON SILVER BIRCH 0.23 kU/L High <0.10 [facility] Comment on above: Result Comment: Clas s 0/1: Low level of Allergy, ongoing sensitization Performed By: #### 3 0896-5, 35418-7 #### [facility] ([id number]) [address] [place] [address] [place] [address] #### 78255-0, 3051-0, HA1C, CBCA, 72114-2, CMP, 38808-7, 16272-3, THYR #### [facility] ([id number]) [address], [address] [place] [address] [place] 0.24 kU/L High <0.10 [facility] Comment on above: Result Comment: Clas s 0/1: Low level of Allergy, ongoing sensitization Performed By: #### 3 0896-5, 77316-7 #### [facility] ([id number]) [address] [place] [address] [place] [address] #### 50420-9, 3051-0, HA1C, CBCA, 83755-4, CMP, 11645-6, 33675-8, THYR #### [facility] ([id number]) [address], [address] [place] [address] DERMATOPH FARINAE <0.10 Normal <0.10 [facility] Comment on above: Result Comment: Clas s 0: Normal Performed By: #### 3 0896-5, 44479-9 #### [facility] ([id number]) [address] [place] [address] [place] [address] #### 07883-6, 3051-0, HA1C, CBCA, 91342-2, CMP, 12852-8, 13847-8, THYR #### [facility] ([id number]) [address], [address] [place] [address] DERMATOPH PTERONYSS <0.10 Normal <0.10 [facility] Comment on above: Result Comment: Clas s 0: Normal Performed By: #### 3 0896-5, 14583-2 #### [facility] ([id number]) [address] [facility] [place] [address] #### 07101-6, 3051-0, HA1C, CBCA, 44485-8, CMP, 25243-7, 56278-6, THYR #### [facility] ([id number]) [address] [facility] [facility], [address] [place] [address] DOG DANDER <0.10 Normal <0.10 [facility] Comment on above: Result Comment: Clas s 0: Normal Performed By: #### 3 0896-5, 74959-4 #### [facility] ([id number]) [facility] [place] [address] #### 27724-4, 3051-0, HA1C, CBCA, 36101-5, CMP, 93267-6, 50011-5, THYR #### [facility] ([id number]) [address], [address] [place] [address] ELM 0.33 kU/L High <0.10 [facility] Comment on above: Result Comment: Clas s 0/1: Low level of Allergy, ongoing sensitization Performed By: #### 3 0896-5, 20347-3 #### [facility] ([id number]) [facility] [place] [address] #### 50145-4, 3051-0, HA1C, CBCA, 60918-3, CMP, 60292-0, 65582-2, THYR #### [facility] ([id number]) [address], [address] [place] [address] GOOSEFOOT LANDRY QTR 0.25 kU/L High <0.10 [facility] Comment on above: Result Comment: Clas s 0/1: Low level of Allergy, ongoing sensitization Performed By: #### 3 0896-5, 86650-7 #### [facility] ([id number]) [address] [place] [address] #### 52807-4, 3051-0, HA1C, CBCA, 70965-0, CMP, 68447-1, 11592-2, THYR #### [facility] ([id number]) [address], [address] [place] [address] IGE DUPLICATE ORDER Normal 0-165 [facility] Comment on above: Performed By: #### 3 0896-5, 50155-9 #### [facility] ([id number]) [address] [place] [address] #### 95375-8, 3051-0, HA1C, CBCA, 72838-8, CMP, 76643-9, 16435-8, THYR #### [facility] ([id number]) [address], [address] [place] [address] ROBIN GRASS 0.28 kU/L High <0.10 [facility] Comment on above: Result Comment: Clas s 0/1: Low level of Allergy, ongoing sensitization Performed By: #### 3 0896-5, 14263-6 #### [facility] ([id number]) [address] [place] [address] #### 34958-4, 3051-0, HA1C, CBCA, 03438-3, CMP, 92798-9, 34261-0, THYR #### [facility] ([id number]) [address], [address] [place] [address] MAPLE LEAF SY[place]ORE 0.27 kU/L High <0.10 [facility] Comment on above: Result Comment: Clas s 0/1: Low level of Allergy, ongoing sensitization Performed By: #### 3 0896-5, 62647-2 #### [facility] ([id number]) [address] [facility] [place] [address] #### 69815-1, 3051-0, HA1C, CBCA, 41061-1, CMP, 66000-5, 79808-7, THYR #### [facility] ([id number]) [address], [address] [place] [address] [place] JOSE EDUARDO 0.31 kU/L High <0.10 [facility] Comment on above: Result Comment: Clas s 0/1: Low level of Allergy, ongoing sensitization Performed By: #### 3 0896-5, 33540-2 #### [facility] ([id number]) [address] [facility] [place] [address] #### 03984-9, 3051-0, HA1C, CBCA, 51421-0, CMP, 06843-2, 35164-7, THYR #### [facility] ([id number]) [address], [address] [place] [address] [place] JUNIPER 0.25 kU/L High <0.[address] [facility] Comment on above: Result Comment: Clas s 0/1: Low level of Allergy, ongoing sensitization Performed By: #### 3 0896-5, 99719-5 #### [facility] ([id number]) [facility] [place] [place] [address] #### 32337-3, 3051-0, HA1C, CBCA, 23003-9, CMP, 78614-0, 49505-4, THYR #### [facility] ([id number]) [address] [facility], [address] [place] [address] MOUSE URINE PROTEINS <0.10 Normal <0.10 [facility] Comment on above: Result Comment: Clas s 0: Normal Performed By: #### 3 0896-5, 07710-0 #### [facility] ([id number]) [address] [facility] [place] [address] #### 41459-8, 3051-0, HA1C, CBCA, 85017-4, CMP, 65056-6, 47662-3, THYR #### [facility] ([id number]) [address], [address] [place] [address] MUGWORT 0.27 kU/L High <0.10 [facility] Comment on above: Result Comment: Clas s 0/1: Low level of Allergy, ongoing sensitization Performed By: #### 3 0896-5, 20481-0 #### [facility] ([id number]) [address] [facility] [place] [address] #### 92811-3, 3051-0, HA1C, CBCA, 79899-8, CMP, 16289-1, 92846-5, THYR #### [facility] ([id number]) [address], [address] [place] [address] MULBERRY TREE 0.20 kU/L High <0.10 [facility] Comment on above: Result Comment: Clas s 0/1: Low level of Allergy, ongoing sensitization Performed By: #### 3 0896-5, 88591-4 #### [facility] ([id number]) [address] [place] [address] [place] [address] #### 40425-3, 3051-0, HA1C, CBCA, 97265-8, CMP, 13119-9, 91917-9, THYR #### [facility] ([id number]) [address], [address] [place] [address] NETTLE 0.27 kU/L High <0.10 [facility] Comment on above: Result Comment: Clas s 0/1: Low level of Allergy, ongoing sensitization Performed By: #### 3 0896-5, 08810-5 #### [facility] ([id number]) [address] [address] #### 37530-9, 3051-0, HA1C, CBCA, 75289-8, CMP, 28202-8, 90301-6, THYR #### [facility] ([id number]) [address], [address] [place] [address] OAK 0.28 kU/L High <0.10 [facility] Comment on above: Result Comment: Clas s 0/1: Low level of Allergy, ongoing sensitization Performed By: #### 3 0896-5, 30715-5 #### [facility] ([id number]) [address] [facility] [place] [address] #### 23094-2, 3051-0, HA1C, CBCA, 69391-0, CMP, 98149-9, 44813-6, THYR #### [facility] ([id number]) [address], [address] [place] [address] PECAN HICKORY TREE 0.27 kU/L High <0.10 [facility] Comment on above: Result Comment: Clas s 0/1: Low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 Comment on above: Polyhydramnios affec ting in third trimester (Primary Dx); Hypothyroidism affecting in third trimester; Elevated BP without diagnosis of hypertension; History of insulin resistance; Family history of autism Start: 11-23-2024 End: 11-23-2024 Chart abstracting Scanning Provider External [facility] Start: 11-18-2024 End: 11-18-2024 Telephone encounter Betsey Wu LPN [facility] Start: 11-17-2024 End: 11-17-2024 Telephone encounter Betsey Wu DONTE [facility] Start: 11-14-2024 End: 11-14-2024 ambulatory HAILEE L FLORO Not Available Start: 11-14-2024 End: 11-14-2024 Subsequent care visit Hailee Mai CNM Work Phone: [facility] Comment on above: Other constipation ( Primary Dx); Encounter for care of first , third trimester; Hypothyroidism, unspecified type ([facility] Start: 11-14-2024 End: 11-14-2024 Telephone encounter Hailee Mai CNM Work Phone: [facility] Start: 11-04-2024 End: 11-04-2024 Telephone encounter Betsey Herreradavid KENT [facility] Start: 11-03-2024 End: 11-03-2024 Telephone encounter Betsey Jazmin LPN [facility] at [facility] Start: 11-01-2024 End: 11-01-2024 ambulatory [facility] Start: 11-01-2024 End: 11-01-2024 Office outpatient visit 25 minutes Berna Daniel MD Work Phone: [facility] Comment on above: Hypothyroidism affec ting in second trimester (Primary Dx); 27 weeks gestation of ; Elevated BP without diagnosis of hypertension Start: 11-01-2024 End: 11-01-2024 ambulatory [facility] Start: 10-26-2024 End: 10-26-2024 ambulatory HAILEE L FLORO Not Available Start: 10-18-2024 End: 10-18-2024 ambulatory HAILEE [facility] Start: 10-07-2024 End: 10-07-2024 Telephone encounter Hailee Mai CNM Work Phone: [facility] Start: 10-07-2024 End: 10-07-2024 Office outpatient visit 25 minutes Berna Daniel MD Work Phone: Maternal- Medicine at [facility] Comment on above: Elevated BP without diagnosis of hypertension (Primary Dx); 23 weeks gestation of ; COVID-19 affecting in second trimester; At increased risk for exposure to influenza virus; Hypothyroidism affecting in second trimester Start: 10-07-2024 End: 10-07-2024 ambulatory BERNAMonie DANIEL [facility] Start: 10-06-2024 End: 10-06-2024 Orders Only Hailee Mai CNM Work Phone: [facility] Comment on above: COVID (Primary Dx); Encounter for care of first , second trimester Start: 10-05-2024 End: 10-05-2024 Emergency department patient visit [facility] Start: 10-05-2024 End: 10-05-2024 ambulatory [facility] Start: 10-05-2024 End: 10-05-2024 Office outpatient new 45 minutes Humberto Butcher APRN-TREAD BOOKER Work Phone: [facility] Comment on above: Tachycardia (Primary Dx); Shortness of breath; Chest pain, unspecified type Start: 10-05-2024 End: 10-05-2024 Telephone encounter Amador Flanagan SCREEN PRINTING MACHINE OPERATOR HELPER Maternal- Medicine at [facility] Start: 09-28-2024 End: 09-28-2024 Bamboo flowsheet Hailee [...] Only Amador Masha NEELY Maternal- Medicine at [facility] Comment on above: Hypothyroidism affec ting in [...] encounter Stella Blair RN Maternal- Medicine at [facility] Start: 08-02-2024 End: 08-02-2024 Office outpatient visit 25 minutes Berna Daniel MD Work Phone: Maternal- Medicine at [facility] Comment on above: Abnormal genetic sundeep t during (Primary Dx); Hypothyroidism affecting in second trimester; 14 weeks gestation of Start: 08-02-2024 End: 08-02-2024 ambulatory BERNA DANIEL [facility] Start: 07-27-2024 End: 07-27-2024 Bamboo flowsheet Hailee [...] 07-22-2024 End: 07-22-2024 Documentation procedure Amador Masha [facility] Maternal- Medicine at [facility] Comment on above: Hypothyroidism affec ting in first trimester (Primary Dx) Start: 07-22-2024 End: 07-22-2024 [place] Start: 07-22-2024 End: 07-22-2024 Office consultation new/estab patient 60 min Berna Daniel MD Work Phone: Maternal- Medicine at [facility] Comment on above: Hypothyroidism affec ting in first trimester (Primary Dx); 12 weeks gestation of ; PCOS (polycystic ovarian syndrome); History of insulin resistance; Family history of autism Start: 07-22-2024 End: 07-22-2024 [facility] Start: 07-05-2024 End: 07-05-2024 Chart abstracting Berna Daniel MD Work Phone: Maternal- Medicine at [facility] Start: 06-30-2024 End: 06-30-2024 Bamboo flowsheet Hailee [...] [facility] Start: 03-26-2024 End: 03-26-[address] [facility] Start: 03-26-2024 Encounter for genera l adult medical examination with abnormal findings [facility] Start: 03-06-2024 End: 03-06-2024 Office outpatient visit 15 minutes Guy Easley INTEGRATED MARKETING MANAGER-TREAD BOOKER Work Phone: [facility] Comment on above: Upper respiratory in fection with cough and congestion (Primary Dx); Acute bacterial conjunctivitis of left eye; Healthcare maintenance Start: 03-06-2024 End: 03-06-2024 Patient encounter status Guy Easley INTEGRATED MARKETING MANAGER-TREAD BOOKER Work Phone: [facility] Start: 03-06-2024 End: 03-06-2024 ambulatory NO PCP NO PCP [facility] Start: 03-06-2024 Encounter for boubacar l adult medical examination without abnormal findings GUY Narayan TRACEE [facility] Start: 08-30-2018 End: 08-30-2018 Patient encounter procedure JOESPH FRANCO Facility:[facility] Start: 07-29-2018 End: 08-02-2018 Patient encounter procedure Simona ASTORGA [facility] Start: 07-29-2018 End: 07-29-2018 Patient encounter procedure MAKENZIE VALLE [facility] Start: 07-29-2018 End: 07-29-2018 Office outpatient new 30 minutes Makenzie Rogelio Valle Work Phone: [facility] Comment on above: Nausea (Primary Dx) Start: 06-06-2018 End: 06-06-2018 Emergency department patient visit RAMON Hensley HONEY [facility] Procedures Date Procedure Procedure Detail Performing Clinician [...] Adult BMI Screening Adult BMI Screen ing [facility] Start: 12-13-2025 Tobacco Screening Tobacco Screening [facility] Start: 12-07-2025 Screening for Chlamydia trachomatis Chlamydia Screening [facility] Start: 11-27-2025 Tobacco Screening Tobacco Screening [facility] Start: 11-24-2025 Adult BMI Screening Adult BMI Screen ing [facility] Start: 11-01-2025 Tobacco Screening Tobacco Screening [facility] Start: 10-05-2025 Adult BMI Screening Adult BMI Screen ing [facility] Start: 10-05-2025 Tobacco Screening Tobacco Screening [facility] Start: 09-16-2025 End: 09-16-2025 US MFM with or without consult US MFM with or without consult Imaging Routine Hypothyroidism affecting in first trimester PCOS (polycystic ovarian syndrome) History of insulin resistance Family history of autism Abnormal genetic test during Hypothyroidism affecting in second trimester Expected: 09/16/2025 (Approximate), Expires: 09/16/2025 [facility] Work Phone: Comment on above: Expected: 09/16/2025 (Approximate), Expires: 09/16/2025 Start: 07-22-2025 Adult BMI Screening Adult BMI Screen ing [facility] Start: 07-22-2025 Tobacco Screening Tobacco Screening [facility] Start: 04-10-2025 Influenza vaccination [facility] Start: 03-06-2025 Adult BMI Screening Adult BMI Screen ing [facility] Start: 03-06-2025 Tobacco Screening Tobacco Screening [facility] Start: 02-06-2025 End: 02-06-2025 Telemedicine consultation with patient 02/06/2025 1:00 PM EDT Telemedicine [facility] [address] [place] [address] Hailee Mai, KRISTELM [address] [place] [address] [facility] Start: 01-26-2025 End: 01-26-2025 Professional / ancillary services management 01/26/2025 4:00 PM EDT Ancillary Procedure [facility] [address] [phone] [facility] Start: 01-23-2025 End: 01-23-2025 Patient encounter procedure [facility] Comment on above: Arrived Start: 01-19-2025 End: 01-19-2025 Professional / ancillary services management 01/19/2025 4:00 PM EDT Ancillary Procedure [facility] [address] [phone] [facility] Start: 01-19-2025 End: 01-19-2025 Patient encounter procedure 01/19/2025 3:15 PM EDT Appointment [facility] [place] [address] [facility] [address] [place] [phone] [facility] [place] Start: 01-16-2025 End: 01-16-2025 Patient encounter procedure 01/16/2025 1:30 PM EDT Routine [facility] [address] [place] [address] Hailee Mai, CNM [address] [place] [address] [facility] Start: 01-12-2025 End: 01-12-2025 Professional / ancillary services management 01/12/2025 4:00 PM EDT Ancillary Procedure [facility] [address] [address] [facility] Start: 01-10-2025 End: 01-10-2025 Patient encounter procedure 01/10/2025 9:00 AM EDT Office Visit [facility] [address] [place] [address] Makenzie Anguiano MD [address] [place] [address] [facility] Start: 01-09-2025 End: 01-09-2025 Patient encounter procedure [facility] Comment on above: Arrived Start: 01-05-2025 End: 01-05-2025 Professional / ancillary services management 01/05/2025 4:00 PM EDT Ancillary Procedure [facility] [address] [place] [address] [facility] Start: 01-04-2025 End: 01-04-2025 Patient encounter procedure 01/04/2025 2:00 PM EDT Office Visit Maternal- Medicine at [facility] [address] [place] [address] Berna Daniel MD [address] [facility] [address] [place] [address] M[facility]- Medicine at [facility] Start: 01-04-2025 End: 01-04-2025 Telemedicine consultation with patient 01/04/2025 2:00 PM EDT Telemedicine Maternal- Medicine at [facility] [address] [place] [address] Berna Daniel MD [address] [facility] [address] [place] [address] Maternal- Medicine at [facility] Start: 01-03-2025 End: 01-03-2026 TSH W/REFLEX TO [...] Procedure [facility] [address] [phone] [facility] Start: 12-29-2024 End: 12-29-2024 Professional / ancillary services management 12/29/2024 4:00 PM EDT Ancillary Procedure [facility] [address] [phone] [facility] Start: 12-28-2024 End: 12-28-2025 [...] PM EDT Routine [facility] [address] [place] [phone] Hailee Mai, CNM [address] [place] [address] [facility] Start: 12-22-2024 End: 12-22-2024 Professional / ancillary services management 12/22/2024 4:00 PM EDT Ancillary Procedure [facility] [address] [phone] [facility] Start: 12-22-2024 End: 12-22-2024 Patient encounter procedure 12/22/2024 11:00 AM EDT Appointment [facility] [place] [address] [facility] [address] [place] [phone] [facility] [place] Start: 12-19-2024 End: 12-19-2024 Patient encounter procedure 12/19/2024 1:30 PM EDT Routine [facility] [address] [place] [phone] Pau Hailee L, CNM [address] [place] [address] [facility] Start: 12-15-2024 End: 12-15-2024 Professional / ancillary services management 12/15/2024 4:00 PM EDT Ancillary Procedure [facility] [address] [facility] [address] [place] [address] [facility] Start: 12-13-2024 End: 12-13-2024 Patient encounter procedure [facility]- [facility] at [facility] Start: 12-12-2024 End: 12-12-2024 Patient encounter procedure [facility] Comment on above: Arrived Start: 12-08-2024 End: 12-08-2024 Professional / ancillary services management 12/08/2024 9:30 AM EDT Ancillary Procedure [facility] [address] [address] [facility] Start: 12-05-2024 End: 12-05-2024 Patient encounter procedure [facility] Comment on above: Arrived Start: 11-24-2024 End: 11-24-2024 Patient encounter procedure 11/24/2024 2:15 PM EDT Appointment [facility] [place] [address] [facility] [address] [place] [address] [facility] [place] Start: 11-24-2024 End: 11-24-2025 US MFM with or without consult US MFM with or without consult Imaging Routine Polyhydramnios affecting in third trimester Hypothyroidism affecting in third trimester Elevated BP without diagnosis of hypertension History of insulin resistance Family history of autism Expected: 11/24/2024, Expires: 11/24/2025 [facility] Work Phone: Comment on above: Expected: 11/24/2024 , Expires: 11/24/2025 Start: 11-23-2024 End: 11-23-2024 Patient encounter procedure 11/23/2024 9:30 AM EDT Routine [facility] [address] [facility] [address] Hailee Mai, CNM [address] [place] [address] [facility] Start: 11-23-2024 End: 11-23-2024 Professional / ancillary services management 11/23/2024 9:00 AM EDT Ancillary Procedure [facility] [address] [place] [phone] [facility] Start: 11-14-2024 End: 11-14-2024 Patient encounter procedure 11/14/2024 3:00 PM EDT Office Visit [facility] [address] [facility] [phone] Hailee Mai, CNM [address] [place] [address] [facility] Start: 11-14-2024 End: 11-14-2025 [...] PM EDT Office Visit Maternal- Medicine at [facility] [address] [place] [address] Berna Daniel MD [address] 1[address] [place] [address] Maternal- Medicine at [facility] Start: 10-28-2024 End: 10-07-2025 Thyrotropin [Units/volume] in Serum or Plasma TSH Lab Routine Hypothyroidism affecting in second trimester Expected: 10/28/2024, Expires: 10/07/2025 [facility] Work Phone: Comment on above: Expected: 10/28/2024 , Expires: 10/07/2025 Start: 10-26-2024 End: 10-26-2024 Patient encounter procedure 10/26/2024 10:30 AM EDT Routine [facility] [address] [place] [phone] Hailee Mai, [facility] [address] [place] [address] [facility] Start: 10-18-2024 End: 10-18-2024 Patient encounter procedure 10/18/2024 2:00 PM EDT Appointment [facility] Imaging [address] [place] [phone] [facility] Start: 10-14-2024 End: 10-14-2024 Telemedicine consultation with patient 10/14/2024 9:45 AM EST Telemedicine Maternal- Medicine at [facility] [address] [place] [address] Berna Daniel MD [address] [place] [address] [facility]- Medicine at [facility] Start: 10-07-2024 End: 10-07-2024 Telemedicine consultation with patient 10/07/2024 10:00 AM EST Telemedicine Maternal- Medicine at [facility] [address] [place] [phone] Berna Daniel MD [address] [place], [place] [phone] M[facility]- Medicine at [facility] Start: 09-28-2024 End: 09-28-2025 TSH W/REFLEX TO FT4 TSH W/REFLEX TO FT4 Lab Routine Hypothyroidism, unspecified type (CMS/HCC) Expected: 09/28/2024 (Approximate), Expires: 09/28/2025 [facility] Work Phone: Comment on above: Expected: 09/28/2024 (Approximate), Expires: 09/28/2025 Start: 09-28-2024 End: 09-28-2024 Patient encounter procedure [facility] Comment on above: Arrived Start: 09-16-2024 End: 09-16-2024 Patient encounter procedure 09/16/2024 8:00 AM EST Appointment [facility] [address] [place] [phone] [facility] Imaging Start: 08-31-2024 End: 08-31-2024 Patient encounter procedure 08/31/2024 10:30 AM EST Routine [facility] [address] [place] [phone] Hailee Mai CNM [address] [place], [place] [phone] Arrived [facility] Comment on above: Arrived Start: 08-25-2024 End: 08-25-2024 Patient encounter procedure 08/25/2024 8:30 AM EST Routine [facility] [address] [place] [address] Hailee Mai CNM [address] [place] [address] [facility] Start: 08-22-2024 End: 08-22-2024 Telemedicine consultation with patient 08/22/2024 9:00 AM EST Telemedicine [facility]aternal- Medicine at [facility] [address] [place] [address] Keisha Freitas, [facility] [address] [place] [address] Maternal- Medicine at [facility] Start: 08-12-2024 End: 07-22-2025 Thyrotropin [Units/volume] in [...] AM EST Routine [facility] [address] [place] [phone] Hailee Mai CNM [address] [place] [address] [facility] Start: 07-22-2024 End: 07-22-2024 Patient encounter procedure 07/22/2024 8:45 AM EST Office Visit [facility]- [facility] at [facility] [address] [facility] [address] Berna Daniel MD [address] [place] [address] M[facility]- Medicine at [facility] Start: 07-22-2024 End: 07-22-2024 Patient encounter procedure 07/22/2024 7:30 AM EST Appointment [facility] [address] [facility] [place] [address] [facility] Start: 07-13-2024 End: 07-13-2024 Patient encounter procedure 07/13/2024 11:30 AM EST Routine [facility] [address] [place] [phone] Hailee Mai CNM [address] [place] [address] [facility] Start: 06-30-2024 End: 06-30-2025 US for US OB limited 1+ fetuses Imaging Routine Subchorionic hemorrhage of placenta in first trimester Expected: 06/30/2024, Expires: 06/30/2025 [facility] Work Phone: Comment on above: Expected: 06/30/2024 , Expires: 06/30/2025 Start: 06-15-2024 End: 06-15-2024 Professional / ancillary services management 06/15/2024 2:00 PM EST Ancillary Procedure [facility] [address] [phone] [facility] Start: 06-15-2024 End: 06-15-2024 ambulatory 06/15/2024 1:30 PM EST Initial [facility] [address] [place] [phone] Hailee Mai CNM [address] [place] [address] [facility] Start: 04-10-2024 Influenza vaccination P [facility] Start: 07-19-2023 Adult BMI Screening Adult BMI Screen ing [facility] Start: 07-19-2023 Tobacco Screening Tobacco Screening [facility] Start: 11-23-2022 DTaP,Tdap and Td Vaccines (7 - Td or Tdap) DTaP,Tdap and Td Vaccines (7 - Td or Tdap) [facility] Start: 2021 Screening for malignant neoplasm of cervix Pap Smear [facility] Start: 08-25-2018 End: 08-25-2018 Ambulatory 08/25/2018 Office Visit Primary Care Simona Astorga MD [address] [place] [address] [phone] [facility] Start: 2018 Adult BMI Follow Up Plan Adult BMI Follow Up Plan [facility] Start: 04-10-2018 Influenza vaccination SEQUENTI AL INFLUENZA VACCINE (#1) [facility] Start: 2012 Depression Screening Depression Scre ening [facility] Start: 2000 Adult depression screening assessment DEPRESSION SCREENING (PHQ9) [facility] Start: 2000 Screening for Chlamydia trachomatis Chlamydia Screening [facility] Start: 2000 SUBSTANCE ABUSE SCREENING (AUDIT-C) SUBSTANCE ABUSE SCREENING (AUDIT-C) [facility] Start: 2000 Tetanus vaccination TETANUS EVERY 10 YR [facility] End: 07-22-2025 Hemoglobin A1c/Hemoglobin.total in Blood Hemoglobin A1c Lab Routine 12 weeks gestation of PCOS (polycystic ovarian syndrome) History of insulin resistance 1 Occurrences starting 07/22/2024 until 07/22/2025 [facility] Comment on above: 1 Occurrences starti ng 07/22/2024 until 07/22/2025 Hemoglobin A1c/Hemoglobin.total in Blood Hemoglobin A1c Lab Routine 12 weeks gestation of PCOS (polycystic ovarian syndrome) History of insulin resistance 07/22/2024 11:21 AM EST [facility] End: 12-13-2025 Thyroid profile includes TSH FT4 Thyroid profile includes TSH FT4 Lab Routine Hypothyroidism, unspecified type 1 Occurrences starting 12/13/2024 until 12/13/2025 [facility] Work Phone: Comment on above: 1 Occurrences starti ng 12/13/2024 until 12/13/2025 End: 07-22-2025 Thyrotropin [Units/volume] in Serum or Plasma TSH Lab Routine Hypothyroidism affecting in first trimester 12 weeks gestation of 1 Occurrences starting 07/22/2024 until 07/22/2025 [facility] Work Phone: Comment on above: 1 Occurrences starti ng 07/22/2024 until 07/22/2025 Thyrotropin [Units/volume] in Serum or Plasma TSH Lab Routine Hypothyroidism affecting in first trimester 12 weeks gestation of 07/22/2024 11:21 AM EST [facility] End: 11-28-2025 Thyrotropin [Units/volume] in Serum or Plasma TSH Lab Routine Hypothyroidism affecting in third trimester 1 Occurrences starting 11/28/2024 until 11/28/2025 [facility] Work Phone: Comment on above: 1 Occurrences starti ng 11/28/2024 until 11/28/2025 Thyroxine (T4) free [Mass/volume] in Serum or Plasma T4, free Lab Routine Acquired hypothyroidism (CMS/HCC) Ordered: 01/03/2025 [facility] Comment on above: Ordered: 01/03/2025 End: 11-02-2025 TSH with Reflex TSH with Reflex Lab Routine Hypothyroidism affecting in second trimester 1 Occurrences starting 11/02/2024 until 11/02/2025 [facility] Work Phone: Comment on above: 1 Occurrences starti ng 11/02/2024 until 11/02/2025 Immunizations Immunization Date Immunization Notes Care Provider Fa cili 09-04-2022 influenza virus vacc ine, unspecified formulation Guy Easley INTEGRATED MARKETING MANAGER-TREAD BOOKER Work Phone: [facility] 09-14-2017 meningococcal B vacc ine, fully recombinant Guy Easley INTEGRATED MARKETING MANAGER-TREAD BOOKER Work Phone: [facility] 08-11-2017 human papilloma viru s vaccine, quadrivalent Guy Easley INTEGRATED MARKETING MANAGER-TREAD BOOKER Work Phone: [facility] 08-11-2017 meningococcal B vacc ine, fully recombinant Guy Easley INTEGRATED MARKETING MANAGER-[facility] Work Phone: [facility] 08-11-2017 meningococcal polysaccharide (groups A, C, Y and W-135) diphtheria toxoid conjugate vaccine (MCV4P) Guy Easley INTEGRATED MARKETING MANAGER-[facility] Work Phone: [facility] 06-06-2014 human papilloma viru s vaccine, quadrivalent Guy Easley INTEGRATED MARKETING MANAGER-[facility] Work Phone: [facility] 04-11-2014 hepatitis A vaccine, adult dosage Guy Easley INTEGRATED MARKETING MANAGER-[facility] Work Phone: [facility] 04-11-2014 varicella virus vaccine Ismael Easley INTEGRATED MARKETING MANAGER-[facility] Work Phone: [facility] 02-02-2014 human papilloma viru s vaccine, quadrivalent Guy Easley INTEGRATED MARKETING MANAGER-[facility] Work Phone: [facility] 11-23-2012 hepatitis A vaccine, adult dosage Guy Easley INTEGRATED MARKETING MANAGER-[facility] Work Phone: [facility] 11-23-2012 meningococcal oligosaccharide (groups A, C, Y and W-135) diphtheria toxoid conjugate vaccine (MCV4O) Guy Easley INTEGRATED MARKETING MANAGER-[facility] Work Phone: [facility] 11-23-2012 tetanus toxoid, redu marcy diphtheria toxoid, and acellular pertussis vaccine, adsorbed Guy Easley INTEGRATED MARKETING MANAGER-[facility] Work Phone: [facility] 12-04-2005 diphtheria, tetanus toxoids and acellular pertussis vaccine Guy Easley INTEGRATED MARKETING MANAGER-[facility] Work Phone: [facility] 12-04-2005 measles, mumps and rubella virus vaccine Guy Easley INTEGRATED MARKETING MANAGER-[facility] Work Phone: [facility] 09-08-2001 diphtheria, tetanus toxoids and acellular pertussis vaccine Guy Easley APRN-[facility] Work Phone: [facility] 09-08-2001 haemophilus influenz ae type b vaccine, conjugate unspecified formulation Guy Easley INTEGRATED MARKETING MANAGER-[facility] Work Phone: [facility] 09-08-2001 measles, mumps and rubella virus vaccine Guy Easley INTEGRATED MARKETING MANAGER-[facility] [place] Work Phone: [facility] 09-08-2001 poliovirus vaccine, inactivated Guy Easley INTEGRATED MARKETING MANAGER-[facility] [place] Work Phone: [facility] 09-08-2001 varicella virus vaccine Ismael Easley INTEGRATED MARKETING MANAGER-[facility] Work Phone: [facility] 2000 diphtheria, tetanus toxoids and acellular pertussis vaccine Guy Easley INTEGRATED MARKETING MANAGER-[facility] [place] Work Phone: [facility] 2000 haemophilus influenz ae type b vaccine, conjugate unspecified formulation Guy Easley INTEGRATED MARKETING MANAGER-[facility] [place] Work Phone: [facility] 2000 hepatitis B vaccine, adult dosage Guy Easley INTEGRATED MARKETING MANAGER-[facility] [place] Work Phone: [facility] 2000 poliovirus vaccine, inactivated Guy Easley INTEGRATED MARKETING MANAGER-[facility] [place] Work Phone: [facility] 2000 diphtheria, tetanus toxoids and acellular pertussis vaccine Guy Easley INTEGRATED MARKETING MANAGER-[facility] [place] Work Phone: [facility] 2000 haemophilus influenz ae type b vaccine, conjugate unspecified formulation Guy Easley INTEGRATED MARKETING MANAGER-[facility] [place] Work Phone: [facility] 2000 poliovirus vaccine, inactivated Guy Easley INTEGRATED MARKETING MANAGER-[facility] [place] Work Phone: [facility] 2000 diphtheria, tetanus toxoids and acellular pertussis vaccine Guy Easley INTEGRATED MARKETING MANAGER-[facility] [place] Work Phone: [facility] 2000 haemophilus influenz ae type b vaccine, conjugate unspecified formulation Guy Easley INTEGRATED MARKETING MANAGER-[employer]READ [employer] Work Phone: [facility] 2000 hepatitis B vaccine, adult dosage Guy Easley INTEGRATED MARKETING MANAGER-TREAD [employer] Work Phone: [facility] 2000 poliovirus vaccine, inactivated Guy Easley INTEGRATED MARKETING MANAGER-[employer]READ [employer] Work Phone: [facility] 2000 hepatitis B vaccine, adult dosage Guy Easley INTEGRATED MARKETING MANAGER-TREAD B[employer]ER Work Phone: [facility] Payers Date Payer Category Payer Commercial Managed C are - PPO [id number] 2024 Private Health Insurance [employer] [id number] 2024 Unknown [id number] 2024 [facility] er [id number] 2024 Unknown [id number] 2024 Unknown 2023 [employer] - Other [id number] 2023 Unknown [id number] 2000 Unknown [id number] 2.16.840.1.846351.3.579.2. 903 2000 Unknown [id number] 2.16.840.1.401668.3.579.2. 900 2000 Unknown [id number] 2.16.840.1.210944.3.579.2. 593 2000 Unknown [id number] 2.16.840.1.994347.3.579.2. 1286 2000 Unknown [id number] 2.16.840.1.862190.3.579.2. 1286 2000 Unknown [id number] 2.16.840.1.276401.3.579.2. 1286 2000 Unknown [id number] 2.16.840.1.490369.3.579.2. 1286 2000 Unknown [id number] 2.16.840.1.935935.3.579.2. 1286 2000 Unknown [id number] 2.16.840.1.215229.3.579.2. 1286 2000 Unknown [id number] 2.16.840.1.740491.3.579.2. 1286 2000 Unknown [id number] 2.16.840.1.854903.3.579.2. 1286 2000 Unknown [id number] 2.16.840.1.005130.3.579.2. 1286 2000 Unknown [id number] 2.16.840.1.842183.3.579.2. 1285 2000 Unknown [id number] 2.16.840.1.631073.3.579.2. 1285 2000 Unknown [id number] 2.16.840.1.113888.3.579.2. 1285 2000 Unknown [id number] 2.16.840.1.765121.3.579.2. 1285 2000 Unknown [id number] 2.16.840.1.476069.3.579.2. 1285 2000 Unknown [id number] 2.16.840.1.783060.3.579.2. 1285 2000 Unknown [id number] 2.16.840.1.887523.3.579.2. 1258 2000 Unknown [id number] 2.16.840.1.388361.3.579.2. 1258 2000 Unknown [id number] 2.16.840.1.700149.3.579.2. 1258 2000 Unknown [id number] 2.16.840.1.500661.3.579.2. 1258 2000 Unknown [id number] 2.16.840.1.613505.3.579.2. 1258 2000 Unknown [id number] 2.16.840.1.649075.3.579.2. 1258 2000 Unknown [id number] 2.16.840.1.276842.3.579.2. 1258 2000 Unknown [id number] 2.16.840.1.945898.3.579.2. 1258 2000 Unknown [id number] 2.16.840.1.055658.3.579.2. 1258 2000 Unknown [id number] 2.16.840.1.183746.3.579.2. 1259 2000 Unknown [id number] 2.16.840.1.880705.3.579.2. 9 2000 Unknown [id number] 2.16.840.1.333381.3.579.2. 9 2000 Unknown [id number] 2.16.840.1.114799.3.579.2. 1258 2000 Unknown [id number] 2.16.840.1.163437.3.579.2. 1258 2000 Unknown [id number] 2.16.840.1.703246.3.579.2. 1258 2000 Unknown [id number] 2.16.840.1.695837.3.579.2. 1258 2000 Unknown [id number] 2.16840.1.987070.3.579.2. 1258 2000 Unknown [id number] 2.16.840.1.981163.3.579.2. 1285 2000 Unknown [id number] 2.16.840.1.515739.3.579.2. 1285 2000 Unknown [id number] 2.16.840.1.765385.3.579.2. 1285 2000 Unknown [id number] 2.16.840.1.789217.3.579.2. 1285 2000 Unknown [id number] 2.16840.1.614027.3.579.2. 1285 2000 Unknown [id number] 2.16840.1.056608.3.579.2. 1285 2000 Unknown [id number] 2.16.840.1.898398.3.579.2. 1286 1959 Unknown [id number] Unknown [id number] 2.16840.1.994430.3.579.2. 246 Social History Date Type Detail Facility Start: 07-29-2018 End: 06-15-2024 Tobacco smoking status NHIS Never smoker [facility] Start: 2000 Sex Assigned At Not on file [facility] Tobacco smoking stat us MEIS Tobacco smoking consumption unknown [facility] Start: 09-20-2020 End: 06-15-2024 Gender identity Not on file [facility] Start: 06-15-2024 End: 07-05-2024 Tobacco use and exposure Former smokeless tobacco user [facility] Start: 06-15-2024 End: 12-13-2024 Alcoholic beverage intake Ex-drinker (finding) [facility] Start: 09-20-2020 End: 06-15-2024 History of Social function [facility] Start: 05-07-2024 [facility] Adolescent depressio n screening assessment 6 [facility] Start: 2000 Sex assigned at Female P [facility] Start: 03-15-2015 Sex Female (finding) [facility] Start: 05-11-2024 Gender identity Identifies as female gender (finding) [facility] Start: 05-11-2024 Sexual orientation Bisexual (finding ) [facility] Start: 09-14-2017 Tobacco use and exposure Smokeless tobacco non-user [facility] Start: 03-06-2024 Alcoholic beverage intake Current non-drinker of alcohol (finding) [facility] Has the electric, [employer], oil, or water company threatened to shut off services in your home in past 12Mo No [facility] Goals Date Patient Goal Desired Activity /State [...] scheduled for Thursday01/22/25 documented in this encounter [facility] 01-09-2025 History of Presen t illness Narrative [...] Induction of labor scheduled for 01/22/25 at [facility] Follow up in 1 week for a routine visit. documented in this encounter [facility] 01-09-2025 Miscellaneous Notes Formattin g of this note might be different from the original. TC to patient to confirm her appointment tomorrow 01/10/[address] Anguiano @ 0900. Patient confirmed documented in this encounter [facility] 01-09-2025 Telephone encount er Note TC to patient to confirm her appointment tomorrow 01/10/[address] Anguiano @ 0900. Patient confirmed [facility] 01-03-2025 History of Presen t illness Narrative [...] a routine visit. documented in this encounter [facility] 01-03-2025 Miscellaneous Notes Formattin g of this note might be different from the original. Left voicemail for Leanne at [facility] office - would like to make sure patient has not had a TSH drawn since 11/24/24. Awaiting call back. documented in this encounter [facility] 01-03-2025 Telephone encount er Note Left voicemail for Leanne at [facility] office - would like to make sure patient has not had a TSH drawn since 11/24/24. Awaiting call back. [facility] 12-28-2024 History of Presen t illness Narrative [...] a routine visit. documented in this encounter [facility] 12-19-2024 History of Presen t illness Narrative [...] during in second trimester Hypothyroidism, unspecified type ([facility]) History of anxiety History of depression Continue vitamin. Labs reviewed. Reactive NST in office today GBS at 36 weeks Expected mode of delivery Follow up in 1 week for a routine visit. documented in this encounter [facility] 12-13-2024 History of Presen t illness Narrative [...] [id number] - hypothyroidism in Please see prior [facility] consultation notes for detailed discussions and consultation on the patient multiple comorbidities She has been compliant with the Synthroid Referral given to endocrinology as the patient does not have sales ledger clerk to follow her long-term dose to be [...] Repeat growth ultrasound in 4 weeks through [facility] Recommend weekly testing starting at 32 weeks gestation, per ACOG guidelines primary OB office Delivery planning at 39 weeks unless a sooner indication arises. If she delivers by , recommend VTE prevention (LMWH 40mg daily) during hospitalization Follow up in [facility] already scheduled Follow-up with the [facility] scheduled DISPOSITION: At this point the patient is in complete care of her sand cleaning machine operator. Patient does have ultrasound and office visit scheduled with us. Thank you for allowing me to participate in the care of Maximilian Cortes. If there any questions please do not hesitate to contact us. Frank Gao MD, FACOG (she/hers) Maternal- Medicine [facility] [address] [facility] [address] [place] [address] This document was created with Pangalore technology. Though I make every effort to review the dictation as it is transcribed, on occasion the spoken word can be misinterpreted by the technology leading to inappropriate words, phrases, or sentences. This note is addressed to the requesting provider as a consultation for clinical guidance. Specific medical abbreviations are occasionally used and those are generally approved by the [place]?Board of?Obstetrics and?Gynecology?as well as?Kayla manuel abbreviations. The above plan of care was based solely on the diagnoses for which a consultation was requested. ?More frequent testing may be indicated based on her other medical/obstetrical conditions. The management of other or medical conditions is beyond the scope of requested consultation and will continue to be followed by the primary sand cleaning machine operator or primary care provider. Note to patient: [...] of the practitioner. documented in this encounter [facility] 12-12-2024 History of Presen t illness Narrative [...] via telemed visit. Patient was [facility] week for cramping, N/V and [...] no abdominal tightening. documented in this encounter [facility] 12-05-2024 History of Presen t illness Narrative [...] a routine visit. documented in this encounter [facility] 11-28-2024 Miscellaneous Notes Formattin g of this note might be different from the original. Notified patient by phone of new Levothyroxine dosing. Patient verbalized understanding and has already received a notification from her pharmacy that the new dose is in process and can be picked up tomorrow after 2pm. documented in this encounter [facility] 11-28-2024 Telephone encount er Note Notified patient by phone of new Levothyroxine dosing. Patient verbalized understanding and has already received a notification from her pharmacy that the new dose is in process and can be picked up tomorrow after 2pm. [facility] 11-28-2024 Miscellaneous Notes Formattin g of this note might be different from the original. Spoke with patient who states she is taking her levothyroxine as follows: 150mcg on M,W,F,Sat,Sun and 225mcg T&Th. documented in this encounter [facility] 11-28-2024 Telephone encount er Note Spoke with patient who states she is taking her levothyroxine as follows: 150mcg on M,W,F,Sat,Sun and 225mcg T&Th. [facility] 11-28-2024 Miscellaneous Notes Formattin g of this note is different from the original. Patient called to review thyroid function. No answer, VM was full. Lab Results Component Value Date TSH 11.33 (H) 11/24/2024 RN will attempt to call patient back and confirm dosing before medication changes are made. Berna Daniel MD [facility] [place] [id number] [address] documented in this encounter [facility] 11-28-2024 Telephone encount er Note Patient called to review thyroid function. No answer, VM was full. Lab Results Component Value Date TSH 11.33 (H) 11/24/2024 RN will attempt to call patient back and confirm dosing before medication changes are made. Berna Daniel MD [facility] [place] [id number] [address] [facility] 11-28-2024 Miscellaneous Notes Formattin g [...] today. Pt understood. documented in this encounter [facility] 11-28-2024 Telephone encount er Note Patient called [...] reach out to her today. Pt understood. [facility] 11-24-2024 History of Presen t illness Narrative [...] Visit via Real-time Synchronous Audiovisual Provider Location: [facility] AT [address] [id number] Patient Location: Other Patient Location Horse Stud Manager: None Video Visit Consent Statement: I discussed [...] that there are some limitations compared to [id number] evaluations. We elected to proceed. REASON FOR [...] Repeat growth ultrasound in 4 weeks through [facility] Recommend weekly testing starting at 32 weeks gestation, per ACOG guidelines Delivery planning at 39 weeks unless a sooner indication arises. If she delivers by , recommend VTE prevention (LMWH 40mg daily) during hospitalization Follow up in [facility] already scheduled DISPOSITION: At this point the patient is in complete care of her sand cleaning machine operator. Patient does have ultrasound and office visit [...] procedures Referring and communicating with other health director of patient care (not separately reported) Documenting clinical information in the electronic or other health record Berna Daniel MD Maternal- Medicine [facility] [address] [facility] 1st [place] [address] [facility], the CDC, and other organizations representing maternal and public health professionals recommend that , , and lactating people and those considering receive the COVID-19 vaccination. Vaccination is the best method to reduce maternal and complications of SARS-CoV-2 infection. This document was created with Pangalore technology. Though I make every effort to review the dictation as it is transcribed, on occasion the spoken word can be misinterpreted by the technology leading to inappropriate words, phrases, or sentences. This note is addressed to the requesting provider as a consultation for clinical guidance. Specific medical abbreviations are occasionally used and those are generally approved by the [place]?Board of?Obstetrics and?Gynecology?as well as?Kayla s abbreviations. The above plan of care was based solely on the diagnoses for which a consultation was requested. ?More frequent testing may be indicated based on her other medical/obstetrical conditions. The management of other or medical conditions is beyond the scope of requested consultation and will continue to be followed by the primary sand cleaning machine operator or primary care provider. Note to patient: [...] Patient tolerated well. documented in this encounter [facility] 11-18-2024 Miscellaneous Notes Formattin g of this note might be different from the original. Left another voicemail for Annabella Mai's nurse in regards to USN results faxed to our office on 11/16/24. Unclear why it was sent or what is needed from [facility]. Awaiting call back. documented in this encounter [facility] 11-18-2024 Telephone encount er Note Left another voicemail for Annabella Mai's nurse in regards to USN results faxed to our office on 11/16/24. Unclear why it was sent or what is needed from [facility]. Awaiting call back. [facility] 11-17-2024 Miscellaneous Notes Formattin g of this note might be different from the original. Left voicemail for Annabella Mai's nurse inquiring why an ultrasound from [facility] completed on 11/14/24 was sent to [facility] and if anything is needed from us. Awaiting call back. documented in this encounter [facility] 11-17-2024 Telephone encount er Note Left voicemail for Annabella Mai's nurse inquiring why an ultrasound from [facility] completed on 11/14/24 was sent to [facility] and if anything is needed from us. Awaiting call back. [facility] 11-14-2024 History of Presen t illness Narrative [...] a routine visit. documented in this encounter [facility] 11-14-2024 Telephone encount er Note Spoke with Annabella and appt made for 3 pm today 11/14/24 Spoke with pt and pt will be here :) [facility] 11-14-2024 Miscellaneous Notes Formattin g of this [...] all bases <3 documented in this encounter [facility] 11-14-2024 Telephone encount er Note Pt just [...] and Leanne to cover all bases <3 [facility] 11-04-2024 Miscellaneous Notes Formattin g of this note might be different from the original. Received voicemail from patient stating she did receive new Levothyroxine dosing. documented in this encounter [facility] 11-04-2024 Telephone encount er Note Received voicemail from patient stating she did receive new Levothyroxine dosing. [facility] 11-04-2024 Miscellaneous Notes Formattin g of this note might be different from the original. Left another voicemail for patient to ensure she received the new dosing for levothyroxine. Requested a call back to confirm. documented in this encounter [facility] 11-04-2024 Telephone encount er Note Left another voicemail for patient to ensure she received the new dosing for levothyroxine. Requested a call back to confirm. [facility] 11-03-2024 Miscellaneous Notes Formattin g of this note might be different from the original. Left voicemail for patient notifying of new levothyroxine dosing. Insulation Mechanic requested a call back from patient to confirm she received the new dosing instructions. documented in this encounter [facility] 11-03-2024 Telephone encount er Note Left voicemail for patient notifying of new levothyroxine dosing. Insulation Mechanic requested a call back from patient to confirm she received the new dosing instructions. [facility] 11-01-2024 History of Presen t illness Narrative [...] 40mg daily) during hospitalization Follow up in [facility] already scheduled DISPOSITION: At this point the patient is in complete care of her sand cleaning machine operator. Patient does have ultrasound and office visit [...] back tomorrow. Berna Daniel MD Maternal- Medicine [facility] [address] [facility] 1st [place] [address] [facility], the CDC, and other organizations representing maternal and public health professionals recommend that , , and lactating people and those considering receive the COVID-19 vaccination. Vaccination is the best method to reduce maternal and complications of SARS-CoV-2 infection. This document was created with [employer]ang[employer] technology. Though I make every effort to review the dictation as it is transcribed, on occasion the spoken word can be misinterpreted by the technology leading to inappropriate words, phrases, or sentences. This note is addressed to the requesting provider as a consultation for clinical guidance. Specific medical abbreviations are occasionally used and those are generally approved by the [place]?Board of?Obstetrics and?Gynecology?as well as?Kayla manuel abbreviations. The above plan of care was based solely on the diagnoses for which a consultation was requested. ?More frequent testing may be indicated based on her other medical/obstetrical conditions. The management of other or medical conditions is beyond the scope of requested consultation and will continue to be followed by the primary sand cleaning machine operator or primary care provider. Note to patient: [...] procedures Referring and communicating with other health director of patient care (not separately reported) Documenting clinical information in the electronic or other health record documented in this encounter [facility] 10-07-2024 Telephone encount er Note Annabella, I [...] would call in the paxlovid. [place] in [place], [place]. Im sending this *and* calling you, just to be safe. I called the pt to tell her what you said about sending the rx later tonight, because you are in a conference in [place]. And that she will have to pick it up from the pharmacy tomorrow morning. I had to leave her a vm with the information. [facility] 10-07-2024 Miscellaneous Notes Formattin g of this [...] would call in the paxlovid. [place] in [place], [place]. Im sending this *and* calling you, just to be safe. I called the pt to tell her what you said about sending the rx later tonight, because you are in a conference in [place]. And that she will have to pick it up from the pharmacy tomorrow morning. I had to leave her a vm with the information. documented in this encounter [facility] 10-07-2024 History of Presen t illness Narrative Video Visit via Real-time Synchronous Audiovisual Provider Location: [facility] AT [address] [phone] Patient Location: Patient's home Patient Location Horse Stud Manager: None Video Visit Consent Statement: I discussed [...] that there are some limitations compared to [id number]-[id number] evaluations. We elected to proceed. REASON FOR [...] 40mg daily) during hospitalization Follow up in [facility] already scheduled DISPOSITION: At this point the patient is in complete care of her sand cleaning machine operator. Patient does have ultrasound and office visit scheduled with us. Thank you for allowing me to participate in the care of Maximilian Cortes. If there any questions please do not hesitate to contact us. Berna Daniel MD Maternal- Medicine [facility] [address] [facility] 1st [place] [address] [facility], the CDC, and other organizations representing maternal and public health professionals recommend that , , and lactating people and those considering receive the COVID-19 vaccination. Vaccination is the best method to reduce maternal and complications of SARS-CoV-2 infection. This document was created with Pangalore technology. Though I make every effort to review the dictation as it is transcribed, on occasion the spoken word can be misinterpreted by the technology leading to inappropriate words, phrases, or sentences. This note is addressed to the requesting provider as a consultation for clinical guidance. Specific medical abbreviations are occasionally used and those are generally approved by the [place]?Board of?Obstetrics and?Gynecology?as well as?Kayla manuel abbreviations. The above plan of care was based solely on the diagnoses for which a consultation was requested. ?More frequent testing may be indicated based on her other medical/obstetrical conditions. The management of other or medical conditions is beyond the scope of requested consultation and will continue to be followed by the primary sand cleaning machine operator or primary care provider. Note to patient: [...] procedures Referring and communicating with other health director of patient care (not separately reported) Documenting clinical information in the electronic or other health record documented in this encounter [facility] 10-06-2024 History of Presen t illness Narrative Patient went to urgent care and then ER yesterday as she was not feeling well. She went to [facility] ER and was diagnosed with COVID, her has flu A. Advised patient as she is to continue baby ASA, she does not want Paxlovid but she will take a Zpak and steroid. RX sent to [facility] in [place]. documented in this encounter [facility] 10-05-2024 History of Presen t illness Narrative Subjective: Patient ID: Maximilian Cortes is a 24 y.o. female. Chief Complaint Patient presents with Cough Cough, shortness of breath, started today. Currently 6 months . Patient presents with low-grade fever, stuffy nose/sore throat, cough/shortness for breath, chest pain, nausea/constipation, dizziness that started today. Patient is currently 6 months and follows with [facility] planning to deliver at [facility]. Patient states that she has having a [...] is agreeable to being seen at [facility] ER. Report was called to Nancy LORENZO. Patient left facility with some shortness of breath, tachycardia but otherwise no acute distress with life sustaining vitals. Labs for this visit: Maximilian was seen today for cough. Diagnoses and all orders for this visit: Tachycardia - [facility] - Emergency Department - [place], [place]; Future Shortness of breath - [facility] Emergency Department - [place], [place]; Future Chest pain, unspecified type - [facility] Emergency Department - [place], [place]; Future No orders of the defined [...] Farfan 10/07/24 0804 documented in this encounter [facility] 10-05-2024 Miscellaneous Notes Formattin g of this note might be different from the original. OB office (LEANNE) called regarding patients thyroid levels and stating her labs have resulted and levels have increased and that she faxed over her results, will be on the look out for fax. documented in this encounter [facility] 10-05-2024 Telephone encount er Note OB office (LEANNE) called regarding patients thyroid levels and stating her labs have resulted and levels have increased and that she faxed over her results, will be on the look out for fax. [facility] 09-28-2024 History of Presen t illness Narrative [...] , second trimester Hypothyroidism, unspecified type (CMS/[facility]) - TSH W/REFLEX TO FT4; Future Educated patient on plan of care in the future. Due to her thyroid we will do increased surveillance testing with NSTs and BPPs and growths. PVU and I will also wait for [facility] recommendations to make sure there is no change in the plan of care. Continue vitamin. Labs reviewed. Rhogam GTT at 28 weeks Follow up in 2 weeks for a routine visit. documented in this encounter [facility] 08-31-2024 History of Presen t illness Narrative [...] regarding thyroid and plan of care with [facility]. She should also plan to have lined up a PCP for herself and possibly sales ledger clerk. She also [place] and her cousin lives in another trailer there and her and her 2 kids have tested positive for lead. She is interested in having that testing done. She does not currently have insurance and wants to wait until she does have insurance. She is scheduled for anatomy scan 09/16/24 at [facility] office. She has stated she does not want to meet a insurance risk analyst or have further testing done on the baby. She states they wanted that due to family history of autism and she states it won't change the outcome so she mccarty not want any of it done. I did advise her to discuss with [facility]. We kip did discuss the testing that [...] 25 mg daily Continue baby ASA that [facility] started her on Continue thyroid medication 125 mcg daily. Continue vitamin. Labs reviewed. Rhogam GTT . Follow up in 2 weeks for a routine visit. documented in this encounter [facility] 08-22-2024 Telephone encount er Note Jac, my name is DIVYA Snell. I am calling to speak with Jen. Means nurse oral if she is in office. I just have some questions about an upcoming appointment. If you could please give me a call back at the earliest convenience my phone. [phone]. Thank you. [facility] 08-22-2024 Miscellaneous Notes Formattin g of this note might be different from the original. Jac, my name is DIVYA Snell. I am calling to speak with Jen. Means nurse oral if she is in office. I just have some questions about an upcoming appointment. If you could please give me a call back at the earliest convenience my phone. [phone]. Thank you. documented in this encounter [facility] 08-22-2024 Miscellaneous Notes Formattin g of this note might be different from the original. Left message for patient regarding Genetic Counseling visit today . Returned phone call from patient stating unsur if insurance to cover video visit is active yet or not. Patient to check with insurance company and will reschedule. documented in this encounter [facility] 08-22-2024 Telephone encount er Note Left message for patient regarding Genetic Counseling visit today . [facility] 08-22-2024 Telephone encount er Note Returned phone call from patient stating unsur if insurance to cover video visit is active yet or not. Patient to check with insurance company and will reschedule. [facility] 08-02-2024 History of Presen t illness Narrative Video Visit via Real-time Synchronous Audiovisual Provider Location: [facility] AT [address] [phone] Patient Location: Patient's home Patient Location Horse Stud Manager: None Video Visit Consent Statement: I discussed [...] that there are some limitations compared to [id number]-ub-[id number] evaluations. We elected to proceed. REASON FOR [...] slightly below normal cognitive function. Updating the hvac specialist of this diagnosis at the time of [...] 40mg daily) during hospitalization Follow up in [facility] already scheduled DISPOSITION: At this point the patient is in complete care of her sand cleaning machine operator. Patient does have ultrasound and office visit scheduled with us. Thank you for allowing me to participate in the care of Maximilian Cortes. If there any questions please do not hesitate to contact us. Berna Daniel MD Maternal- Medicine [facility] [address] [facility] [address] [place] [address] [facility], the CDC, and other organizations representing maternal and public health professionals recommend that , , and lactating people and those considering receive the COVID-19 vaccination. Vaccination is the best method to reduce maternal and complications of SARS-CoV-2 infection. This document was created with [employer] technology. Though I make every effort to review the dictation as it is transcribed, on occasion the spoken word can be misinterpreted by the technology leading to inappropriate words, phrases, or sentences. This note is addressed to the requesting provider as a consultation for clinical guidance. Specific medical abbreviations are occasionally used and those are generally approved by the [place]?Board of?Obstetrics and?Gynecology?as well as?Kayla manuel abbreviations. The above plan of care was based solely on the diagnoses for which a consultation was requested. ?More frequent testing may be indicated based on her other medical/obstetrical conditions. The management of other or medical conditions is beyond the scope of requested consultation and will continue to be followed by the primary sand cleaning machine operator or primary care provider. Note to patient: [...] procedures Referring and communicating with other health director of patient care (not separately reported) Documenting clinical information in the electronic or other health record documented in this encounter [employer] 07-27-2024 History of Presen t illness Narrative [...] Her is complicated by: hypothyroid, sent to [facility], patient does not have a PCP or [...] Rhogam GTT will do early as per [facility] recommnedations. Patient has hypothyroid, no PCP and is overweight. As per [facility] they would like her gtt to be done at 13-15 weeks despite a normal A1c. Patient will come next week for glucose testing. Follow up in 2 weeks for a routine visit. documented in this encounter [facility] 07-22-2024 History of Presen t illness Narrative Patient called and updated on repeat thyroid function, persistently elevated TSH 14.8. Patient informed to discontinue levothyroxine 100 mcg daily, increased to levothyroxine 137 mcg daily. Prescription sent to pharmacy. Repeat TSH ordered in 3 weeks at new dose. Patient also informed of the benefits of baby aspirin. Berna Daniel MD Maternal- Medicine [place] [id number] [facility] [address] [place] [address] documented in this encounter [facility] 07-22-2024 History of Presen t illness Narrative Blood drawn by lab for cell-free DNA testings and carrier testing . Patient tolerated well. documented in this encounter [facility] 07-22-2024 History of Presen t [...] TESTS AND ULTRASOUND REPORTS: Referral records and [facility] chart were reviewed Pertinent Ultrasound findings [...] I offered to refer her to a stock drier tender to assist with dietary modifications. Due to [...] patient is in complete care of her sand cleaning machine operator. Patient does have ultrasound and office visit scheduled with us. Thank you for allowing me to participate in the care of Maximilian Cortes. If there any questions please do not hesitate to contact us. Berna Daniel MD Maternal- Medicine [facility] [address] [facility] 1st [place] [address] [facility], the CDC, and other organizations representing maternal and public health professionals recommend that , , and lactating people and those considering receive the COVID-19 vaccination. Vaccination is the best method to reduce maternal and complications of SARS-CoV-2 infection. This document was created with Pangalore technology. Though I make every effort to review the dictation as it is transcribed, on occasion the spoken word can be misinterpreted by the technology leading to inappropriate words, phrases, or sentences. This note is addressed to the requesting provider as a consultation for clinical guidance. Specific medical abbreviations are occasionally used and those are generally approved by the [place]?Board of?Obstetrics and?Gynecology?as well as?Kayla manuel abbreviations. The above plan of care was based solely on the diagnoses for which a consultation was requested. ?More frequent testing may be indicated based on her other medical/obstetrical conditions. The management of other or medical conditions is beyond the scope of requested consultation and will continue to be followed by the primary sand cleaning machine operator or primary care provider. Note to patient: [...] yet Have you been seen here at [facility] in a previous ?no Recent ER visits or hospitalizations? No Bring blood sugar log or meter with you today? (Please bring them with you for every visit at [facility]) N/a Flu vaccine (Jun-October)? No Any concerns that you would like me to mention to the provider today? No documented in this encounter [employer] 06-30-2024 History of Presen t illness Narrative [...] long time and when she went to [facility] dept, they started her on the medication [...] a routine visit. documented in this encounter [facility] 06-15-2024 History of Presen t illness Narrative midSubjective Maximilian Cortes is a 24 y.o. at 7w4d with a working estimated date of delivery of 01/28/2025, by Last Menstrual Period who presents for an initial visit. This is unplanned. No care steam shovel operator to display OB History Para Term AB [...] also given office phone number and [facility] number to call in case of an emergency or after hours needs. PVU and all questions answered. We did discuss place of delivery. Patient should plan to go to [facility] for all services unless an emergency and they need to go to the closest ER. We can make other arrangements possibly if patient would like to deliver at another facility but I did explain I am now at [facility] 100% of the time and would like to do all deliveries there. documented in this encounter [facility] 06-14-2024 Telephone encount er Note Pt left message on machine to r/s her appointment. She hadn't heard from anyone and would like a callback, [facility] 06-14-2024 Miscellaneous Notes Formattin g of this note might be different from the original. Pt left message on machine to r/s her appointment. She hadn't heard from anyone and would like a callback, documented in this encounter [facility] 03-06-2024 History of Presen t illness Narrative [...] shut left eye. He has been taking leyq-slq-cwxnsgg NyQuil and DayQuil for symptoms without much [...] Medical History: Diagnosis Date Bipolar 1 disorder ([facility]) Depression Iron deficiency anemia Obesity PCOS (polycystic [...] days. Healthcare maintenance - Ambulatory Referral to [facility] Primary Care; Future -diagnosis uri with cough and unilateral conjunctivitis -conservative treatment discussed. Scbs-ofy-ozclelq Tylenol or Motrin p.r.n. pain fever greater [...] [place] 03/06/24 0940 documented in this encounter [facility] Evaluation note Diagnosis Acquired hypothyroidism (CMS/HCC)- Primary Unspecified hypothyroidism Subchorionic hemorrhage of placenta in first trimester 9 weeks gestation of documented in this [facility]* Diagnosis Screening for diabetes mellitus documented in this encounter [facility]* Diagnosis Abnormal genetic test during - Primary Hypothyroidism affecting in second trimester 14 weeks gestation of documented in this encounter [facility]* Diagnosis Amenorrhea Absence of menstruation examination or test, positive result Hypothyroidism, unspecified type (CMS/HCC) documented in [facility] encounter [facility]* Diagnosis History of depression- Primary Personal history of other mental disorder Acquired hypothyroidism (CMS/HCC) Unspecified hypothyroidism Encounter for care of first , second trimester documented in this encounter [facility]* Diagnosis Hypothyroidism affecting in first trimester- Primary PCOS (polycystic ovarian syndrome) Polycystic ovaries History of insulin resistance Family history of autism Abnormal genetic test during Hypothyroidism affecting in second trimester documented in this encounter [facility]* Diagnosis Upper respiratory infection with cough and congestion- Primary Acute bacterial conjunctivitis of left eye Healthcare maintenance documented in this encounter [facility]* Diagnosis Hypothyroidism affecting in first trimester- Primary 12 weeks gestation of PCOS (polycystic ovarian syndrome) Polycystic ovaries History of insulin resistance Family history of autism [facility] Diagnosis Hypothyroidism affecting in first trimester- Primary [facility] Diagnosis History of depression- Primary Personal history of other mental disorder Encounter for care of first , second trimester Hypothyroidism, unspecified type (CMS/HCC) documented in this encounter [facility] note* Diagnosis COVID- Primary Encounter for care of first , second trimester documented in this encounter [facility]* Diagnosis Tachycardia- Primary Unspecified tachycardia Shortness of breath Chest pain, unspecified type documented in this encounter [facility]* Diagnosis Elevated BP without diagnosis of hypertension- Primary 23 weeks gestation of COVID-19 affecting in second trimester At increased risk for exposure to influenza virus Hypothyroidism affecting in second trimester documented in this encounter [facility]* Diagnosis Hypothyroidism affecting in second trimester- Primary 27 weeks gestation of Elevated BP without diagnosis of hypertension documented in this encounter [facility]* Diagnosis Other constipation- Primary Encounter for care of first , third trimester Hypothyroidism, unspecified type (CMS/HCC) documented in this encounter [facility] note* Diagnosis Polyhydramnios affecting in third trimester- Primary Constipation, unspecified constipation type 30 weeks gestation of Hypothyroidism affecting in third trimester Elevated BP without diagnosis of hypertension documented in this encounter [facility]* Diagnosis Polyhydramnios affecting in third trimester- Primary Hypothyroidism affecting in third trimester Elevated BP without diagnosis of hypertension History of insulin resistance Family history of autism documented in this encounter [facility]* Diagnosis Hypothyroidism affecting in third trimester- Primary documented in this encounter [facility]* Diagnosis Encounter for care of first , third trimester- Primary Hypothyroidism, unspecified type (CMS/HCC) Heartburn during in second trimester History of depression Personal history of other mental disorder Acquired hypothyroidism (CMS/HCC) Unspecified hypothyroidism documented in this encounter [facility] note* Diagnosis Encounter for care of first , third trimester- Primary Heartburn during in second trimester Hypothyroidism, unspecified type (CMS/HCC) History of anxiety History of depression Personal history of other mental disorder documented [facility]* Diagnosis 33 weeks gestation of Hypothyroidism, unspecified type documented in this encounter [facility]* Diagnosis Encounter for care of [...] specified hypothyroidism- Primary documented in this encounter [facility]* Diagnosis Encounter for care of [...] encounter [facility]ructionsNot on filedocumented in this [facility] [email or web address] SystemInstructionsNot on filedocumented in this encounterProBay[facility] [email or web address] SystemInstructionsNot on filedocumented in this encounterProBerger [facility] SystemInstructions* Attachments The following attachments cannot be sent through Care Everywhere. * Viral Upper Respiratory Infection Discharge Instructions, Adult (Sl[place]ak) documented in this encounter[facility] SystemInstructionsNot on file documented in this encounterProBaypointe [facility] [email or web address] SystemInstructionsNot on file documented in this encounterProBaypo[facility] Hospital Health SystemInstructionsNot on file documented in this encounterProBaypointe [facility] [email or web address] SystemInstructionsNot on file documented in this encounterProBaypointe Hospital [email or web address] SystemInstructionsNot on file documented in this encounterProMedica Health SystemInstructionsNot on file documented in this encounterProBerger Hospital SystemInstructionsNot on file documented in this encounterProBerger Hospital SystemInstructionsNot on file documented in this encounterProBerger Hospital SystemInstructionsNot on file documented in this encounterProBerger Hospital SystemInstructions* Attachments The following attachments cannot be sent through Care Everywhere. * Preeclampsia (Slovak) documented in this encounterProBer[facility] Hospital SystemInstructionsNot on file documented in this encounterProBerger Hospital SystemInstructionsNot on file documented in this encounterProBerger Hospital SystemReason for referral (narrative)* Consultation (Routine) - Pending Review Specialty Diagnoses / Procedures Referred By Sherif hill Referred To Contact Diagnoses Healthcare maintenance Guy Easley, BANDAR-TREAD BOOKER [address], [address] [address] Referral ID Status Reason Start Date Expiration Date V isits Requested Visits Authorized [id number] Pending Review 03/06/2024 03/06/2025 1 1 [facility] Summary Purpose Family History No Family [...] Log into your personal health record on [email or web address] and enter E907 in the Education box to learn more about Abdominal Pain: Care Instructions. Current as of: June 29, 2017 Content Version: 11.6 7620-1329 [employer]. Care instructions adapted under license by your healthcare professional. If you have questions about a medical condition or this instruction, always ask your healthcare professional. [employer] disclaims any warranty or liability for your [...] Log into your personal health record on [email or web address] and enter H591 in the Education box to learn more about Nausea and Vomiting: Care Instructions. Current as of: June 29, 2017 Content Version: 11.6 9281-6600 [employer]. Care instructions adapted under license by your healthcare professional. If you have questions about a medical condition or this instruction, always ask your healthcare professional. [employer] disclaims any warranty or liability for your [...] section and content) DATE CREATED AUTHOR 07/09/2018 [facility] DATE CREATED AUTHOR AUTHOR'S ORGANIZ ATION 08/01/2018 [facility] DATE CREATED AUTHOR AUTHOR'S ORGANIZ ATION 08/03/2018 [facility] DATE CREATED AUTHOR AUTHOR'S ORGANIZ ATION 09/12/[address] [facility] DATE CREATED AUTHOR AUTHOR'S ORGANIZ ATION 11/28/2024 [facility] DATE CREATED AUTHOR AUTHOR'S ORGANIZ ATION 12/16/2024 [facility] DATE CREATED AUTHOR AUTHOR'S ORGANIZ ATION 01/08/2025 [facility] DATE CREATED AUTHOR AUTHOR'S ORGANIZ ATION 01/17/[address] [facility] Specialists [facility] DATE CREATED AUTHOR AUTHOR'S ORGANIZ ATION 01/22/2025 [facility] Reason for Visit (unrecogniz ed section and content) Reason Comments Bloated For almost 2weeks , I began w/shooting pains and then achy breast pain. Then I noticed abdominla bloating and cramps... I thought it was just my period. I got my Zahida IUD out on . My last period was [id number]. Yesterday and day before, I had to [...] Care Teams (unrecognized sec tion and content) Slot Floor Supervisor Relationship Specialty Start Date End Date Aleyda Cleary DO PCP - General Family Medicine 03/07/24 Slot Floor Supervisor Relationship Specialty Start Date End Date Aleyda Cleary DO PCP - General Family Medicine 03/07/24 Slot Floor Supervisor Relationship Specialty Start Date End Date Unallocated, Yemi Phillips MD [facility] [place] [address] PCP - General Family Medicine 08/31/24 Slot Floor Supervisor Relationship Specialty Start Date End Date Unallocated, Yemi Phillips MD [address] [place] [address] PCP - General Family Medicine 08/31/24 Slot Floor Supervisor Relationship Specialty Start Date End Date Aleyda Cleary DO PCP - General Family Medicine 03/07/24 Slot Floor Supervisor Relationship Specialty Start Date End Date No Pcp, [place] [address] PCP - General Family Medicine 11/14/21 Slot Floor Supervisor Relationship Specialty Start Date End Date Aleyda Cleary DO PCP - General Family Medicine 03/07/24 Slot Floor Supervisor Relationship Specialty Start Date End Date Aleyda Cleary DO PCP - General Family Medicine 03/07/24 Slot Floor Supervisor Relationship Specialty Start Date End Date Aleyda Cleary DO PCP - General Family Medicine 03/07/24 Slot Floor Supervisor Relationship Specialty Start Date End Date Unallocated, Yemi Phillips MD [address] [place], [place] [address] [address] PCP - General Family Medicine 08/31/24 Slot Floor Supervisor Relationship Specialty Start Date End Date Unallocated, Nomkaleb Phillips MD [address] [place], [place] [address] [address] PCP - General Family Medicine 08/31/24 Slot Floor Supervisor Relationship Specialty Start Date End Date Unallocated, Yemi Phillips MD [facility], [facility] [place] [address] PCP - General Family Medicine 08/31/24 Slot Floor Supervisor Relationship Specialty Start Date End Date Unallocated, Yemi Phillips MD [facility], [facility] [address] [facility] [place] [address] PCP - General Family Medicine 08/31/24 Slot Floor Supervisor Relationship Specialty Start Date End Date Aleyda Cleary DO PCP - General Family Medicine 03/07/24 Slot Floor Supervisor Relationship Specialty Start Date End Date Aleyda Cleary DO PCP - General Family Medicine 03/07/24 Slot Floor Supervisor Relationship Specialty Start Date End Date Aleyda Cleary DO PCP - General Family Medicine 03/07/24 Slot Floor Supervisor Relationship Specialty Start Date End Date Unallocated, Yemi Phillips MD [address] [place], [place] [address] [address] PCP - General Family Medicine 08/31/24 Slot Floor Supervisor Relationship Specialty Start Date End Date Unallocated, Yemi Phillips MD [facility], [facility] [place] [address] PCP - General Family Medicine 08/31/24 Slot Floor Supervisor Relationship Specialty Start Date End Date Aleyda Cleary DO PCP - General Family Medicine 03/07/24 Slot Floor Supervisor Relationship Specialty Start Date End Date Aleyda Cleary DO PCP - General Family Medicine 03/07/24 Slot Floor Supervisor Relationship Specialty Start Date End Date Aleyda Cleary DO PCP - General Family Medicine 03/07/24 Slot Floor Supervisor Relationship Specialty Start Date End Date Aleyda Cleary DO PCP - General Family Medicine 03/07/24 Slot Floor Supervisor Relationship Specialty Start Date End Date Unallocated, Yemi Phillips MD [address] [place], [place] [address] [address] PCP - General Family Medicine 08/31/24 Slot Floor Supervisor Relationship Specialty Start Date End Date Unallocated, Yemi Phillips MD [facility], [facility] [address] [facility] [address] PCP - [facility] 08/31/24 Slot Floor Supervisor Relationship Specialty Start Date End Date Aleyda Cleary DO PCP - [facility] 03/07/24 Slot Floor Supervisor Relationship Specialty Start Date End Date Unallocated, Yemi Phillips MD [facility], [facility] [address] [facility] [place] [address] PCP - [facility] 08/31/24 Slot Floor Supervisor Relationship Specialty Start Date End Date Unallocated, Yemi Phillips MD [facility], [facility] [address] [facility] [place] [address] PCP [facility] 08/31/24 Slot Floor Supervisor Relationship Specialty Start Date End Date Aleyda Cleary DO PCP [facility] 03/07/24 Slot Floor Supervisor Relationship Specialty Start Date End Date Unallocated, Yemi Phillips MD [facility], [facility] [place] [address] PCP [facility] 08/31/24 Slot Floor Supervisor Relationship Specialty Start Date End Date Aleyda Cleary DO PCP [facility] 03/07/24 Slot Floor Supervisor Relationship Specialty Start Date End Date Unallocated, Yemi Phillips MD [address] [place] [address] [place] [address] [facility] 08/31/24 FOR RECORDS PERTAINING TO PATIENTS WHO [...] BE BASED ON THE PRIMARY CLINICAL RECORDS. [facility]. provides no warranty or guarantee of the accuracy or completeness of information in this document.
== END 2025-01-22 22:06 | disposition home or self-care (01) ==
PROVIDERS: Admitting Provider Midwife; Visit Provider Midwife
DX: O26.893 Other specified pregnancy related conditions, third trimester (principal); Z3A.00 Weeks of gestation of pregnancy not specified
CPT/HCPCS: 36415; 80307; 85027; 86850; 86900; 86901; G0378; G0379

== ENCOUNTER 2025-01-27 05:16 | Inpatient (IN) | payer OTHER, SELFPAY ==
[2025-01-27] VITALS (30 sets, daily range): BP systolic 80–124; BP diastolic 44–80; PULSE 60–85; TEMP 35.8–37; O2SAT 95–99
--- OUTSIDE RECORDS SUMMARY | 2025-01-27 05:23 | XMS_ITS | CCD ---
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 above: Performed By: #### T [facility], 3024-7 #### [facility] ([id number]) [address], [address] [place] [address] TSH WITH REFLEXon 11-24-2024 TSH 11.33 uIU/mL High 0.49-4.67 [facility] Comment on above: Performed By: #### T [facility], 3024-7 #### [facility] ([id number]) [address], [address] [place] [address] US OB FOLLOW UP TRANSABDOMIN AL APPROACHon [...] II, MD, PHD at 15-Nov-2024 11:35:39 PM [facility] Normal Not Available TSH Qnon 11-01-2024 TSH 8.65 uIU/mL High 0.49-4.67 [facility] Comment on above: Performed By: #### 3 016-3 #### [facility] ([id number]) [address], [address] [place] [address] CBC AND AUTO DIFFon 10-05-19 ABSOLUTE BASOPHIL 0.0 X10E9/L Normal 0.0-0.2 [facility] Comment on above: Performed By: #### 3 0896-5, 12808-8 #### [facility] ([id number]) [address] [facility] [place] [address] #### 74259-1, 3051-0, HA1C, CBCA, 24473-5, CMP, 41447-2, 71521-3, THYR #### [facility] ([id number]) [address], [address] [place] [address] ABSOLUTE NEUTROPHIL 8.5 X10E9/L High 1.5-6.6 [facility] Comment on above: Performed By: #### 3 0896-5, 46353-9 #### [facility] ([id number]) [address] [facility] [place] [address] #### 55426-0, 3051-0, HA1C, CBCA, 66230-2, CMP, 33197-2, 90633-1, THYR #### [facility] ([id number]) [address], [address] [place] [address] Basophils/100 WBC (Bld) 0.1 % Normal [facility] Comment on above: Performed By: #### 3 0896-5, 07059-4 #### [facility] ([id number]) [address] [facility] [place] [address] #### 58213-1, 3051-0, HA1C, CBCA, 45660-7, CMP, 19994-1, 02851-6, THYR #### [facility] ([id number]) [address] [facility], [address] [place] [address] Eosinophils (Bld) [#/Vol] 0.1 10*3/uL Normal 0.0-0.4 [facility] Comment on above: Performed By: #### 3 0896-5, 68291-6 #### [facility] ([id number]) [address] [place] [address] #### 12620-9, 3051-0, HA1C, CBCA, 28540-4, CMP, 92657-7, 85018-3, THYR #### [facility] ([id number]) [address] [facility], [address] [place] [address] Eosinophils/100 WBC (Bld) 0.9 % Normal [facility] Comment on above: Performed By: #### 3 0896-5, 54607-1 #### [facility] ([id number]) [address] [place] [address] #### 18257-6, 3051-0, HA1C, CBCA, 85917-0, CMP, 44246-3, 12729-5, THYR #### [facility] ([id number]) [address] [facility], [address] [place] [address] Erythrocyte distribution width (RBC) [Ratio] 14.7 % Normal 11.5-15.0 [facility] Comment on above: Performed By: #### 3 0896-5, 05099-6 #### [facility] ([id number]) [address] [place] [address] #### 05830-9, 3051-0, HA1C, CBCA, 83360-3, CMP, 35182-3, 51890-9, THYR #### [facility] ([id number]) [address], [address] [place] [address] Hematocrit (Bld) [Volume fraction] 36.8 % Normal 35-47 [facility] Comment on above: Performed By: #### 3 0896-5, 26115-3 #### [facility] ([id number]) [address] [place] [address] #### 14494-5, 3051-0, HA1C, CBCA, 71311-8, CMP, 17238-4, 28347-9, THYR #### [facility] ([id number]) [address] [facility], [address] [place] [address] Hemoglobin (Bld) [Mass/Vol] 12.8 g/dL Normal 11.7-15.5 [facility] Comment on above: Performed By: #### 3 0896-5, 54659-4 #### [facility] ([id number]) [address] [place] [address] #### 10623-2, 3051-0, HA1C, CBCA, 28983-3, CMP, 37971-1, 38453-5, THYR #### [facility] ([id number]) [address], [address] [place] [address] Lymphocytes (Bld) [#/Vol] 0.5 10*3/uL Low 1.0-3.5 [facility] Comment on above: Performed By: #### 3 0896-5, 36043-9 #### [facility] ([id number]) [address] [place] [address] #### 82024-8, 3051-0, HA1C, CBCA, 30092-8, CMP, 76959-0, 08811-8, THYR #### [facility] ([id number]) [address], [address] [place] [address] Lymphocytes/100 WBC (Bld) 5.3 % Normal [facility] Comment on above: Performed By: #### 3 0896-5, 48809-6 #### [facility] ([id number]) [address] [place] [address] #### 06305-1, 3051-0, HA1C, CBCA, 87968-2, CMP, 23122-8, 61770-3, THYR #### [facility] ([id number]) [address] [facility], [address] [place] [address] MCH (RBC) [Entitic mass] 35.0 pg High 27-34 [facility] Comment on above: Performed By: #### 3 0896-5, 29572-0 #### [facility] ([id number]) [address] [place] [address] #### 83621-7, 3051-0, HA1C, CBCA, 37411-1, CMP, 59555-7, 73713-7, THYR #### [facility] ([id number]) [address] [facility], [address] [place] [address] MCHC (RBC) [Mass/Vol] 34.8 g/dL Normal 32-36 [facility] Comment on above: Performed By: #### 3 0896-5, 81304-0 #### [facility] ([id number]) [address] [place] [address] #### 41065-2, 3051-0, HA1C, CBCA, 90688-0, CMP, 25945-8, 49132-1, THYR #### [facility] ([id number]) [address], [address] [place] [address] MCV (RBC) [Entitic vol] 101 fL High 80-100 P [facility] Comment on above: Performed By: #### 3 0896-5, 00949-2 #### [facility] ([id number]) [address] [place] [address] #### 72617-7, 3051-0, HA1C, CBCA, 12757-6, CMP, 86254-7, 85457-1, THYR #### [facility] ([id number]) [address], [address] [place] [address] Monocytes (Bld) [#/Vol] 0.5 10*3/uL Normal 0-0.9 [facility] Comment on above: Performed By: #### 3 0896-5, 80786-2 #### [facility] ([id number]) [address] [place] [address] #### 11233-9, 3051-0, HA1C, CBCA, 86403-7, CMP, 95941-3, 01083-5, THYR #### [facility] ([id number]) [address], [address] [place] [address] Monocytes/100 WBC (Bld) 5.2 % Normal [facility] Comment on above: Performed By: #### 3 0896-5, 96988-1 #### [facility] ([id number]) [address] [place] [address] #### 83192-9, 3051-0, HA1C, CBCA, 33647-7, CMP, 47230-6, 54737-2, THYR #### [facility] ([id number]) [address], [address] [place] [address] Neutrophils/100 WBC (Bld) 88.5 % Normal [facility] Comment on above: Performed By: #### 3 0896-5, 64644-1 #### [facility] ([id number]) [address] [place] [address] #### 92296-0, 3051-0, HA1C, CBCA, 59009-0, CMP, 00447-9, 73284-7, THYR #### [facility] ([id number]) [address], [address] [place] [address] Platelet mean volume (Bld) [Entitic vol] 8.7 fL Normal 7-12 [facility] Comment on above: Performed By: #### 3 0896-5, 97549-5 #### [facility] ([id number]) [address] [place] [address] #### 85497-4, 3051-0, HA1C, CBCA, 04262-5, CMP, 65654-9, 16844-4, THYR #### [facility] ([id number]) [address], [address] [place] [address] Platelets (Bld) [#/Vol] 224 10*3/uL Normal 150-450 [facility] Comment on above: Performed By: #### 3 0896-5, 00907-8 #### [facility] ([id number]) [address] [place] [address] #### 10765-6, 3051-0, HA1C, CBCA, 62876-1, CMP, 93143-9, 79152-6, THYR #### [facility] ([id number]) [address], [address] [place] [address] RBC COUNT 3.66 X10E12/L Low 3.80-5.20 [facility] Comment on above: Performed By: #### 3 0896-5, 82925-0 #### [facility] ([id number]) [address] [place] [address] #### 39620-2, 3051-0, HA1C, CBCA, 85287-9, CMP, 52906-3, 45088-9, THYR #### [facility] ([id number]) [address], [address] [place] [address] WBC (Bld) [#/Vol] 9.7 10*3/uL Normal 4.0-11.0 [facility] Comment on above: Performed By: #### 3 0896-5, 27597-8 #### [facility] ([id number]) [address] [place] [address] #### 53915-2, 3051-0, HA1C, CBCA, 37529-8, CMP, 96360-8, 81379-0, THYR #### [facility] ([id number]) [address], [address] [place] [address] COMPREHENSIVE METABOLIC PANE Godfrey 10-05-2024 Albumin [Mass/Vol] 3.5 g/dL Normal 3.2-5.3 [facility] Comment on above: Performed By: #### 3 0896-5, 71988-7 #### [facility] ([id number]) [address] [place] [address] #### 69566-1, 3051-0, HA1C, CBCA, 23997-3, CMP, 25413-5, 00112-0, THYR #### [facility] ([id number]) [address], [address] [place] [address] ALP [Catalytic activity/Vol] 90 U/L Normal 39-130 [facility] Comment on above: Performed By: #### 3 0896-5, 08389-2 #### [facility] ([id number]) [facility] [place] [address] #### 57605-8, 3051-0, HA1C, CBCA, 22041-6, CMP, 53751-3, 11671-1, THYR #### [facility] ([id number]) [address], [address] [place] [address] ALT [Catalytic activity/Vol] 28 U/L Normal 0-31 [facility] Comment on above: Performed By: #### 3 0896-5, 47918-9 #### [facility] ([id number]) [address] [place] [address] #### 51497-0, 3051-0, HA1C, CBCA, 27968-7, CMP, 15602-9, 15650-1, THYR #### [facility] ([id number]) [address], [address] [place] [address] Anion gap [Moles/Vol] 9 mmol/L Normal 5-15 [facility] Comment on above: Performed By: #### 3 0896-5, 45764-5 #### [facility] ([id number]) [address] [place] [address] #### 84920-7, 3051-0, HA1C, CBCA, 35896-7, CMP, 50159-8, 28287-5, THYR #### [facility] ([id number]) [address], [address] [place] [address] AST [Catalytic activity/Vol] 27 U/L Normal 0-41 [facility] Comment on above: Performed By: #### 3 0896-5, 85735-0 #### [facility] ([id number]) [address] [place] [address] #### 83768-9, 3051-0, HA1C, CBCA, 38646-5, CMP, 90693-4, 62135-0, THYR #### [facility] ([id number]) [address], [address] [place] [address] Bilirubin [Mass/Vol] 0.2 mg/dL Low 0.3-1.2 [facility] Comment on above: Performed By: #### 3 0896-5, 26282-8 #### [facility] ([id number]) [address] [place] [address] #### 31887-7, 3051-0, HA1C, CBCA, 86236-5, CMP, 22288-8, 14438-4, THYR #### [facility] ([id number]) [address], [address] [place] [address] Calcium [Mass/Vol] 9.5 mg/dL Normal 8.5-10.5 [facility] Comment on above: Performed By: #### 3 0896-5, 97581-0 #### [facility] ([id number]) [address] [place] [address] #### 48530-3, 3051-0, HA1C, CBCA, 93161-8, CMP, 46653-2, 35349-9, THYR #### [facility] ([id number]) [address] [place] [address] Chloride [Moles/Vol] 100 mmol/L Normal 98-109 [facility] Comment on above: Performed By: #### 3 0896-5, 47441-7 #### [facility] ([id number]) [address] [place] [address] #### 92843-3, 3051-0, HA1C, CBCA, 06456-4, CMP, 35543-1, 55054-1, THYR #### [facility] ([id number]) [address] [place] [address] CO2 [Moles/Vol] 23 mmol/L Normal 22-32 [facility] Comment on above: Performed By: #### 3 0896-5, 07678-0 #### [facility] ([id number]) [address] [place] [address] #### 26752-9, 3051-0, HA1C, CBCA, 11127-1, CMP, 46532-8, 32912-0, THYR #### [facility] ([id number]) [address], [address] [place] [address] Creatinine [Mass/Vol] 0.68 mg/dL Normal 0.40-1.00 [facility] Comment on above: Result Comment: METH OD TRACEABLE TO IDMS STANDARD Performed By: #### 3 0896-5, 65621-4 #### [facility] ([id number]) [address] [place] [address] #### 09864-4, 3051-0, HA1C, CBCA, 76170-3, CMP, 65025-3, 62107-4, THYR #### [facility] ([id number]) [address] [facility], [address] [place] [address] eGFR (CKD-EPI) NON-RACE DEPENDENT >90 Normal >59 [facility] Comment on above: Result Comment: Reported eGFR is based on the CKD-EPI 2020 equation that does not use a race coefficient. Performed By: #### 3 0896-5, 94277-4 #### [facility] ([id number]) [address] [place] [address] #### 09390-6, 3051-0, HA1C, CBCA, 84424-2, CMP, 14120-8, 79355-8, THYR #### [facility] ([id number]) [address] [facility], [address] [place] [address] Glucose [Mass/Vol] 87 mg/dL Normal 65-99 [facility] Comment on above: Performed By: #### 3 0896-5, 82675-0 #### [facility] ([id number]) [address] [place] [address] #### 63065-7, 3051-0, HA1C, CBCA, 29134-2, CMP, 74698-9, 58251-4, THYR #### [facility] ([id number]) [address] [facility], [address] [place] [address] Potassium [Moles/Vol] 3.3 mmol/L Low 3.5-5.0 [facility] Comment on above: Performed By: #### 3 0896-5, 50176-8 #### [facility] ([id number]) [address] [place] [address] #### 52425-2, 3051-0, HA1C, CBCA, 49353-2, CMP, 02390-5, 94570-5, THYR #### [facility] ([id number]) [address] [facility], [address] [place] [address] Protein [Mass/Vol] 7.6 g/dL Normal 6.0-8.0 [facility] Comment on above: Performed By: #### 3 0896-5, 29263-9 #### [facility] ([id number]) [address] [place] [address] #### 30553-4, 3051-0, HA1C, CBCA, 97674-1, CMP, 15416-9, 42789-2, THYR #### [facility] ([id number]) [address] [place] [address], [address] [place] [address] Sodium [Moles/Vol] 132 mmol/L Low 134-146 [facility] Comment on above: Performed By: #### 3 0896-5, 74838-7 #### [facility] ([id number]) [address] [place] [address] #### 72865-2, 3051-0, HA1C, CBCA, 70100-2, CMP, 13117-7, 24875-1, THYR #### [facility] ([id number]) [address] [place] [address], [address] [place] [address] Urea nitrogen [Mass/Vol] 6 mg/dL Normal 5-23 [facility] Comment on above: Performed By: #### 3 0896-5, 85639-9 #### [facility] ([id number]) [facility] [place] [address] #### 98905-9, 3051-0, HA1C, CBCA, 28307-4, CMP, 81144-7, 71407-0, THYR #### [facility] ([id number]) [address] [place] [address], [address] [place] [address] SARS/FLU A+B/RSV by NAAT/Mol ecularon 10-05-2024 SARS/FLU [...] operators who are performing tests using either [employer] or [employer] systems and is limited to laboratories that [...] repeat. Fact Sheet for Healthcare Providers: https://www.fda.gov /media/621804/downl oad Fact Sheet for Patients: https://www.fda.gov /media/246903/downl oad Normal [facility] Comment on above: Performed By: #### 3 0896-5, 50951-9 #### [facility] ([id number]) [address] [place] [address] #### 41499-9, 3051-0, HA1C, CBCA, 40163-8, CMP, 67444-3, 33893-1, THYR #### [facility] ([id number]) [address], [address] [place] [address] Troponin I.cardiac High sens itivity method [Mass/Vol]on 10-05-2024 TROPONIN I, HIGH SENSITIVITY <2 Normal <16 [facility] Comment on above: Performed By: #### 3 0896-5, 08675-7 #### [facility] ([id number]) [address] [place] [address] #### 40368-8, 3051-0, HA1C, CBCA, 95228-8, CMP, 30560-5, 41633-0, THYR #### [facility] ([id number]) [address] [facility], [address] [place] [address] URN MACROSCOPIC NURon 2024 BILIRUBIN MERI Negative Normal NEG [facility] Comment on above: Performed By: #### 3 0896-5, 29631-0 #### [facility] ([id number]) [address] [place] [address] #### 43896-3, 3051-0, HA1C, CBCA, 06779-8, CMP, 62106-0, 78446-5, THYR #### [facility] ([id number]) [address], [address] [place] [address] BLOOD/HGB MERI Negative Normal NEG [facility] Comment on above: Performed By: #### 3 0896-5, 05592-0 #### [facility] ([id number]) [address] [place] [address] #### 74294-6, 3051-0, HA1C, CBCA, 88542-1, CMP, 23686-1, 05893-1, THYR #### [facility] ([id number]) [address] [facility], [address] [place] [address] GLUCOSE MERI Negative Normal NEG [facility] Comment on above: Performed By: #### 3 0896-5, 91846-9 #### [facility] ([id number]) [address] [place] [address] #### 40060-0, 3051-0, HA1C, CBCA, 65861-1, CMP, 21628-7, 83539-8, THYR #### [facility] ([id number]) [address] [place] [address], [address] [place] [address] KETONES MERI Negative Normal NEG [facility] Comment on above: Performed By: #### 3 0896-5, 54201-9 #### [facility] ([id number]) [facility] [place] [address] #### 93727-5, 3051-0, HA1C, CBCA, 49560-3, CMP, 06766-6, 02805-2, THYR #### [facility] ([id number]) [address], [address] [place] [address] LEUKOCYTE ESTERASE MERI Small Abnormal NEG Pr [facility] Comment on above: Performed By: #### 3 0896-5, 57568-4 #### [facility] ([id number]) [facility] [place] [address] #### 44441-9, 3051-0, HA1C, CBCA, 25789-5, CMP, 24382-5, 71076-0, THYR #### [facility] ([id number]) [address], [address] [place] [address] NITRITE MERI Negative Normal NEG [facility] Comment on above: Performed By: #### 3 0896-5, 37654-1 #### [facility] ([id number]) [facility] [place] [address] #### 17145-7, 3051-0, HA1C, CBCA, 21882-9, CMP, 61694-4, 69899-6, THYR #### [facility] ([id number]) [address], [address] [place] [address] PH MERI 8.5 Normal 5.0-8.5 [facility] Comment on above: Performed By: #### 3 0896-5, 05012-1 #### [facility] ([id number]) [address] [place] [address] #### 41176-5, 3051-0, HA1C, CBCA, 88337-6, CMP, 11766-2, 46743-7, THYR #### [facility] ([id number]) [address], [address] [place] [address] PROTEIN MERI Negative Normal NEG [facility] Comment on above: Performed By: #### 3 0896-5, 48930-5 #### [facility] ([id number]) [address] [place] [address] #### 58643-4, 3051-0, HA1C, CBCA, 53547-4, CMP, 00878-3, 06130-1, THYR #### [facility] ([id number]) [address], [address] [place] [address] SPECIFIC GRAVITY MERI 1.020 Normal 1.003-1.035 [facility] Comment on above: Performed By: #### 3 0896-5, 18253-2 #### [facility] ([id number]) [facility] [place] [address] #### 08648-1, 3051-0, HA1C, CBCA, 12765-9, CMP, 90269-1, 50395-1, THYR #### [facility] ([id number]) [address], [address] [place] [address] UROBILINOGEN MERI 0.2 eu/dL Normal <1.1 [facility] Comment on above: Performed By: #### 3 0896-5, 14971-8 #### [facility] ([id number]) [address] [place] [address] #### 92010-1, 3051-0, HA1C, CBCA, 41562-1, CMP, 92771-0, 23138-3, THYR #### [facility] ([id number]) [address], [address] [place] [address] Urine collection deviceon ER EXTRA URINES ER EXTRA URINE ORDER IN PROCESS Normal [facility] Comment on above: Performed By: #### 3 0896-5, 48129-8 #### [facility] [place] ([id number]) [address] [place] [address] #### 60377-6, 3051-0, HA1C, CBCA, 78043-3, CMP, 16567-4, 47809-3, THYR #### [facility] ([id number]) [address], [address] [place] [address] HGB A1C (GLYCO-HGB)on 2023 Glucose [Mass/Vol] 103 mg/dL Normal [facility] Comment on above: Performed By: #### H A1C, 3016-3 #### [facility] ([id number]) [address], [facility] [address] [place] [address] HbA1c (Bld) [Mass fraction] 5.2 % Normal 4.4-5.6 [facility] Comment on above: Result Comment: NOTE ADA Guidelines Result HgbA1c Normal : less than 5.7 % Prediabetes : 5.7 % to 6.4 % Diabetes : > 6.4 % Use with caution in patients with abnormal hemoglobin variants as the half-life of red blood cells and in vivo glycation rates are affected. Performed By: #### H A1C, 3016-3 #### [facility] ([id number]) [address], [address] [place] [address] TSH Qnon 07-22-2024 TSH 14.77 uIU/mL High 0.49-4.67 [facility] Comment on above: Result Comment: NEW REFERENCE RANGE FOR PEDIATRIC PATIENTS Performed By: #### H A1C, 3016-3 #### [facility] ([id number]) [address] [facility] [place] [address] Bacteria identified Cx Nom ( U)on 06-17-2024 Appearance (U) Adequate [facility] Internal identifier for Provider [id number] [facility] Specimen source Nom (Unsp spec) URINE [facility] STATUS FINAL [facility] Laboratory - Drug toxicology on 06-17-2024 7-Yzfwrkjani-6,5-Dimethy l-3,3-Diphenylpyrrolidin e (EDDP) Ql (U) Negative NINF - 100 ng/mL [facility] Amphetamines Ql (U) Negative NINF - 5 00 ng/mL [facility] Barbiturates Ql (U) Negative NINF - 3 00 ng/mL [facility] Benzodiazepines Ql (U) Negative NINF - 100 ng/mL [facility] Benzoylecgonine Ql (U) Negative NINF - 150 ng/mL [facility] Opiates Ql (U) Negative NINF - 100 ng/mL [facility] oxyCODONE Ql (U) Negative NINF - 100 ng/mL [facility] Phencyclidine Ql (U) Negative NINF - 25 ng/mL [facility] Tetrahydrocannabinol Screen method >20 ng/mL Ql (U) Negative NINF - 20 ng/mL [facility] Laboratory - Microbiology an d Antimicrobial susceptibilityon 06-17-2024 Bacteria identified Cx Nom (U) SEE NOTE [facility] Comment on above: Mixed genital olimpia isolated. These superficial bacteria are not indicative of a urinary tract infection. No further organism identification is warranted on this specimen. If clinically indicated, recollect clean-catch, mid-stream urine and transfer immediately to Urine Culture Transport Tube. Laboratory - Urinalysison Bacteria LM.HPF (Urine sed) [#/Area] NONE SEEN NONE SEEN /HPF [facility] Calcium oxalate crystals LM.HPF (Urine sed) [#/Area] MANY Abnormal NONE OR FEW [facility] Epithelial cells.squamous LM.HPF (Urine sed) [#/Area] 10-20 Abnormal < OR = 5 /HPF [facility] Hyaline casts (Urine sed) [#/Area] NONE SEEN NONE SEEN /LPF [facility] RBC LM.HPF (Urine sed) [#/Area] NONE SEEN < OR = 2 /HPF [facility] WBC LM.HPF (Urine sed) [#/Area] 0-5 < OR = 5 /HPF [facility] N. gonorrhoeae DNA ALBINO+probe Ql (Cervical mucus)on 06-17-2024 C. trachomatis rRNA ALBINO+probe Ql (Unsp spec) Not detected NOT DETECTED [facility] N. gonorrhoeae rRNA ALBINO+probe Ql (Unsp spec) Not detected NOT DETECTED [facility] No Panel Informationon 06-17 (ALWAYS MESSAGE) [facility] Comment on above: See Note 1 Note 1 This drug testing is for medical treatment only. Analysis was performed as non-forensic testing and these results should be used only by healthcare providers to render diagnosis or treatment, or to monitor progress of medical conditions. For assistance with interpreting these drug results, please contact a [facility] Toxicology Specialist: [phone] ( ), M-F, 8am-6pm EST. The analytical perfo rmance characteristics of this assay, when used to test SurePath(TM) specimens have been determined by [employer]. The modifications have not been cleared or approved by the FDA. This assay has been validated pursuant to the CLIA regulations and is used for clinical purposes. For additional information, please refer to https://education.The Political Student/faq/MIX694 (This link is being provided for information/ educational purposes only.) Interpretation and review of laboratory results Abnormal [facility] SPLIT 06/15/2024 FROM [id number] [employer] Organization Information Site ID: QPT Name: [facility] Address: [address] [place] [address], [address] [place] [phone] Director: Jensen Branham MD [facility] CBC panel Auto (Bld)on 06-16 Erythrocyte distribution width (RBC) [Ratio] 12.2 % 11.0 - 15.0 % [facility] Hematocrit (Bld) [Volume fraction] 39.9 % 35.0 - 45.0 % [facility] Hemoglobin (Bld) [Mass/Vol] 13.2 g/dL 11.7 - 15.5 g/dL [facility] MCH (RBC) [Entitic mass] 33.6 pg High 27. 0 - 33.0 pg [facility] MCHC (RBC) [Mass/Vol] 33.1 g/dL 32.0 - 36.0 g/dL [facility] Comment on above: For adults, a slight decrease in the calculated MCHC value (in the range of 30 to 32 g/dL) is most likely not clinically significant; however, it should be interpreted with caution in correlation with other red cell parameters and the patient's clinical condition. MCV (RBC) [Entitic vol] 101.5 fL High 80.0 - 100.0 fL [facility] Platelet mean volume (Bld) [Entitic vol] 10.7 fL 7.5 - 12.5 fL [facility] Platelets (Bld) [#/Vol] 279 10*3/uL [facility] RBC (Bld) [#/Vol] 3.93 10*6/uL [facility] WBC (Bld) [#/Vol] 9.7 10*3/uL [facility] Laboratory - Blood bankon ABO group Nom (Bld) O [facility] Blood group antibody screen Ql Detected [facility] Comment on above: Reference range No antibodies detected This assay is a screening test for the detection of red blood cell antibodies. The test is not to be used for pretransfusion screening or for the medical management of an alloimmunized . Rh Nom (Bld) Negative [facility] Comment on above: For additional information, please refer to http://education.Qinqin.com.Magzter/faq/WDN463 (This link is being provided for informational/ educational purposes only.) Laboratory - Chemistry and C hemistry - challengeon 06-16-2024 Free T4 [Mass/Vol] 1 ng/dL 0.8 - 1.8 ng/dL [facility] TSH Qn 11.76 m[IU]/L High mIU/L [facility] Comment on above: Reference Range > or = 20 Years 0.40-4.50 Ranges First trimester 0.26-2.66 Second trimester 0.55-2.73 Third trimester 0.43-2.91 Laboratory - Hematology and Cell countson 06-16-2024 HbA1c (Bld) [Mass fraction] 5.1 % [facility] Comment on above: For the purpose of s creening for the presence of diabetes: <5.7% Consistent with the absence of diabetes 5.7-6.4% Consistent with increased risk for diabetes (prediabetes) > or =6.5% Consistent with diabetes This assay result is consistent with a decreased risk of diabetes. Currently, no consensus exists regarding use of hemoglobin A1c for diagnosis of diabetes in children. According to [place] Diabetes Association (ADA) guidelines, hemoglobin A1c <7.0% represents optimal control in non- diabetic patients. Different metrics may apply to specific patient populations. Standards of Medical Care in Diabetes(ADA). Laboratory - Microbiology an d Antimicrobial susceptibilityon 06-16-2024 HBV surface Ag IA Ql Non-Reactive NON-REACTIVE [facility] Comment on above: For additional information, please refer to http://Musical Sneakers.The Political Student/faq/TZH445 (This link is being provided for informational/ educational purposes only.) HCV Ab IA Ql Non-Reactive NON-REACTIVE [facility] Comment on above: HCV antibody was non-reactive. There is no laboratory evidence of HCV infection. In most cases, no further action is required. However, if recent HCV exposure is suspected, a test for HCV RNA (test code 60775) is suggested. For additional information please refer to http://Musical Sneakers.The Political Student/faq/NWP30o5 (This link is being provided for informational/ educational purposes only.) HIV 1+2 Ab+HIV1 p24 Ag IA Ql Non-Reactive NON-REACTIVE [facility] Comment on above: HIV-1 antigen [...] purpose. For additional information please refer to http://Musical Sneakers.The Political Student/faq/TME648 (This link is being provided for informational/ educational purposes only.) The performance of this assay has not been clinically validated in patients less than 2 years old. Reagin Ab RPR Ql (S) Non-Reactive NON-REACTIVE [facility] Rubella virus IgG Qn (S) 1.88 [IU]/mL Index [facility] Comment on above: Index Interpretation ----- <0.90 Not consistent with immunity 0.90-0.99 Equivocal > or = 1.00 Consistent with immunity The presence of rubella IgG antibody suggests immunization or past or current infection with rubella virus. No Panel Informationon 06-16 Interpretation and review of laboratory results Abnormal [facility] PATIENT UNABLE TO VOID; ADVISED TO RETURN FOR COLLECTION. [employer] Organization Information Site ID: QPT Name: [facility] Address: [address] [place] [address], [address] [place] [phone] Director: Jensen Branham MD [facility] Chlamydia/GC by PCR ThinPrep fluidon 06-15-2024 Chlamydia Dna(Pcr) Negative [facility] Gonorrhoeae Dna(Pcr) Negative [facility][note 3] Flash Valet [facility] Drug Screen, Urineon 024 Barbiturate Screen [facility] Negative [facility] Hemoglobin A1con 06-15-2024 HbA1c (Bld) [Mass fraction] 5.1 % 4.0 - 6.0 % [facility] No Panel Informationon 06-[address] [facility] Type and screenon 06-15-2024 Abo/Rh(D) Negative [facility] US OB < 14 WEEKS [...] rate of 138. Uterus and adnexae: Hypoechoic MANPREET area measuring 2.8 x 3.1 x 0.4 cm Ovaries not visualized bilaterally due to bowel. Limited study. Full anatomical survey not performed. IMPRESSION: Early IUP age 7.6 weeks form LMP. Small anterior subchorionic hemorrhage. Dictated and transcribed 06/16/24/dpd This report has been electronically signed and approved by the interpreting radiologist. Normal Not Available BASIC FOOD PANELon 4 ALMOND 0.35 kU/L High <0.10 [facility] Comment on above: Result Comment: Clas s 1:Low level of Allergy, indicative of ongoing sensitization Performed By: #### 3 0896-5, 47796-1 #### [facility] ([id number]) [address] [place] [address] [place] [address] #### 97803-4, 3051-0, HA1C, CBCA, 24707-8, CMP, 73151-1, 82395-0, THYR #### [facility] ([id number]) [address] [facility], [address] [place] [address] BRAZIL NUT <0.10 Normal <0.10 [facility] Comment on above: Result Comment: Clas s 0: Normal Performed By: #### 3 0896-5, 45210-8 #### [facility] ([id number]) [address] [place] [address] [place] [address] #### 79928-5, 3051-0, HA1C, CBCA, 19207-4, CMP, 95595-6, 54626-8, THYR #### [facility] ([id number]) [address] [facility], [address] [place] [address] CASHEW NUT 0.14 kU/L High <0.10 [facility] Comment on above: Result Comment: Clas s 0/1: Low level of Allergy, ongoing sensitization Performed By: #### 3 0896-5, 37072-9 #### [facility] ([id number]) [address] [place] [address] [place] [address] #### 80817-8, 3051-0, HA1C, CBCA, 22254-8, CMP, 13001-7, 96289-3, THYR #### [facility] ([id number]) [address] [facility], [address] [place] [address] EGG WHITE <0.10 Normal <0.10 [facility] Comment on above: Result Comment: Clas s 0: Normal Performed By: #### 3 0896-5, 57489-2 #### [facility] ([id number]) [address] [place] [address] #### 22238-9, 3051-0, HA1C, CBCA, 34006-6, CMP, 01334-3, 20818-2, THYR #### [facility] ([id number]) [address] [facility], [address] [place] [address] FISH COD <0.10 Normal <0.10 [facility] Comment on above: Result Comment: Clas s 0: Normal Performed By: #### 3 0896-5, 37264-5 #### [facility] ([id number]) [address] [place] [address] #### 58527-5, 3051-0, HA1C, CBCA, 18408-4, CMP, 67054-2, 61232-5, THYR #### [facility] ([id number]) [address] [facility], [address] [place] [address] HAZELNUT 0.25 kU/L High <0.10 [facility] Comment on above: Result Comment: Clas s 0/1: Low level of Allergy, ongoing sensitization Performed By: #### 3 0896-5, 86150-5 #### [facility] ([id number]) [facility] [place] [address] #### 28504-8, 3051-0, HA1C, CBCA, 62541-0, CMP, 31708-5, 10018-7, THYR #### [facility] ([id number]) [address] [facility], [address] [place] [address] IGE 55 IU/mL Normal 0-165 [facility] Comment on above: Performed By: #### 3 0896-5, 15115-5 #### [facility] ([id number]) [facility] [facility] [place] [address] #### 54183-9, 3051-0, HA1C, CBCA, 52598-9, CMP, 15392-1, 07039-9, THYR #### [facility] ([id number]) [address] [facility], [address] [place] [address] MILK <0.10 Normal <0.10 [facility] Comment on above: Result Comment: Clas s 0: Normal Performed By: #### 3 0896-5, 07484-2 #### [facility] ([id number]) [facility] [place] [address] #### 07248-7, 3051-0, HA1C, CBCA, 19753-2, CMP, 38858-2, 77390-6, THYR #### [facility] ([id number]) [address] [facility], [address] [place] [address] PEANUT 0.30 kU/L High <0.10 [facility] Comment on above: Result Comment: Clas s 0/1: Low level of Allergy, ongoing sensitization Performed By: #### 3 0896-5, 41428-0 #### [facility] ([id number]) [address] [place] [address] [place] [address] #### 85069-0, 3051-0, HA1C, CBCA, 97089-1, CMP, 02294-5, 96647-8, THYR #### [facility] ([id number]) [address] [facility], [address] [place] [address] PECAN NUT 0.14 kU/L High <0.10 [facility] Comment on above: Result Comment: Clas s 0/1: Low level of Allergy, ongoing sensitization Performed By: #### 3 0896-5, 28459-6 #### [facility] ([id number]) [address] [place] [address] #### 66206-0, 3051-0, HA1C, CBCA, 85973-9, CMP, 57839-5, 89574-1, THYR #### [facility] ([id number]) [address] [facility], [address] [place] [address] SCALLOP 0.17 kU/L High <0.10 [facility] Comment on above: Result Comment: Clas s 0/1: Low level of Allergy, ongoing sensitization Performed By: #### 3 0896-5, 05265-2 #### [facility] ([id number]) [address] [place] [address] #### 69686-1, 3051-0, HA1C, CBCA, 37028-5, CMP, 80668-9, 88787-0, THYR #### [facility] ([id number]) [address] [facility], [address] [place] [address] SHRIMP <0.10 Normal <0.10 [facility] Comment on above: Result Comment: Clas s 0: Normal Performed By: #### 3 0896-5, 32963-0 #### [facility] ([id number]) [address] [place] [address] [place] [address] #### 31880-8, 3051-0, HA1C, CBCA, 64259-3, CMP, 54525-6, 42906-4, THYR #### [facility] ([id number]) [address] [facility], [address] [place] [address] SOYBEAN 0.27 kU/L High <0.10 [facility] Comment on above: Result Comment: Clas s 0/1: Low level of Allergy, ongoing sensitization Performed By: #### 3 0896-5, 07980-0 #### [facility] ([id number]) [address] [place] [address] #### 99776-1, 3051-0, HA1C, CBCA, 64450-2, CMP, 05686-9, 35832-4, THYR #### [facility] ([id number]) [address], [address] [place] [address] TUNA <0.10 Normal <0.10 [facility] Comment on above: Result Comment: Clas s 0: Normal Performed By: #### 3 0896-5, 30464-0 #### [facility] ([id number]) [address] [place] [address] #### 12535-8, 3051-0, HA1C, CBCA, 53153-7, CMP, 58548-3, 47785-7, THYR #### [facility] ([id number]) [address] [facility], [address] [place] [address] WALNUT FOOD 0.27 kU/L High <0.10 [facility] Comment on above: Result Comment: Clas s 0/1: Low level of Allergy, ongoing sensitization Performed By: #### 3 0896-5, 51541-2 #### [facility] ([id number]) [address] [place] [address] #### 67340-0, 3051-0, HA1C, CBCA, 54278-1, CMP, 93506-9, 58304-7, THYR #### [facility] ([id number]) [address] [facility], [address] [place] [address] WHEAT 0.28 kU/L High <0.10 [facility] Comment on above: Result Comment: Clas s 0/1: Low level of Allergy, ongoing sensitization Performed By: #### 3 0896-5, 45278-2 #### [facility] ([id number]) [address] [place] [address] #### 39806-1, 3051-0, HA1C, CBCA, 14712-2, CMP, 77982-4, 16060-8, THYR #### [facility] ([id number]) [address] [facility], [address] [place] [address] CBC AND AUTO DIFFon 03-26-20 24 ABSOLUTE BASOPHIL 0.0 X10E9/L Normal 0.0-0.2 [facility] Comment on above: Performed By: #### 3 0896-5, 67715-7 #### [facility] ([id number]) [address] [place] [address] #### 69047-8, 3051-0, HA1C, CBCA, 71273-7, CMP, 83550-8, 52912-6, THYR #### [facility] ([id number]) [address] [facility], [address] [place] [address] ABSOLUTE NEUTROPHIL 3.1 X10E9/L Normal 1.5-6.6 [facility] Comment on above: Performed By: #### 3 0896-5, 82060-7 #### [facility] ([id number]) [address] [place] [address] [place] [address] #### 91974-6, 3051-0, HA1C, CBCA, 80431-0, CMP, 34104-1, 27649-6, THYR #### [facility] ([id number]) [address] [facility], [address] [place] [address] Basophils/100 WBC (Bld) 0.7 % Normal P [facility] Comment on above: Performed By: #### 3 0896-5, 60385-6 #### [facility] ([id number]) [address] [place] [address] [place] [address] #### 27453-5, 3051-0, HA1C, CBCA, 48277-0, CMP, 70052-4, 07423-6, THYR #### [facility] ([id number]) [address] [facility], [address] [place] [address] Eosinophils (Bld) [#/Vol] 0.3 10*3/uL Normal 0.0-0.4 [facility] Comment on above: Performed By: #### 3 0896-5, 41969-9 #### [facility] ([id number]) [address] [place] [address] #### 33903-3, 3051-0, HA1C, CBCA, 36938-6, CMP, 33106-4, 97965-3, THYR #### [facility] ([id number]) [address], [address] [place] [address] Eosinophils/100 WBC (Bld) 5.4 % Normal [facility] Comment on above: Performed By: #### 3 0896-5, 63976-3 #### [facility] ([id number]) [address] [place] [address] #### 21595-0, 3051-0, HA1C, CBCA, 70695-5, CMP, 56998-2, 50626-8, THYR #### [facility] ([id number]) [address] [facility], [address] [place] [address] Erythrocyte distribution width (RBC) [Ratio] 13.3 % Normal 11.5-15.0 [facility] Comment on above: Performed By: #### 3 0896-5, 80023-6 #### [facility] ([id number]) [facility] [place] [address] #### 08833-9, 3051-0, HA1C, CBCA, 35736-8, CMP, 29608-2, 76139-6, THYR #### [facility] ([id number]) [address], [address] [place] [address] Hematocrit (Bld) [Volume fraction] 39.2 % Normal 35-47 [facility] Comment on above: Performed By: #### 3 0896-5, 90347-2 #### [facility] ([id number]) [address] [place] [address] #### 32402-1, 3051-0, HA1C, CBCA, 68760-1, CMP, 08505-5, 41055-6, THYR #### [facility] ([id number]) [address], [address] [place] [address] Hemoglobin (Bld) [Mass/Vol] 13.4 g/dL Normal 11.7-15.5 [facility] Comment on above: Performed By: #### 3 0896-5, 74541-5 #### [facility] ([id number]) [address] [place] [address] #### 20990-4, 3051-0, HA1C, CBCA, 00557-8, CMP, 29788-7, 80384-9, THYR #### [facility] ([id number]) [address], [address] [place] [address] Lymphocytes (Bld) [#/Vol] 2.5 10*3/uL Normal 1.0-3.5 [facility] Comment on above: Performed By: #### 3 0896-5, 83657-9 #### [facility] ([id number]) [address] [place] [address] #### 64627-4, 3051-0, HA1C, CBCA, 25640-5, CMP, 99310-8, 34455-3, THYR #### [facility] ([id number]) [address], [address] [place] [address] Lymphocytes/100 WBC (Bld) 39.3 % Normal [facility] Comment on above: Performed By: #### 3 0896-5, 12119-8 #### [facility] ([id number]) [address] [place] [address] #### 32226-7, 3051-0, HA1C, CBCA, 29988-0, CMP, 88936-4, 22878-9, THYR #### [facility] ([id number]) [address], [address] [place] [address] MCH (RBC) [Entitic mass] 34.1 pg High 27-34 [facility] Comment on above: Performed By: #### 3 0896-5, 10755-8 #### [facility] ([id number]) [address] [place] [address] #### 06143-1, 3051-0, HA1C, CBCA, 03654-2, CMP, 66027-7, 76138-6, THYR #### [facility] ([id number]) [address], [address] [place] [address] MCHC (RBC) [Mass/Vol] 34.1 g/dL Normal 32-36 [facility] Comment on above: Performed By: #### 3 0896-5, 95488-9 #### [facility] ([id number]) [address] [place] [address] #### 37897-8, 3051-0, HA1C, CBCA, 61659-9, CMP, 73852-1, 67687-5, THYR #### [facility] ([id number]) [address] [facility] [place] [address] MCV (RBC) [Entitic vol] 100 fL Normal 80-100 P [facility] Comment on above: Performed By: #### 3 0896-5, 73723-7 #### [facility] ([id number]) [address] [place] [address] #### 36909-3, 3051-0, HA1C, CBCA, 40532-0, CMP, 67758-3, 59249-0, THYR #### [facility] ([id number]) [address] [facility], [address] [place] [address] Monocytes (Bld) [#/Vol] 0.5 10*3/uL Normal 0-0.9 [facility] Comment on above: Performed By: #### 3 0896-5, 33743-2 #### [facility] ([id number]) [address] [place] [address] #### 09011-4, 3051-0, HA1C, CBCA, 23853-9, CMP, 18846-3, 20026-3, THYR #### [facility] ([id number]) [address], [address] [place] [address] Monocytes/100 WBC (Bld) 7.2 % Normal [facility] Comment on above: Performed By: #### 3 0896-5, 27326-1 #### [facility] ([id number]) [address] [place] [address] #### 53028-9, 3051-0, HA1C, CBCA, 55716-5, CMP, 08467-7, 29165-6, THYR #### [facility] ([id number]) [address], [address] [place] [address] Neutrophils/100 WBC (Bld) 47.4 % Normal [facility] Comment on above: Performed By: #### 3 0896-5, 59075-0 #### [facility] ([id number]) [address] [place] [address] #### 19693-8, 3051-0, HA1C, CBCA, 08646-7, CMP, 33407-7, 20606-3, THYR #### [facility] ([id number]) [address], [address] [place] [address] Platelet mean volume (Bld) [Entitic vol] 8.9 fL Normal 7-12 [facility] Comment on above: Performed By: #### 3 0896-5, 26316-7 #### [facility] ([id number]) [address] [place] [address] #### 64860-5, 3051-0, HA1C, CBCA, 83007-7, CMP, 18933-5, 73939-2, THYR #### [facility] ([id number]) [address], [address] [place] [address] Platelets (Bld) [#/Vol] 248 10*3/uL Normal 150-450 [facility] Comment on above: Performed By: #### 3 0896-5, 28081-3 #### [facility] ([id number]) [address] [place] [address] #### 91786-9, 3051-0, HA1C, CBCA, 35220-8, CMP, 54867-3, 53999-2, THYR #### [facility] ([id number]) [address], [address] [place] [address] RBC COUNT 3.92 X10E12/L Normal 3.80-5.20 [facility] Comment on above: Performed By: #### 3 0896-5, 07638-1 #### [facility] ([id number]) [facility] [place] [address] #### 99228-9, 3051-0, HA1C, CBCA, 20589-5, CMP, 54763-7, 50728-3, THYR #### [facility] ([id number]) [address], [address] [place] [address] WBC (Bld) [#/Vol] 6.4 10*3/uL Normal 4.0-11.0 [facility] Comment on above: Performed By: #### 3 0896-5, 37218-7 #### [facility] ([id number]) [facility] [place] [address] #### 81000-5, 3051-0, HA1C, CBCA, 66061-4, CMP, 13798-3, 32380-8, THYR #### [facility] ([id number]) [address] [facility], [address] [place] [address] COMPREHENSIVE METABOLIC PANE Godfrey 03-26-2024 Albumin [Mass/Vol] 4.5 g/dL Normal 3.2-5.3 [facility] Comment on above: Performed By: #### 3 0896-5, 40616-4 #### [facility] ([id number]) [facility] [place] [address] #### 22455-5, 3051-0, HA1C, CBCA, 98903-5, CMP, 40828-7, 33846-8, THYR #### [facility] ([id number]) [address], [address] [place] [address] ALP [Catalytic activity/Vol] 71 U/L Normal 39-130 [facility] Comment on above: Performed By: #### 3 0896-5, 95113-3 #### [facility] ([id number]) [address] [place] [address] #### 99729-1, 3051-0, HA1C, CBCA, 40581-8, CMP, 19724-8, 63781-2, THYR #### [facility] ([id number]) [address] [facility], [address] [place] [address] ALT [Catalytic activity/Vol] 16 U/L Normal 0-31 [facility] Comment on above: Performed By: #### 3 0896-5, 37240-0 #### [facility] ([id number]) [address] [place] [address] #### 86722-8, 3051-0, HA1C, CBCA, 40224-2, CMP, 56806-0, 74407-9, THYR #### [facility] ([id number]) [address] [facility], [address] [place] [address] Anion gap [Moles/Vol] 9 mmol/L Normal 5-15 [facility] Comment on above: Performed By: #### 3 0896-5, 50678-1 #### [facility] ([id number]) [address] [place] [address] #### 26647-4, 3051-0, HA1C, CBCA, 56923-6, CMP, 38439-8, 02382-3, THYR #### [facility] ([id number]) [address] [facility], [address] [place] [address] AST [Catalytic activity/Vol] 16 U/L Normal 0-41 [facility] Comment on above: Performed By: #### 3 0896-5, 39159-0 #### [facility] ([id number]) [facility] [place] [address] #### 08666-5, 3051-0, HA1C, CBCA, 45057-1, CMP, 59215-7, 67703-8, THYR #### [facility] ([id number]) [address] [facility], [address] [place] [address] Bilirubin [Mass/Vol] 0.4 mg/dL Normal 0.3-1.2 [facility] Comment on above: Performed By: #### 3 0896-5, 07652-8 #### [facility] ([id number]) [facility] [place] [address] #### 23519-3, 3051-0, HA1C, CBCA, 01442-7, CMP, 84375-5, 36505-2, THYR #### [facility] ([id number]) [address] [facility], [address] [place] [address] Calcium [Mass/Vol] 9.9 mg/dL Normal 8.5-10.5 [facility] Comment on above: Performed By: #### 3 0896-5, 30236-8 #### [facility] ([id number]) [facility] [place] [address] #### 97606-3, 3051-0, HA1C, CBCA, 17039-5, CMP, 96517-5, 81656-5, THYR #### [facility] ([id number]) [address] [facility], [address] [place] [address] Chloride [Moles/Vol] 104 mmol/L Normal 98-109 [facility] Comment on above: Performed By: #### 3 0896-5, 62915-3 #### [facility] ([id number]) [facility] [place] [address] #### 79343-8, 3051-0, HA1C, CBCA, 82100-8, CMP, 11664-7, 53912-0, THYR #### [facility] ([id number]) [address], [address] [place] [address] CO2 [Moles/Vol] 26 mmol/L Normal 22-32 [facility] Comment on above: Performed By: #### 3 0896-5, 81236-0 #### [facility] ([id number]) [address] [place] [address] #### 44086-2, 3051-0, HA1C, CBCA, 49532-0, CMP, 35737-8, 19266-1, THYR #### [facility] ([id number]) [address] [facility], [address] [place] [address] Creatinine [Mass/Vol] 0.93 mg/dL Normal 0.40-1.00 [facility] Comment on above: Result Comment: METH OD TRACEABLE TO IDMS STANDARD Performed By: #### 3 0896-5, 93444-8 #### [facility] ([id number]) [address] [place] [address] #### 14053-4, 3051-0, HA1C, CBCA, 27564-6, CMP, 41608-3, 18291-8, THYR #### [facility] ([id number]) [address] [facility], [address] [place] [address] GFR/1.73 sq M.predicted among non-blacks MDRD (S/P/Bld) [Vol rate/Area] 89 mL/min/{1.73_m2} Normal >59 [facility] Comment on above: Result Comment: Reported eGFR is based on the CKD-EPI 2020 equation that does not use a race coefficient. Performed By: #### 3 0896-5, 43990-4 #### [facility] ([id number]) [address] [place] [address] #### 84737-6, 3051-0, HA1C, CBCA, 34951-2, CMP, 03713-4, 70034-7, THYR #### [facility] ([id number]) [address], [address] [place] [address] Glucose [Mass/Vol] 81 mg/dL Normal 65-99 [facility] Comment on above: Performed By: #### 3 0896-5, 92549-7 #### [facility] ([id number]) [address] [facility] [place] [address] #### 23275-2, 3051-0, HA1C, CBCA, 32449-8, CMP, 30460-2, 08588-6, THYR #### [facility] ([id number]) [address], [address] [place] [address] Potassium [Moles/Vol] 3.8 mmol/L Normal 3.5-5.0 [facility] Comment on above: Performed By: #### 3 0896-5, 61472-6 #### [facility] ([id number]) [address] [place] [address] #### 26975-2, 3051-0, HA1C, CBCA, 63993-5, CMP, 70700-9, 24694-7, THYR #### [facility] ([id number]) [address], [address] [place] [address] Protein [Mass/Vol] 8.0 g/dL Normal 6.0-8.0 [facility] Comment on above: Performed By: #### 3 0896-5, 97752-9 #### [facility] ([id number]) [address] [place] [address] #### 09555-3, 3051-0, HA1C, CBCA, 11989-9, CMP, 94304-2, 06105-7, THYR #### [facility] ([id number]) [address], [address] [place] [address] Sodium [Moles/Vol] 139 mmol/L Normal 134-146 [facility] Comment on above: Performed By: #### 3 0896-5, 26445-5 #### [facility] ([id number]) [address] [place] [address] #### 79043-8, 3051-0, HA1C, CBCA, 35481-5, CMP, 16366-2, 25509-7, THYR #### [facility] ([id number]) [address] [facility], [address] [place] [address] Urea nitrogen [Mass/Vol] 15 mg/dL Normal 5-23 [facility] Comment on above: Performed By: #### 3 0896-5, 51963-8 #### [facility] ([id number]) [address] [facility] [place] [address] #### 92181-2, 3051-0, HA1C, CBCA, 38312-7, CMP, 82674-8, 28096-8, THYR #### [facility] ([id number]) [address] [facility], [address] [place] [address] FREE T3on 03-26-2024 Free T3 [Mass/Vol] 3.32 pg/mL Normal 2.50-3.90 [facility] Comment on above: Performed By: #### 3 0896-5, 71310-5 #### [facility] ([id number]) [address] [place] [address] [place] [address] #### 94680-5, 3051-0, HA1C, CBCA, 18410-1, CMP, 86566-1, 05741-3, THYR #### [facility] ([id number]) [address] [facility], [address] [place] [address] HCV Ab IA Qlon 03-26-2024 ANTI HCV W/PCR REFLX Non-Reactive Normal NRCT Pr [facility] Comment on above: Result Comment: If recent infection suspected, recommend repeat testing (>2 months). Yvatqo-jl-uiddpu ratio is <0.80. Performed By: #### 3 0896-5, 82386-5 #### [facility] ([id number]) [address] [place] [address] #### 85525-3, 3051-0, HA1C, CBCA, 88309-0, CMP, 83446-1, 76765-2, THYR #### [facility] ([id number]) [address] [facility], [address] [place] [address] HGB A1C (GLYCO-HGB)on 2023 Glucose [Mass/Vol] 97 mg/dL Normal [facility] Comment on above: Performed By: #### 3 0896-5, 83726-1 #### [facility] ([id number]) [address] [facility] [place] [address] #### 99737-4, 3051-0, HA1C, CBCA, 07571-6, CMP, 74002-5, 97273-2, THYR #### [facility] ([id number]) [address] [facility], [address] [place] [address] HbA1c (Bld) [Mass fraction] 5.0 % Normal 4.4-5.6 [facility] Comment on above: Result Comment: NOTE ADA Guidelines Result HgbA1c Normal : less than 5.7 % Prediabetes : 5.7 % to 6.4 % Diabetes : > 6.4 % Use with caution in patients with abnormal hemoglobin variants as the half-life of red blood cells and in vivo glycation rates are affected. Performed By: #### 3 0896-5, 11235-0 #### [facility] ([id number]) [address] [place] [address] #### 13958-5, 3051-0, HA1C, CBCA, 03424-7, CMP, 46191-4, 49461-6, THYR #### [facility] ([id number]) [address] [facility], [address] [place] [address] HIV 1+2 Ab+HIV1 p24 Ag IA Ql on 03-26-2024 HIV 1 and 2 Ab/Ag Screen Non-Reactive Normal NRCT [facility] Comment on above: Result Comment: This information [...] or diagnoses. Performed By: #### 3 0896-5, 00500-8 #### [facility] ([id number]) [address] [facility] [place] [address] #### 12688-2, 3051-0, HA1C, CBCA, 79869-5, CMP, 38331-3, 68313-0, THYR #### [facility] ([id number]) [address] [facility], [address] [place] [address] Insulin Qnon 03-26-2024 INSULIN 14.09 uIU/mL Normal 1.00-23.00 [facility] Comment on above: Result Comment: Ref. range is for FASTING NON-DIABETIC POPULATION. Performed By: #### 3 0896-5, 55066-4 #### [facility] ([id number]) [address] [facility] [place] [address] #### 79588-1, 3051-0, HA1C, CBCA, 05807-6, CMP, 18618-5, 56706-0, THYR #### [facility] ([id number]) [address] [facility], [address] [place] [address] Lipid 1996 panelon 4 Cholesterol [Mass/Vol] 189 mg/dL Normal 150-200 Pr [facility] Comment on above: Performed By: #### 3 0896-5, 54343-5 #### [facility] ([id number]) [address] [place] [address] #### 33184-6, 3051-0, HA1C, CBCA, 63350-3, CMP, 49928-1, 10912-0, THYR #### [facility] ([id number]) [address] [facility], [address] [place] [address] Cholesterol in HDL [Mass/Vol] 85 mg/dL Normal >39 [facility] Comment on above: Result Comment: HDL <40 mg/dL - High Risk HDL > or = 40mg/dL- Desirable HDL >60 mg/dL - Negative Risk Performed By: #### 3 0896-5, 42171-2 #### [facility] ([id number]) [address] [facility] [place] [address] #### 18425-7, 3051-0, HA1C, CBCA, 78699-7, CMP, 89526-9, 19609-9, THYR #### [facility] ([id number]) [address], [address] [place] [address] Cholesterol in LDL [Mass/Vol] 91 mg/dL Normal <130 [facility] Comment on above: Result Comment: LDL <100 mg/dL - Desirable LDL >160 mg/dL - High Risk Performed By: #### 3 0896-5, 53133-0 #### [facility] ([id number]) [address] [place] [address] #### 07429-5, 3051-0, HA1C, CBCA, 08527-6, CMP, 19723-8, 76453-1, THYR #### [facility] ([id number]) [address] [facility], [address] [place] [address] Cholesterol in VLDL [Mass/Vol] 13 mg/dL Normal 0-30 [facility] Comment on above: Performed By: #### 3 0896-5, 37834-6 #### [facility] ([id number]) [address] [place] [address] #### 90103-3, 3051-0, HA1C, CBCA, 24216-2, CMP, 86111-7, 89890-7, THYR #### [facility] ([id number]) [address] [facility], [address] [place] [address] CHOLESTEROL:HDL 2.2 Normal 1.0-5.0 [facility] Comment on above: Performed By: #### 3 0896-5, 88136-4 #### [facility] ([id number]) [address] [place] [address] #### 64578-8, 3051-0, HA1C, CBCA, 41221-2, CMP, 25769-5, 56535-1, THYR #### [facility] ([id number]) [address] [facility], [address] [place] [address] Triglyceride [Mass/Vol] 63 mg/dL Normal 27-150 P [facility] Comment on above: Performed By: #### 3 0896-5, 70389-9 #### [facility] ([id number]) [facility] [place] [address] #### 51204-6, 3051-0, HA1C, CBCA, 39506-9, CMP, 76596-5, 00254-0, THYR #### [facility] ([id number]) [address] [facility], [address] [place] [address] Nuclear Ab IA Ql (S)on 03-26 MARISSA Screen w/reflex Negative Normal [facility]G [facility] Comment on above: Result Comment: Testing performed using multiplex flow immunoassay. Eleven different antigens associated with systemic autoimmune diseases (dsDNA,Sm,Sm/PRACTICE SUPPORT SPECIALIST,PRACTICE SUPPORT SPECIALIST,Chromatin, SSA,SSB,Aliya-1,Scl70,Ribo P,Centromere B) are included in this screening test. Performed By: #### 3 0896-5, 80994-9 #### [facility] ([id number]) [address] [place] [address] [place] [address] #### 76153-8, 3051-0, HA1C, CBCA, 08512-1, CMP, 49497-6, 89869-0, THYR #### [facility] ([id number]) [address], [address] [place] [address] RESPIRATORY PANELon 03-26-20 24 ALTERNARIA ALTERNATA <0.10 Normal <0.10 [facility] Comment on above: Result Comment: Clas s 0: Normal Performed By: #### 3 0896-5, 92542-6 #### [facility] ([id number]) [address] [place] [address] [place] [address] #### 66223-4, 3051-0, HA1C, CBCA, 45989-5, CMP, 97353-6, 42698-8, THYR #### [facility] ([id number]) [address] [facility], [address] [place] [address] ASPERGILLUS FUMIGATUS <0.10 Normal <0.10 [facility] Comment on above: Result Comment: Clas s 0: Normal Performed By: #### 3 0896-5, 35312-6 #### [facility] ([id number]) [address] [place] [address] [place] [address] #### 02175-2, 3051-0, HA1C, CBCA, 05107-6, CMP, 05981-0, 16142-0, THYR #### [facility] ([id number]) [address] [facility], [address] [place] [address] BERMUDA GRASS 0.34 kU/L High <0.10 [facility] Comment on above: Result Comment: Clas s 0/1: Low level of Allergy, ongoing sensitization Performed By: #### 3 0896-5, 46267-3 #### [facility] ([id number]) [address] [place] [address] #### 15304-8, 3051-0, HA1C, CBCA, 95317-9, CMP, 76605-3, 99395-2, THYR #### [facility] ([id number]) [address] [facility], [address] [place] [address] BOX ELDER 0.30 kU/L High <0.10 [facility] Comment on above: Result Comment: Clas s 0/1: Low level of Allergy, ongoing sensitization Performed By: #### 3 0896-5, 55964-8 #### [facility] ([id number]) [address] [place] [address] #### 52843-9, 3051-0, HA1C, CBCA, 07152-8, CMP, 43809-0, 84633-2, THYR #### [facility] ([id number]) [address] [facility], [address] [place] [address] CAT DANDER <0.10 Normal <0.10 [facility] Comment on above: Result Comment: Clas s 0: Normal Performed By: #### 3 0896-5, 11522-0 #### [facility] ([id number]) [facility] [place] [address] #### 26795-2, 3051-0, HA1C, CBCA, 59958-7, CMP, 08189-3, 38896-1, THYR #### [facility] ([id number]) [address] [facility], [address] [place] [address] CLADOSPORIUM HERB <0.10 Normal <0.10 [facility] Comment on above: Result Comment: Clas s 0: Normal Performed By: #### 3 0896-5, 19703-4 #### [facility] ([id number]) [facility] [place] [address] #### 87796-1, 3051-0, HA1C, CBCA, 40210-6, CMP, 06885-0, 03865-7, THYR #### [facility] ([id number]) [address] [facility], [address] [place] [address] COCK[place] 0.31 kU/L High <0.10 [facility] Comment on above: Result Comment: Clas s 0/1: Low level of Allergy, ongoing sensitization Performed By: #### 3 0896-5, 05502-6 #### [facility] ([id number]) [address] [place] [address] [place] [address] #### 01637-5, 3051-0, HA1C, CBCA, 00358-1, CMP, 62611-3, 83113-8, THYR #### [facility] ([id number]) [address] [place] [address], [address] [place] [address] COCKROACH 0.23 kU/L High <0.10 [facility] Comment on above: Result Comment: Clas s 0/1: Low level of Allergy, ongoing sensitization Performed By: #### 3 0896-5, 30910-0 #### [facility] ([id number]) [address] [place] [address] [place] [address] #### 45913-9, 3051-0, HA1C, CBCA, 72513-5, CMP, 76874-5, 70434-5, THYR #### [facility] ([id number]) [address] [place] [address], [address] [place] [address] COMMON PIGWEED 0.25 kU/L High <0.10 [facility] Comment on above: Result Comment: Clas s 0/1: Low level of Allergy, ongoing sensitization Performed By: #### 3 0896-5, 32109-3 #### [facility] ([id number]) [address] [place] [address] [place] [address] #### 72690-3, 3051-0, HA1C, CBCA, 64182-3, CMP, 38853-5, 39763-8, THYR #### [facility] ([id number]) [address], [address] [place] [address] COMMON RAGWEED 0.32 kU/L High <0.10 [facility] Comment on above: Result Comment: Clas s 0/1: Low level of Allergy, ongoing sensitization Performed By: #### 3 0896-5, 31063-6 #### [facility] ([id number]) [address] [place] [address] #### 26420-9, 3051-0, HA1C, CBCA, 32142-9, CMP, 31295-1, 03687-5, THYR #### [facility] ([id number]) [address], [address] [place] [address] COMMON SILVER BIRCH 0.23 kU/L High <0.[address] [facility] Comment on above: Result Comment: Clas s 0/1: Low level of Allergy, ongoing sensitization Performed By: #### 3 0896-5, 79853-3 #### [facility] ([id number]) [address] [place] [address] #### 07980-5, 3051-0, HA1C, CBCA, 52709-6, CMP, 42002-5, 79566-5, THYR #### [facility] ([id number]) [address], [address] [place] [address] [place] 0.24 kU/L High <0.10 [facility] Comment on above: Result Comment: Clas s 0/1: Low level of Allergy, ongoing sensitization Performed By: #### 3 0896-5, 40634-9 #### [facility] ([id number]) [address] [place] [address] #### 12755-9, 3051-0, HA1C, CBCA, 43213-7, CMP, 38259-4, 19066-9, THYR #### [facility] ([id number]) [address], [address] [place] [address] DERMATOPH FARINAE <0.10 Normal <0.10 [facility] Comment on above: Result Comment: Clas s 0: Normal Performed By: #### 3 0896-5, 35927-1 #### [facility] ([id number]) [address] [facility] [place] [address] #### 22479-0, 3051-0, HA1C, CBCA, 05645-4, CMP, 09445-2, 36841-3, THYR #### [facility] ([id number]) [address], [address] [place] [address] DERMATOPH PTERONYSS <0.10 Normal <0.[address] [facility] Comment on above: Result Comment: Clas s 0: Normal Performed By: #### 3 0896-5, 70495-1 #### [facility] ([id number]) [address] [place] [address] [place] [address] #### 05545-6, 3051-0, HA1C, CBCA, 75435-8, CMP, 32820-0, 92841-3, THYR #### [facility] ([id number]) [address], [address] [place] [address] DOG DANDER <0.10 Normal <0.10 [facility] Comment on above: Result Comment: Clas s 0: Normal Performed By: #### 3 0896-5, 29426-0 #### [facility] ([id number]) [address] [place] [address] [place] [address] #### 37608-3, 3051-0, HA1C, CBCA, 10055-9, CMP, 03452-0, 28035-1, THYR #### [facility] ([id number]) [address], [address] [place] [address] ELM 0.33 kU/L High <0.10 [facility] Comment on above: Result Comment: Clas s 0/1: Low level of Allergy, ongoing sensitization Performed By: #### 3 0896-5, 84235-3 #### [facility] ([id number]) [address] [place] [address] [place] [address] #### 51345-4, 3051-0, HA1C, CBCA, 33557-3, CMP, 03979-2, 11831-6, THYR #### [facility] ([id number]) [address], [address] [place] [address] [place]DR[employer] QTR 0.25 kU/L High <0.10 [facility] Comment on above: Result Comment: Clas s 0/1: Low level of Allergy, ongoing sensitization Performed By: #### 3 0896-5, 54317-7 #### [facility] ([id number]) [address] [place] [address] [place] [address] #### 47892-4, 3051-0, HA1C, CBCA, 87606-7, CMP, 52090-4, 95028-8, THYR #### [facility] ([id number]) [address], [address] [place] [address] IGE DUPLICATE ORDER Normal 0-165 [facility] Comment on above: Performed By: #### 3 0896-5, 96986-7 #### [facility] ([id number]) [address] [place] [address] [place] [address] #### 93607-7, 3051-0, HA1C, CBCA, 79591-6, CMP, 03633-7, 22484-8, THYR #### [facility] ([id number]) [address], [address] [place] [address] [place] 0.28 kU/L High <0.10 [facility] Comment on above: Result Comment: Clas s 0/1: Low level of Allergy, ongoing sensitization Performed By: #### 3 0896-5, 89275-0 #### [facility] ([id number]) [address] [place] [address] [place] [address] #### 12719-4, 3051-0, HA1C, CBCA, 12584-1, CMP, 69454-1, 24218-4, THYR #### [facility] ([id number]) [address], [address] [place] [address] [place] 0.27 kU/L High <0.[address] [facility] Comment on above: Result Comment: Clas s 0/1: Low level of Allergy, ongoing sensitization Performed By: #### 3 0896-5, 10133-3 #### [facility] ([id number]) [address] [facility] [place] [address] #### 67406-1, 3051-0, HA1C, CBCA, 69217-4, CMP, 59642-0, 56421-6, THYR #### [facility] ([id number]) [address], [address] [place] [address] [place] JOSE EDUARDO 0.31 kU/L High <0.[address] [facility] Comment on above: Result Comment: Clas s 0/1: Low level of Allergy, ongoing sensitization Performed By: #### 3 0896-5, 98006-1 #### [facility] ([id number]) [address] [place] [address] [place] [address] #### 59066-6, 3051-0, HA1C, CBCA, 39185-8, CMP, 49404-3, 70027-8, THYR #### [facility] ([id number]) [address], [address] [place] [address] MOUNTAIN JUNIPER 0.25 kU/L High <0.10 [facility] Comment on above: Result Comment: Clas s 0/1: Low level of Allergy, ongoing sensitization Performed By: #### 3 0896-5, 91566-4 #### [facility] ([id number]) [address] [place] [address] #### 54963-7, 3051-0, HA1C, CBCA, 61371-4, CMP, 85447-5, 37740-1, THYR #### [facility] ([id number]) [address] [address], [address] [place] [address] MOUSE URINE PROTEINS <0.10 Normal <0.10 [facility] Comment on above: Result Comment: Clas s 0: Normal Performed By: #### 3 0896-5, 58856-1 #### [facility] ([id number]) [address] [facility] [place] [address] #### 69365-1, 3051-0, HA1C, CBCA, 10587-8, CMP, 41572-1, 69593-5, THYR #### [facility] ([id number]) [address] [place] [address], [address] [place] [address] MUGWORT 0.27 kU/L High <0.10 [facility] Comment on above: Result Comment: Clas s 0/1: Low level of Allergy, ongoing sensitization Performed By: #### 3 0896-5, 42631-9 #### [facility] ([id number]) [address] [facility] [place] [address] #### 94476-4, 3051-0, HA1C, CBCA, 81256-2, CMP, 98039-6, 50186-3, THYR #### [facility] ([id number]) [address] [place] [address], [address] [place] [address] MULBERRY TREE 0.20 kU/L High <0.10 [facility] Comment on above: Result Comment: Clas s 0/1: Low level of Allergy, ongoing sensitization Performed By: #### 3 0896-5, 91433-3 #### [facility] ([id number]) [address] [place] [address] #### 27093-8, 3051-0, HA1C, CBCA, 63030-3, CMP, 72808-2, 18723-9, THYR #### [facility] ([id number]) [address], [address] [place] [address] NETTLE 0.27 kU/L High <0.10 [facility] Comment on above: Result Comment: Clas s 0/1: Low level of Allergy, ongoing sensitization Performed By: #### 3 0896-5, 80289-3 #### [facility] ([id number]) [address] [place] [address] [place] [address] #### 83860-2, 3051-0, HA1C, CBCA, 28633-3, CMP, 14570-6, 00975-6, THYR #### [facility] ([id number]) [address], [address] [place] [address] OAK 0.28 kU/L High <0.10 [facility] Comment on above: Result Comment: Clas s 0/1: Low level of Allergy, ongoing sensitization Performed By: #### 3 0896-5, 68012-1 #### [facility] ([id number]) [address] [place] [address] [place] [address] #### 06328-1, 3051-0, HA1C, CBCA, 71668-5, CMP, 92676-4, 84913-7, THYR #### [facility] ([id number]) [address], [address] [place] [address] PECAN HICKORY TREE 0.27 kU/L High <0.10 [facility] Comment on above: Result Comment: Clas s 0/1: Low level of Allergy, ongoing sensitization Performed By: #### 3 0896-5, 54034-4 #### [facility] ([id number]) [address] [place] [address] [place] [address] #### 97951-8, 3051-0, HA1C, CBCA, 82640-9, CMP, 93329-0, 45017-5, THYR #### [facility] ([id number]) [address], [address] [place] [address] PENICILLIUM CHRYSOGENUM <0.10 Normal <0.10 P [facility] Comment on above: Result Comment: Clas s 0: Normal Performed By: #### 3 0896-5, 52191-6 #### [facility] ([id number]) [address] [place] [address] [place] [address] #### 91827-2, 3051-0, HA1C, CBCA, 90316-2, CMP, 20134-2, 01940-5, THYR #### [facility] ([id number]) [address], [address] [place] [address] ROUGH MARSHELDER 0.29 kU/L High <0.10 [facility] Comment on above: Result Comment: Clas s 0/1: Low level of Allergy, ongoing sensitization Performed By: #### 3 0896-5, 45631-9 #### [facility] ([id number]) [address] [place] [address] [place] [address] #### 42744-9, 3051-0, HA1C, CBCA, 48511-5, CMP, 18048-7, 45222-6, THYR #### [facility] ([id number]) [address], [address] [place] [address] S[place] ODALIS THISTLE 0.30 kU/L High <0.10 [facility] Comment on above: Result Comment: Clas s 0/1: Low level of Allergy, ongoing sensitization Performed By: #### 3 0896-5, 08739-8 #### [facility] ([id number]) [address] [place] [address] [place] [address] #### 50400-9, 3051-0, HA1C, CBCA, 24364-3, CMP, 83054-2, 82214-2, THYR #### [facility] ([id number]) [address], [address] [place] [address] SHEEP SORREL 0.29 kU/L High <0.10 [facility] Comment on above: Result Comment: Clas s 0/1: Low level of Allergy, ongoing sensitization Performed By: #### 3 0896-5, 32980-4 #### [facility] ([id number]) [address] [place] [address] #### 42477-2, 3051-0, HA1C, CBCA, 95883-5, CMP, 29384-1, 99622-1, THYR #### [facility] ([id number]) [address], [address] [place] [address] ANT 0.29 kU/L High <0.10 [facility] Comment on above: Result Comment: Clas s 0/1: Low level of Allergy, ongoing sensitization Performed By: #### 3 0896-5, 76821-1 #### [facility] ([id number]) [address] [place] [address] #### 33461-7, 3051-0, HA1C, CBCA, 00486-1, CMP, 34748-6, 88084-4, THYR #### [facility] ([id number]) [address], [address] [place] [address] WALNUT TREE POLLEN 0.34 kU/L High <0.10 [facility] Comment on above: Result Comment: Clas s 0/1: Low level of Allergy, ongoing sensitization Performed By: #### 3 0896-5, 22798-7 #### [facility] ([id number]) [address] [place] [address] #### 17042-1, 3051-0, HA1C, CBCA, 85843-2, CMP, 37507-4, 66316-3, THYR #### [facility] ([id number]) [address], [address] [place] [address] WHITE AURORA 0.31 kU/L High <0.10 [facility] Comment on above: Result Comment: Clas s 0/1: Low level of Allergy, ongoing sensitization Performed By: #### 3 0896-5, 01607-7 #### [facility] ([id number]) [address] [place] [address] #### 68666-6, 3051-0, HA1C, CBCA, 85839-0, CMP, 40566-4, 53234-5, THYR #### [facility] ([id number]) [address], [address] [place] [address] Reference Lab Test IDon 08- CELIAC COMP CASCADE SEE COMMENTS 03/30/2024 10:48 PM [facility] Comment on above: Result Comment: NOTE Test Result Flag Unit RefValue ----- Celiac Disease Comprehensive Casc Immunoglobulin A (IgA) 283 mg/dL 61 - [...] instructions. Its performance characteristics were determined by [facility] in a manner consistent with CLIA requirements. This test has not been cleared or approved by the U.S. Food and Drug Administration. CLIA: [id number] CLIA Field Machinist: NICOLLE SY,Ph.D. A portion of the testing process was performed at [facility] site [address] Celiac Disease See Note Interpretation See Comment: Permissive genes absent and negative serology. Celiac disease extremely unlikely. Test Performed by: [facility] [address] [place] [address] Field Machinist: Nicolle Sy Ph.D.; CLIA# [id number] Test Performed by: [place] [address] Field Machinist: Nicolle Sy Ph.D.; CLIA# [id number] Performed By: #### 3 0896-5, 41302-0 #### [facility] ([id number]) [address] [facility] [place] [address] #### 08021-9, 3051-0, HA1C, CBCA, 43630-0, CMP, 35459-9, 98232-4, THYR #### [facility] ([id number]) [address], [address] [place] [address] THYROID PROFILEon 03-26-2024 Free T4 [Mass/Vol] 0.51 ng/dL Low 0.61-1.60 [facility] Comment on above: Performed By: #### 3 0896-5, 23345-5 #### [facility] ([id number]) [address] [facility] [place] [address] #### 43144-6, 3051-0, HA1C, CBCA, 46396-7, CMP, 78065-1, 82915-6, THYR #### [facility] ([id number]) [address] [facility] [facility] [address] [place] [address] TSH 44.60 uIU/mL High 0.49-4.67 [facility] Comment on above: Performed By: #### 3 0896-5, 62463-5 #### [facility] ([id number]) [address] [facility] [place] [address] #### 22862-8, 3051-0, HA1C, CBCA, 74290-4, CMP, 95994-3, 72616-5, THYR #### [facility] ([id number]) [address] [facility] [facility] [address], [address] [place] [address] tTG IgA IA Qn (S)on 03-26-20 TTG AB IGA <1.2 Normal <4.0 (Negative) [facility] Comment on above: Result Comment: NOTE Test Performed by: [facility] [address] [place] [address] Field Machinist: Nicolle Sy Ph.D.; CLIA# [id number] Performed By: #### 3 0896-5, 86214-2 #### [facility] ([id number]) [address] [place] [address] #### 10783-6, 3051-0, HA1C, CBCA, 96339-3, CMP, 96832-6, 55781-7, THYR #### [facility] ([id number]) [address], [address] [place] [address] CBC AUTO DIFFon 08-30-2018 Basophils #/vol (Bld) 0.0 103/ul Normal 0.0-0.1 [facility] Comment on above: Performed By: #### C BC #### [facility] [address] [place], [place] [address] [place] Basophils/100 WBC (Bld) 0.2 % Normal 0.2-2.0 [facility] Comment on above: Performed By: #### C BC #### [facility] [address] [place], [place] [address] [place] Eosinophils #/vol (Bld) 0.2 103/ul Normal 0.0-0.7 [facility] Comment on above: Performed By: #### C BC #### [facility] [address] [place], [place] [address] [place] Eosinophils/100 WBC (Bld) 1.5 % Normal 0.9-7.0 [facility] Comment on above: Performed By: #### C BC #### [facility] [address] [place], [place] [address] [place] Erythrocyte distribution width Ratio (RBC) 12.4 % Normal 11.0-15.0 [facility] Comment on above: Performed By: #### C BC #### [facility] [address] [place], [place] [address] [place] Hematocrit Volume Fraction (Bld) 38.3 % Normal 36.0-48.0 [facility] Comment on above: Performed By: #### C BC #### [facility] [address] [place] [address] [place] Hemoglobin mass conc (Bld) 12.8 g/dL Normal 12.0-16.0 [facility] Comment on above: Performed By: #### C BC #### [facility] [address] [place] [address] [place] IG # 0.03 10e3/ul Normal 0.00-0.03 [facility] Comment on above: Performed By: #### C BC #### [facility] [address] [place] [address] Bob [place] IG % 0.3 % Normal 0.0-0.5 [facility] Comment on above: Performed By: #### C BC #### [facility] [address] [place] [address] [place] Lymphocytes #/vol (Bld) 3.3 103/ul Normal 1.2-3.8 [facility] Comment on above: Performed By: #### C BC #### [facility] [address] [place] [address] [place] Lymphocytes/100 WBC (Bld) 30.8 % Normal 20.5-60.0 [facility] Comment on above: Performed By: #### C BC #### [facility] [address] [place] [address] [place] MANUAL DIFF REQ NO Normal [facility] [place] [facility] Comment on above: Performed By: #### C BC #### [facility] [address] [place] [address] [place] MCH Entitic mass (RBC) 32.8 pg Normal 26.7-34.0 [facility] Comment on above: Performed By: #### C BC #### [facility] [address] [place] [address] [place] MCHC mass conc (RBC) 33.4 g/dL Normal 29.9-35.2 [facility] Comment on above: Performed By: #### C BC #### [facility] [address] [place], [place] [address] Bob Liz MCV Entitic volume (RBC) 98.2 fL Normal 81.0-99.0 [facility] Comment on above: Performed By: #### C BC #### [facility] [address] [place], [place] [address] [place] Monocytes #/vol (Bld) 0.7 103/ul Normal 0.3-0.8 [facility] Comment on above: Performed By: #### C BC #### [facility] [address] [place] [address] Bob [place] Monocytes/100 WBC (Bld) 6.9 % Normal 1.7-12.0 [facility] Comment on above: Performed By: #### C BC #### [facility] [address] [place] [address] [place] Neutrophils #/vol (Bld) 6.5 103/ul Normal 1.4-6.5 [facility] Comment on above: Performed By: #### C BC #### [facility] [address] [place] [address] [place] Neutrophils/100 WBC (Bld) 60.3 % Normal 43.0-75.0 [facility] Comment on above: Performed By: #### C BC #### [facility] [address] [place] [address] [place] Platelet mean volume Entitic volume (Bld) 10.0 fL Normal 9.5-13.5 [facility] Comment on above: Performed By: #### C BC #### [facility] [address] [place] [address] [place] Platelets #/vol (Bld) 290 103/ul Normal 150-450 [facility] Comment on above: Performed By: #### C BC #### [facility] [address] [place] [address] [place] RBC #/vol (Bld) 3.90 106/ul Critically low 4.20-5.40 [facility] Comment on above: Performed By: #### C BC #### [facility] [address] [place] [address] [place] WBC #/vol (Bld) 10.8 103/ul Normal 4.0-11.0 [facility] Comment on above: Performed By: #### C BC #### [facility] [address] [place], [place] [address] [place] CULTURE URINEon 08-30-2018 CULTURE URINE Culture Observations: LIGHT GROWTH OF MIXED GENITAL OLIMPIA. NO POTENTIAL PATHOGENS SEEN. Normal [facility] Comment on above: Performed By: #### U RCX #### [facility] [address] [place], [place] [address] [place] [facility] URINE PROFILEon 9 Bilirubin mass conc Negative Normal NEGATIVE [facility] Comment on above: Performed By: #### Madeline HERNANDEZ UMDIAMONDRO #### [facility] [address] [place] [address] [place] BLOOD LARGE Normal NEGATIVE [facility] Comment on above: Performed By: #### MELISA BROWNRO #### [facility] [address] [place] [address] [place] Clarity Nom (U) CLEAR Normal [facility] Comment on above: Performed By: #### Madeline HERNANDEZ UMICRO #### [facility] [address] [place] [address] [place] Color Nom (U) RED Normal YELLOW [facility] Comment on above: Performed By: #### MELISA BROWNRO #### [facility] [address] [place], [place] [address] [place] ERUAHD A micrscopic examination will be performed if indicated. Normal [facility] Comment on above: Performed By: #### MELISA BROWNRO #### [facility] [address] [place] [address] [place] Glucose mass conc Negative Normal NEGATIVE [facility] Comment on above: Performed By: #### MELISA BROWNRO #### [facility] [address] [place] [address] [place] Ketones Ql (U) TRACE Normal NEGATIVE [facility] Comment on above: Performed By: #### Madeline HERNANDEZ UMICRO #### [facility] [address] [place] [address] [place] Nitrite Ql (U) Positive Normal NEGATIVE [facility] Comment on above: Performed By: #### Madeline HERNANDEZ UMICRO #### [facility] [address] [place] [address] [place] pH (Bld) 6.5 Normal 5-9 [facility] Comment on above: Performed By: #### Madeline HERNANDEZ UMICRO #### [facility] [address] [place] [address] [place] Protein mass conc (U) 100 mg/dL Normal [facility] Comment on above: Performed By: #### Madeline HERNANDEZ UMICRO #### [facility] [address] [place] [address] [place] SPEC GRAVITY 1.025 Normal 1.005-<=1.025 [facility] [place] [facility] Comment on above: Performed By: #### Madeline HERNANDEZ UMICRO #### [facility] [address] [place] [address] [place] UR MICRO IND INDICATED Normal [facility] Comment on above: Performed By: #### Madeline HERNANDEZ UMICRO #### [facility] [address] [place] [address] [place] Urobilinogen Qn (U) 1.0 EU/dl Normal [facility] Comment on above: Performed By: #### Madeline HERNANDEZ UMICRO #### [facility] [address] [place] [address] [place] WBC #/vol (Bld) TRACE Normal NEGATIVE [facility] Comment on above: Performed By: #### Madeline HERNANDEZ UMICRO #### [facility] [address] [place] [address] [place] URon 08-30-2018 , QUAL Negative Normal NEGATIVE [facility] Comment on above: Performed By: #### P REGU #### [facility] [address] [place], [place] [address] [place] URINE MICROSCOPIC ONLYon Bacteria LM.HPF #/area (Urine sed) SMALL Normal NONE SEEN [facility] Comment on above: Performed By: #### MELISA BROWNRO #### [facility] [address] [place], [place] [address] [place] CAST NONE SEEN Normal NONE SEEN [facility] Comment on above: Performed By: #### Madeline HERNANDEZ UMICRO #### [facility] [address] [place] [address] [place] Crystals LM Nom (Urine sed) NONE SEEN Normal NONE SEEN [facility] Comment on above: Performed By: #### MELISA BROWNRO #### [facility] [address] [place] [address] [place] CULTURE INDICATED Normal [facility] Comment on above: Performed By: #### MELISA BROWNRO #### [facility] [address] [place] [address] [place] Epithelial cells LM.HPF #/area (Urine sed) FEW Normal [facility] Comment on above: Performed By: #### MELISA BROWNRO #### [facility] [address] [place] [address] [place] MUCOUS NONE SEEN Normal NONE SEEN [facility] Comment on above: Performed By: #### MELISA BROWNRO #### [facility] [address] [place] [address] [place] RBC #/vol (U) /uL Normal 0-2 [facility] Comment on above: Performed By: #### MELISA BROWNRO #### [facility] [address] [place] [address] [place] WBC #/vol (Bld) 2-5 Normal NONE SEEN [facility] Comment on above: Performed By: #### MELISA BROWNRO #### [facility] [address] [place] [address] [place] US PELVIS AND TRANSVAGon US PELVIS AND TRANSVAG [address] [place] [address] Patient: MAXIMILIAN CORTES Exam Date: 08/30/2018 : 2000 Gender:F Ordering : ERICA MALDONADO Admission #: [id number] Family : JOESPH FRANCO Order #: [id number]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 ROS otherwise negative if not mentioned above. Past Medical History: Diagnosis Date Acute kidney injury (LE) with acute tubular necrosis (ATN) 03/16/2020 Borderline personality disorder (CMS-HCC) Depression Hypothyroidism Iron deficiency anemia Obesity Obesity, unspecified 12/16/2016 PCOS (polycystic ovarian syndrome) Past Surgical History: Procedure Laterality Date TONSILLECTOMY Family History Problem Relation Age of Onset Autoimmune disease Paternal Grandmother uncpecified Hypertension Father Hepatitis Mother Schizophrenia Mother Autism Half Sister Clotting disorder Neg Hx Congenital heart disease Neg Hx Social History Socioeconomic History Marital status: Spouse name: Not on file Number of children: Not on file Years of education: Not on file Highest education level: Not on file Occupational History Not on file Tobacco Use Smoking status: Never Passive exposure: Never Smokeless tobacco: Former Vaping Use Vaping status: Former Start date: 08/10/2017 Quit date: 05/16/2024 Substances: Nicotine Devices: Disposable Substance and Sexual Activity Alcohol use: Not Currently Drug use: Not Currently Types: Marijuana Sexual activity: Yes Partners: Male Other Topics Concern Not on file Social History Narrative Not on file Social Drivers of Health Financial Resource Strain: Not on file Food Insecurity: No Food Insecurity (01/10/2025) Hunger Screening Food Insecurity - Worry: Never True Food Insecurity - Inability: Never True Transportation Needs: No Transportation Needs (12/07/2024) PRAPARE - Transportation Lack of Transportation (Medical): No Lack of Transportation (Non-Medical): No Physical Activity: Not on file Stress: Not on file Social Connections: Not on file Interpersonal Safety: Not At Risk (12/07/2024) Humiliation, Afraid, Rape, and Kick questionnaire Fear of Current or Ex-Partner: No Emotionally Abused: No Physically Abused: No Sexually Abused: No Housing Instability: Low Risk (12/07/2024) Housing Instability Housing Instability: No Current Outpatient Medications: acetaminophen (TYLENOL) 325 mg [...] mg total) before bedtime., Disp: , Rfl: calcium carbonate (TUMS) 200 mg elemental (500 mg) chewable tablet, Chew 2 tablets (400 mg total) and swallow in the morning. (Patient not taking: Reported on 01/10/2025), Disp: , Rfl: levothyroxine (SYNTHROID, LEVOTHROID) 200 MCG tablet, Take 1 tablet (200 mcg total) by mouth in the morning. After take 1 tablet daily and skip Sundays (6 tablets per week)., Disp: 90 tablet, Rfl: 3 metroNIDAZOLE (FLAGYL) 500 mg tablet, Take 1 tablet (500 mg total) by mouth in the morning and at bedtime. (Patient not taking: Reported on 01/10/2025), Disp: , Rfl: ondansetron ODT (ZOFRAN ODT) 4 mg disintegrating tablet, Dissolve 1 tablet (4 mg total) on tongue every 8 (eight) hours as needed for nausea or vomiting. (Patient not taking: Reported on 01/10/2025), Disp: 20 tablet, Rfl: 0 sennosides-docusate sodium (SENNA WITH DOCUSATE SODIUM) 8.6-50 mg, Take 1 tablet by mouth in the morning. (Patient not taking: Reported on 01/10/2025), Disp: 30 tablet, Rfl: 1 [Paused] sertraline (ZOLOFT) 25 mg tablet, Take 1 tablet (25 mg total) by mouth in the morning. (Patient not taking: Reported on 12/07/2024), Disp: , Rfl: There are no hospital problems to display for this patient. EXAM: Blood pressure 105/75, pulse 96, height 154.9 cm (5' 1 ), weight 101.2 kg (223 lb 3.2 oz), last menstrual period 04/23/2024, not currently . Body mass index is 42.17 kg/m . General- awake/ alert/ pleasant Neck: Thyroid not enlarged, right fullness palpable, no tenderness Cardiac: RRR Respiratory: CTAB Abdomen: gravid abdomen Extremities: appropriate coloration, bilateral pulses, no rashes visible Neuro: appropriate gait, appropriate mentation Assessment and Plan Maximilian Cortes is a 24 y.o. 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 The patient is being treated with Levothyroxine 200 mcg daily Recent thyroid levels are: excellent I recommend she continue the 200 mcg daily dose through the remainder of . After delivery, take 6 tablets per week skipping Sundays. We will check labs 2 months after delivery. We can see her back 3 months after that with another round of labs. Fullness palpated in the right thyroid lobe. I recommend thyroid US after delivery, this does not need to be done soon/ urgently. Follow up with Rebeka in 5 months, I will see her annually MAKENZIE ANGUIANO MD [facility] documented in this encounter [facility] 01-09-2025 History of Presen t illness [...] Births 1 # Outcome Date GA Lbr Ilncoln/2nd Weight Sex Type Anes PTL Lv 2 Current 1 2019 Her is complicated by: Objective Physical [...] Induction of labor scheduled [facility] 01[facility]22/25 at [facility] Follow up in 1 week for a routine visit. documented in this encounter [facility] 01-09-2025 Miscellaneous Notes Formattin g of this note might be different from the original. TC to patient to confirm her appointment tomorrow 01/10/[address] Anguiano @ 0900. Patient confirmed documented in this encounter [facility] 01-09-2025 Telephone encount er Note TC to patient to confirm her appointment tomorrow 01/10/[address] Anguiano @ 0926. Patient confirmed [facility] 01-03-2025 History of Presen t [...] 1 2019 Her is complicated by: hypothyroid, PTSD, [...] a routine visit. documented in this encounter [facility] 01-03-2025 Miscellaneous Notes Formattin g of this note might be different from the original. Left voicemail for Leanne at Annabella Pau's office - would like to make sure patient has not had a TSH drawn since 11/24/24. Awaiting call back. documented in this encounter [facility] 01-03-2025 Telephone encount er Note Left voicemail for Leanne at [facility]'s office - would like to make sure patient has not had a TSH drawn since 11/24/24. Awaiting call back. [facility] 12-28-2024 History of Presen t [...] a routine visit. documented in this encounter [facility] 12-19-2024 History of Presen t [...] during in second trimester Hypothyroidism, unspecified type (CMS/[facility]) History of anxiety History of depression Continue vitamin. Labs reviewed. Reactive NST in office today GBS at 36 weeks Expected mode of delivery Follow up in 1 week for a routine visit. documented in this encounter [facility] 12-13-2024 History of Presen t [...] 33w3d - hypothyroidism in Please see prior [facility] consultation notes for detailed discussions and consultation on the patient multiple comorbidities She has been compliant with the Synthroid Referral given to endocrinology as the patient does not have supervisory forester to follow her long-term dose to be [...] Repeat growth ultrasound in 4 weeks through [facility] Recommend weekly testing starting at 32 weeks gestation, per ACOG guidelines primary OB office Delivery planning at 39 weeks unless a sooner indication arises. If she delivers by , recommend VTE prevention (LMWH 40mg daily) during hospitalization Follow up in [facility] already scheduled Follow-up with the [facility] scheduled DISPOSITION: At this point the patient is in complete care of her fiber technician. Patient does have ultrasound and office visit scheduled with us. Thank you for allowing me to participate in the care of Maximilian Cortes. If there any questions please do not hesitate to contact us. Frank Gao MD, FACOG (she/hers) Maternal- Medicine [facility] [address] [place] [address] This document was created with [employer] technology. Though I make every effort to review the dictation as it is transcribed, on occasion the spoken word can be misinterpreted by the technology leading to inappropriate words, phrases, or sentences. This note is addressed to the requesting provider as a consultation for clinical guidance. Specific medical abbreviations are occasionally used and those are generally approved by the [place]?Board of?Obstetrics and?Gynecology?as well as?Kayla manuel abbreviations. The above plan of care was based solely on the diagnoses for which a consultation was requested. ?More frequent testing may be indicated based on her other medical/obstetrical conditions. The management of other or medical conditions is beyond the scope of requested consultation and will continue to be followed by the primary fiber technician or primary care provider. Note to patient: [...] of the practitioner. documented in this encounter [facility] 12-12-2024 History of Presen t [...] 1 2019 Her is complicated by: thyroid, depression, [...] my whole family has mental health problems. Sxfloyd does voice concern that she is worried [...] via telemed visit. Patient was seen at [facility] last week for cramping, N/V [...] no abdominal tightening. documented in this encounter [facility] 12-05-2024 History of Presen t [...] 1 SAB 2019 Her is complicated by: Objective Physical [...] a routine visit. documented in this encounter [facility] 11-28-2024 Miscellaneous Notes Formattin g of this note might be different from the original. Notified patient by phone of new Levothyroxine dosing. Patient verbalized understanding and has already received a notification from her pharmacy that the new dose is in process and can be picked up tomorrow after 2pm. documented in this encounter [facility] 11-28-2024 Telephone encount er Note Notified patient by phone of new Levothyroxine dosing. Patient verbalized understanding and has already received a notification from her pharmacy that the new dose is in process and can be picked up tomorrow after 2pm. [facility] 11-28-2024 Miscellaneous Notes Formattin g of this note might be different from the original. Spoke with patient who states she is taking her levothyroxine as follows: 150mcg on M,W,F,Sat,Sun and 225mcg T&Th. documented in this encounter [facility] 11-28-2024 Telephone encount er Note Spoke with patient who states she is taking her levothyroxine as follows: 150mcg on M,W,F,Sat,Sun and 225mcg T&Th. [facility] 11-28-2024 Miscellaneous Notes Formattin g of this note is different from the original. Patient called to review thyroid function. No answer, VM was full. Lab Results Component Value Date TSH 11.33 (H) 11/24/2024 RN will attempt to call patient back and confirm dosing before medication changes are made. Berna Daniel MD Maternal- Medicine [place] [id number] [facility] [address] [place] [address] documented in this encounter [facility] 11-28-2024 Telephone encount er Note Patient called to review thyroid function. No answer, VM was full. Lab Results Component Value Date TSH 11.33 (H) 11/24/2024 RN will attempt to call patient back and confirm dosing before medication changes are made. Berna Daniel MD Maternal- Medicine [facility] [address] [place] [address] [facility] 11-28-2024 Miscellaneous Notes Formattin g [...] her new lab results and that Dr. Fredy huffman or her nurse will reach out to her today. Pt understood. documented in this encounter [facility] 11-28-2024 Telephone encount er Note Patient called in to let us know she got her TSH labs and T4 labs done over weekend and wants to let Dr. Daniel know that they are resulted and still high, I let patient know that I will give Dr. Daniel her new lab results and that Dr. Fredy huffman or her nurse will reach out to her today. Pt understood. [facility] 11-24-2024 History of Presen t [...] Visit via Real-time Synchronous Audiovisual Provider Location: [facility]- [facility]ICINE AT [address] [id number] Patient Location: Other Patient Location Crime Specialist: None Video Visit Consent Statement: I discussed [...] that there are some limitations compared to [id number] evaluations. We elected to proceed. REASON FOR [...] and bring in logs for review with MFM or primary OB Daily movement assessment after 28 weeks. Repeat growth ultrasound in 4 weeks through [facility] Recommend weekly testing starting at 32 weeks gestation, per ACOG guidelines Delivery planning at 39 weeks unless a sooner indication arises. If she delivers by , recommend VTE prevention (LMWH 40mg daily) during hospitalization Follow up in [facility] already scheduled DISPOSITION: At this point the patient is in complete care of her fiber technician. Patient does have ultrasound and office visit [...] procedures Referring and communicating with other health childcare center administrator (not separately reported) Documenting clinical information in the electronic or other health record Berna Daniel MD Maternal- Medicine [facility] [address] [place] [address] [facility], the CDC, and other organizations representing maternal and public health professionals recommend that , , and lactating people and those considering receive the COVID-19 vaccination. Vaccination is the best method to reduce maternal and complications of SARS-CoV-2 infection. This document was created with [employer] technology. Though I make every effort to review the dictation as it is transcribed, on occasion the spoken word can be misinterpreted by the technology leading to inappropriate words, phrases, or sentences. This note is addressed to the requesting provider as a consultation for clinical guidance. Specific medical abbreviations are occasionally used and those are generally approved by the [place]?Board of?Obstetrics and?Gynecology?as well as?Kayla manuel abbreviations. The above plan of care was based solely on the diagnoses for which a consultation was requested. ?More frequent testing may be indicated based on her other medical/obstetrical conditions. The management of other or medical conditions is beyond the scope of requested consultation and will continue to be followed by the primary fiber technician or primary care provider. Note to patient: [...] Patient tolerated well. [facility] 11-18-2024 Miscellaneous Notes Formattin g of this note might be different from the original. Left another voicemail for Annabella Li nurse in regards to USN results faxed to our office on 11/16/24. Unclear why it was sent or what is needed from [facility]. Awaiting call back. [facility] 11-18-2024 Telephone encount er Note Left another voicemail for Annabella Li nurse in regards to USN results faxed to our office on 11/16/24. Unclear why it was sent or what is needed from [facility]. Awaiting call back. [facility] 11-17-2024 Miscellaneous Notes Formattin g of this note might be different from the original. Left voicemail for Annabella Mai's nurse inquiring why an ultrasound from [facility] completed on 11/14/24 was sent to [facility] and if anything is needed from us. Awaiting call back. documented in this encounter [facility] 11-17-2024 Telephone encount er Note Left voicemail for Annabella Mai's nurse inquiring why an ultrasound from [facility] completed on 11/14/24 was sent to [facility] and if anything is needed from us. Awaiting call back. [facility] 11-14-2024 History of Presen t [...] first , third trimester Hypothyroidism, unspecified type (CMS/[facility]) Continue vitamin. Labs reviewed. GBS taken. Expected mode of delivery Follow up in 1 week for a routine visit. documented in this encounter [facility] 11-14-2024 Telephone encount er Note Spoke with Annabella and appt made for 3 pm today 11/14/24 Spoke with pt and pt will be here :) [facility] 11-14-2024 Miscellaneous Notes Formattin g [...] all bases <3 documented in this encounter [facility] 11-14-2024 Telephone encount er Note [...] and Leanne to cover all bases <3 [facility] 11-04-2024 Miscellaneous Notes Formattin g of this note might be different from the original. Received voicemail from patient stating she did receive new Levothyroxine dosing. documented in this encounter [facility] 11-04-2024 Telephone encount er Note Received voicemail from patient stating she did receive new Levothyroxine dosing. [facility] 11-04-2024 Miscellaneous Notes Formattin g of this note might be different from the original. Left another voicemail for patient to ensure she received the new dosing for levothyroxine. Requested a call back to confirm. documented in this encounter [facility] 11-04-2024 Telephone encount er Note Left another voicemail for patient to ensure she received the new dosing for levothyroxine. Requested a call back to confirm. [facility] 11-03-2024 Miscellaneous Notes Formattin g of this note might be different from the original. Left voicemail for patient notifying of new levothyroxine dosing. [employer] D[employer]ger requested a call back from patient to confirm she received the new dosing instructions. documented in this encounter [facility] 11-03-2024 Telephone encount er Note Left voicemail for patient notifying of new levothyroxine dosing. [employer] D[employer]ger requested a call back from patient to confirm she received the new dosing instructions. [facility] 11-01-2024 History of Presen t [...] 40mg daily) during hospitalization Follow up in [facility] already scheduled DISPOSITION: At this point the patient is in complete care of her fiber technician. Patient does have ultrasound and office visit [...] back tomorrow. Berna Daniel MD Maternal- Medicine [facility] [address] [address] [address] [place] [address] [facility], the CDC, and other organizations representing maternal and public health professionals recommend that , , and lactating people and those considering receive the COVID-19 vaccination. Vaccination is the best method to reduce maternal and complications of SARS-CoV-2 infection. This document was created with [employer] technology. Though I make every effort to review the dictation as it is transcribed, on occasion the spoken word can be misinterpreted by the technology leading to inappropriate words, phrases, or sentences. This note is addressed to the requesting provider as a consultation for clinical guidance. Specific medical abbreviations are occasionally used and those are generally approved by the [place]?Board of?Obstetrics and?Gynecology?as well as?Kayla s abbreviations. The above plan of care was based solely on the diagnoses for which a consultation was requested. ?More frequent testing may be indicated based on her other medical/obstetrical conditions. The management of other or medical conditions is beyond the scope of requested consultation and will continue to be followed by the primary fiber technician or primary care provider. Note to patient: [...] procedures Referring and communicating with other health childcare center administrator (not separately reported) Documenting clinical information in the electronic or other health record documented in this encounter [employer] 10-07-2024 Telephone encount er Note Annabella, I [...] if you would call in the paxlovid. [facility] in [place], [place]. Im sending this *and* calling you, just to be safe. I called the pt to tell her what you said about sending the rx later tonight, because you are in a conference in [place]. And that she will have to pick it up from the pharmacy tomorrow morning. I had to leave her a vm with the information. [facility] 10-07-2024 Miscellaneous Notes Formattin g of this note might be different from the original. Annabella, I just received a phone call from the pt, she was taking the medicine that you prescribed yesterday.. but the [facility] (sorry for the name) told her to stop taking that and that [facility]. They told [...] if you would call in the paxlovid. [facility] in [place], [place]. Im sending this *and* calling you, just to be safe. I called the pt to tell her what you said about sending the rx later tonight, because you are in a conference in [place]. And that she will have to pick it up from the pharmacy tomorrow morning. I had to leave her a vm with the information. documented in this encounter [facility] 10-07-2024 History of Presen t illness Narrative Video Visit via Real-time Synchronous Audiovisual Provider Location: [facility] AT [place] [id number] [facility] [id number] Patient Location: Patient's home Patient Location Crime Specialist: None Video Visit Consent Statement: I discussed [...] that there are some limitations compared to cupm-ch-whry evaluations. We elected to proceed. REASON FOR [...] anatomic survey at 20 weeks' gestation, through M Serial growth assessment q4-6 weeks following anatomic [...] 40mg daily) during hospitalization Follow up in [facility] already scheduled DISPOSITION: At this point the patient is in complete care of her fiber technician. Patient does have ultrasound and office visit scheduled with us. Thank you for allowing me to participate in the care of Maximilian Cortes. If there any questions please do not hesitate to contact us. Berna Daniel MD Maternal- Medicine [facility] [address] [place] [address] [facility], the CDC, and other organizations representing maternal and public health professionals recommend that , , and lactating people and those considering receive the COVID-19 vaccination. Vaccination is the best method to reduce maternal and complications of SARS-CoV-2 infection. This document was created with [employer] technology. Though I make every effort to review the dictation as it is transcribed, on occasion the spoken word can be misinterpreted by the technology leading to inappropriate words, phrases, or sentences. This note is addressed to the requesting provider as a consultation for clinical guidance. Specific medical abbreviations are occasionally used and those are generally approved by the [place]?Board of?Obstetrics and?Gynecology?as well as?Kayla s abbreviations. The above plan of care was based solely on the diagnoses for which a consultation was requested. ?More frequent testing may be indicated based on her other medical/obstetrical conditions. The management of other or medical conditions is beyond the scope of requested consultation and will continue to be followed by the primary fiber technician or primary care provider. Note to patient: [...] procedures Referring and communicating with other health childcare center administrator (not separately reported) Documenting clinical information in the electronic or other health record documented in this encounter [facility] 10-06-2024 History of Presen t illness Narrative Patient went to urgent care and then ER yesterday as she was not feeling well. She went to [facility] ER and was diagnosed with COVID, her has flu A. Advised patient as she is to continue baby ASA, she does not want Paxlovid but she will take a Zpak and steroid. RX sent to [facility] in [place]. documented in this encounter [facility] 10-05-2024 History of Presen t illness Narrative Subjective: Patient ID: Maximilian Cortes is a 24 y.o. female. Chief Complaint Patient presents with Cough Cough, shortness of breath, started today. Currently 6 months . Patient presents with low-grade fever, stuffy nose/sore throat, cough/shortness for breath, chest pain, nausea/constipation, dizziness that started today. Patient is currently 6 months and follows with [facility] planning to deliver at [place]. Patient states that she has having a high-risk and is due to see [facility] in 2 weeks due to uncontrolled thyroid [...] Patient is agreeable to being seen at [facility] ER. Report was called to Nancy LORENZO. Patient left facility with some shortness of breath, tachycardia but otherwise no acute distress with life sustaining vitals. Labs for this visit: Maximilian was seen today for cough. Diagnoses and all orders for this visit: Tachycardia - [facility] [place], [place]; Future Shortness of breath - [facility] [place] [place]; Future Chest pain, unspecified type - [facility] [place] [place]; Future No orders of the defined [...] [facility] 10/07/24 0804 documented in this encounter [facility] 10-05-2024 Miscellaneous Notes Formattin g of this note might be different from the original. OB office (LEANNE) called regarding patients thyroid levels and stating her labs have resulted and levels have increased and that she faxed over her results, will be on the look out for fax. documented in this encounter [facility] 10-05-2024 Telephone encount er Note OB office (LEANNE) called regarding patients thyroid levels and stating her labs have resulted and levels have increased and that she faxed over her results, will be on the look out for fax. [facility] 09-28-2024 History of Presen t [...] 1 SAB 2019 Her is complicated by: hypothyroidism The [...] first , second trimester Hypothyroidism, unspecified type ([facility]) - TSH W/REFLEX TO FT4; Future Educated patient on plan of care in the future. Due to her thyroid we will do increased surveillance testing with NSTs and BPPs and growths. PVU and I will also wait for MFM recommendations to make sure there is no change in the plan of care. Continue vitamin. Labs reviewed. Rhogam GTT at 28 weeks Follow up in 2 weeks for a routine visit. documented in this encounter [facility] 08-31-2024 History of Presen t [...] regarding thyroid and plan of care with [facility]. 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 She also [place] and her cousin lives in another trailer there and her and her 2 kids have tested positive for lead. She is interested in having that testing done. She does not currently have insurance and wants to wait until she does have insurance. She is scheduled for anatomy scan 09/16/24 at [facility] office. She has stated she does not want to meet a school bus attendant or have further testing done on the baby. She states they wanted that due to family history of autism and she states it won't change the outcome so she mccarty not want any of it done. I did advise her to discuss with [facility]. We kip did discuss the testing [...] 25 mg daily Continue baby ASA that MFM started her on Continue thyroid medication 125 mcg daily. Continue vitamin. Labs reviewed. Rhogam GTT . Follow up in 2 weeks for a routine visit. documented in this encounter [facility] 08-22-2024 Telephone encount er Note Jac, my name is DIVYA Snell. I am calling to speak with Jen. Means nurse oral if she is in office. I just have some questions about an upcoming appointment. If you could please give me a call back at the earliest convenience my phone. [phone]. Thank you. [facility] 08-22-2024 Miscellaneous Notes Formattin g of this note might be different from the original. Hi, my name is DIVYA Snell. I am calling to speak with Jen. Measn nurse oral if she is in office. I just have some questions about an upcoming appointment. If you could please give me a call back at the earliest convenience my phone. [phone]. Thank you. documented in this encounter [facility] 08-22-2024 Miscellaneous Notes Formattin g of this note might be different from the original. Left message for patient regarding Genetic Counseling visit today . Returned phone call from patient stating unsur if insurance to cover video visit is active yet or not. Patient to check with insurance company and will reschedule. documented in this encounter [facility] 08-22-2024 Telephone encount er Note Left message for patient regarding Genetic Counseling visit today . [facility] 08-22-2024 Telephone encount er Note Returned phone call from patient stating unsur if insurance to cover video visit is active yet or not. Patient to check with insurance company and will reschedule. [facility] 08-02-2024 History of Presen t illness Narrative Video Visit via Real-time Synchronous Audiovisual Provider Location: [facility] AT [address] [id number] Patient Location: Patient's home Patient Location Crime Specialist: None Video Visit Consent Statement: I discussed [...] that there are some limitations compared to tviq-lb-oxng evaluations. We elected to proceed. REASON FOR [...] slightly below normal cognitive function. Updating the lodging facilities attendant of this diagnosis at the time of [...] 40mg daily) during hospitalization Follow up in [facility] already scheduled DISPOSITION: At this point the patient is in complete care of her fiber technician. Patient does have ultrasound and office visit scheduled with us. Thank you for allowing me to participate in the care of Maximilian Cortes. If there any questions please do not hesitate to contact us. Berna Daniel MD Maternal- Medicine [facility] [address] [place] [address] [facility], the CDC, and other organizations representing maternal and public health professionals recommend that , , and lactating people and those considering receive the COVID-19 vaccination. Vaccination is the best method to reduce maternal and complications of SARS-CoV-2 infection. This document was created with [employer] technology. Though I make every effort to review the dictation as it is transcribed, on occasion the spoken word can be misinterpreted by the technology leading to inappropriate words, phrases, or sentences. This note is addressed to the requesting provider as a consultation for clinical guidance. Specific medical abbreviations are occasionally used and those are generally approved by the [place]?Board of?Obstetrics and?Gynecology?as well as?Kayla manuel abbreviations. The above plan of care was based solely on the diagnoses for which a consultation was requested. ?More frequent testing may be indicated based on her other medical/obstetrical conditions. The management of other or medical conditions is beyond the scope of requested consultation and will continue to be followed by the primary fiber technician or primary care provider. Note to patient: [...] procedures Referring and communicating with other health childcare center administrator (not separately reported) Documenting clinical information in the electronic or other health record documented in this encounter [facility] 07-27-2024 History of Presen t illness Narrative [...] Her is complicated by: hypothyroid, sent to [facility], patient does not have a PCP [...] Rhogam GTT will do early as per [facility] recommnedations. Patient has hypothyroid, no PCP and is overweight. As per MFM they would like her gtt to be done at 13-15 weeks despite a normal A1c. Patient will come next week for glucose testing. Follow up in 2 weeks for a routine visit. documented in this encounter [facility] 07-22-2024 History of Presen t illness Narrative Patient called and updated on repeat thyroid function, persistently elevated TSH 14.8. Patient informed to discontinue levothyroxine 100 mcg daily, increased to levothyroxine 137 mcg daily. Prescription sent to pharmacy. Repeat TSH ordered in 3 weeks at new dose. Patient also informed of the benefits of baby aspirin. Berna Daniel [place] [address] documented in this encounter [facility] 07-22-2024 History of Presen t illness Narrative Blood drawn by lab for cell-free DNA testings and carrier testing . Patient tolerated well. documented in this encounter [facility] 07-22-2024 History of Presen t [...] TESTS AND ULTRASOUND REPORTS: Referral records and [facility] chart were reviewed Pertinent Ultrasound findings [...] I offered to refer her to a real estate underwriter to assist with dietary modifications. Due to [...] 40mg daily) during hospitalization Follow up in [facility] scheduled in 12 weeks DISPOSITION: At this point the patient is in complete care of her fiber technician. Patient does have ultrasound and office visit scheduled with us. Thank you for allowing me to participate in the care of Maximilian Cortes. If there any questions please do not hesitate to contact us. Berna Daniel MD Maternal- Medicine [facility] [address] [place] [address] [facility], the CDC, and other organizations representing maternal and public health professionals recommend that , , and lactating people and those considering receive the COVID-19 vaccination. Vaccination is the best method to reduce maternal and complications of SARS-CoV-2 infection. This document was created with [employer] technology. Though I make every effort to review the dictation as it is transcribed, on occasion the spoken word can be misinterpreted by the technology leading to inappropriate words, phrases, or sentences. This note is addressed to the requesting provider as a consultation for clinical guidance. Specific medical abbreviations are occasionally used and those are generally approved by the [place]?Board of?Obstetrics and?Gynecology?as well as?Kayla manuel abbreviations. The above plan of care was based solely on the diagnoses for which a consultation was requested. ?More frequent testing may be indicated based on her other medical/obstetrical conditions. The management of other or medical conditions is beyond the scope of requested consultation and will continue to be followed by the primary fiber technician or primary care provider. Note to patient: [...] yet Have you been seen here at [facility] in a previous ?no Recent ER visits or hospitalizations? No Bring blood sugar log or meter with you today? (Please bring them with you for every visit at [facility]) N/a Flu vaccine (Jun-October)? No Any concerns that you would like me to mention to the provider today? No documented in this encounter [facility] 06-30-2024 History of Presen t illness Narrative [...] Current 1 2019 Her is complicated by: elevated thyroid [...] and when she went to [facility] dept, they started her on the medication [...] a routine visit. documented in this encounter [facility] 06-15-2024 History of Presen t illness Narrative midSubjective Maximilian Cortes is a 24 y.o. at 7w4d with a working estimated date of delivery of 01/28/2025, by Last Menstrual Period who presents for an initial visit. This is unplanned. 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 PVU and all questions answered. We did discuss place of delivery. Patient should plan to go to [facility] for all services unless an emergency and they need to go to the closest ER. We can make other arrangements possibly if patient would like to deliver at another facility but I did explain I am now at [place] 100% of the time and would like to do all deliveries there. documented in this encounter [facility] 06-14-2024 Telephone encount er Note Pt left message on machine to r/s her appointment. She hadn't heard from anyone and would like a callback, [facility] 06-14-2024 Miscellaneous Notes Formattin g of this note might be different from the original. Pt left message on machine to r/s her appointment. She hadn't heard from anyone and would like a callback, documented in this encounter [facility] 03-06-2024 History of Presen t [...] shut left eye. He has been taking emiw-mod-dklxqqa NyQuil and DayQuil for symptoms without much [...] Medical History: Diagnosis Date Bipolar 1 disorder ([facility]) Depression Iron deficiency anemia Obesity PCOS (polycystic [...] Healthcare maintenance - Ambulatory Referral to [facility] Primary Care; Future -diagnosis uri with cough and unilateral conjunctivitis -conservative treatment discussed. Rdtw-izx-kpvhpat Tylenol or Motrin p.r.n. pain fever greater than 100.4 -warm saltwater gargle rinses as needed sore throat -increase fluids, advance diet as tolerated, rest [facility], flonase prn -use polytrim eye gtts as [...] [place] 03/06/24 0940 documented in this encounter [facility] Evaluation note Diagnosis Acquired hypothyroidism (CMS/HCC)- Primary Unspecified hypothyroidism Subchorionic hemorrhage of placenta in first trimester 9 weeks gestation of [facility]* Diagnosis Screening for diabetes mellitus documented [facility]* Diagnosis Abnormal genetic test during - Primary Hypothyroidism affecting in second trimester 14 weeks gestation of [facility] Diagnosis Amenorrhea Absence of menstruation examination or test, positive result Hypothyroidism, unspecified type (CMS/HCC) documented in this encounter [facility]* Diagnosis History of depression- Primary Personal history of other mental disorder Acquired hypothyroidism (CMS/HCC) Unspecified hypothyroidism Encounter for care of first , second trimester documented [facility]* Diagnosis Hypothyroidism affecting in first trimester- Primary PCOS (polycystic ovarian syndrome) Polycystic ovaries History of insulin resistance Family history of autism Abnormal genetic test during Hypothyroidism affecting in second trimester documented [facility] this [facility] Diagnosis Upper respiratory infection with cough and congestion- Primary Acute bacterial conjunctivitis of left eye Healthcare maintenance documented in this encounter [facility]* Diagnosis Hypothyroidism affecting in first trimester- Primary 12 weeks gestation of PCOS (polycystic ovarian syndrome) Polycystic ovaries History of insulin resistance Family history of autism documented in this encounter [facility]* Diagnosis Hypothyroidism affecting in first trimester- Primary documented in this encounter [facility]* Diagnosis History of depression- Primary Personal history of other mental disorder Encounter for care of first , second trimester Hypothyroidism, unspecified type (CMS/HCC) documented [facility]* Diagnosis COVID- Primary Encounter for care of first , second trimester documented [facility]* Diagnosis Tachycardia- Primary Unspecified tachycardia Shortness of breath Chest pain, unspecified type documented in this encounter [facility]* Diagnosis Elevated BP without diagnosis of hypertension- Primary 23 weeks gestation of COVID-19 affecting in second trimester At increased risk for exposure to influenza virus Hypothyroidism affecting in second trimester documented in this encounter [facility]* Diagnosis Hypothyroidism affecting in second trimester- Primary 27 weeks gestation of Elevated BP without diagnosis of hypertension documented in this encounter [facility]* Diagnosis Other constipation- Primary Encounter for care of first , third trimester Hypothyroidism, unspecified type (CMS/HCC) documented [facility]* Diagnosis Polyhydramnios affecting in third trimester- Primary Constipation, unspecified constipation type 30 weeks gestation of Hypothyroidism affecting in third trimester Elevated BP without diagnosis of hypertension documented in this encounter [facility]* Diagnosis Polyhydramnios affecting in third trimester- Primary Hypothyroidism affecting in third trimester Elevated BP without diagnosis of hypertension History of insulin resistance Family history of autism documented in this encounter [facility]* Diagnosis Hypothyroidism affecting in third trimester- Primary documented in this encounter [facility]* Diagnosis Encounter for care of first , third trimester- Primary Hypothyroidism, unspecified type (CMS/HCC) Heartburn during in second trimester History of depression Personal history of other mental disorder Acquired hypothyroidism (CMS/HCC) Unspecified hypothyroidism [facility]* Diagnosis Encounter for care of first , third trimester- Primary Heartburn during in second trimester Hypothyroidism, unspecified type (CMS/HCC) History of anxiety History of depression Personal history of other mental disorder [facility]* Diagnosis 33 weeks gestation of Hypothyroidism, unspecified type documented in this encounter [facility]* Diagnosis Encounter for care [...] specified hypothyroidism- Primary [facility] Diagnosis Encounter for care of [...] this encounter [facility]* Diagnosis Acquired hypothyroidism- Primary Unspecified hypothyroidism History of depression Personal history of other mental disorder History of anxiety Encounter for care of first , third trimester (HHS-HCC) documented [facility]* Diagnosis Hypothyroidism affecting in third trimester- Primary Other specified hypothyroidism [facility] filedocumented in this [facility] filedocumented in this encounter [facility]Not on filedocumented in this encounter [facility]* Attachments The following attachments cannot be sent through Care Everywhere. * Viral Upper Respiratory Infection Discharge Instructions, Adult (Pakistani) documented in [facility] System[facility]ructionsNot on file documented in this encounterPro[facility] SystemInstructionsNot on file documented in this encounterPro[facility] SystemInstructionsNot on file documented in this encounterPro[facility] SystemInstructionsNot on file documented in this encounterPro[facility]ica Health SystemInstructionsNot on file documented in this encounterPro[facility]ica [facility] SystemInstructionsNot on file documented in this encounterPro[facility] SystemInstructionsNot on file documented in this encounterPro[facility] SystemInstructionsNot on file documented in this encounterPro[facility]ica [facility] SystemInstructionsNot on file documented in this encounterProMedica [facility] SystemInstructions* Attachments The following attachments cannot be sent through Care Everywhere. * Preeclampsia (Pakistani) documented in [facility] encounterPro[facility] SystemInstructionsNot on file documented in [facility] SystemInstructionsNot on file documented in this encounterProKn[facility] SystemInstructionsNot on file documented in this encounterProKn[facility] SystemReason for referral (narrative)* Consultation (Routine) - Pending Review Specialty Diagnoses / Procedures Referred By Sherif hill Referred To Contact Diagnoses Healthcare maintenance Guy Easley, BANDAR-EXAMINING OFFICER [address], [address] [address] Referral ID Status Reason Start Date Expiration Date V isits Requested Visits Authorized [id number] Pending Review 03/06/2024 03/06/2025 [address] [facility] Summary Purpose Family History No [...] Instructions * Patient Instructions - Makenzie Valle PA-C - 07/29/2018 11:07 AM EST Formatting of [...] Log into your personal health record on [email or web address] and enter E907 in the Education box to learn more about Abdominal Pain: Care Instructions. Current as of: June 29, 2017 Content Version: 11.6 0515-5649 [employer]. Care instructions adapted under license by your healthcare professional. If you have questions about a medical condition or this instruction, always ask your healthcare professional. [employer] disclaims any warranty or liability for your [...] Log into your personal health record on [email or web address] and enter H591 in the Education box to learn more about Nausea and Vomiting: Care Instructions. Current as of: June 29, 2017 Content Version: [id number] [employer]. Care instructions adapted under license by your healthcare professional. If you have questions about a medical condition or this instruction, always ask your healthcare professional. [employer] disclaims any warranty or liability for your [...] section and content) DATE CREATED AUTHOR 07/09/2018 [facility] DATE CREATED AUTHOR AUTHOR'S ORGANIZ ATION 08/01/2018 [facility] DATE CREATED AUTHOR AUTHOR'S ORGANIZ ATION 08/03/2018 [facility] DATE CREATED AUTHOR AUTHOR'S ORGANIZ ATION 09/12/2018 [facility] DATE CREATED AUTHOR AUTHOR'S ORGANIZ ATION 11/28/2024 [facility] DATE CREATED AUTHOR AUTHOR'S ORGANIZ ATION 12/16/2024 [facility] DATE CREATED AUTHOR AUTHOR'S ORGANIZ ATION 01/08/2025 [facility] DATE CREATED AUTHOR AUTHOR'S ORGANIZ ATION 01/25/2025 [facility] DATE CREATED AUTHOR AUTHOR'S ORGANIZ ATION 01/26/2025 [facility] Reason for Visit (unrecogniz ed section and content) Reason Comments Bloated For almost 2weeks , I began w/shooting pains and then achy breast pain. Then I noticed abdominla bloating and cramps... I thought it was just my period. I got my Zahida IUD out on . My last period was [id number]. Yesterday and day before, I had to [...] Comments mfm consult Reason Comments uncontrolled hypothyroidism Reason Comments Hypothyroidism Specialty Diagnoses / Procedures Referred By Contac t Referred To Contact Endocrinology Diagnoses Other specified hypothyroidism Frank Gao MD [address], [address] [place] [address] Phone: tel: fax: Makenzie Anguiano MD [address] [facility] [address] [address] Phone: tel:[phone] fax:[phone] Referral ID Status Reason Start Date Expiration Date Visits Requested Visits Authorized [id number] Pending Review Specialty Services Required 12/13/2024 12/13/2025 1 1 Care Teams (unrecognized sec tion and content) Corporate Event Planner Relationship Specialty Start Date End Date Aleyda Cleary DO PCP - General Family Medicine 03/07/24 Corporate Event Planner Relationship Specialty Start Date End Date Aleyda Cleary DO PCP - General Family Medicine 03/07/24 Corporate Event Planner Relationship Specialty Start Date End Date Unallocated, Yemi Phillips MD [address] [place] [id number] PCP - General Family Medicine 08/31/24 Corporate Event Planner Relationship Specialty Start Date End Date Unallocated, Yemi Phillips MD On license of [facility] [place] [address] PCP - General Family Medicine 08/31/24 Corporate Event Planner Relationship Specialty Start Date End Date Aleyda Cleary DO PCP - General Family Medicine 03/07/24 Corporate Event Planner Relationship Specialty Start Date End Date No Pcp, [place] [address] PCP - General Family Medicine 11/14/21 Corporate Event Planner Relationship Specialty Start Date End Date Aleyda Cleary DO PCP - General Family Medicine 03/07/24 Corporate Event Planner Relationship Specialty Start Date End Date Aleyda Cleary DO PCP - General Family Medicine 03/07/24 Corporate Event Planner Relationship Specialty Start Date End Date Aleyda Cleary DO PCP - General Family Medicine 03/07/24 Corporate Event Planner Relationship Specialty Start Date End Date Unallocated, Yemi Phillips MD [address] [place] [address] [facility] [place] [address] PCP - General Family Medicine 08/31/24 Corporate Event Planner Relationship Specialty Start Date End Date Unallocated, Yemi Phillips MD On license of [facility] [address] [facility] [place] [address] PCP - General Family Medicine 08/31/24 Corporate Event Planner Relationship Specialty Start Date End Date Unallocated, Yemi Phillips MD On license of [facility] [address] [facility] [place] [address] PCP - General Family Medicine 08/31/24 Corporate Event Planner Relationship Specialty Start Date End Date Unallocated, Yemi Phillips MD On license of [facility] [address] [facility] [place] [address] PCP - General Family Medicine 08/31/24 Corporate Event Planner Relationship Specialty Start Date End Date Aleyda Cleary DO PCP - General Family Medicine 03/07/24 Corporate Event Planner Relationship Specialty Start Date End Date Aleyda Cleary DO PCP - General Family Medicine 03/07/24 Corporate Event Planner Relationship Specialty Start Date End Date Aleyda Cleary DO PCP - General Family Medicine 03/07/24 Corporate Event Planner Relationship Specialty Start Date End Date Unallocated, Yemi Phillips MD [address] [place] [address] PCP - General Family Medicine 08/31/24 Corporate Event Planner Relationship Specialty Start Date End Date Unallocated, Noms MD Jacqueline [address] [place] [address] PCP - General Family Medicine 08/31/24 Corporate Event Planner Relationship Specialty Start Date End Date Aleyda Cleary DO PCP - General Family Medicine 03/07/24 Corporate Event Planner Relationship Specialty Start Date End Date Aleyda Cleary DO PCP - General Family Medicine 03/07/24 Corporate Event Planner Relationship Specialty Start Date End Date Aleyda Cleary DO PCP - General Family Medicine 03/07/24 Corporate Event Planner Relationship Specialty Start Date End Date Aleyda Cleary DO PCP - General Family Medicine 03/07/24 Corporate Event Planner Relationship Specialty Start Date End Date Unallocated, Yemi Phillips MD [address] [place] [address] PCP - General Family Medicine 08/31/24 Corporate Event Planner Relationship Specialty Start Date End Date Unallocated, Yemi Phillips MD [address] [place] [address] PCP - General Family Medicine 08/31/24 Corporate Event Planner Relationship Specialty Start Date End Date Aleyda Cleary DO PCP - General Family Medicine 03/07/24 Corporate Event Planner Relationship Specialty Start Date End Date Unallocated, Yemi Phillips MD [facility] [address] [facility] [address] PCP - General Family Medicine 08/31/24 Corporate Event Planner Relationship Specialty Start Date End Date Unallocated, Yemi Phillips MD [facility] [address] [facility] [address] PCP - General Family Medicine 08/31/24 Corporate Event Planner Relationship Specialty Start Date End Date Aleyda Cleary DO PCP - General Family Medicine 03/07/24 Corporate Event Planner Relationship Specialty Start Date End Date Unallocated, Yemi Phillips MD [facility] [address] [facility] [address] PCP - General Family Medicine 08/31/24 Corporate Event Planner Relationship Specialty Start Date End Date Aleyda Cleary DO PCP - General Family Medicine 03/07/24 Corporate Event Planner Relationship Specialty Start Date End Date Unallocated, Yemi Phillips MD [facility] [address] [facility] [address] PCP - General Family Medicine 08/31/24 Corporate Event Planner Relationship Specialty Start Date End Date Unallocated, Noms Jacqueline, [place] [address] PCP - General Family Medicine 08/31/24 Corporate Event Planner Relationship Specialty Start Date End Date Aleyda Cleary DO PCP - General Family Medicine 03/07/24 FOR RECORDS PERTAINING TO PATIENTS WHO ARE [...] BE BASED ON THE PRIMARY CLINICAL RECORDS. [facility] [employer] [facility]. provides no warranty or guarantee of the accuracy or completeness of information in this document.
[2025-01-27] MEDS: LACTATED RINGER'S SOLUTION 1,000 ML 1000 ML IV (05:50)
[2025-01-27 06:25] LABS: Basophils Percent Auto 0.2 % (0.2-2.0); Eosinophils Absolute Auto 0.1 10^3/uL (0.0-0.7); Eosinophils Percent Auto 0.6 % (0.9-7.0); Hematocrit 29.6 % (36.0-48.0); Hemoglobin 9.9 g/dL (12.0-16.0); Immature Granulocytes Abs Auto 0.04 10^3/uL (0.00-0.03); Immature Granulocytes Pct Auto 0.4 % (0.0-0.5); Lymphocytes Percent Auto 27.8 % (20.5-60.0); Mean Corpuscular HGB Conc 33.4 g/dL (29.9-35.2); Mean Corpuscular Volume 95.8 fL (81.0-99.0); Mean Platelet Volume 11.5 fL (9.5-13.5); Monocytes Absolute Auto 0.8 10^3/uL (0.3-0.8); Monocytes Percent Auto 7.5 % (1.7-12.0); Neutrophils Absolute Auto 6.8 10^3/uL (1.4-6.5); Neutrophils Percent Auto 63.5 % (43.0-75.0); Platelet Count 216 10^3/uL (150-450); Red Blood Count 3.09 10^6/uL (4.20-5.40); Red Cell Distribution Width 14.8 % (11.0-15.0); White Blood Count 10.8 10^3/uL (4.0-11.0)
[2025-01-27] MEDS: LACTATED RINGER'S SOLUTION 1,000 ML 125 ML IV (06:35)
[2025-01-27 06:36] LABS: Amphetamine Screen Urine NEGATIVE (NEGATIVE); Barbiturates Screen Urine NEGATIVE (NEGATIVE); Benzodiazepines Screen Urine NEGATIVE (NEGATIVE); Buprenorphine Screen Urine NEGATIVE (NEGATIVE); Cannabinoid Screen Urine NEGATIVE (NEGATIVE); Cocaine Screen Urine NEGATIVE (NEGATIVE); Methadone Screen Urine NEGATIVE (NEGATIVE); Methamphetamines Screen Urine NEGATIVE (NEGATIVE); Opiate Screen Urine NEGATIVE (NEGATIVE); Oxycodone Screen Urine NEGATIVE (NEGATIVE); Phencyclidine Screen Urine NEGATIVE (NEGATIVE); Tricyclic Antidepressant Urine NEGATIVE (NEGATIVE)
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
[2025-01-27] MEDS: CITRIC ACID/SODIUM CITRATE 30 ML SOLUTION ORACIT SHOHL'S SOLN PO (07:48)
[2025-01-27] MEDS: FAMOTIDINE/PF 20 MG/2 ML VIAL IV (07:48)
[2025-01-27] MEDS: METOCLOPRAMIDE HCL 10 MG/2 ML VIAL IVP (07:49)
[2025-01-27] MEDS: CEFAZOLIN SODIUM/DEXTROSE,ISO 2 GM/50 ML PIGGYBACK IV ×2 (07:49→14:55)
[2025-01-27] MEDS: LACTATED RINGER'S SOLUTION 1,000 ML 50 ML IV ×2 (08:25→08:39)
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
--- NOTE | 2025-01-27 08:42 | P.OBPRC_ITS ---
Procedure Pre-op/Post-op diagnoses: Pre-Op/Post-Op Diagnoses Operation Date: 01/27/25 07:40 <No data on this case meets the specified criteria> Procedure: Procedures Operation Date: 01/27/25 07:40 Actual Procedure Side Surgeon p (Annabella Allan Patient) Not Applicable Magdy Thakur DO Welder Apprentice Arc: HAILEE ALLAN Estimated blood loss (mL): 575 Disposition: PACU Anesthesia type: Spinal
[2025-01-27] MEDS: BUPIVACAINE LIPOSOME/PF 266 MG/20 ML VIAL INJ (09:05)
--- NOTE | 2025-01-27 09:10 | PM.EN ---
Event Note Event Note: Behavioral Health Therapist Note: I first assisted Dr Thakur with primary section as directed. I closed the SQ layer independently with 3-0 vicryl without difficulty. I then closed the incision with a 4-0 vicryl without difficulty. Patient tolerated procedure well. Hemostasis noted at completion of closure.
[2025-01-27] MEDS: ONDANSETRON PF 4 MG/2 ML VIAL IV (12:03)
--- NOTE | 2025-01-27 14:14 | RESP.RT ---
Done per nursing
[2025-01-27] MEDS: PROMETHAZINE HCL 25 MG in 0.9 % SODIUM CHLORIDE 50 ML 204 MG IV (15:23)
--- NOTE | 2025-01-27 15:45 | CM.NOTE ---
Received consult regarding financial concerns and mental health concerns. 01/27/25 15:30 Spoke to Maximilian about financial concerns and any needs for baby. She states she already reached out to [facility] in [place] and they helped her and she also received many things through baby showers as well and she said she has everything she needs at present for baby. She said her main financial concerns were her bills she has here at the hospital at present. I asked if she would like to speak to a financial counselor here at the hospital and she would like to speak to them. I also spoke to Maximilian in regards to counseling for her depression and she said she already has a televisit scheduled next week and sees a counselor through a program that is through her employer. 01/27/25 15:45 Called Reyna,the financial counselor, and she will reach out to Maximilian and discuss Maximilian's financial concerns.
[2025-01-27] MEDS: KETOROLAC TROMETHAMINE 30 MG/ML VIAL IVP (17:48)
[2025-01-27] MEDS: ACETAMINOPHEN 500 MG TABLET 1000 MG PO (18:58)
[2025-01-27] MEDS: ENOXAPARIN SODIUM 40 MG/0.4 ML SYRINGE SUBQ (20:54)
[2025-01-28] MEDS: KETOROLAC TROMETHAMINE 30 MG/ML VIAL IVP ×2 (00:26→05:55)
[2025-01-28 01:51] VITALS: BP 122/64; TEMP 36.9; O2SAT 97
[2025-01-28] MEDS: ACETAMINOPHEN 500 MG TABLET 1000 MG PO ×3 (01:55→18:12)
[2025-01-28 06:02] VITALS: BP 108/63; TEMP 36.7; O2SAT 98
[2025-01-28 06:44] LABS: Basophils Percent Auto 0.1 % (0.2-2.0); Eosinophils Percent Auto 0.2 % (0.9-7.0); Hemoglobin 7.4 g/dL (12.0-16.0); Immature Granulocytes Abs Auto 0.06 10^3/uL (0.00-0.03); Immature Granulocytes Pct Auto 0.4 % (0.0-0.5); Lymphocytes Absolute Auto 3.5 10^3/uL (1.2-3.8); Lymphocytes Percent Auto 23.2 % (20.5-60.0); Mean Corpuscular HGB Conc 32.6 g/dL (29.9-35.2); Mean Corpuscular Hemoglobin 32.3 pg (26.7-34.0); Mean Corpuscular Volume 99.1 fL (81.0-99.0); Mean Platelet Volume 11.5 fL (9.5-13.5); Monocytes Percent Auto 6.8 % (1.7-12.0); Neutrophils Absolute Auto 10.4 10^3/uL (1.4-6.5); Neutrophils Percent Auto 69.3 % (43.0-75.0); Platelet Count 139 10^3/uL (150-450); Red Blood Count 2.29 10^6/uL (4.20-5.40); Red Cell Distribution Width 15.3 % (11.0-15.0); White Blood Count 15.1 10^3/uL (4.0-11.0)
[2025-01-28 06:48] LABS: Hematocrit 22.7 % (36.0-48.0)
[2025-01-28] MEDS: LEVOTHYROXINE SODIUM 100 MCG TABLET 200 MCG PO (07:54)
[2025-01-28] MEDS: IBUPROFEN 400 MG TABLET 800 MG PO ×2 (10:13→18:12)
[2025-01-28] MEDS: DOCUSATE SODIUM 100 MG CAPSULE PO ×2 (10:13→20:05)
[2025-01-28 10:17] VITALS: BP 114/63; PULSE 89; TEMP 36.7
--- NOTE | 2025-01-28 10:47 | PM.OBPN ---
OB - PN: Subj Subjective Patient comments: no complaints [place] status: doing well [place] feeding status: exclusively Exam Constitutional Vital Signs, click to edit/add: Last Vital Signs Temp 98.1 F 01/28/25 10:17 Pulse 89 01/28/25 10:17 Resp 20 01/28/25 10:17 BP 114/63 01/28/25 10:17 Pulse Ox 98 01/28/25 06:02 O2 Del Method Room Air 01/28/25 10:23 Documenting provider has reviewed patient's vital signs: yes Common normals: no apparent distress General appearance: cooperative Orientation/consciousness: Yes awake, Yes oriented to person, Yes oriented to place and Yes oriented to time HENMT Common normals: normocephalic Face and sinus: normal facial exam Eye Common normals: EOMs intact bilaterally General eye: normal appearance of both eyes Neck & C-Spine Common normals: full ROM General: normal visual inspection Lymph Lymphatic: no lymphadenopathy noted Chest Common normals: inspection of chest normal Respiratory Common normals: normal respiratory effort Effort & inspection: able to speak in complete sentences Auscultation: clear to auscultation bilaterally Cardio Common normals: regular rate and regular rhythm Rate: regular rate Rhythm: regular rhythm GI Common normals: Normal to inspection, nondistended, normoactive bowel sounds present Palpation: soft Percussion: normal to percussion Common normals: no CVA tenderness Back & Pelvis Common normals: no CVA tenderness Extremity Common normals: normal to inspection Neuro Common normals: oriented x3 Sensorium/orientation: awake, alert, oriented to person, oriented to place and oriented to time Psych Common normals: mental status grossly normal, thought process normal, cooperative, affect normal, speech normal, activity/motor behavior normal, denies hallucinations, denies homicidal ideation and denies suicidal ideation Appearance: well kempt Attitude: calm Speech: normal speech Thought process: normal thought process Thought content: normal thought content Results Labs Labs: Short CBC 01/28/25 Range/Units 06:24 WBC 15.1 H (4.0-11.0) 10^3/uL Hgb 7.4 L (12.0-16.0) g/dL Hct 22.7 L* (36.0-48.0) % Plt Count 139 L (150-450) 10^3/uL Urinary Catheter Management Urinary Catheter Management Urethral: Cath placed during this visit: yes Urethral indwelling: No Insertion date: 01/27/25 OB - PN: A/P Assessment and Plan (1) Term : (2) Delivery by elective section: Plan - day: 1 Plan: routine postop care Time Spent with Patient Time: Total time spent is greater than 50% in coordination of care (as documented) at patient's floor/unit and/or counseling patient: Total time spent with greater than 50% in coordination of care (as documented) at patient's floor/unit and/or counseling patient: less than 15 minutes
[2025-01-28] MEDS: RHO(D) IMMUNE GLOBULIN 1,500 UNIT SYRINGE 1500 UNIT IV (13:09)
[2025-01-28] MEDS: OXYCODONE HCL 5 MG TABLET PO ×2 (14:44→20:05)
[2025-01-28 14:47] VITALS: BP 113/73
[2025-01-28 16:58] VITALS: TEMP 36.2
[2025-01-28] MEDS: ENOXAPARIN SODIUM 40 MG/0.4 ML SYRINGE SUBQ (20:04)
[2025-01-29 00:56] VITALS: BP 114/65; TEMP 36.4
[2025-01-29] MEDS: IBUPROFEN 400 MG TABLET 800 MG PO ×2 (03:23→15:37)
[2025-01-29] MEDS: ACETAMINOPHEN 500 MG TABLET 1000 MG PO ×2 (03:24→15:38)
[2025-01-29] MEDS: LEVOTHYROXINE SODIUM 100 MCG TABLET 200 MCG PO (06:36)
[2025-01-29] MEDS: DOCUSATE SODIUM 100 MG CAPSULE PO (08:57)
[2025-01-29 09:00] VITALS: BP 108/71
[2025-01-29 09:03] VITALS: TEMP 36.4
[2025-01-29] MEDS: OXYCODONE HCL 5 MG TABLET PO ×2 (09:39→15:38)
--- NOTE | 2025-01-29 10:43 | P.OBPN_ITS ---
OB - PN: Subj Subjective Patient comments: no complaints and pain well controlled [place] status: doing well Exam Constitutional Vital Signs, click to edit/add: Last Vital Signs Temp 97.5 F L 01/29/25 09:03 Pulse 89 01/28/25 10:17 Resp 16 01/29/25 09:03 BP 108/71 01/29/25 09:00 Pulse Ox 98 01/28/25 06:02 O2 Del Method Room Air 01/29/25 09:04 Documenting provider has reviewed patient's vital signs: yes Common normals: no apparent distress Respiratory Common normals: normal respiratory effort and clear to auscultation bilaterally Cardio Common normals: regular rate and regular rhythm GI Common normals: Normal to inspection, nondistended, normoactive bowel sounds present Extremity Common normals: no clubbing, cyanosis or edema and no calf tenderness Urinary Catheter Management Urinary Catheter Management Urethral: Cath placed during this visit: yes Urethral indwelling: No Insertion date: 01/27/25 OB - PN: A/P Assessment and Plan (1) Term : (2) Delivery by elective section: Plan - day: 2 Plan: routine postop care, discharge home and other (fu 1wk) Time Spent with Patient Time: Total time spent is greater than 50% in coordination of care (as documented) at patient's floor/unit and/or counseling patient: Total time spent with greater than 50% in coordination of care (as documented) at patient's floor/unit and/or counseling patient: less than 15 minutes
== END 2025-01-29 16:00 | disposition home or self-care (01) | DRG 788 ==
PROVIDERS: Admitting Provider Midwife; Visit Provider Obstetrics & Gynecology
PROC: 10D00Z1 Extraction of Products of Conception, Low, Open Approach (ICD-10-PCS; CPT 59514; principal; 2025-01-27 07:40)
DX: O82 Encounter for cesarean delivery without indication (principal); O99.284 Endocrine, nutritional and metabolic diseases complicating childbirth; E03.9 Hypothyroidism, unspecified; Z3A.39 39 weeks gestation of pregnancy; Z37.0 Single live birth; Z91.410 Personal history of adult physical and sexual abuse; O26.893 Other specified pregnancy related conditions, third trimester; Z67.41 Type O blood, Rh negative; Z79.890 Hormone replacement therapy; O99.334 Smoking (tobacco) complicating childbirth; F17.290 Nicotine dependence, other tobacco product, uncomplicated
CPT/HCPCS: 36415; 59050; 64488; 80307; 85025; 85461; 86850; 86900; 86901; 94667; J0131; J0665; J0690; J1100; J1650; J1885; J2274; J2371; J2405; J2550; J2590; J2765; J2791; J3490